=== PATIENT | female | born 1960 | race Caucasian/White ===

== ENCOUNTER → 2018-05-24 10:06 | Outpatient (CLI) | payer OTHER, SELFPAY ==
[2018-05-20 13:12] VITALS: BMI 24.4
--- NOTE | 2018-05-24 10:10 | BI_ITS ---
MAMMOGRAPHY - BILATERAL SCREENING REASON FOR EXAM: Female, 57 years old. Routine annual screening examination. PERTINENT HISTORY: Non-contributory. TECHNIQUE: Digital bilateral breast anthony (3D mammographic acquisition) in the CC and MLO projections. 2-D mediolateral oblique (MLO) and craniocaudad (CC) views of both breasts were obtained. CAD: Full Field Digital Mammography with Computer Added Detection was performed. COMPARISON: Comparison is made with prior mammogram dated April 30, 2017 and April 23, 2016. FINDINGS: Breast Composition: The breasts are extremely dense, which lowers the sensitivity of mammography. There are no dominant masses or suspicious calcifications. No other significant abnormalities are identified. There has been no significant change since the prior study. BI/SCREENING MAMM (CAD), BILAT IMPRESSION: Stable bilateral screening mammogram. Yearly follow-up mammogram recommended. (A) ASSESSMENT CATEGORY: BIRADS Category 1: Negative. A letter regarding these results will be sent to the patient by the facility within 30 days. Approximately 10% of breast cancers are not detected by mammography. A normal mammogram should not delay biopsy of a clinically suspicious abnormality. [id number] Electronically Signed: Farhan Lindsey MD at 10:59 EST Tel [phone], Service support ,
--- OUTSIDE RECORDS SUMMARY | 2018-07-18 19:43 | XMS RPT_ITS ---
:1960 Author Organization OHIP Care Team Providers Name Role Phone Stacie Dewitt Attending Unavailable Jodee Little Referring Unavailable Stacie Dewitt Attending Unavailable Stacie Dewitt Referring Unavailable Jodee Little Primary Care Unavailable PROBLEMS PROBLEMS DATE TYPE CONDITION / CODE ATTENDING STATUS SOURCE 05/20/2018 Unknown Z01.419 - Encounter Stacie Dewitt Active [place] for gynecological [facility] examination [facility] (general) (routine) Repository without abnormal findings / Z01.419(ICD-10) PROCEDURES PROCEDURES No Procedure Records FoundRESULTS RESULTS SCREENING MAMM (CAD), Observed: 05/24/2018 Status: F Source: [facility] BILAT 10:10 AM [facility] REPOSITORY [facility] Imaging Services [address] [place] [id number] SCREENING MAMM (CAD), BILAT MR#: [id number] Acct: [id number] Name: KATARINA GUPTA Rep #: [id number] : 1960 F 57 From: Farhan Lindsey MD PCP: Jodee Little DO Status: REG CLI Study: SCREENING MAMM (CAD), BILAT Date of Exam: 05/24/18 Exam# [id number] Ordering Dr: Stacie Dewitt SCHOOL CLERK-C MAMMOGRAPHY - BILATERAL SCREENING REASON FOR EXAM: Female, 57 years old. Routine annual screening examination. PERTINENT HISTORY: Non-contributory. TECHNIQUE: Digital bilateral breast anthony (3D mammographic acquisition) in the CC and MLO projections. 2-D mediolateral oblique (MLO) and craniocaudad (CC) views of both breasts were obtained. CAD: Full Field Digital Mammography with Computer Added Detection was performed. COMPARISON: Comparison is made with prior mammogram dated April 30, 2017 and April 23, 2016. FINDINGS: Breast Composition: The breasts are extremely dense, which lowers the sensitivity of mammography. There are no dominant masses or suspicious calcifications. No other significant abnormalities are identified. There has been no significant change since the prior study. BI/SCREENING MAMM (CAD), BILAT IMPRESSION: Stable bilateral screening mammogram. Yearly follow-up mammogram recommended. (A) ASSESSMENT CATEGORY: BIRADS Category 1: Negative. A letter regarding these results will be sent to the patient by the facility within 30 days. Approximately 10% of breast cancers are not detected by mammography. A normal mammogram should not delay biopsy of a clinically suspicious abnormality. [id number] Electronically Signed: Farhan Lindsey MD at 10:59 EST Tel [phone], Service support , CC: JAI Dewitt; Jodee Little DO Slitting Machine Feeder: Signed DECALER OFFICE VISIT Observed: 05/20/2018 Status: F Source: [facility] REPORT 1:32 PM [facility] [place] [id number] [place] [address] OFFICE VISIT Date of Service: 05/20/18 MR#: [id number] Acct: [id number] Name: KATARINA GUPTA Rep #: [id number] : 1960 Provider: JAI Dewitt Age/Sex: 57/F Location: [facility] Status: Signed Intake Vital Signs05/20/18 Height 5 ft 4 in 05/20/18 Weight: 142 lb 4 oz 05/20/18 Body Mass Index (BMI) 24.4 05/20/18 Blood Pressure 124/80 H Intake Visit Reasons: est annual,last seen 04/30/2017 Health And Safety Coordinator Required: No Is patient in pain?: No Allergies No Known Allergies Allergy (Verified 05/20/18 13:13) Medications Buspirone HCl 7.5 mg PO BID 03/29/16 [History Confirmed 05/20/18] Levothyroxine [Synthroid] 75 mcg PO DAILY 03/29/16 [History Confirmed 05/20/18] Lorazepam [Ativan] 0.5 mg PO DAILY PRN PRN 03/29/16 [History Confirmed 05/20/18] Nebivolol HCl [Bystolic (Beta Marcela)] 2.5 mg PO DAILY 03/29/16 [History Confirmed 05/20/18] Is last menstrual period known: No Post menopausal: No Patient : No : No PFSH Medical History Hypothyroidism (Acute) Social History number of children: 2 current occupational status: employed current occupation: [employer] Smoking Status: Never smoker alcohol intake: current alcohol intake frequency: holidays/special occasions only substance use type: does not use seatbelt use: always do you feel safe at home: Yes additional social history: [employer] Pregancy History 4 Elective abortions Hx Para 2 Spontaneous abortions HPI est annual,last seen 04/30/2017: Details: KATARINA GUPTA is a 57 year old who presents for annual exam. Last PAP: 2017 History of abnormal PAP: no Last mammogram: scheduled 05/24/18 History of abnormal mammogram: negative aspiration Colon cancer screening: none Female Reproductive History Questions: Metorrhagia: No, Sexually active: Yes, Dyspareunia: No, PCB: No ROS Const Constitutional: Denies fatigue, weight gain or weight loss Cardio Card: Denies chest pain Resp Resp: Denies cough or shortness of breath with activity GI GI: Denies abdominal pain, constipation, change in stools, vomiting or bloating : Reports as per HPI; denies urinary frequency, pelvic pain, urinary urgency, vaginal discharge, vaginal itching, urinary incontinence or difficulty urinating Exam Const General: cooperative, healthy appearing, no acute distress, well developed Orientation: alert, oriented to person, oriented to place [facility] Head: normal to inspection Neck Neck: normal visual inspection Thyroid: thyroid normal Lymphatic: no lymphadenopathy noted Chest Breast inspection: normal inspection of the breasts, normal inspection of the axillae Breast palpation: normal palpation of the breasts, normal palpation of the axillae, no axillary lymphadenopathy Resp Effort AND Inspection: normal respiratory effort GI Palpation: soft, nontender, no masses Rectal Exam: deferred External Female Exam: normal external appearance, normal appearance of the urethra Urethra: normal appearance of the urethra, normal palpation Speculum Exam - Vagina: normal appearance of the vagina, normal vaginal discharge Speculum Exam - Cervix: normal appearance of the cervix Bimanual Exam- Vagina AND Uterus: normal bimanual exam, uterine size normal, uterine shape normal, uterus non-tender Bimanual Exam- Adnexa, other: normal adnexae, no adnexal masses, adnexae non-tender, pelvic support normal Pelvic Support: normal Neuro General: alert, oriented x3 Psych Affect: normal affect Assessment AND Plan Problems 1. Encounter for gynecological examination without abnormal finding Z01.419 Plan Completed breast and pelvic exam Reviewed diet and exercise Pap 2016 Mammogram scheduled Colonoscopy declines RTO 1 year, prn with problems Stacie Dewitt HORSE BUYER Coding Level of Care Code Off vis,est,prev 40-64yrs Diagnoses Encounter for gynecological examination without abnormal finding Z01.419 Gynecological examination findings: abnormal findings ABSENT 05/20/18 1332 <Electronically signed by Stacie ESTEVEZC> Date Stacie Dewitt SCHOOL CLERK-C Cosigner Signature: Date (if applicable) CC: ALLERGIES ALLERGIES DATE TYPE / CODE NAME / CODE REACTION SEVERITY SOURCE 05/20/2018 Drug No Known Unknown [facility] Allergy/4160 Allergies/F00 Hospital 05981(SNOMED [id number](RXNOR Repository CT) M) ENCOUNTERS ENCOUNTERS ADMIT/DISCHARGE ACCOUNT ADMITTING ENCOUNTER LOCATION SOURCE NUMBER CLASS 05/24/2018 [id number] [place] [facility] ing:OPBI Repository 05/20/2018/ [id number] Ambulatory BMSBuilding:B [place] [address] [place] Repository PAYERS PAYERS ENCOUNTER GUARANTOR PAYER SUBSCRIBER SOURCE 05/24/2018 TJ Leyva Primary CLAU LHOTSKYDOB: [place] [id number] MCKEON Insurance:[employer] [id number] Number: [facility] [address]Rtx: 419 [id number] Repository [phone] () Date:7546-31-13WF [address], [place] [address]RL: 05/24/2018 Secondary NOT GIVENUNK [place] Insurance:SELF PAY [facility] Number: Effective Repository Date:2018-04-15 05/20/2018 Tj Leyva Primary CLAU LHOTSKYDOB: [place] [id number] [place] Insurance:Student [employer] [id number], [place] Number: [facility] [address]Isx: 419 [id number] Repository [phone] () Date:1024-08-55CI [address] [place] [address]IZ: 05/20/2018 Secondary NOT GIVENUNK [place] Insurance:SELF PAY [facility] Number: Effective Repository Date:2018-05-20
== END ==
PROVIDERS: Family Provider Internal Medicine; PCP Internal Medicine; Referring Provider Nurse Practitioner Women's Health; Visit Provider Nurse Practitioner Women's Health
DX: Z12.31 Encounter for screening mammogram for malignant neoplasm of breast (principal)
CPT/HCPCS: 77063; 77067

== ENCOUNTER → 2019-06-11 12:31 | Outpatient (CLI) | payer OTHER, SELFPAY ==
[2019-05-25 10:01] VITALS: BMI 24.4
--- NOTE | 2019-06-11 12:33 | BI_ITS ---
MAMMOGRAPHY - BILATERAL SCREENING REASON FOR EXAM: Female, 58 years old. Routine annual screening examination. PERTINENT HISTORY: Non-contributory. TECHNIQUE: Digital bilateral breast omari (3D mammographic acquisition) in the CC and MLO projections. 2-D mediolateral oblique (MLO) and craniocaudad (CC) views of both breasts were obtained. CAD: Full Field Digital Mammography with Computer Added Detection was performed. COMPARISON: Comparison is made with prior study dated May 24, 2018 and April 30, 2017. FINDINGS: Breast Composition: The breasts are extremely dense, which lowers the sensitivity of mammography. There are no dominant masses or suspicious calcifications. No other significant abnormalities are identified. There has been no significant change since the prior study. BI/SCREEN MAMM (CAD) W/OMARI BILAT IMPRESSION: Stable bilateral screening mammogram. Yearly follow-up mammogram recommended. (A) ASSESSMENT CATEGORY: BIRADS Category 1: Negative. A letter regarding these results will be sent to the patient by the facility within 30 days. Approximately 10% of breast cancers are not detected by mammography. A normal mammogram should not delay biopsy of a clinically suspicious abnormality. [id number] Electronically Signed: Farhan Lindsey, at 15:11 EST , Service support ,
== END ==
PROVIDERS: Family Provider Internal Medicine; PCP Internal Medicine; Referring Provider Nurse Practitioner Women's Health; Visit Provider Nurse Practitioner Women's Health
DX: Z12.31 Encounter for screening mammogram for malignant neoplasm of breast (principal)
CPT/HCPCS: 77063; 77067

== ENCOUNTER → 2020-06-13 10:11 | Outpatient (CLI) | payer OTHER, SELFPAY ==
[2019-05-25 10:01] VITALS: BMI 24.4
--- NOTE | 2020-06-13 10:13 | BI_ITS ---
MAMMOGRAPHY - BILATERAL SCREENING REASON FOR EXAM: Female, 59 years old. Routine annual screening examination. PERTINENT HISTORY: Non-contributory. TECHNIQUE: Digital bilateral breast omari (3D mammographic acquisition) in the CC and MLO projections. 2-D mediolateral oblique (MLO) and craniocaudad (CC) views of both breasts were obtained. CAD: Full Field Digital Mammography with Computer Added Detection was performed. COMPARISON: Comparison is made with prior study dated 06/11/2019 and 05/24/2018. FINDINGS: Breast Composition: The breasts are extremely dense, which lowers the sensitivity of mammography. There are no dominant masses or suspicious calcifications. Scattered benign-appearing bilateral calcifications. No other significant abnormalities are identified. There has been no significant change since the prior study. BI/SCREEN MAMM (CAD) W/OMARI BILAT IMPRESSION: Stable bilateral screening mammogram. Yearly follow-up mammogram recommended. (A) ASSESSMENT CATEGORY: BIRADS Category 2: Benign. A letter regarding these results will be sent to the patient by the facility within 30 days. Approximately 10% of breast cancers are not detected by mammography. A normal mammogram should not delay biopsy of a clinically suspicious abnormality. [id number] Electronically Signed: Farhan Lindsey, at 10:49 EST , Service support ,
[2020-06-15 14:24] LABS: HPV APTIMA, High Risk Negative (Negative)
== END ==
PROVIDERS: PCP Internal Medicine; Referring Provider Obstetrics & Gynecology; Visit Provider Obstetrics & Gynecology
DX: Z12.31 Encounter for screening mammogram for malignant neoplasm of breast (principal); Z12.4 Encounter for screening for malignant neoplasm of cervix
CPT/HCPCS: 77063; 77067; 87624; 88175; G0145

== ENCOUNTER 2020-09-17 18:53 | Observation (INO) | payer OTHER, SELFPAY ==
[2020-06-13 10:57] VITALS: BMI 23.8
[2020-09-17] VITALS (8 sets, daily range): BP systolic 143–158; BP diastolic 82–87; PULSE 81–106; RESP 10–18; TEMP 36.4–37; O2SAT 96–100; BMI 24.3; BMI 23.4
--- NOTE | 2020-09-17 18:57 | ED.RN ---
RN CALLED FOR EKG, PULLED OLD EKGS FOR
--- NOTE | 2020-09-17 19:08 | EKG12_ITS ---
Test Reason : CP Blood Pressure : / mmHG Vent. Rate : 107 BPM Atrial Rate : 107 BPM P-R Int : 138 ms QRS Dur : 092 ms QT Int : 340 ms P-R-T Axes : 055 081 021 degrees QTc Int : 453 ms Sinus tachycardia Nonspecific ST abnormality Abnormal ECG Confirmed by QUINTON WINKLER, MEET ([id number]), restaurant expeditor TREVA BOJORQUEZ ([id number]) on 09/19/2020 1:36:48 PM Referred By: WIN/HERMELINDO Confirmed By:MEET ALCANTARA MD
[2020-09-17] MEDS: 0.9% Normal Saline 1,000 ML 1000 ML IV (19:22)
[2020-09-17] MEDS: Aspirin 81 MG TAB.CHEW 324 MG PO (19:22)
[2020-09-17 19:23] LABS: Absolute Lymphocyte Count 4.15 X10^3/uL (0.83-4.51); Absolute Neutrophil Count 4.6 X10^3/uL (2.0-7.7); Basophil# 0.02 X10^3/uL; Basophil% 0.2 % (0-1); Eosinophil# 0.13 X10^3/uL; Eosinophils% 1.4 % (0-5); Hematocrit 43.6 % (37-47); Hemoglobin 14.1 g/dL (12.0-15.0); Lymphocyte # 4.15 X10^3/ul (4.0); Lymphocyte % 43.3 % (19-41); Mean Corp Hgb Conc 32.3 g/dL (32-36); Mean Corpuscular Hgb 29.5 pg (27.0-32.0); Mean Corpuscular Volume 91.2 fL (81-99); Mean Platelet Vol. 10.4 fl (6.2-12.0); Monocyte# 0.67 X10^3/uL; NRBC Flagged by Analyzer 0 % (0-5); Neutrophil # 4.59 X10^3/uL (2.7-7.7); Neutrophil % 47.9 % (47-70); Platelet Count 257 K/mm3 (150-450); RBC Distribution Width CV 12.6 % (11.6-14.6); Red Blood Count 4.78 M/mm3 (4.2-5.4); White Blood Count 9.6 K/mm3 (4.4-11.0)
--- NOTE | 2020-09-17 19:26 | RAD_ITS ---
HISTORY: chest pain ADDITIONAL HISTORY: None provided. EXAMINATION/TECHNIQUE: XR Chest 1 View AP/PA Number of images including paperwork: 1 COMPARISON: 04/05/2016 FINDINGS: LUNGS AND PLEURA: No consolidation, mass or pleural effusion. CARDIAC SILHOUETTE: Unremarkable. MEDIASTINUM AND JOSE: Aortic calcification. UPPER ABDOMEN: Unremarkable. SKELETON AND SOFT TISSUES: No acute skeletal findings. OTHER DEVICES AND HARDWARE: None. RAD/Chest 1 View (Portable) IMPRESSION: No acute cardiopulmonary abnormality. at 2009 Reported and signed by: Cecelia Waters MD Electronically Signed: Cecelia Waters MD at 20:09 EDT Tel , Service support ,
[2020-09-17 19:53] LABS: AST(SGOT) 21 U/L (15-37); Alanine Aminotransfer ALT/SGPT 25 U/L (13-56); Albumin, Serum 4.3 g/dL (3.2-5.0); Alkaline Phosphatase 108 U/L (45-117); Anion Gap 10 (5-15); BUN 23 mg/dL (7-18); BUN/Creat Ratio 27.4 RATIO (10-20); Calcium,Total 9.3 mg/dL (8.5-10.1); Chloride 99 mmol/L (98-107); Creatinine, Serum 0.84 mg/dL (0.55-1.02); EST Glomerular Filtration Rate 74 mL/min (>60); Est Glom Filt Rate - Afr Amer 89 mL/min (>60); Globulin 3.2 g/dL (2.2-4.2); Glucose 131 mg/dL (74-106); Lipase 133 U/L (73-393); Potassium 4.3 mmol/L (3.5-5.1); Protein, Total 7.5 g/dL (6.4-8.2); Sodium Level 136 mmol/L (136-145); Thyroid Stim Hormone (TSH) 3.24 uIU/mL (0.358-3.74)
--- NOTE | 2020-09-17 20:16 | CT_ITS ---
HISTORY: Epigastric pain ADDITIONAL HISTORY: None provided. EXAMINATION/TECHNIQUE: CT Abdomen And Pelvis W/ Contrast Injection CONTRAST: 100mL Isovue-370 IV contrast. Enteric contrast was not given. A radiation dose optimization technique was used for this scan. Number of images including paperwork: 345 COMPARISON: None FINDINGS: LOWER THORAX: No consolidation or pleural effusion. Minimal basilar atelectasis. LIVER: No concerning focal lesion. GALLBLADDER: No radiopaque calculi. BILE DUCTS: No significant biliary dilatation. SPLEEN: Unremarkable. PANCREAS: Unremarkable. ADRENAL GLANDS: Unremarkable. KIDNEYS/URETERS: Unremarkable. BOWEL: No bowel obstruction. No significant bowel wall thickening. No localized inflammation. APPENDIX: No evidence of appendicitis. FREE FLUID: No significant free fluid. FREE AIR: None. LYMPH NODES: No pathologic appearing adenopathy. PERITONEUM, RETROPERITONEUM AND MESENTERY: Otherwise unremarkable. VASCULATURE: Unremarkable as imaged. PELVIS: Unremarkable bladder. Multiple uterine masses compatible with fibroids. ABDOMINAL WALL: Unremarkable. OSSEOUS AND SOFT TISSUE STRUCTURES: No acute skeletal findings. Degenerative changes. CT/Abdomen/Pelvis W IV Cont ONLY IMPRESSION: No acute abdominopelvic abnormality. Individualized dose optimization techniques were used for this CT. at 2052 Reported and signed by: Cecelia Waters MD Electronically Signed: Cecelia Waters MD at 20:52 EDT Tel , Service support ,
[2020-09-17] MEDS: Ondansetron 4 MG/2 ML Vial IV (20:20)
--- NOTE | 2020-09-17 20:30 | ED.VISSUMM ---
- ER Visit Summary Date of Service: 09/17/20 Chief Complaint: Chest pain History of Present Illness: The patient is a [address] Dominguez. She reports she has chest pain again approximate 20 minutes ago while she was cooking. It is a dull pain is 3-10 worsened to 10 currently. States it is worsening worsened by nothing including exertion or deep breaths. Is also relieved by nothing. She reports has been nauseated and diaphoretic with this. She also complains of palpitations. States that initially the pain radiated into her left lower quadrant and she had an episode of diarrhea. No blood in her stools. Patient denies any chest pain or change in dyspnea exertion in the past month. However, she does report that she has intermittent left-sided chest pain that radiates into her abdomen that does not seem to be related to exertion. She had a stress test a long time ago. She has never had a heart catheterization. Physical Examination: Vitals: Stable. Afebrile. General: Well-nourished and well-developed. Head: Normocephalic atraumatic. Neck: Supple, no lymphadenopathy. No JVD. Nontender. Cardiovascular: Regular rate and rhythm. No murmurs. Respiratory: No respiratory distress. Clear to auscultation bilaterally. Abdominal: Soft, nontender, nondistended, normal bowel sounds. No guarding, rebound, or peritoneal signs. Back: Nontender. Extremities: Nontender, no edema. Skin: Normal color, no rash. Neurologic: Alert and oriented ?3. Cranial nerves II through XII are intact. Normal strength and sensation. Psych: Normal affect. Test Results: EKG is sinus tach at [address] changes. There is ST depression in leads V3, V4 II, III, and aVF. This is not significantly changed from March 2016. Troponin is negative. LFTs are normal. Lipase is normal. Chem-7 shows a BUN of 23 and glucose 131. CBC shows lymphocytes 43. TSH 3.24. Clinical Impression(s) from Imaging Studies Chest X-Ray 09/17/20 19:26 IMPRESSION: No acute cardiopulmonary abnormality. at 2009 Reported and signed by: Cecelia Waters MD Electronically Signed: Cecelia Waters MD at 20:09 EDT Tel , Service support , Abdomen/Pelvis CT 09/17/20 20:16 IMPRESSION: No acute abdominopelvic abnormality. Individualized dose optimization techniques were used for this CT. at 2052 Reported and signed by: Cecelia Waters MD Electronically Signed: Cecelia Waters MD at 20:52 EDT Tel , Service support , Emergency Department Course and Treatment: Patient was treated with aspirin and Zofran. She is resting comfortably. She is pain-free at this time. Treatment Plan: Had a prolonged discussion with the patient about treatment options. Given her EKG changes I feel that the most safe choice is admission for further evaluation. She has agreed to this. She will be discussed with Dr. Marsh. Disposition: Admitted in improved condition. Impression: 1. Atypical chest pain. 2. Heart score of 3. 3. Diarrhea. This note was generated with [employer] dictation software. It may contain incorrect words, spelling, and punctuation that were not noted in review of the chart prior to signing ED Disposition - Plan for ED Patient: Referrals: Jodee Little DO [Primary Care Provider] -
--- NOTE | 2020-09-17 21:21 | HP.PCM_ITS ---
Problem List (1) Atypical chest pain Status: Acute (2) History of hypertension Status: Chronic (3) Anxiety and depression Status: Chronic (4) Panic attacks Status: Chronic (5) Hypothyroidism Status: Chronic Qualifiers: Hypothyroidism type: unspecified Qualified Code(s): E03.9 - Hypothyroidism, unspecified History of Present Illness Date of Admission: 09/17/20 Chief Complaint: Chest pain, LUQ pain, diarrheal episode. The patient is a 60 y/o F w/ PMHx: Hypothyroidism, Anxiety and Depression, HTN not on regimen who presents to the [facility] ED on 09/17/20 with history of sudden onset lower and midsternal chest pain starting ~ 20 minutes prior to ED arrival to be dull in nature, continuous, rated 2-3 out of 10 in severity which then radiated to her left lower quadrant with onset of nausea, diaphoresis and eventual episode of diarrhea prompting ED arrival. Patient does admit that she has had a similar presentation with palpitations sensation and onset of diarrhea prior and has had Holter monitor evaluation previously. 2016 review of Holter monitor study demonstrated no correlation between patient reported palpitations and actual rate on monitor with a maximum rate up to 114 at that time. Patient does report that she has had a very remote stress test which was not marked appearing but it is not available in current [employer] data. Patient reported that her chest pain had resolved while she was in the emergency room but she co ntinued to have left upper quadrant mild discomfort. Patient does report history of panic attacks and does have GI issues with this. She also notes that she had recently taken herself off of her sertraline and has been restarting it with a dose increase just this prior week with more GI recent side effects. Patient does admit to worsening depression and anxiety especially given that her and her are now at home and her children have transitioned out of the house. Discussed at length concept of developing hobbies and healthy lifestyle activities to assist with control of her depression anxiety. Patient and her given names of counselors in the region. Upon ED evaluation patient did not have any abdominal discomfort or chest pain at that time. Work-up in the ED included T 97.6, heart rate initially 106 with improvement 81, BP initially 158/87 with improvement to 145/86, respiratory rate 18, 100% on room air, CBC with WBC 9.6, hemoglobin 14.1, platelet 257 without marked shift, CMP with BUN/: 23/0.84, glucose 131 otherwise unremarkable, troponin less than 0.015, lipase 133, TSH 3.24, chest x-ray with no acute cardiopulmonary findings, EKG with sinus tachycardia with specific ST changes with ST depressions in leads V3, V4, II, III and aVF although not significantly changed from March 2016, CT abdomen and pelvis w/ no acute intra-abdominal abnormality. In the ED patient administered aspirin, Zofran, normal saline. Past Medical History Past Medical History (Chronic Problems): Chronic Problems (Last Reviewed 06/13/20 @ 10:56 by Edwige Vega) History of hypertension (Chronic) Anxiety and depression (Chronic) Panic attacks (Chronic) Hypothyroidism (Chronic) Medical History: Medical History (Last Reviewed 06/13/20 @ 10:56 by Edwige Vega) Hypothyroidism E03.9 Allergies No Known Allergies Allergy (Verified 06/13/20 10:54) Home Medications: Ambulatory Orders Medication Instructions Recorded Levothyroxine [Synthroid] 75 mcg PO DAILY 03/29/16 cholecalciferol (vitamin D3) 50 2,000 unit PO DAILY 05/25/19 mcg (2,000 unit) capsule ascorbate calcium (vitamin C) 500 500 mg PO DAILY 06/13/20 mg tablet Sertraline HCl 50 mosm PO DAILY 09/17/20 Surgical History: no surgical history Psychiatric History: Anxiety, Depression [employer] History: No pertinent [employer] TE[employer]ER history Lives: Spouse/ Significant Other Smoking Status: Never smoker Tobacco Use: Non-smoker Alcohol: None Drugs: None - *Family History Maternal History Items: Hypertension Paternal History Items: - - Paternal at age 6060 years old secondary to ruptured aneurysm. Review of Systems Constitutional: Reports: Fatigue. Denies: Anorexia, Chills, Fever, Malaise, Weakness, Weight Change HEENT: Denies: Head Aches, Sinus Congestion, Sinus Drainage Cardiovascular: Reports: Chest Pain, Chest Pressure. Denies: Heaviness, Light Headedness, Palpitations Respiratory: Denies: Cough, Shortness of Breath, Shortness of breath at rest, Shortness of breath upon exertion, Sputum production Gastrointestinal: Reports: Abdominal Pain, Diarrhea, Nausea. Denies: Vomiting Genitourinary: Denies: Dysuria Musculoskeletal: Denies: Joint Pain, Joint Tenderness Skin: Denies: Rash, Wounds Neurological: Denies: Numbness, Tingling, Focal weakness Psychiatric: Reports: Anxiety, Depression. Denies: Homicidal Ideations, Suicidal Ideations Hematologic/ Lymphatic: Denies: Easy Bruising, Easy Bleeding VTE Information - Inpt Only VTE Present on Admission: No VTE Mechan Device Prophylaxis: SCD's VTE Pharm Prophylaxis ordered?: Yes Patient Problems: Active and Suspected Problems (Last Reviewed 06/13/20 @ 10:56 by Edwige Vega) Atypical chest pain (Acute) Subjective: Patient seated upright in the ED bed, no acute distress, no current chest discomfort abdominal pain, discussed at length patient's underlying anxiety and depression which have been worse with history of panic attacks. Objective: Physical Examination: General: awake, alert, oriented x 3 and cooperative, seated upright in the ED bed, no acute distress, no chest discomfort or abdominal pain at this time, evident anxiety following lengthy discussions as well as depression which is being treated with recent increase of her medication. Skin: normal color, turgor, no icterus, cyanosis. HEENT: AT/NC, EOMI, PERRLA, MMM, no carotid bruits or JVD noted. Lungs: Clear to auscultation bilaterally, appropriate effort, no rales, ronchi or wheezing. Heart: Mildly tachycardic with regular rhythm; no gallop, rub audible. Abdomen: soft, NTTP, ND, normal BS, no HSM. Extremities: no cyanosis, clubbing, or edema. Neurological: patient awake, alert, oriented as noted; cognitive function intact; pupils equally reactive to light and accomodation; cranial nerves II-XII grossly normal, moving all 4 extremities, no focal deficits, strength preserved. Psychiatric: affect appears mildly anxious, fatigued, does have underlying depression and anxiety as well as panic attacks, notes recent increase of her antidepressant. - Physical Exam Vitals/I&O's: Vital Signs Temp Pulse Resp BP Pulse Ox 98.3 F 97 16 148/84 H 100 09/17/20 21:16 09/17/20 21:16 09/17/20 21:16 09/17/20 21:16 09/17/20 21:16 Oxygen Delivery Method Room Air Weight: 141 lb 5.061 oz Body Mass Index (BMI) 24.3 Intake and Output for Last 24 Hours 09/15/20 09/16/20 09/17/20 23:59 23:59 23:59 Intake Total 1000 / 1000 Balance 1000 / 1000 Laboratory Results 09/17/20 19:15: WBC 9.6, RBC 4.78, Hgb 14.1, Hct 43.6, MCV 91.2, MCH 29.5, MCHC 32.3, RDW Std Deviation 42.0, RDW Coeff of Ihsan 12.6, Plt Count 257, MPV 10.4, Immature Gran % (Auto) 0.200, Neut % (Auto) 47.9, Lymph % (Auto) 43.3 H, [place] % (Auto) 7.0, Eos % (Auto) 1.4, Baso % (Auto) 0.2, Absolute Neuts (auto) 4.6, Absolute Lymphs (auto) 4.15, Nucleated RBC % 0 09/17/20 19:15: Sodium 136, Potassium 4.3, Chloride 99, Carbon Dioxide 27.0, Anion Gap 10, BUN 23 H, Creatinine 0.84, Estim Creat Clear Calc 61.50, Est GFR (MDRD) Af Amer 89, Est GFR (MDRD) Non-Af 74, BUN/Creatinine Ratio 27.4 H, Glucose 131 H, Calcium 9.3, Total Bilirubin 0.30, Direct Bilirubin 0.10, AST 21, ALT 25, Alkaline Phosphatase 108, Troponin I < 0.015, Total Protein 7.5, Albumin 4.3, Globulin 3.2, Lipase 133, TSH 3.24 Assessment/Plan All Active Problems (Last Reviewed 06/13/20 @ 10:56 by Edwige Vega) Atypical chest pain (Acute) The patient is a 60 y/o F w/ PMHx: Hypothyroidism, Anxiety and Depression, HTN not on regimen who presents to the [facility] ED on 09/17/20 with history of sudden onset lower and midsternal chest pain starting ~ 20 minutes prior to ED arrival to be dull in nature, continuous, rated 2-3 out of 10 in severity which then radiated to her left lower quadrant with onset of nausea, diaphoresis and eventual episode of diarrhea prompting ED arrival. 1. Chest Pain with associated left upper quadrant transient abdominal pain with diarrheal episode, unclear specific etiology with EKG changes: Patient with significantly atypical chest pain presentation with also associated diarrheal episode and left upper quadrant transient pain. CT abdomen and pelvis unr emarkable. EKG with sinus tachycardia with specific ST changes with ST depressions in leads V3, V4, II, III and aVF although not significantly changed from March 2016, CXR w/ no acute cardiopulmonary findings, initial trop less than 0.015. Given patient EKG and atypical presentation although not marked concerning history aside noted elevated BP without hypertensive diagnosis to be cautious, will admit to PCU, place on a monitored bed to assure no acute myocardial infarction with serial cardiac enzymes and EKGs. If repeat cardiac enzymes and EKGs remain unremarkable adalid lobtain stress testing on Saturday. If onset recurrent diarrhea may consider stool cultures. Given that this is a chronic presentation from patient description lower suspicion for Covid. Magnesium level requested. FLP in AM. ASA, NG, morphine. 2. History of hypertension not on medications: ED presentation with elevated BP, not on any regimen with prior history of hypertension but she notes she had been off of this secondary to significant weight loss, will continue to monitor and add oral regimen if appropriate, as needed IV hydralazine in interim. 3. Anxiety and depression, uncontrolled with history of panic attacks: We will continue patient home sertraline regimen and did educate patient at length to avoid discontinuation suddenly of this medication and continue to titrate upward with likely improvement of her GI symptoms given she had been successfully on this previously. Name of counseling facility as well as counselor in [place] given to her and her . 4. Hypothyroidism: Continue home levothyroxine regimen, TSH level normal 3.24. 5. Hyperglycemia: Admission glucose 131, possibly stress response, will obtain A1c to be cautious. 6. DVT prophylaxis: SCDs, Lovenox. OBSV E&M: 34888 Initial observation care L3
--- NOTE | 2020-09-17 22:14 | EKG12_ITS ---
Test Reason : CP ADMIT Blood Pressure : / mmHG Vent. Rate : 085 BPM Atrial Rate : 085 BPM P-R Int : 138 ms QRS Dur : 078 ms QT Int : 380 ms P-R-T Axes : 059 080 046 degrees QTc Int : 452 ms Normal sinus rhythm Normal ECG When compared with ECG of 05-APR-2016 04:12, No significant change was found Confirmed by QUINTON WINKLER, MEET ([id number]), avid editor TREVA BOJORQUEZ ([id number]) on 09/20/2020 10:50:13 AM Referred By: DR JENSEN Confirmed By:MEET ALCANTARA MD
[2020-09-17 22:37] LABS: Magnesium 2.2 mg/dL (1.6-2.6)
[2020-09-17] MEDS: Famotidine 20 MG Tablet PO (23:41)
[2020-09-18] VITALS (9 sets, daily range): BP systolic 115–142; BP diastolic 58–83; PULSE 74–84; RESP 16–18; TEMP 36.8–37.3; O2SAT 96–98
[2020-09-18] MEDS: 0.9% Normal Saline 1,000 ML 100 ML IV (01:11)
[2020-09-18 01:14] LABS: Absolute Lymphocyte Count 1.48 X10^3/uL (0.83-4.51); Absolute Neutrophil Count 5.1 X10^3/uL (2.0-7.7); Basophil# 0.02 X10^3/uL; Basophil% 0.3 % (0-1); Eosinophil# 0.01 X10^3/uL; Eosinophils% 0.1 % (0-5); Hematocrit 41.2 % (37-47); Hemoglobin 13.5 g/dL (12.0-15.0); Lymphocyte # 1.48 X10^3/ul (4.0); Lymphocyte % 21.7 % (19-41); Mean Corp Hgb Conc 32.8 g/dL (32-36); Mean Corpuscular Hgb 29.3 pg (27.0-32.0); Mean Corpuscular Volume 89.4 fL (81-99); Mean Platelet Vol. 9.9 fl (6.2-12.0); Monocyte# 0.23 X10^3/uL; Monocyte% 3.4 % (0-10); NRBC Flagged by Analyzer 0 % (0-5); Neutrophil # 5.05 X10^3/uL (2.7-7.7); Neutrophil % 74.2 % (47-70); Platelet Count 241 K/mm3 (150-450); RBC Distribution Width CV 12.5 % (11.6-14.6); RBC Distribution Width SD 40.9 fl (35.1-43.9); Red Blood Count 4.61 M/mm3 (4.2-5.4); White Blood Count 6.8 K/mm3 (4.4-11.0)
[2020-09-18 01:33] LABS: Hemoglobin A1c 5.1 % (3.8-5.6)
[2020-09-18 01:48] LABS: ALB/GLOB Ratio 1.2 RATIO (0.9-2.4); AST(SGOT) 11 U/L (15-37); Alanine Aminotransfer ALT/SGPT 19 U/L (13-56); Albumin, Serum 3.7 g/dL (3.2-5.0); Alkaline Phosphatase 89 U/L (45-117); Anion Gap 4 (5-15); BUN 16 mg/dL (7-18); BUN/Creat Ratio 20.9 RATIO (10-20); Calcium,Total 8.9 mg/dL (8.5-10.1); Chloride 106 mmol/L (98-107); Cholesterol 186 mg/dL (200); Creatinine, Serum 0.76 mg/dL (0.55-1.02); EST Glomerular Filtration Rate 82 mL/min (>60); Est Glom Filt Rate - Afr Amer 99 mL/min (>60); Estimated Creatinine Clearance 67.98 ml/min; Globulin 3.1 g/dL (2.2-4.2); Glucose 117 mg/dL (74-106); High Density Lipoprotein 72 mg/dL; Potassium 3.9 mmol/L (3.5-5.1); Protein, Total 6.8 g/dL (6.4-8.2); Sodium Level 138 mmol/L (136-145); Triglycerides 28 mg/dL; Very Low Density Lipoprotein 6 mg/dL (5-40)
[2020-09-18] MEDS: Levothyroxine 75 MCG Tablet PO (05:03)
--- NOTE | 2020-09-18 05:55 | EKG12_ITS ---
Test Reason : AM EKG Blood Pressure : / mmHG Vent. Rate : 078 BPM Atrial Rate : 078 BPM P-R Int : 138 ms QRS Dur : 080 ms QT Int : 372 ms P-R-T Axes : 062 080 042 degrees QTc Int : 424 ms Normal sinus rhythm Normal ECG When compared with ECG of 17-SEP-2020 22:29, MANUAL COMPARISON REQUIRED, DATA IS UNCONFIRMED Confirmed by QUINTON WINKELR, MEET ([id number]), make up editor TREVA BOJORQUEZ ([id number]) on 09/20/2020 10:49:15 AM Referred By: DR JENSEN Confirmed By:MEET ALCANTARA MD
[2020-09-18] MEDS: Aspirin E.C. 81 MG Tablet PO (08:33)
[2020-09-18] MEDS: Enoxaparin 40 MG/0.4 ML Syringe SC (08:33)
[2020-09-18] MEDS: Famotidine 20 MG Tablet PO ×2 (08:34→20:38)
[2020-09-18] MEDS: Sertraline 50 MG Tablet PO (08:34)
--- NOTE | 2020-09-18 11:42 | PCM.PROGNOTE ---
<Debora Pierce ARTIST'S REPRESENTATIVE - Last Filed: 09/18/20 11:45> Patient Problems: Active and Suspected Problems (Last Reviewed 06/13/20 @ 10:56 by Edwige Vega) Atypical chest pain (Acute) Subjective: Patient seen and examined. Complains of acid reflux. Denies further chest pain. - Physical Exam Vitals/I&O's: Vital Signs Temp Pulse Resp BP Pulse Ox 98.5 F 75 18 128/69 H 97 09/18/20 08:22 09/18/20 08:22 09/18/20 08:22 09/18/20 08:22 09/18/20 08:22 Oxygen Delivery Method Room Air Weight: 135 lb 12.876 oz Body Mass Index (BMI) 23.4 Intake and Output for Last 24 Hours 09/16/20 09/17/20 09/18/20 23:59 23:59 23:59 Intake Total 1120 / 1120 933 / 933 Output Total 0 / 0 Balance 1120 / 1120 933 / 933 General: Alert, Oriented x3, Cooperative HEENT: Atraumatic, PERRLA, EOMI, Normocephalic Neck: Supple, No JVD, Negative Carotid Bruits Lungs: Clear to auscultation, Normal air movement Cardiovascular: Regular rate, No murmurs Abdomen: Bowel Sounds Present, Soft, Non Tender Extremities: No clubbing, No cyanosis, No edema, Capillary Refill Less than 3 Seconds Skin: No rashes, No breakdown Musculoskeletal: No Tenderness to Palpation of Joints or Extremities Neurological: Cranial nerves II-XII grossly intact, Neuro grossly intact Psych/Mental Status: Normal Affect, Appropriate Laboratory Results 09/17/20 19:15: WBC 9.6, RBC 4.78, Hgb 14.1, Hct 43.6, MCV 91.2, MCH 29.5, MCHC 32.3, RDW Std Deviation 42.0, RDW Coeff of Ihsan 12.6, Plt Count 257, MPV 10.4, Immature Gran % (Auto) 0.200, Neut % (Auto) 47.9, Lymph % (Auto) 43.3 H, [place] % (Auto) 7.0, Eos % (Auto) 1.4, Baso % (Auto) 0.2, Absolute Neuts (auto) 4.6, Absolute Lymphs (auto) 4.15, Nucleated RBC % 0 09/17/20 19:15: Sodium 136, Potassium 4.3, Chloride 99, Carbon Dioxide 27.0, Anion Gap 10, BUN 23 H, Creatinine 0.84, Estim Creat Clear Calc 61.50, Est GFR (MDRD) Af Amer 89, Est GFR (MDRD) Non-Af 74, BUN/Creatinine Ratio 27.4 H, Glucose 131 H, Calcium 9.3, Total Bilirubin 0.30, Direct Bilirubin 0.10, AST 21, ALT 25, Alkaline Phosphatase 108, Troponin I < 0.015, Total Protein 7.5, Albumin 4.3, Globulin 3.2, Lipase 133, TSH 3.24 09/17/20 19:15: Magnesium 2.2 09/17/20 22:40: Troponin I < 0.015 09/18/20 01:06: WBC 6.8, RBC 4.61, Hgb 13.5, Hct 41.2, MCV 89.4, MCH 29.3, MCHC 32.8, RDW Std Deviation 40.9, RDW Coeff of Ihsan 12.5, Plt Count 241, MPV 9.9, Immature Gran % (Auto) 0.300, Neut % (Auto) 74.2 H, Lymph % (Auto) 21.7, [place] % (Auto) 3.4, Eos % (Auto) 0.1, Baso % (Auto) 0.3, Absolute Neuts (auto) 5.1, Absolute Lymphs (auto) 1.48, Nucleated RBC % 0 09/18/20 01:06: Sodium 138, Potassium 3.9, Chloride 106, Carbon Dioxide 28.0, Anion Gap 4 L, BUN 16, Creatinine 0.76, Estim Creat Clear Calc 67.98, Est GFR (MDRD) Af Amer 99, Est GFR (MDRD) Non-Af 82, BUN/Creatinine Ratio 20.9 H, Glucose 117 H, Calcium 8.9, Total Bilirubin 0.30, AST 11 L, ALT 19, Alkaline Phosphatase 89, Total Protein 6.8, Albumin 3.7, Globulin 3.1, Albumin/Globulin Ratio 1.2, Triglycerides 28, Cholesterol 186, LDL Cholesterol 108, VLDL Cholesterol 6, HDL Cholesterol 72 09/18/20 01:06: Hemoglobin A1c 5.1 09/18/20 01:06: Troponin I < 0.015 Current Medications Acetaminophen (Acetaminophen 325 Mg Tablet) 650 mg PO Q6H PRN PRN PRN Reason: Pain Score 1-10/Temp > 100.7 F Al Hydroxide/Mg Hydroxide (Mag Hydrox/Al Hydrox/Simeth 30 Ml Udc) 30 ml PO Q6H PRN PRN PRN Reason: Gastric Burning Albuterol Sulfate (Albuterol 2.5 Mg/3 Ml Vial.Neb.) 2.5 mg INHALATION Q2H PRN PRN PRN Reason: Dyspnea, wheezing Aspirin (Aspirin E.C. 81 Mg Tablet) 81 mg PO DAILY@0800 [facility] Last Admin: 09/18/20 08:33 Dose: 81 mg Documented by: Enoxaparin Sodium (Enoxaparin 40 Mg/0.4 Ml Syringe) 40 mg SC DAILY [facility] Last Admin: 09/18/20 08:33 Dose: 40 mg Documented by: Famotidine (Famotidine 20 Mg Tablet) 20 mg PO BID [facility] Last Admin: 09/18/20 08:34 Dose: 20 mg Documented by: Guaifenesin (Guaifenesin 10 Ml Udc (200mg/10ml)) 20 ml PO Q4H PRN PRN PRN Reason: COUGH Hydralazine HCl (Hydralazine 20 Mg/Ml Vial) 10 mg IV Q4H PRN PRN PRN Reason: SBP > 160 Levothyroxine Sodium (Levothyroxine 75 Mcg Tablet) 75 mcg PO DAILY@0600 [facility] Last Admin: 09/18/20 05:03 Dose: 75 mcg Documented by: Morphine Sulfate (Morphine 2 Mg/Ml Syringe) 2 mg IV Q3H PRN PRN PRN Reason: Pain Score 6-10 Nitroglycerin (Nitroglycerin (Inpatient Use) 0.4 Mg Tab.Subl) 0.4 mg SL Q5M PRN PRN Reason: CARDIAC/CHEST PAIN Ondansetron HCl (Ondansetron 4 Mg/2 Ml Vial) 4 mg IV Q8H PRN PRN PRN Reason: NAUSEA/VOMITING Oxycodone HCl (Oxycodone 5 Mg Tablet) 5 mg PO Q4H PRN PRN PRN Reason: Pain Score 4-5 Prochlorperazine Edisylate (Prochlorperazine 10 Mg/2 Ml Vial) 5 mg IV Q4H PRN PRN PRN Reason: Breakthrough Nausea/Vomiting Sertraline HCl (Sertraline 50 Mg Tablet) 50 mg PO DAILY [facility] Last Admin: 09/18/20 08:34 Dose: 50 mg Documented by: Sodium Chloride (0.9% Saline Lock 10 Ml Syringe) 10 - 40 ml IV UD PRN PRN Reason: SALINE FLUSH Temazepam (Temazepam 15 Mg Capsule) 15 mg PO QHS PRN PRN PRN Reason: INSOMNIA Throat Lozenges (Benzocaine/Menthol 1 Lozenge) 1 lozenge MUCOUS MEM Q2H PRN PRN PRN Reason: SORE THROAT Medical Necessity - Tobacco Use Smoking Status: Never smoker Tobacco Use: Non-smoker Assessment/Plan All Active Problems (Last Reviewed 06/13/20 @ 10:56 by Edwige Vega) Atypical chest pain (Acute) 1. Atypical chest pain-troponin negative. EKG without acute changes, nonspecific ST changes. Chest x-ray unremarkable. Plan for stress echo in a.m. 2. Hypertension-no longer on regimen, monitor BP. 3. Anxiety/depression-continue Synthroid regimen. 4. Hypothyroidism-continue Synthroid regimen. DVT prophylaxis-Lovenox subcu This patient was seen by MARBELLA Vazquez under the supervision of Dr. Hull. <Song Hull F - Last Filed: 09/18/20 11:59> - Physical Exam Vitals/I&O's: Vital Signs Temp Pulse Resp BP Pulse Ox 98.5 F 75 18 128/69 H 97 09/18/20 08:22 09/18/20 08:22 09/18/20 08:22 09/18/20 08:22 09/18/20 08:22 Oxygen Delivery Method Room Air Weight: 135 lb 12.876 oz Body Mass Index (BMI) 23.4 Intake and Output for Last 24 Hours 09/16/20 09/17/20 09/18/20 23:59 23:59 23:59 Intake Total 1120 / 1120 933 / 933 Output Total 0 / 0 Balance 1120 / 1120 933 / 933 Laboratory Results 09/17/20 19:15: WBC 9.6, RBC 4.78, Hgb 14.1, Hct 43.6, MCV 91.2, MCH 29.5, MCHC 32.3, RDW Std Deviation 42.0, RDW Coeff of Ihsan 12.6, Plt Count 257, MPV 10.4, Immature Gran % (Auto) 0.200, Neut % (Auto) 47.9, Lymph % (Auto) 43.3 H, [place] % (Auto) 7.0, Eos % (Auto) 1.4, Baso % (Auto) 0.2, Absolute Neuts (auto) 4.6, Absolute Lymphs (auto) 4.15, Nucleated RBC % 0 09/17/20 19:15: Sodium 136, Potassium 4.3, Chloride 99, Carbon Dioxide 27.0, Anion Gap 10, BUN 23 H, Creatinine 0.84, Estim Creat Clear Calc 61.50, Est GFR (MDRD) Af Amer 89, Est GFR (MDRD) Non-Af 74, BUN/Creatinine Ratio 27.4 H, Glucose 131 H, Calcium 9.3, Total Bilirubin 0.30, Direct Bilirubin 0.10, AST 21, ALT 25, Alkaline Phosphatase 108, Troponin I < 0.015, Total Protein 7.5, Albumin 4.3, Globulin 3.2, Lipase 133, TSH 3.24 09/17/20 19:15: Magnesium 2.2 09/17/20 22:40: Troponin I < 0.015 09/18/20 01:06: WBC 6.8, RBC 4.61, Hgb 13.5, Hct 41.2, MCV 89.4, MCH 29.3, MCHC 32.8, RDW Std Deviation 40.9, RDW Coeff of Ihsan 12.5, Plt Count 241, MPV 9.9, Immature Gran % (Auto) 0.300, Neut % (Auto) 74.2 H, Lymph % (Auto) 21.7, [place] % (Auto) 3.4, Eos % (Auto) 0.1, Baso % (Auto) 0.3, Absolute Neuts (auto) 5.1, Absolute Lymphs (auto) 1.48, Nucleated RBC % 0 09/18/20 01:06: Sodium 138, Potassium 3.9, Chloride 106, Carbon Dioxide 28.0, Anion Gap 4 L, BUN 16, Creatinine 0.76, Estim Creat Clear Calc 67.98, Est GFR (MDRD) Af Amer 99, Est GFR (MDRD) Non-Af 82, BUN/Creatinine Ratio 20.9 H, Glucose 117 H, Calcium 8.9, Total Bilirubin 0.30, AST 11 L, ALT 19, Alkaline Phosphatase 89, Total Protein 6.8, Albumin 3.7, Globulin 3.1, Albumin/Globulin Ratio 1.2, Triglycerides 28, Cholesterol 186, LDL Cholesterol 108, VLDL Cholesterol 6, HDL Cholesterol 72 09/18/20 01:06: Hemoglobin A1c 5.1 09/18/20 01:06: Troponin I < 0.015 Current Medications Acetaminophen (Acetaminophen 325 Mg Tablet) 650 mg PO Q6H PRN PRN PRN Reason: Pain Score 1-10/Temp > 100.7 F Al Hydroxide/Mg Hydroxide (Mag Hydrox/Al Hydrox/Simeth 30 Ml Udc) 30 ml PO Q6H PRN PRN PRN Reason: Gastric Burning Albuterol Sulfate (Albuterol 2.5 Mg/3 Ml Vial.Neb.) 2.5 mg INHALATION Q2H PRN PRN PRN Reason: Dyspnea, wheezing Aspirin (Aspirin E.C. 81 Mg Tablet) 81 mg PO DAILY@0800 [facility] Last Admin: 09/18/20 08:33 Dose: 81 mg Documented by: Enoxaparin Sodium (Enoxaparin 40 Mg/0.4 Ml Syringe) 40 mg SC DAILY [facility] Last Admin: 09/18/20 08:33 Dose: 40 mg Documented by: Famotidine (Famotidine 20 Mg Tablet) 20 mg PO BID [facility] Last Admin: 09/18/20 08:34 Dose: 20 mg Documented by: Guaifenesin (Guaifenesin 10 Ml Udc (200mg/10ml)) 20 ml PO Q4H PRN PRN PRN Reason: COUGH Hydralazine HCl (Hydralazine 20 Mg/Ml Vial) 10 mg IV Q4H PRN PRN PRN Reason: SBP > 160 Levothyroxine Sodium (Levothyroxine 75 Mcg Tablet) 75 mcg PO DAILY@0600 [facility] Last Admin: 09/18/20 05:03 Dose: 75 mcg Documented by: Morphine Sulfate (Morphine 2 Mg/Ml Syringe) 2 mg IV Q3H PRN PRN PRN Reason: Pain Score 6-10 Nitroglycerin (Nitroglycerin (Inpatient Use) 0.4 Mg Tab.Subl) 0.4 mg SL Q5M PRN PRN Reason: CARDIAC/CHEST PAIN Ondansetron HCl (Ondansetron 4 Mg/2 Ml Vial) 4 mg IV Q8H PRN PRN PRN Reason: NAUSEA/VOMITING Oxycodone HCl (Oxycodone 5 Mg Tablet) 5 mg PO Q4H PRN PRN PRN Reason: Pain Score 4-5 Prochlorperazine Edisylate (Prochlorperazine 10 Mg/2 Ml Vial) 5 mg IV Q4H PRN PRN PRN Reason: Breakthrough Nausea/Vomiting Sertraline HCl (Sertraline 50 Mg Tablet) 50 mg PO DAILY [facility] Last Admin: 09/18/20 08:34 Dose: 50 mg Documented by: Sodium Chloride (0.9% Saline Lock 10 Ml Syringe) 10 - 40 ml IV UD PRN PRN Reason: SALINE FLUSH Temazepam (Temazepam 15 Mg Capsule) 15 mg PO QHS PRN PRN PRN Reason: INSOMNIA Throat Lozenges (Benzocaine/Menthol 1 Lozenge) 1 lozenge MUCOUS MEM Q2H PRN PRN PRN Reason: SORE THROAT Addendum: Dr. Hull I personally examined the patient and reviewed the chart. I agree with the above. 6-year-old female presents to the hospital with atypical chest pain. EKG is unremarkable, and troponins are normal. She would like to stay until tomorrow to obtain stress test for further evaluation. At this time her chest pain has resolved. Any shortness of breath, lightheadedness or dizziness. OBSV E&M: 60613 Subsequent observation care L2
[2020-09-18] MEDS: Temazepam 15 MG Capsule PO (20:38)
[2020-09-19] VITALS (8 sets, daily range): BP systolic 121–144; BP diastolic 72–82; PULSE 53–78; RESP 12–16; TEMP 36.6–37; O2SAT 99–100
--- NOTE | 2020-09-19 05:55 | STEWCON_ITS ---
Reason For Study: Chest Pain Stress Results Protocol: Sher Protocol WITH DEFINITY Maximum Predicted HR: 160 bpm Target HR: 136 bpm % Maximum Predicted HR: 93 % DurationHeart Rate Stage (mm:ss) (bpm) BP Comment Baseline 74 128/82No Chest Pain; 4 ML Diluted Definity Sher Protocol Stage I 3:00 127 134/78No Chest Pain; Mild Dyspnea Sher Protocol Stage II 3:00 148 150/80No Chest Pain; Mod Dyspnea Recovery 96 130/78No Chest Pain Stress Duration: 6:00 mm:ss Maximum Stress HR: 148 bpm METS: 7 Baseline Echocardiogram Findings Stress Echo Wall motion Data Resting WM Intermediate WM Stress WM ECHO/Stress Test Echo W/Contrast Interpretation Summary Exercise stress echo. 60-year-old lady with a history of chest pain. Stress protocol: Resting EKG demonstrates normal sinus rhythm with a rate of 71 bpm normal inter vals are noted resting blood pressure is 128/82 mmHg. The patient exercised according to the r egular Sher protocol for a total duration of 6 minutes. The maximum heart rate attained 150 bpm whic h was 93% of maximum predicted heart rate the maximum workload was 7 metabolic equivalents. At rest there were no ST or T wave changes noted to suggest ischemia, and at peak exercise upsloping ST rashid es were noted which did not meet the criteria for ischemia. The peak blood pressure was 152/82 mmHg which was a good blood pressure response to exercise, with a rate-pressure product of 22,200. Th e test was terminated due to dyspnea. Resting and stress echocardiographic images were performed demonstrating a rest ing ejection fraction of 60% and a peak ejection fraction of 68% with no wall motion abnormalities pr esent. There was thickening of all holt. Images were obtained with Definity enhancement. Conclusion: Normal exercise stress echo with no EKG or echocardiographic findings of ischem ia at a moderate workload. Preserved ejection fraction. Good functional aerobic capacity. Ordering Physician: Guadalupe Marsh Referring Physician: Sridhar Tomas Performed By: Damion Chisholm RCS
--- NOTE | 2020-09-19 05:55 | EKG12_ITS ---
Test Reason : AM EKG Blood Pressure : / mmHG Vent. Rate : 072 BPM Atrial Rate : 072 BPM P-R Int : 134 ms QRS Dur : 080 ms QT Int : 402 ms P-R-T Axes : 062 083 045 degrees QTc Int : 440 ms Normal sinus rhythm Normal ECG When compared with ECG of 18-SEP-2020 05:05, MANUAL COMPARISON REQUIRED, DATA IS UNCONFIRMED Confirmed by QUINTON WINKLER, MEET ([id number]), editor managing director TREVA BOJORQUEZ ([id number]) on 09/20/2020 10:48:51 AM Referred By: DR JENSEN Confirmed By:MEET ALCANTARA MD
[2020-09-19] MEDS: Aspirin E.C. 81 MG Tablet PO (06:12)
[2020-09-19] MEDS: Levothyroxine 75 MCG Tablet PO (06:12)
[2020-09-19] MEDS: Sertraline 50 MG Tablet PO (09:26)
[2020-09-19] MEDS: Famotidine 20 MG Tablet PO (09:26)
--- NOTE | 2020-09-19 10:58 | DCINST_ITS ---
- Discharge Diagnoses Current Active Problems: Current Active and Chronic Problems (Last Reviewed 06/13/20 @ 10:56 by dEwige Vega) Atypical chest pain (Acute) History of hypertension (Chronic) Anxiety and depression (Chronic) Panic attacks (Chronic) Hypothyroidism (Chronic) You will use the following diet at home:: No restrictions Discharge Activity: Return to Normal Activity Call your doctor if you observe: Shortness of breath, Dizziness, Fainting spells, Chest pain Allergies/Adverse Reactions: Allergies No Known Allergies Allergy (Verified 06/13/20 10:54) Medications to take at Discharge Levothyroxine [Synthroid] 75 mcg PO DAILY 03/29/16 cholecalciferol (vitamin D3) 50 mcg (2,000 unit) capsule 2,000 unit PO DAILY 05/25/19 ascorbate calcium (vitamin C) 500 mg tablet 500 mg PO DAILY 06/13/20 Sertraline HCl 50 mosm PO DAILY 09/17/20 Primary Care Physician: Jodee Little DO [Primary Care Provider] - Please follow up with your Primary Care Physician in: 1 Week Test Results: Test results from this visit will be discussed in further detail at your follow- up appointment, if applicable. Proposed Discharge Date: 09/19/20
--- NOTE | 2020-09-19 11:19 | PHA.DC.MR ---
Pharmacy Service has performed discharge medication reconciliation for this patient. The patient's discharge medication list was reviewed for discrepancies and discrepancies were resolved. Home Medications Levothyroxine [Synthroid] 75 mcg PO DAILY 03/29/16 cholecalciferol (vitamin D3) 50 mcg (2,000 unit) capsule 2,000 unit PO DAILY 05/25/19 ascorbate calcium (vitamin C) 500 mg tablet 500 mg PO DAILY 06/13/20 Sertraline HCl 50 mosm PO DAILY 09/17/20
--- NOTE | 2020-09-19 12:55 | DS.PCM_ITS ---
<Debora Pierce FIXED INCOME PORTFOLIO MANAGER - Last Filed: 09/19/20 15:00> Discharge Date and Diagnosis - Problem List Patient Problems: Active and Suspected Problems (Last Reviewed 06/13/20 @ 10:56 by Edwige Vega) Atypical chest pain (Acute) Date of Admission: 09/17/20 Date of Discharge: 09/19/20 - Primary Discharge Diagnosis Acute Problems: Active Problems (Last Reviewed 06/13/20 @ 10:56 by Edwige Vega) 1. Atypical chest pain-ACS ruled out 2. History of hypertension 3. Anxiety/depression 4. Hypothyroidism - Secondary Discharge Diagnosis Chronic Problems: Chronic Problems (Last Reviewed 06/13/20 @ 10:56 by Edwige Vega) History of hypertension (Chronic) Anxiety and depression (Chronic) Panic attacks (Chronic) Hypothyroidism (Chronic) Hospital Course and Treatment Imaging Results: Diagnostic Data Chest X-Ray 09/17/20 19:26 IMPRESSION: No acute cardiopulmonary abnormality. at 2008 Reported and signed by: Cecelia Waters MD Electronically Signed: Cecelia Waters MD at 20:09 EDT Tel , Service support , Abdomen/Pelvis CT 09/17/20 20:16 IMPRESSION: No acute abdominopelvic abnormality. Individualized dose optimization techniques were used for this CT. at 2051 Reported and signed by: Cecelia Waters MD Electronically Signed: Cecelia Waters MD at 20:52 EDT Tel , Service support , Operations: None Procedures: - - Stress echo Summary of Care Provided: The patient is a 60 year old F admitted 09/17/2020 due to chest pain. 1. Atypical chest pain-troponin negative. EKG without acute changes, nonspecific ST changes. Chest x-ray unremarkable. Patient underwent stress echo which showed no ischemia at moderate workload. Preserved ejection fraction. Good functional aerobic capacity. Follow-up with PCP in 1 week. 2. Hypertension-no longer on regimen, blood pressure stable. Continue further outpatient monitoring. 3. Anxiety/depression-continue sertraline regimen. 4. Hypothyroidism-continue Synthroid regimen. General: Alert, Oriented x3, Cooperative HEENT: Atraumatic, PERRLA, EOMI, Normocephalic Neck: Supple, No JVD, Negative Carotid Bruits Lungs: Clear to auscultation, Normal air movement Cardiovascular: Regular rate, No murmurs Abdomen: Bowel Sounds Present, Soft, Non Tender Extremities: No clubbing, No cyanosis, No edema, Capillary Refill Less than 3 Seconds Skin: No rashes, No breakdown Musculoskeletal: No Tenderness to Palpation of Joints or Extremities Neurological: Cranial nerves II-XII grossly intact, Neuro grossly intact Psych/Mental Status: Normal Affect, Appropriate Patient seen and examined prior to discharge. Physical assessment as noted above. Patient is stable for discharge with follow up recommendations as noted above. This patient was seen by MARBELLA Vazquez under the supervision of Dr. Hull. Patient Problems: Active and Suspected Problems (Last Reviewed 06/13/20 @ 10:56 by Edwige Vega) Atypical chest pain (Acute) - Physical Exam Vitals/I&O's: Vital Signs Temp Pulse Resp BP Pulse Ox 97.8 F 74 16 124/82 H 100 09/19/20 09:25 09/19/20 09:25 09/19/20 09:25 09/19/20 09:25 09/19/20 09:25 Oxygen Delivery Method Room Air Weight: 134 lb 0.657 oz Body Mass Index (BMI) 23.4 Intake and Output for Last 24 Hours 09/17/20 09/18/20 09/19/20 23:59 23:59 23:59 Intake Total 1120 / 1120 1413 / 1413 340 / 340 Output Total 0 / 0 Balance 1120 / 1120 1413 / 1413 340 / 340 Current Medications Acetaminophen (Acetaminophen 325 Mg Tablet) 650 mg PO Q6H PRN PRN PRN Reason: Pain Score 1-10/Temp > 100.7 F Al Hydroxide/Mg Hydroxide (Mag Hydrox/Al Hydrox/Simeth 30 Ml Udc) 30 ml PO Q6H PRN PRN PRN Reason: Gastric Burning Albuterol Sulfate (Albuterol 2.5 Mg/3 Ml Vial.Neb.) 2.5 mg INHALATION Q2H PRN PRN PRN Reason: Dyspnea, wheezing Aspirin (Aspirin E.C. 81 Mg Tablet) 81 mg PO DAILY@0800 [facility] Last Admin: 09/19/20 06:12 Dose: 81 mg Documented by: Enoxaparin Sodium (Enoxaparin 40 Mg/0.4 Ml Syringe) 40 mg SC DAILY [facility] Last Admin: 09/19/20 10:18 Dose: Not Given Documented by: Famotidine (Famotidine 20 Mg Tablet) 20 mg PO BID [facility] Last Admin: 09/19/20 09:26 Dose: 20 mg Documented by: Guaifenesin (Guaifenesin 10 Ml Udc (200mg/10ml)) 20 ml PO Q4H PRN PRN PRN Reason: COUGH Hydralazine HCl (Hydralazine 20 Mg/Ml Vial) 10 mg IV Q4H PRN PRN PRN Reason: SBP > 160 Levothyroxine Sodium (Levothyroxine 75 Mcg Tablet) 75 mcg PO DAILY@0600 [facility] Last Admin: 09/19/20 06:12 Dose: 75 mcg Documented by: Morphine Sulfate (Morphine 2 Mg/Ml Syringe) 2 mg IV Q3H PRN PRN PRN Reason: Pain Score 6-10 Nitroglycerin (Nitroglycerin (Inpatient Use) 0.4 Mg Tab.Subl) 0.4 mg SL Q5M PRN PRN Reason: CARDIAC/CHEST PAIN Ondansetron HCl (Ondansetron 4 Mg/2 Ml Vial) 4 mg IV Q8H PRN PRN PRN Reason: NAUSEA/VOMITING Oxycodone HCl (Oxycodone 5 Mg Tablet) 5 mg PO Q4H PRN PRN PRN Reason: Pain Score 4-5 Prochlorperazine Edisylate (Prochlorperazine 10 Mg/2 Ml Vial) 5 mg IV Q4H PRN PRN PRN Reason: Breakthrough Nausea/Vomiting Sertraline HCl (Sertraline 50 Mg Tablet) 50 mg PO DAILY [facility] Last Admin: 09/19/20 09:26 Dose: 50 mg Documented by: Sodium Chloride (0.9% Saline Lock 10 Ml Syringe) 10 - 40 ml IV UD PRN PRN Reason: SALINE FLUSH Temazepam (Temazepam 15 Mg Capsule) 15 mg PO QHS PRN PRN PRN Reason: INSOMNIA Last Admin: 09/18/20 20:38 Dose: 15 mg Documented by: Throat Lozenges (Benzocaine/Menthol 1 Lozenge) 1 lozenge MUCOUS MEM Q2H PRN PRN PRN Reason: SORE THROAT Discharge Diet: No Restrictions Discharge Activity: Return to Normal Activity Call your doctor if you observe: Shortness of breath, Dizziness, Fainting spells, Chest pain Home Medications: Medications to take at Discharge Levothyroxine [Synthroid] 75 mcg PO DAILY 03/29/16 cholecalciferol (vitamin D3) 50 mcg (2,000 unit) capsule 2,000 unit PO DAILY 05/25/19 ascorbate calcium (vitamin C) 500 mg tablet 500 mg PO DAILY 06/13/20 Sertraline HCl 50 mosm PO DAILY 09/17/20 Primary Care Physician: Jodee Little DO [Primary Care Provider] - Please follow up with your Primary Care Physician in: 1 week Disposition: Home Minutes spent on discharge:: 35 Patient Condition:: Stable Medical Necessity - Tobacco Use Smoking Status: Never smoker Tobacco Use: Non-smoker Meaningful Use Info Meaningful Use Diagnoses (Choose all that apply): None applicable <Song Hull F - Last Filed: 09/19/20 15:05> Discharge Date and Diagnosis - Primary Discharge Diagnosis Acute Problems: Active Problems (Last Reviewed 06/13/20 @ 10:56 by Edwige Vega) Atypical chest pain (Acute) - Secondary Discharge Diagnosis Chronic Problems: Chronic Problems (Last Reviewed 06/13/20 @ 10:56 by Edwige Vega) History of hypertension (Chronic) Anxiety and depression (Chronic) Panic attacks (Chronic) Hypothyroidism (Chronic) Hospital Course and Treatment Summary of Care Provided: The patient is a 60 year old F [] - Physical Exam Vitals/I&O's: Vital Signs Temp Pulse Resp BP Pulse Ox 98.3 F 78 16 144/81 H 100 09/19/20 14:45 09/19/20 14:45 09/19/20 14:45 09/19/20 14:45 09/19/20 14:45 Oxygen Delivery Method Room Air Weight: 134 lb 0.657 oz Body Mass Index (BMI) 23.4 Intake and Output for Last 24 Hours 09/17/20 09/18/20 09/19/20 23:59 23:59 23:59 Intake Total 1120 / 1120 1413 / 1413 340 / 340 Output Total 0 / 0 Balance 1120 / 1120 1413 / 1413 340 / 340 Current Medications Acetaminophen (Acetaminophen 325 Mg Tablet) 650 mg PO Q6H PRN PRN PRN Reason: Pain Score 1-10/Temp > 100.7 F Al Hydroxide/Mg Hydroxide (Mag Hydrox/Al Hydrox/Simeth 30 Ml Udc) 30 ml PO Q6H PRN PRN PRN Reason: Gastric Burning Albuterol Sulfate (Albuterol 2.5 Mg/3 Ml Vial.Neb.) 2.5 mg INHALATION Q2H PRN PRN PRN Reason: Dyspnea, wheezing Aspirin (Aspirin E.C. 81 Mg Tablet) 81 mg PO DAILY@0800 [facility] Last Admin: 09/19/20 06:12 Dose: 81 mg Documented by: Enoxaparin Sodium (Enoxaparin 40 Mg/0.4 Ml Syringe) 40 mg SC DAILY [facility] Last Admin: 09/19/20 10:18 Dose: Not Given Documented by: Famotidine (Famotidine 20 Mg Tablet) 20 mg PO BID [facility] Last Admin: 09/19/20 09:26 Dose: 20 mg Documented by: Guaifenesin (Guaifenesin 10 Ml Udc (200mg/10ml)) 20 ml PO Q4H PRN PRN PRN Reason: COUGH Hydralazine HCl (Hydralazine 20 Mg/Ml Vial) 10 mg IV Q4H PRN PRN PRN Reason: SBP > 160 Levothyroxine Sodium (Levothyroxine 75 Mcg Tablet) 75 mcg PO DAILY@0600 [facility] Last Admin: 09/19/20 06:12 Dose: 75 mcg Documented by: Morphine Sulfate (Morphine 2 Mg/Ml Syringe) 2 mg IV Q3H PRN PRN PRN Reason: Pain Score 6-10 Nitroglycerin (Nitroglycerin (Inpatient Use) 0.4 Mg Tab.Subl) 0.4 mg SL Q5M PRN PRN Reason: CARDIAC/CHEST PAIN Ondansetron HCl (Ondansetron 4 Mg/2 Ml Vial) 4 mg IV Q8H PRN PRN PRN Reason: NAUSEA/VOMITING Oxycodone HCl (Oxycodone 5 Mg Tablet) 5 mg PO Q4H PRN PRN PRN Reason: Pain Score 4-5 Prochlorperazine Edisylate (Prochlorperazine 10 Mg/2 Ml Vial) 5 mg IV Q4H PRN PRN PRN Reason: Breakthrough Nausea/Vomiting Sertraline HCl (Sertraline 50 Mg Tablet) 50 mg PO DAILY [facility] Last Admin: 09/19/20 09:26 Dose: 50 mg Documented by: Sodium Chloride (0.9% Saline Lock 10 Ml Syringe) 10 - 40 ml IV UD PRN PRN Reason: SALINE FLUSH Temazepam (Temazepam 15 Mg Capsule) 15 mg PO QHS PRN PRN PRN Reason: INSOMNIA Last Admin: 09/18/20 20:38 Dose: 15 mg Documented by: Throat Lozenges (Benzocaine/Menthol 1 Lozenge) 1 lozenge MUCOUS MEM Q2H PRN PRN PRN Reason: SORE THROAT Addendum: Dr. Hull I personally examined the patient and reviewed the chart. I agree with the above. 6-year-old female presents to the hospital with atypical chest pain. EKG is unremarkable, and troponins are normal. She would like to stay until tomorrow to obtain stress test for further evaluation. At this time her chest pain has resolved. Any shortness of breath, lightheadedness or dizziness. 09/19/2020: She is feeling much better today, denies any chest pain or dizziness. She did well with the stress test and did not have any recurrence of her chest pain at that time. Stress test came back as normal and the result was discussed with her and she expressed understanding the risk benefits of going home and wanted to go home today. She will need to follow-up with her PCP in 3 to 5 days. OBSV E&M: [id number] Observation care discharge
--- NOTE | 2020-09-19 14:58 | CASEMGMT ---
Patient has a Healthcare Power of Classification Control Clerk (HCPOA) and she is aware it is not on file at [facility]. Her Curt is her HCPOA. She does no have a Healthcare Living Will. Cira ODONNELL
== END 2020-09-19 10:58 | disposition home or self-care (01) ==
LOC: ED 20:15 → PCU 22:02
PROVIDERS: Admitting Provider Family Medicine; Emergency Provider Emergency Medicine; PCP Internal Medicine; Visit Provider Family Medicine
DX: R07.89 Other chest pain (principal); I10 Essential (primary) hypertension; F41.8 Other specified anxiety disorders; F41.0 Panic disorder [episodic paroxysmal anxiety]; E03.9 Hypothyroidism, unspecified; R00.2 Palpitations; R19.7 Diarrhea, unspecified; R11.0 Nausea; R10.12 Left upper quadrant pain; Z79.899 Other long term (current) drug therapy; R73.9 Hyperglycemia, unspecified; K21.9 Gastro-esophageal reflux disease without esophagitis
CPT/HCPCS: 36415; 71045; 74177; 80048; 80053; 80061; 80076; 83036; 83690; 83735; 84443; 84484; 85025; 93005; 93017; 93350; 96361; 96372; 96374; 97802; 99218; 99285; J7030; Q9957; Q9967; A4216; C8928; G0378; J2405

== ENCOUNTER 2021-07-04 09:26 | Outpatient (CLI) | payer OTHER, SELFPAY ==
--- NOTE | 2021-07-04 09:30 | BI_ITS ---
MAMMOGRAPHY - BILATERAL SCREENING REASON FOR EXAM: Female, 61 years old. Routine annual screening examination. PERTINENT HISTORY: Non-contributory. TECHNIQUE: Digital bilateral breast omari (3D mammographic acquisition) in the CC and MLO projections. 2-D mediolateral oblique (MLO) and craniocaudad (CC) views of both breasts were obtained. CAD: Full Field Digital Mammography with Computer Added Detection was performed. COMPARISON: Comparison is made with prior study dated 06/13/2020 and 06/11/2019. FINDINGS: Breast Composition: The breasts are extremely dense, which lowers the sensitivity of mammography. There are no dominant masses or suspicious calcifications. No other significant abnormalities are identified. There has been no significant change since the prior study. BI/SCRN MAMM (CAD)W/OMARI BILAT IMPRESSION: Stable bilateral screening mammogram. Yearly follow-up mammogram recommended. (A) ASSESSMENT CATEGORY: BIRADS Category 1: Negative. A letter regarding these results will be sent to the patient by the facility within 30 days. Approximately 10% of breast cancers are not detected by mammography. A normal mammogram should not delay biopsy of a clinically suspicious abnormality. [id number] Electronically Signed: Farhan Lindsey MD at 10:25 EST , Service support ,
== END 2021-07-04 23:59 | disposition short-term general hospital (02) ==
LOC: OPBI 09:27
PROVIDERS: PCP Internal Medicine; Referring Provider Nurse Practitioner Women's Health; Visit Provider Nurse Practitioner Women's Health
DX: Z12.31 Encounter for screening mammogram for malignant neoplasm of breast (principal)
CPT/HCPCS: 77063; 77067

== ENCOUNTER → 2022-07-10 | Outpatient (CLI) | payer OTHER, SELFPAY ==
--- NOTE | 2022-07-10 09:47 | BI_ITS ---
MAMMOGRAPHY - BILATERAL SCREENING REASON FOR EXAM: Female, 62 years old. Routine annual screening examination. PERTINENT HISTORY: Non-contributory. TECHNIQUE: Digital bilateral breast omari (3D mammographic acquisition) in the CC and MLO projections. 2-D mediolateral oblique (MLO) and craniocaudad (CC) views of both breasts were obtained. CAD: Full Field Digital Mammography with Computer Added Detection was performed. COMPARISON: Comparison is made with prior study dated 07/04/2021 and 06/13/2020. FINDINGS: Breast Composition: The breasts are extremely dense, which lowers the sensitivity of mammography. There are no dominant masses or suspicious calcifications. No other significant abnormalities are identified. There has been no significant change since the prior study. BI/SCRN MAMM (CAD)W/OMARI BILAT IMPRESSION: Stable bilateral screening mammogram. Yearly follow-up mammogram recommended. (A) ASSESSMENT CATEGORY: BIRADS Category 1: Negative. A letter regarding these results will be sent to the patient by the facility within 30 days. Approximately 10% of breast cancers are not detected by mammography. A normal mammogram should not delay biopsy of a clinically suspicious abnormality. [id number] Electronically Signed: Farhan Lindsey MD at 12:09 EST ,
== END | disposition home or self-care (01) ==
LOC: OPBI 09:45
PROVIDERS: PCP Internal Medicine; Referring Provider Nurse Practitioner Women's Health; Visit Provider Nurse Practitioner Women's Health
DX: Z12.31 Encounter for screening mammogram for malignant neoplasm of breast (principal)
CPT/HCPCS: 77063; 77067

== ENCOUNTER → 2023-07-18 | Outpatient (CLI) | payer OTHER, SELFPAY ==
--- NOTE | 2023-07-18 12:34 | BI_ITS ---
MAMMOGRAPHY - BILATERAL SCREENING REASON FOR EXAM: Female, 63 years old. Routine annual screening examination. PERTINENT HISTORY: Non-contributory. TECHNIQUE: Digital bilateral breast omari (3D mammographic acquisition) in the CC and MLO projections. 2-D mediolateral oblique (MLO) and craniocaudad (CC) views of both breasts were obtained. CAD: Full Field Digital Mammography with Computer Added Detection was performed. COMPARISON: Comparison is made with prior study dated January 07, 2023 and July 04, 2021. FINDINGS: Breast Composition: The breasts are extremely dense, which lowers the sensitivity of mammography. There are no dominant masses or suspicious calcifications. Stable benign-appearing bilateral axillary lymph nodes. No other significant abnormalities are identified. There has been no significant change since the prior study. BI/SCRN MAMM (CAD)W/OMARI BILAT IMPRESSION: Stable bilateral screening mammogram. Yearly follow-up mammogram recommended. (A) ASSESSMENT CATEGORY: BIRADS Category 2: Benign. A letter regarding these results will be sent to the patient by the facility within 30 days. Approximately 10% of breast cancers are not detected by mammography. A normal mammogram should not delay biopsy of a clinically suspicious abnormality. [id number] Electronically Signed: Farhan Lindsey MD at 14:42 EST ,
== END | disposition home or self-care (01) ==
LOC: OPBI 12:34
PROVIDERS: PCP Internal Medicine; Referring Provider Nurse Practitioner Women's Health; Visit Provider Nurse Practitioner Women's Health
DX: Z12.31 Encounter for screening mammogram for malignant neoplasm of breast (principal)
CPT/HCPCS: 77063; 77067

== ENCOUNTER → 2024-07-21 | Outpatient (CLI) | payer OTHER, SELFPAY ==
[2024-07-27 15:07] LABS: HPV APTIMA, High Risk Negative (Negative)
== END | disposition home or self-care (01) ==
LOC: LABSPEC 16:43
PROVIDERS: PCP Internal Medicine; Visit Provider Nurse Practitioner Women's Health
DX: Z12.4 Encounter for screening for malignant neoplasm of cervix (principal)
CPT/HCPCS: 87624; 88175; G0145

== ENCOUNTER → 2024-07-21 | Outpatient (CLI) | payer OTHER, SELFPAY ==
--- NOTE | 2024-07-21 11:58 | BI_ITS ---
PROCEDURE: SCRN MAMM (CAD)W/OMARI BILAT REASON FOR EXAM: F, Age 64 y/o , No family history of breast cancer. Prior breast cyst aspiration. TECHNIQUE: Bilateral screening digital breast tomosynthesis with 2D and 3D images. Computer aided detection. COMPARISON: Prior exam(s) dating back to . Comparison is made with prior study dated July 18, 2023. FINDINGS: The breasts are extremely dense which lowers the sensitivity of mammography. Stable examination. BI/SCRN MAMM (CAD)W/OMARI BILAT IMPRESSION: BI-RADS 1: NEGATIVE. RECOMMEND ANNUAL MAMMOGRAPHIC SCREENING. Follow-up code: Routine Follow-up The patient will be notified of the results by letter. Reading Location: [place] [id number]
== END | disposition home or self-care (01) ==
LOC: OPBI 11:57
PROVIDERS: PCP Internal Medicine; Referring Provider Nurse Practitioner Women's Health; Visit Provider Nurse Practitioner Women's Health
DX: Z12.31 Encounter for screening mammogram for malignant neoplasm of breast (principal)
CPT/HCPCS: 77063; 77067

== ENCOUNTER → 2024-11-05 | Outpatient (CLI) | payer OTHER, SELFPAY ==
--- NOTE | 2024-11-05 15:34 | BD_ITS ---
PROCEDURE: DEXA BONE DENSITY STUDY 11/05/2024 REASON FOR EXAM: F, age 64 y/o . Postmenopausal. TECHNIQUE: DXA scan of sites with data reported below. REFERENCE LINKS: ISCD Adult Positions COMPARISON: None FINDINGS: BMD and T-SCORES Lumbar spine: 0.780 g/cm2, T-score -2.4 Levels: L1 through L4 Left femoral neck: 0.535 g/cm2, T-score -2.8 Femoral neck comparison data not recommended for monitoring change. Left total hip: 0.683 g/cm2, T-score -2.1 Right femoral neck: 0.503 g/cm2, T-score -3.1 Femoral neck comparison data not recommended for monitoring change. Right total hip: 0.637 g/cm2, T-score -2.5 The World Health Organization has defined the following categories based on bone density: Normal bone density: T-score equal to or greater than -1.0 Osteopenia: T-score between -1.0 and -2.5 Osteoporosis: T-score equal to or less than -2.5 The patient does meet the pharmacological treatment recommendations for prevention of osteoporosis. BD/Dexa Bone Density Study IMPRESSION: OSTEOPOROSIS. Recommend follow-up as clinically warranted. Reading Location: [facility]
== END | disposition home or self-care (01) ==
LOC: OPBD 15:33
PROVIDERS: PCP Internal Medicine; Referring Provider Internal Medicine; Visit Provider Internal Medicine
DX: Z78.0 Asymptomatic menopausal state (principal)
CPT/HCPCS: 77080

== ENCOUNTER 2025-01-01 02:49 | Emergency (ER) | payer OTHER, SELFPAY ==
[2025-01-01] VITALS (8 sets, daily range): BP systolic 118–160; BP diastolic 52–97; PULSE 77–107; RESP 10–21; TEMP 36.4–37; O2SAT 96–100; BMI 26.5
--- OUTSIDE RECORDS SUMMARY | 2025-01-01 03:43 | XMS RPT_ITS | CCD ---
Author Organization [facility] Care Team Providers Care Transplant Nurse Name Role Phone [place] VENDING ROUTE DRIVER, Stacie Osborn Unavailable Jodee Perez Unavailable Amara Mcmullen Unavailable Neri Moser Unavailable [facility] Unavailable Otis Seaman Unavailable Britany Antunez Unavailable Unavailable Dannielle Delarosa Unavailable Unavailable Unavailable Chris, Jodee Unavailable Amara Mcmullen Unavailable Neri Moser Unavailable [facility] Unavailable Otis Seaman Unavailable Gravmaykel, Yaz Unavailable Unavailable Britany Antunez Unavailable Unavailable Unavailable Unavailable [facility] Unavailable Gravmaykel Yaz Unavailable Unavailable Unavailable Unavailable Dannielle Delarosa Unavailable Unavailable Unavailable Elza Canseco Unavailable Unavailable Jodee Perez DO Unavailable Amara Mcmullen Unavailable Neri Moser MD Unavailable [facility] Unavailable Dr. Otis Seaman Unavailable Elza Canseco LPN Unavailable Unavailable Gravius LUNCHROOM AIDE, Yaz Unavailable Unavailable Unavailable Unavailable Esthela CONTROL ROOM SUPERVISOR, Gabbie Unavailable Unavailable [place] VENDING ROUTE DRIVER, Stacie Osborn Unavailable Jim CONTROL ROOM SUPERVISOR, Stefany N Unavailable Unavailab le Jim SALESN, Stefany N Unavailable Unavailab le Isela SIEGEL, Frankie Quiñones Unavailable Chris DO, Jodee Unavailable Jagjit, ronaldo Unavailable Unavailable Walker Marsh MD Unavailable JODEE PEREZ Referring Unavailable CHRIS, JODEE Primary Care Unavailable WALKER MARSH Attending Unavailable Chris DOJodee Attending Unavailable Chris DOJodee Referring Unavailable Chris Jodee SINGH Consulting Unavailable Jeancarlos CARLOS, Kayela Unavailable Unavailable Chris, Dr. Ellsworth Primary Care Provider [phone] Dr. Jodee Perez Referring Provider Esdras VENDING ROUTE DRIVER, VENDING ROUTE DRIVER-C Stacie Attending Provider [phone] Faiza [facility] Un[facility] Dr. Jodee Perez DO Primary Care Provider Dr. Jodee Perez DO Referring Provider Esdras VENDING ROUTE DRIVER-CStacie Attending Provider Esdras VENDING ROUTE DRIVER-CStacie Referring Provider Chris SINGH, Dr. Ellsworth Attending Provider Esdras VENDING ROUTE DRIVERStacie Attending Unavailable Esdras VENDING ROUTE DRIVERStacie Referring Unavailable Chris, Jodee Primary Care Unavailable Chris, Jodee Primary Care Unavailable [place] VENDING ROUTE DRIVERStacie Attending Unavailable Chris, Jodee Primary Care Unavailable ChrisJodee Attending Unavailable Chris Jodee Referring Unavailable Chris, Jodee Referring Unavailable Esdras VENDING ROUTE DRIVERStacie Attending Unavailable Chris, Jodee Primary Care Unavailable Chris, Jodee Referring Unavailable [place] VENDING ROUTE DRIVERStacie Attending Unavailable Chris, Jodee Primary Care Unavailable Medications Current Medications Medication Drug Class(es) Dates Sig (Normalized) Sig (Original) calcium ascorbate 500 mg oral tablet (2 sources) Start: 06-13-2020 take 1 tablet by mouth once daily Ascorbate Calcium (Vitamin C) 500 mg tablet Active 500 mg PO DAILY June 13, 2020 1:00am cholecalciferol 0.05 mg oral capsule (20 sources) Vitamin D Start: 05-25-2019 take 1 capsule by mouth once daily Cholecalciferol (Vitamin D3) 2,000 unit capsule Active 2000 U PO DAILY May 25, 2019 1:00am levothyroxine sodium 0.075 mg oral tablet (20 sources) l-Thyroxine Start: 02-12-2023 levothyroxine 75 mcg oral tablet 1 (one) Tablet qd except 1/2 tab on sun for 30 days Quantity: 30 {Tablet} Refills: 5 Ordered: 12-Feb-2023 Jodee Perez DO, DO, Kathleen Start : 12-Feb-2023 Active Start: 06-20-2022 levothyroxine 75 mcg oral tablet 1 (one) Tablet qd except 1/2 tab on sun for 30 days Quantity: 30 {Tablet} Refills: 5 Ordered: 20-Jun-2022 Jodee Perez DO, DO, Kathleen Start : 20-Jun-2022 Active Start: 06-04-2022 levothyroxine 75 mcg oral tablet 1 (one) Tablet qd except 1/2 tab on sun for 30 days Quantity: 30 {Tablet} Refills: 5 Ordered: 04-Jun-2022 Jodee Perez DO, DO, Kathleen Start : 04-Jun-2022 Active Start: 11-30-2021 Levothyroxine Sodium 75 MCG Oral Tablet 1 (one) Tablet qd except 1/2 tab on sun for 30 days Quantity: 30 {Tablet} Refills: 5 Ordered: 30-Nov-2021 Jodee Perez DO, DO, Kathleen Start : 30-Nov-2021 Active Start: 08-16-2021 Levothyroxine Sodium 75 MCG Oral Tablet 1 (one) Tablet qd except 1/2 tab on sun for 30 days Quantity: 30 {Tablet} Refills: 5 Ordered: 16-Aug-2021 Jodee Perez DO, DO, Kathleen Start : 16-Aug-2021 Active Start: 02-17-2021 Levothyroxine Sodium 75 MCG Oral Tablet 1 (one) Tablet qd except 1/2 tab on sun for 30 days Quantity: 30 {Tablet} Refills: 5 Ordered: 17-Feb-2021 Jodee Perez DO, DO, Kathleen Start : 17-Feb-2021 Active Start: 08-29-2020 Levothyroxine Sodium 75 MCG Oral Tablet 1 (one) Tablet qd except 1/2 tab on sun for 30 days Quantity: 30 {Tablet} Refills: 5 Ordered: 29-Aug-2020 Jodee Perez DO, DO, Kathleen Start : 29-Aug-2020 Active Start: 02-03-2020 take 1 tablet by sebastian th once daily, then take 0.5 tablet by mouth Levothyroxine Sodium 75 MCG Oral Tablet 1 (one) Tablet qd except 1/2 tab on sun for 30 days Quantity: 30 {Tablet} Refills: 5 Ordered: 03-Feb-2020 Jodee Perez DO, DO, Kathleen Start : 03-Feb-2020 Active Start: 01-18-2020 take 1 tablet by sebastian th once daily, then take 0.5 tablet by mouth Levothyroxine Sodium 75 MCG Oral Tablet 1 (one) Tablet qd except 1/2 tab on sun for 30 days Quantity: 30 {Tablet} Refills: 5 Ordered: 18-Jan-2020 Jodee Perez DO, DO, Kathleen Start : 18-Jan-2020 Active Start: 01-21-2019 take 1 tablet by sebastian th once daily, then take 0.5 tablet by mouth Levothyroxine Sodium 75 MCG Oral Tablet 1 (one) Tablet qd except 1/2 tab on sun for 30 days Quantity: 30 {Tablet} Refills: 5 Ordered: 21-Jan-2019 Yaz Back Start : 21-Jan-2019 Active Start: 06-16-2018 take 1 tablet by sebastian th once daily, then take 0.5 tablet by mouth Levothyroxine Sodium 75 MCG Oral Tablet 1 (one) Tablet qd 1/2 tab on sun for 30 days Quantity: 30 {Tablet} Refills: 5 Ordered: 16-Jun-2018 Jodee Perez DO, DO, Kathleen Start : 16-Jun-2018 Active Start: 06-09-2018 take 1 tablet by sebastian th once daily, then take 0.5 tablet by mouth Levothyroxine Sodium 75 MCG Oral Tablet 1 (one) Tablet qd 1/2 tab on sun for 30 days Quantity: 30 {Tablet} Refills: 5 Ordered: 09-Jun-2018 Jodee Perez DO Chris SINGH Jodee Start : 09-Jun-2018 Active Start: 04-30-2017 SYNTHROID TABS as directed LEVOTHYROXINE SODIUM TABS [id number] Stefany Servando Fernandez LPN Start: 03-29-2016 take 1 tablet by sebastian once daily Levothyroxine 75 MCG tablet Active 75 ug PO DAILY March 29, 2016 12:00am Start: 12-26-2009 LEVOTHROID 100 MCG TABS LEVOTHYROXINE SODIUM [id number] Prisca Becker CNP Start: 12-26-2009 LEVOTHROID 100 MCG TABS LEVOTHYROXINE SODIUM [id number] Prisca Becker CNP Start: 12-26-2009 End: 04-30-2017 LEVOTHROID 100 MCG TABS 2009 LEVOTHYROXINE SODIUM [id number] Gaby Sal Vit R-[id number]-Dgcsy-Wsaz-Ijr b (Adrenal Optimizer) 50-125-12.5 mg tablet (1 source) Start: 07-15-2023 Vit C-B5-Dmae- Urqcx-Rkrs-Yypa (Adrenal Optimizer) 50-125-12.5 mg tablet Active {tbl} PO July 15, 2023 1:00am Completed/Discontinued Medications Medication Drug Class(es) Dates Sig (Normalized) Sig (Original) amoxicillin 875 mg oral tablet (9 sources) Penicillin-class Antibacterial Start: 12-26-2009 End: 01-05-2010 take 1 tablet by mouth twice daily AMOXICILLIN 875 MG TABS take one tablet po twice daily for 10 days AMOXICILLIN [id number] Prisca Becker GRISTMILLER ascorbic acid 500 mg oral capsule (20 sources) Vitamin C take 1 capsule by mouth once daily Vitamin C 500 MG Oral Capsule 1 cap daily (500 MG) Active BUPROPION HCL (16 sources) Aminoketone Start: 12-26-2009 BUDEPRION SR 150 MG [id number] BUPROPION HCL [id number] Prisca Becker CNP Start: 12-26-2009 End: 04-30-2017 BUDEPRION SR 150 MG [id number] B BUPROPION HCL [id number] Prisca Becker CNP busPIRone hydrochloride 7.5 mg oral tablet (20 sources) Start: 03-29-2016 End: 05-25-2019 take 1 tablet by mouth twice daily Buspirone 7.5 MG tablet Discontinued 7.5 mg PO TWICE A DAY March 29, 2016 12:00am May 25, 2019 10:50am citalopram 10 mg oral tablet (20 sources) Serotonin Reuptake Inhibitor Start: 12-27-2014 End: 05-16-2015 take 0.5 tablet by mouth once daily CELEXA, 10MG (Oral Tablet) 1/2 (one half) Tablet qd for 0 days Quantity: 30 {Tablet} Refills: 3 Ordered: 16-May-2015 Prisca Marie RN Start : 27-Dec-2014 End : 16-May-2015 Inactive famotidine 20 mg oral tablet (19 sources) Histamine-2 Receptor Antagonist Pepcid 20 MG Oral Tablet 1 tablet as needed (20 MG) Active Comments: Medication taken as needed. Comment on above: Medication taken as needed. Flonase 50 MCG/DOSE Nasal Inhaler (2 sources) Flonase 50 MCG/DOSE Nasal Inhaler (50 MCG/DOSE) Active fluticasone propionate 0.05 mg/actuat metered dose nasal spray (8 sources) Corticosteroid Flonase 50 MCG/DOSE Nasal Inhaler (50 MCG/DOSE) Active LORazepam 0.5 mg oral tablet (20 sources) Benzodiazepine Start: 02-13-2016 End: 05-25-2019 take 1 tablet by mouth once daily as needed for anxiety Lorazepam 0.5 MG tablet Discontinued 0.5 mg PO DAILY NEEDED as needed for Anxiety March 29, 2016 12:00am May 25, 2019 10:50am Start: 12-26-2009 End: 04-30-2017 take 1 tablet by mouth four times daily LORAZEPAM 0.5 MG TABS One tablet by mouth four times daily LORAZEPAM [id number] Prisca Becker CNP Comment on above: thirty nebivolol 5 mg oral tablet (20 sources) Start: 06-11-2016 End: 06-11-2016 take 1 tablet by mouth once daily Bystolic 5 MG Oral Tablet 1 (one) Tablet qd for 30 days Quantity: 30 {Tablet} Refills: 5 Ordered: 11-Jun-2016 Jodee Perez DO, DO, Kathleen Start : 11-Jun-2016 End : 11-Jun-2016 Discontinued Start: 03-29-2016 End: 05-25-2019 take 2.5 mg by mouth once daily Nebivolol 5 MG tablet Discontinued 2.5 mg PO DAILY March 29, 2016 12:00am May 25, 2019 10:50am Start: 03-29-2016 End: 05-25-2019 take 2.5 mg by mouth once daily Nebivolol Discontinued 2.5 MG PO DAILY March 28, 2016 11:00pm May 25, 2019 9:50am nitrofurantoin, macrocrystals 25 mg / nitrofurantoin, monohydrate 75 mg oral capsule (20 sources) Nitrofuran Antibacterial Start: 03-03-2018 End: 03-10-2018 take 1 capsule by mouth twice daily Macrobid 100 MG Oral Capsule 1 (one) Capsule bid for 7 days Quantity: 14 {Capsule} Refills: 0 Ordered: 03-Mar-2018 Dannielle Delarosa Start : 03-Mar-2018 End : 10-Mar-2018 Inactive sertraline 50 mg oral tablet (20 sources) Serotonin Reuptake Inhibitor Start: 11-23-2022 take 1 tablet by mouth once daily Zoloft 50 mg oral tablet 1 (one) Tablet qd for 0 days Quantity: 30 {Tablet} Refills: 6 Ordered: 23-Nov-2022 Ronaldo Kendall LPN Start : 23-Nov-2022 Active Start: 11-30-2021 take 1 tablet by sebastian once daily Zoloft 50 MG Oral Tablet 1 (one) Tablet qd for 0 days Quantity: 30 {Tablet} Refills: 6 Ordered: 30-Nov-2021 Jodee Perez DO, DO, Kathleen Start : 30-Nov-2021 Active Start: 07-04-2021 take 2 tablets by mo [facility] once daily Sertraline 50 mg tablet Active 100 mg PO DAILY July 04, 2021 9:50am Start: 07-04-2021 take 100 mg by mouth once esteban y Sertraline Active 100 MG PO DAILY July 04, 2021 8:50am Start: 05-22-2021 take 1 tablet by sebastian th once daily Zoloft 100 MG Oral Tablet 1 (one) Tablet qd for 0 days Quantity: 30 {Tablet} Refills: 4 Ordered: 22-May-2021 ChrisJodee sharp DO ChrisJodee sharp DO Start : 22-May-2021 Active Start: 12-30-2020 take 1 tablet by sebastian th once daily Zoloft 100 MG Oral Tablet 1 (one) Tablet qd for 0 days Quantity: 30 {Tablet} Refills: 4 Ordered: 30-Dec-2020 ChrisJodee hsarp DO, DO, Kathleen Start : 30-Dec-2020 Active Start: 09-17-2020 End: 07-04-2021 Sertraline 50 MG tablet Disc ontinued 50 mosm PO DAILY September 17, 2020 12:00am July 04, 2021 9:50am Start: 09-09-2020 End: 07-04-2021 Sertraline Discontinued 50 M OSM PO DAILY September 16, 2020 11:00pm July 04, 2021 8:50am Start: 06-15-2020 take 1 tablet by sebastian th once daily Zoloft 50 MG Oral Tablet 1 (one) Tablet qd for 0 days Quantity: 30 {Tablet} Refills: 4 Ordered: 15-Jun-2020 ChrisJodee sharp DO, DO, Kathleen Start : 15-Jun-2020 Active Start: 01-18-2020 take 1.5 tablets by mouth once daily Zoloft 50 MG Oral Tablet 1.5 Tablet qd for 0 days Quantity: 45 {Tablet} Refills: 3 Ordered: 18-Jan-2020 ChrisJodee sharp DO, DO, Kathleen Start : 18-Jan-2020 Active Start: 05-25-2019 End: 06-13-2020 take 1 tablet by mouth once daily Sertraline (Zoloft) 50 mg tablet Discontinued 50 mg PO DAILY May 25, 2019 1:00am June 13, 2020 12:06pm Start: 01-21-2019 take 1.5 tablets by mouth once daily Zoloft 50 MG Oral Tablet 1.5 Tablet qd for 0 days Quantity: 45 {Tablet} Refills: 3 Ordered: 21-Jan-2019 Yaz Back Start : 21-Jan-2019 Active Start: 06-11-2018 take 1.5 tablets by mouth once daily Zoloft 50 MG Oral Tablet 1.5 Tablet qd for 0 days Quantity: 45 {Tablet} Refills: 3 Ordered: 11-Jun-2018 Jodee Perez DO, DO, Kathleen Start : 11-Jun-2018 Active Start: 01-01-2018 take 1.5 tablets by mouth once daily Zoloft 50 MG Oral Tablet 1.5 Tablet qd for 0 days Quantity: 45 {Tablet} Refills: 3 Ordered: 01-Jan-2018 Jodee Perez DO, DO, Kathleen Start : 01-Jan-2018 Active Problems Active Problems Problem Classification Problem Date Documented Da te Episodic/Chronic Abdominal pain (20 sources) Unspecified abdominal pain; Translations: [Stomach ache] Resolved: 6 06-11-2016 Episodic Adjustment disorders (20 sources) Adjustment disorder with depressed mood; Translations: [Grief finding] Resolved: 3 03-03-2018 Chronic Comment on above: mother Anxiety disorders (20 sources) Anxiety disorder; Translations: [Anxiety] 12-26-2009 Chronic Comment on above: stable Cardiac dysrhythmias (20 sources) Premature atrial contraction; Translations: [PAC (premature atrial contraction)] 03-03-2018 Chronic Cardiac dysrhythmias (20 sources) Tachycardia; Translations: [Palpitations] Resolved: 3 03-03-2018 Episodic Comment on above: resolved with anx un tara better controlekg done at last visit Esophageal disorders (20 sources) Gastroesophageal reflux disease; Translations: [GERD (gastroesophageal reflux disease)] 03-03-2018 Chronic Essential hypertension (20 sources) Diastolic hypertension; Translations: [Benign diastolic hypertension] Resolved: 9 03-03-2018 Chronic Fever of unknown origin (20 sources) Fever with chills; Translations: [Fever and chills] Resolved: 1 01-18-2020 Episodic Genitourinary symptoms and ill-defined conditions (20 sources) Increased frequency of urination; Translations: [Urinary frequency] Resolved: 1 03-03-2018 Episodic Comment on above: ? UTi will treat for 3 days Heart valve disorders (20 sources) Heart murmur; Translations: [Heart murmur] 03-03-2018 Episodic Comment on above: echo 12/14 pending Immunizations and screening for infectious disease (20 sources) Need for prophylactic vaccination and inoculation against influenza; Translations: [Needs influenza immunization] 12-30-2020 Episodic Mood disorders (9 sources) Depressive disorder; Translations: [Major depressive disorder, single episode, unspecified] 12-26-2009 Chronic Nonspecific chest pain (20 sources) Atypical chest pain; Translations: [Chest pain, atypical] Resolved: 2 12-30-2020 Episodic Nutritional deficiencies (20 sources) Vitamin D deficiency; Translations: [Vitamin D deficiency] 03-03-2018 Chronic Comment on above: take vit D 5k daily Other circulatory disease (2 sources) H/O: hypertension; Translations: [Personal history of other diseases of the circulatory system] 09-17-2020 Episodic Other gastrointestinal disorders (20 sources) Irritable bowel syndrome; Translations: [Irritable bowel syndrome with constipation and diarrhea] 03-03-2018 Chronic Comment on above: cont taking probioti c Other gastrointestinal disorders (20 sources) Diarrhea; Translations: [Diarrhea] 03-03-2018 Episodic Other gastrointestinal disorders (20 sources) Abnormal frequency of defecation; Translations: [Frequent bowel movements] Resolved: 6 06-11-2016 Episodic Other lower respiratory disease (20 sources) Cough; Translations: [Cough] Resolved: 1 01-18-2020 Episodic Other lower respiratory disease (20 sources) Apnea; Translations: [Witnessed apneic spells] 06-04-2022 Episodic Comment on above: pt has declined stacey marte sleep study - i gave her names of dr to contact if she changes her mind Other nutritional; endocrine; and metabolic disorders (20 sources) Body mass index 25-29 - overweight; Translations: [BMI 25.0-25.9,adult] 03-03-2018 Chronic Other nutritional; endocrine; and metabolic disorders (20 sources) Body mass index 25-29 - overweight; Translations: [BMI 25.0-25.9,adult] 12-30-2020 Episodic Other nutritional; endocrine; and metabolic disorders (20 sources) Overweight in adulthood with body mass index of 25 or more but less than 30; Translations: [BMI 25.0-25.9,adult] 12-12-2022 Episodic Other skin disorders (20 sources) Nail disorder, unspecified; Translations: [Nail problem] Resolved: 2 03-03-2018 Episodic Other skin disorders (20 sources) Loss of hair; Translations: [Hair loss] Resolved: 2 07-13-2021 Episodic Other upper respiratory disease (20 sources) Allergic rhinitis; Translations: [Allergic rhinitis] 11-30-2021 Chronic Comment on above: on flnoase nad antih istamine Other upper respiratory disease (20 sources) Nasal congestion; Translations: [Nasal congestion] 01-21-2019 Episodic Comment on above: using flonase adn sa line will add antihistamine Pneumonia (except that caused by tuberculosis or sexually transmitted disease) (4 sources) Severe acute respiratory syndrome; Translations: [SARS (severe acute respiratory syndrome)] 12-10-2022 Episodic Residual codes; unclassified (19 sources) Needs influenza immunization; Translations: [Need for prophylactic vaccination and inoculation against influenza (Renamed from Need for immunization against influenza)] 03-03-2018 Episodic Residual codes; unclassified (20 sources) Body Mass Index between 19-24, adult; Translations: [Finding of body mass index] 03-03-2018 Episodic Residual codes; unclassified (20 sources) Body mass index (BMI) 23.0-23.9, adult; Translations: [Body mass index 20-24 - normal] Resolved: 2 03-03-2018 Episodic Residual codes; unclassified (20 sources) Influenza vaccination declined; Translations: [Influenza vaccination declined (Renamed from Refused influenza vaccine)] 12-30-2020 Episodic Residual codes; unclassified (20 sources) Non-smoker; Translations: [Nonsmoker] 01-21-2019 Episodic Residual codes; unclassified (1 source) Asymptomatic menopausal state; Translations: [Asymptomatic menopausal state] Onset: 5 Episodic Spondylosis; intervertebral disc disorders; other back problems (20 sources) Low back pain; Translations: [Low back pain] 03-03-2018 Episodic Comment on above: ? musculoskeletal vs kidney consider ultrasound ? stone Thyroid disorders (20 sources) Hypothyroidism; Translations: [Hypothyroidism] 12-26-2009 Chronic Unclassified (2 sources) Screening mammography ; Translations: [Encounter for screening mammogram for malignant neoplasm of breast] Onset: 7 04-25-2017 Unclassified (20 sources) Benign diastolic hypertension Unclassified (20 sources) Unclassified (20 sources) Grieving Unclassified (20 sources) Non-smoker; Translations: [Nonsmoker] 03-03-2018 Unclassified (20 sources) Patient encounter status; Translations: [Screening for lipid disorders] 03-03-2018 Unclassified (20 sources) BMI 25.0-25.9,adult Unclassified (20 sources) PAC (premature atrial contraction) Unclassified (20 sources) Body mass index 20-24 - normal; Translations: [BMI 24.0-24.9, adult] 01-21-2019 Unclassified (20 sources) Non-smoker Urinary tract infections (20 sources) Urinary tract infectious disease; Translations: [UTI (urinary tract infection)] Resolved: 6 03-03-2018 Episodic Past or Other Problems Problem Classification Problem Date Documented Da te Episodic/Chronic Esophageal disorders (20 sources) Esophageal disorders Influenza (8 sources) Influenza Mood disorders (20 sources) Mood disorders Open wounds of extremities (5 sources) Puncture wound with foreign body of right thumb without damage to nail, initial encounter; Translations: [Open wound of finger(s), complicated] Onset: 05-08-2017 05-08-2017 Episodic Other screening for suspected conditions (not mental disorders or infectious disease) (20 sources) Screening status; Translations: [Encounter for screening for malignant neoplasm of colon (Renamed from Special screening for malignant neoplasms, colon)] Onset: 07-08-2024 12-30-2020 Episodic Otitis media and related conditions (9 sources) Otitis media; Translations: [Otitis media, unspecified, left ear] Onset: 12-26-2009 12-26-2009 Episodic Unclassified (20 sources) Abortions/Miscarria ges; Translations: [Abortions/Miscarri ages] 03-03-2018 Comment on above: 2. Unclassified (20 sources) Palpitation Unclassified (20 sources) Screening status; Translations: [Encounter for screening for malignant neoplasm of colon (Renamed from Special screening for malignant neoplasms, colon)] 03-03-2018 Unclassified (20 sources) Influenza vaccination declined; Translations: [Influenza vaccination declined (Renamed from Refused influenza vaccine)] 03-03-2018 Unclassified (20 sources) Pregnancies (); Translations: [Pregnancies ()] 03-03-2018 Comment on above: 2. Unclassified (20 sources) Irritable bowel syndrome with constipation and diarrhea Unclassified (20 sources) Frequent bowel movements Unclassified (20 sources) BMI 23.0-23.9, adult; Translations: [Body mass index 20-24 - normal] 03-03-2018 Unclassified (20 sources) BMI between 19-24,adult; Translations: [Finding of body mass index] 01-21-2019 Unclassified (19 sources) UTI symptoms Unclassified (20 sources) Nail problem Unclassified (19 sources) BMI 27.0-27.9,adult Unclassified (11 sources) Chest pain, atypical Unclassified (11 sources) Stomach ache Unclassified (9 sources) Hair loss Unclassified (3 sources) Encounter for screening colonoscopy Urinary tract infections (11 sources) Urinary tract infections Results Test Name Value Interpretation Reference Range Facility Bone density reportOrdered B y: Farhan Lindsey on 11-06-2024 Study report Skeletal system DXA [facility] Imaging Services [address] [place] [id number] [id number] Dexa Bone Density Study MR#: [id number] Acct: [id number] Name: KATARINA GUPTA OBB Rep #: [id number] : 1960 F 64 From: Ramsey Lindsey MD PCP: Dr. Jodee Perez DO Status: RE G CLI Study:Dexa Bone Density Study Date of Exam: 11/05/24 Exam# [id number] Ordering Dr: Yolande Perez DO PROCEDURE: DEXA BONE DENSITY STUDY 11/05/2024 REASON FOR EXAM: F, age 64 y/o . Postmenopausal. TECHNIQUE: DXA scan of sites with data reported below. REFERENCE LINKS: ISCD Adult Positions COMPARISON: None FINDINGS: BMD and T-SCORES Lumbar spine: 0.780 g/cm2, T-score -2.4 Levels: L1 through L4 Left femoral neck: 0.535 g/cm2, T-score -2.8 Femoral neck comparison data not recommended for monitoring change. Left total hip: 0.683 g/cm2, T-score -2.1 Right femoral neck: 0.503 g/cm2, T-score -3.1 Femoral neck comparison data not recommended for monitoring change. Right total hip: 0.637 g/cm2, T-score -2.5 The World Health Organization has defined the following categories based on bonedensity: Normal bone density: T-score equal to or greater than -1.0 Osteopenia: T-score between -1.0 and -2.5 Osteoporosis: T-score equal to or less than -2.5 The patient does meet the pharmacological treatment recommendations for prevention of osteoporosis. BD/Dexa Bone Density Study IMPRESSION: OSTEOPOROSIS. Recommend follow-up as clinically warranted. Reading Location: [id number] CC: Dr. Jodee Perez DO ~ Monorail Hooker: Signed [facility] Dexa Bone Density Studyon Dexa Bone Density Study [facility] Imaging Services [address] [place], [place] [id number] Dexa Bone Density Study MR#: [id number] Acct: [id number] Name: KATARINA GUPTA Rep #: [id number] : 1960 F 64 From: Farhan esposito MD PCP: Dr. Jodee Perez, Status: REG CLI Study: Dexa Bone Density Study Date of Exam: 11/05/24 Exam# [id number] Ordering Dr: Jodee Perez DO PROCEDURE: DEXA BONE DENSITY STUDY 11/05/2024 REASON FOR EXAM: F, age 64 y/o . Postmenopausal. TECHNIQUE: DXA scan of sites with data reported below. REFERENCE LINKS: ISCD Adult Positions COMPARISON: None FINDINGS: BMD and T-SCORES Lumbar spine: 0.780 g/cm2, T-score -2.4 Levels: L1 through L4 Left femoral neck: 0.535 g/cm2, T-score -2.8 Femoral neck comparison data not recommended for monitoring change. Left total hip: 0.683 g/cm2, T-score -2.1 Right femoral neck: 0.503 g/cm2, T-score -3.1 Femoral neck comparison data not recommended for monitoring change. Right total hip: 0.637 g/cm2, T-score -2.5 The World Health Organization has defined the following categories based on bone density: Normal bone density: T-score equal to or greater than -1.0 Osteopenia: T-score between -1.0 and -2.5 Osteoporosis: T-score equal to or less than -2.5 The patient does meet the pharmacological treatment recommendations for prevention of osteoporosis. BD/Dexa Bone Density Study IMPRESSION: OSTEOPOROSIS. Recommend follow-up as clinically warranted. Reading Location: [facility]GNDFOAOL-I CC: Dr. Jodee Perez, DO Monorail Hooker: Signed Normal [facility] PAP IG HPV APTIMA ,45on 07-27-2024 ADEQ Comment Normal . [facility] Comment on above: Order Comment: Speci men Comment: [id number] Specimen Comment: Source.............Cervix Specimen Comment: Other..............Post Menopausal Specimen Comment: No. of containers..01 ThinPrep Vial Result Comment: Sati sfactory for evaluation. Endocervical and/or squamous metaplastic cells (endocervical component) are present. Performed By: #### L 7400.0280 #### [facility] [address] [place], [address] COMM . Normal . [facility] Comment on above: Order Comment: Speci men Comment: [id number] Specimen Comment: Source.............Cervix Specimen Comment: Other..............Post Menopausal Specimen Comment: No. of containers..01 ThinPrep Vial Performed By: #### L 7400.0280 #### [facility] [address] [facility] [place], [place], [id number] COMMENT Comment Normal . [facility] Comment on above: Order Comment: Speci men Comment: [id number] Specimen Comment: Source.............Cervix Specimen Comment: Other..............Post Menopausal Specimen Comment: No. of containers..01 ThinPrep Vial Result Comment: This liquid based ThinPrep(R) pap test was screened with the use of an image guided system. Performed By: #### L 7400.0280 #### [facility] [address] [place], [place], [address] DIAG Comment Normal . [facility] Comment on above: Order Comment: Speci men Comment: [id number] Specimen Comment: Source.............Cervix Specimen Comment: Other..............Post Menopausal Specimen Comment: No. of containers..01 ThinPrep Vial Result Comment: NEGA TIVE FOR INTRAEPITHELIAL LESION OR MALIGNANCY. CELLULAR CHANGES ASSOCIATED WITH ATROPHY ARE PRESENT. Performed By: #### L 7400.0280 #### [facility] [address] [place], [place], [id number] HPV APTIMA, HR Negative Normal Negative [facility] Comment on above: Order Comment: Speci men Comment: [id number] Specimen Comment: Source.............Cervix Specimen Comment: Other..............Post Menopausal Specimen Comment: No. of containers..01 ThinPrep Vial Result Comment: This nucleic acid amplification test detects fourteen high- risk HPV types (16,18,31,33,35,39,45,51,52,56,58,59,66,68) without differentiation. Performed By: #### L 7400.0280 #### [facility] [address] [place], [place], [id number] HPV Abi Rfx Comment Normal . [facility] Comment on above: Order Comment: Speci men Comment: [id number] Specimen Comment: Source.............Cervix Specimen Comment: Other..............Post Menopausal Specimen Comment: No. of containers..01 ThinPrep Vial Result Comment: Crit eria not met, HPV Genotype not performed. Performed at: - [address] [id number] Tax Analyst: Rachel Cabrera MD, Phone: [phone] Performed at: = - [facility] [id number] Tax Analyst: Rachel Cabrera MD, Phone: [phone] Performed By: #### L 7400.0280 #### [facility] [address] [place], [address] PAPSMR Comment Normal . [facility] Comment on above: Order Comment: Speci men Comment: [id number] Specimen Comment: Source.............Cervix Specimen Comment: Other..............Post Menopausal Specimen Comment: No. of containers..01 ThinPrep Vial Result Comment: The Pap smear is a screening test designed to aid in the detection of premalignant and malignant conditions of the uterine cervix. It is not a diagnostic procedure and should not be used as the sole means of detecting cervical cancer. Both false-positive and false-negative reports do occur. Performed By: #### L 7400.0280 #### [facility] [address] [place], [address] PERFORM Comment Normal . [facility] Comment on above: Order Comment: Speci men Comment: [id number] Specimen Comment: Source.............Cervix Specimen Comment: Other..............Post Menopausal Specimen Comment: No. of containers..01 ThinPrep Vial Result Comment: Milton Ayala, Security Specialist (ASCP) Performed By: #### L 7400.0280 #### [facility] [address] [place], [place], [id number] Cervical or vaginal specimen microscopic examination by liquid based cytology (reportOrdered By: Stacie Dewitt on 07-21-2024 Cytology report Cyto stain.thin prep Doc (Cvx/Vag) Comment . [facility] Comment on above: Criteria not met, HP V Genotype not performed.Performed at: - [facility] [id number] Director: Rachel Cabrera MD, Phone: [phone] at: = - [facility] [id number] Director: Rachel Cabrera MD, Phone: [phone] Cervical or vagninal specime n microscopic examination by cytology stain (reported asOrdered By: Stacie Dewitt on 07-21-2024 Cytology report Cyto stain Doc (Cvx/Vag) Comment . [facility] Comment on above: The Pap smear is a s creening test designed to aid in thedetection of premalignant and malignant conditions of theuterine cervix. It is not a diagnostic procedure andshould not be used as the sole means of detecting cervicalcancer. Both false-positive and false-negative reports dooccur. Detection in cervical specim en of any of human papilloma virus (HPV) 16, 18, 31, 33,Ordered By: Stacie Dewitt on 07-21-2024 HPV 16+18+31+33+35+39+45+5 1+52+56+58+59+66+68 DNA Probe+sig amp Ql (Cvx) Negative Negative [facility] Comment on above: This nucleic acid am plification test detects fourteen high- risk HPV types (16,18,31,33,35,39,45,51,52,56,58,59,66,68)without differentiation. Laboratory - CytologyOrdered By: Stacie Dewitt on 07-21-2024 Wall Covering Installer Cyto stain Nom (Cvx/Vag) [ID] Comment . [facility] Comment on above: Jordy Schmid totechnologist (ASCP) Laboratory - Miscellaneous t estsOrdered By: Stacie Dewitt on 07-21-2024 Service comment (Unsp spec) [Interp] . . [facility] No Panel InformationOrdered By: Stacie Dewitt on 07-21-2024 Pap Smear Specimen Adequacy Comment . [facility] Comment on above: Satisfactory for poncho luation. Endocervical and/or squamous metaplasticcells (endocervical component) are present. 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) Chief Complaint: Annual Steel Hanger Required: No Is patient in pain?: No Allergies No Known Allergies Allergy (Verified 07/21/24 11:33) Medications ???Medication ???Instructions ???Recorded ???Confirmed ???Type levothyroxine 75 mcg tablet 75 mcg PO DAILY thyroid 03/29/16 07/21/24 History cholecalciferol (vitamin D3) 50 2,000 unit PO DAILY vitamin 05/25/19 07/21/24 History mcg (2,000 unit) capsule ascorbate calcium (vitamin C) 500 500 mg PO DAILY supplement 06/13/20 07/21/24 History mg tablet sertraline 50 mg tablet 100 mg PO DAILY mental health 07/04/21 07/21/24 History vitamin C 50 mg-B5 125 mg-DMAE tab PO 07/15/23 07/21/24 History 12.5 fx-qkpdiaviv-jjxsdczq -herb tablet (Adrenal Optimizer) Is last menstrual period known: No Post menopausal: Yes Patient : No : No PFSH Medical History Hypothyroidism Social History number of children: 2 current occupational status: employed current occupation: [employer] Smoking Status: Never smoker alcohol intake: current alcohol intake frequency: holidays/special occasions only substance use type: does not use caffeine: No what type of physical activity do you participate in: walking frequency: 1-2 times per week seatbelt use: always do you feel safe at home: Yes additional social history: [place] History 4 Elective abortions Hx Para 2 Spontaneous abortions Hx # Term Pregnancies 2 Ectopic pregnancies Hx # Pregnancies Multiple births # of living children 2 Past Pregnancies Del. Date Name GA/Weeks Outcome Route Bth Weight Gen Labor Lgth Anesthesia Del Locatn Provider FOB Unknown Luis Miguel 1987 Unknown Jazlyn 1993 HPI Encounter for routine gynecological examination Details: KATARINA GUPTA is a 64 year old who presents for annual exam. Denies concerns. Last PAP: 2019 History of abnormal PAP: no Last mammogram: today History of abnormal mammogram: no Colon cancer screening: cologuard is due Other preventative health care screenings: Chris ROS Const Constitutional: Denies fatigue, weight gain or weight loss Cardio Card: Denies chest pain Resp Resp: Denies cough or dyspnea on exertion GI GI: Denies abdominal pain, bloating, change in stool character, constipation or vomiting : Reports as per HPI; Denies difficulty voiding, pelvic pain, urinary frequency, urinary incontinence, urinary urgency, vaginal discharge or vaginal pruritus Exam Const General: cooperative, healthy appearing, no acute distress and well developed Orientation: alert, oriented to person and oriented to place HENMT Head: normal to inspection Neck Neck: normal visual inspection Thyroid: thyroid normal Lymphatic: no lymphadenopathy noted Chest Breast inspection: normal inspection of the breasts and normal inspection of the axillae Breast palpation: normal palpation of the breasts, normal palpation of the axillae and no axillary lymphadenopathy Resp Effort Inspection: normal respiratory effort GI Palpation: soft, no masses and nontender Rectal Exam: deferred External Female Exam: normal external appearance and normal appearance of the urethra Urethra: normal appearance of the urethra and normal palpation Speculum Exam - Vagina: normal appearance of the vagina and normal vaginal discharge Speculum Exam - Cervix: normal appearance of the cervix Bimanual Exam- Vagina Uterus: normal bimanual exam, uterine size normal, uterine shape normal and non-tender Bimanual Exam- Adnexa, other: normal adnexae, no masses, normal and non-tender Pelvic Support: normal Neuro General: patient alert and patient oriented x3 Psych Affect: normal affect Coding Level of Care Code Off vis,est,prev 40-64yrs Diagnoses Encounter for gynecological examination without abnormal finding Z01.419 Gynecological examination findings: abnormal findings ABSENT Assessment and Plan Assessment and Plan (1) Encounter for routine gynecological examination: Qualifiers: Gynecological examination findings: abnormal findings ABSENT Qualified Code(s): Z01.419 - Encounter for gynecological examina (more content not included)... Normal [facility] SCRN MAMM (CAD)W/OMARI BILATo n 07-21-2024 SCRN MAMM (CAD)W/OMARI BILAT [facility] Imaging Services [address] [place] [address] SCRN MAMM (CAD)W/OMARI BILAT MR#: [id number] Acct: [id number] Name: KATARINA GUPTA Rep #: [id number] : 1960 F 64 From: Farhan esposito MD PCP: Dr. Jodee Perez, DO Status: REG [facility] Study: SCRN MAMM (CAD)W/OMARI BILAT Date of Exam: 06/25 02/15 Exam# [id number] Ordering Dr: Stacie Dewitt NP VENDING ROUTE DRIVER -C PROCEDURE: SCRN MAMM (CAD)W/OMARI BILAT REASON FOR EXAM: F, Age 64 y/o , No family history of breast cancer. Prior breast cyst aspiration. TECHNIQUE: Bilateral screening digital breast tomosynthesis with 2D and 3D images. Computer aided detection. COMPARISON: Prior exam(s) dating back to . Comparison is made with prior study dated July 18, 2023. FINDINGS: The breasts are extremely dense which lowers the sensitivity of mammography. Stable examination. BI/SCRN MAMM (CAD)W/OMARI BILAT IMPRESSION: BI-RADS 1: NEGATIVE. RECOMMEND ANNUAL MAMMOGRAPHIC SCREENING. Follow-up code: Routine Follow-up The patient will be notified of the results by letter. Reading Location: [place] [address] CC: VENDING ROUTE DRIVERMandy Dewitt; Dr. Jodee Perez, DO Monorail Hooker: Signed Normal [facility] CALCIFIDIOL ([id number]) VIT D 25 Ordered By: Women'S Activities Adviser on 11-23-2022 25-hydroxyvitamin D [Mass/Vol] 35.7 ng/mL Normal 30.0-100.0 [facility]; [facility] Work Phone: Comment on above: Vitamin D deficiency has been defined by the Caroline ofMedicine and an Endocrine Society practice guideline as alevel of serum 25-OH vitamin D less than 20 ng/mL (1,2).The Endocrine Society went on to further define vitamin Dinsufficiency as a level between 21 and 29 ng/mL (2).1. IOM (Caroline of Medicine). 2010. Dietary reference intakes for calcium and D. [place]: The National Academies Press.2. Enmanuel MF, Kya MAYFIEDL, Aurelia PASTOR, et al. Evaluation, treatment, and prevention of vitamin D deficiency: an Endocrine Society clinical practice guideline. JCEM. 2010; 96(7):1911-30. PATIENT WAS FASTINGP ERFORMED BY: [employer] [place] [id number] CBC W/AUTO DIFF WBC (23904)O rdered By: Women'S Activities Adviser on 11-23-2022 Basophils (Bld) [#/Vol] 0.0 10*3/uL Normal 0.0-0.2 [facility]; [facility] Work Phone: Comment on above: PATIENT WAS FASTINGP ERFORMED BY: YoQueVos70 [address],[place] [id number] Basophils/100 WBC (Bld) 0 % Normal [facility]; [facility] Work Phone: Comment on above: PATIENT WAS FASTINGP ERFORMED BY: YoQueVos70 [place] [id number] Eosinophils (Bld) [#/Vol] 0.1 10*3/uL Normal 0.0-0.4 [facility]; [facility] Work Phone: Comment on above: PATIENT WAS FASTINGP ERFORMED BY: [place] OperaDublin [place] [id number] Eosinophils/100 WBC (Bld) 1 % Normal [facility]; [facility] Work Phone: Comment on above: PATIENT WAS FASTINGP ERFORMED BY: BREE Bro6370 [facility] [id number] Erythrocyte distribution width (RBC) [Ratio] 12.9 % Normal 11.7-15.4 [facility]; [facility] Work Phone: Comment on above: PATIENT WAS FASTINGP ERFORMED BY: [facility] Addenx9489 [facility] [id number] Hematocrit (Bld) [Volume fraction] 43.9 % Normal 34.0-46.6 [facility]; [facility] Work Phone: Comment on above: PATIENT WAS FASTINGP ERFORMED BY: [facility] Orwjeh0365 [facility] [id number] Hemoglobin (Bld) [Mass/Vol] 14.2 g/dL Normal 11.1-15.9 [facility]; [facility] Work Phone: Comment on above: PATIENT WAS FASTINGP ERFORMED BY: Sammi Gwjvbk9162 [facility] [id number] Immature granulocytes (Bld) [#/Vol] 0.0 10*3/uL Normal 0.0-0.1 [facility]; [facility] Work Phone: Comment on above: PATIENT WAS FASTINGP ERFORMED BY: [facility] Iyukkn9021 [facility] [id number] Immature granulocytes/100 WBC (Bld) 0 % Normal [facility]; [facility] Work Phone: Comment on above: PATIENT WAS FASTINGP ERFORMED BY: [facility] Waredz3884 [facility] [id number] Lymphocytes (Bld) [#/Vol] 2.7 10*3/uL Normal 0.7-3.1 [facility]; [facility] Work Phone: Comment on above: PATIENT WAS FASTINGP ERFORMED BY: BREE [facility] Skzxim[address] [facility] [place] [id number] Lymphocytes/100 WBC (Bld) 43 % Normal [facility]; [facility] Work Phone: Comment on above: PATIENT WAS FASTINGP ERFORMED BY: BREE [facility] Zcqsuq9739 [address] [facility] [place] [id number] MCH (RBC) [Entitic mass] 29.1 pg Normal 26.6-33.0 [facility]; [facility] Work Phone: Comment on above: PATIENT WAS FASTINGP ERFORMED BY: [facility]coMorristown Medical CenterKnrpcs9153 [address] [facility] [place] [id number] MCHC (RBC) [Mass/Vol] 32.3 g/dL Normal 31.5-35.7 [facility] prehensive Internal Medicine; [facility] Work Phone: Comment on above: PATIENT WAS FASTINGP ERFORMED BY: [facility] Omhjps7524 [facility] [id number] MCV (RBC) [Entitic vol] 90 fL Normal 79-97 [facility]; [facility] Work Phone: Comment on above: PATIENT WAS FASTINGP ERFORMED BY: [facility] Yorpjh7140 [address] [facility] [id number] Monocytes (Bld) [#/Vol] 0.4 10*3/uL Normal 0.1-0.9 [facility]; [facility] Work Phone: Comment on above: PATIENT WAS FASTINGP ERFORMED BY: [facility] [facility] [place] [id number] Monocytes/100 WBC (Bld) 7 % Normal [facility]; [facility] Work Phone: Comment on above: PATIENT WAS FASTINGP ERFORMED BY: [facility]re[facility] Idrzmh4369 [address] [facility] [place] [id number] Neutrophils (Bld) [#/Vol] 3.0 10*3/uL Normal 1.4-7.0 [facility]; [facility] Work Phone: Comment on above: PATIENT WAS FASTINGP ERFORMED BY: BREE [facility] Xjbwhj3828 Fern[address] RoadDublin [place] [id number] Neutrophils/100 WBC (Bld) 49 % Normal [facility]; [facility] Work Phone: Comment on above: PATIENT WAS FASTINGP ERFORMED BY: CB [facility] Zwyoyq9201 Fern[address] RoadDublin [place] [id number] Platelets (Bld) [#/Vol] 262 10*3/uL Normal 150-450 [facility]; [facility] Work Phone: Comment on above: PATIENT WAS FASTINGP ERFORMED BY: CB [facility] Eimevg0091 Fern[address] RoadDublin [place] [id number] RBC (Bld) [#/Vol] 4.88 10*6/uL Normal 3.77-5.28 [facility]; [facility] Work Phone: Comment on above: PATIENT WAS FASTINGP ERFORMED BY: CB [facility] Otxegc7318 Fern[address] RoadDublin [place] [id number] WBC (Bld) [#/Vol] 6.1 10*3/uL Normal 3.4-10.8 [facility]; [facility] Work Phone: Comment on above: PATIENT WAS FASTINGP ERFORMED BY: BREE [facility] Bfgdqg4010 Fern[address] RoadDublin [place] [id number] LIPID PANEL (97502)Ordered B y: Women'S Activities Adviser on 11-23-2022 Cholesterol [Mass/Vol] 203 mg/dL Abnormal 100-199 [facility]; [facility] Work Phone: Comment on above: PATIENT WAS FASTINGP ERFORMED BY: CB [facility] Gzvcyi8086 Fern[address] RoadDublin [place] [id number] Cholesterol in HDL [Mass/Vol] 66 mg/dL Normal [facility]; [facility] Work Phone: Comment on above: PATIENT WAS FASTINGP ERFORMED BY: CB [facility] Awqjyl5618 [address] RoadDublin [place] [id number] Triglyceride [Mass/Vol] 55 mg/dL Normal 0-149 [facility]; [facility] Work Phone: Comment on above: PATIENT WAS FASTINGP ERFORMED BY: BREE Labmiguel PrietoQbeuzz79[address] [facility] [place] [id number] LIPID PANEL (45675) 10 mg/dL Normal 5-40 [facility]; [facility] Work Phone: Comment on above: PATIENT WAS FASTINGP ERFORMED BY: BREE Labcosabrina PrietoHbbzhq[address] [facility] [id number] LIPID PANEL (07539) 127 mg/dL Abnormal 0-99 [facility]; [facility] Work Phone: Comment on above: PATIENT WAS FASTINGP ERFORMED BY: BREE Prietolin6370 [address] [facility] [id number] LIPID PANEL (22803) 1.9 {ratio} Normal 0.0-3.2 [facility] Internal [facility]; [facility] Work Phone: Comment on above: LDL/HDL Ratio Men Wo men 1/2 Avg.Risk 1.0 1.5 Avg.Risk 3.6 3.2 2X Avg.Risk 6.2 5.0 3X Avg.Risk 8.0 6.1 PATIENT WAS FASTINGP ERFORMED BY: BREE Prietolin6370 [facility] [id number] METABOLIC PANEL, COMPREHENSI VE (74132)Ordered By: Women'S Activities Adviser on 11-23-2022 Albumin [Mass/Vol] 4.6 g/dL Normal 3.8-4.8 [facility]; [facility] Work Phone: Comment on above: PATIENT WAS FASTINGP ERFORMED BY: BREE Labcosabrina Itsgtz6088 [address] [facility] [place] [id number] Albumin/Globulin [Mass ratio] 2.1 {ratio} Normal 1.2-2.2 [facility] Internal [facility]; [facility] Work Phone: Comment on above: PATIENT WAS FASTINGP ERFORMED BY: BREE Labcosabrina Xdcpiy9718 [address] [facility] [place] [id number] ALP [Catalytic activity/Vol] 91 U/L Normal 44-121 [facility]; [facility] Work Phone: Comment on above: PATIENT WAS FASTINGP ERFORMED BY: CB [facility] Pbuldb7321 [address] RoadDublin [place] [id number] ALT [Catalytic activity/Vol] 15 U/L Normal 0-32 [facility]; [facility] Work Phone: Comment on above: PATIENT WAS FASTINGP ERFORMED BY: CB [facility] Brmhbc8499 [address] RoadDublin [place] [id number] AST [Catalytic activity/Vol] 23 U/L Normal 0-40 [facility]; [facility] Work Phone: Comment on above: PATIENT WAS FASTINGP ERFORMED BY: CB [facility] Hgjlqv5408 [address] RoadDublin [place] [id number] Bilirubin [Mass/Vol] 0.4 mg/dL Normal 0.0-1.2 Comp rehensive Internal Medicine; [facility] Work Phone: Comment on above: PATIENT WAS FASTINGP ERFORMED BY: [facility] Xjzxkc2349 [address] RoadDublin [place] [id number] Calcium [Mass/Vol] 10.0 mg/dL Normal 8.7-10.3 [facility] [facility]; [facility] Work Phone: Comment on above: PATIENT WAS FASTINGP ERFORMED BY: [facility] Wisgee24[address]Dublin [place] [id number] Chloride [Moles/Vol] 100 mmol/L Normal 96-106 [facility]; [facility] Work Phone: Comment on above: PATIENT WAS FASTINGP ERFORMED BY: CB [facility] Fcxqkq7879 [address] RoadDublin [place] [id number] CO2 [Moles/Vol] 23 mmol/L Normal 20-29 [facility] Internal Medicine; [facility] Work Phone: Comment on above: PATIENT WAS FASTINGP ERFORMED BY: CB [facility] Lxgkmk0449 [address] RoadDublin [place] [id number] Creatinine [Mass/Vol] 0.86 mg/dL Normal 0.57-1.00 [facility] prehensive Internal Medicine; [facility] Work Phone: Comment on above: PATIENT WAS FASTINGP ERFORMED BY: BREE Chapa Khynsx9408 [facility] [id number] GFR/1.73 sq M.predicted among non-blacks MDRD (S/P/Bld) [Vol rate/Area] 76 mL/min/{1.73_m2} Normal Comprehensiv e Internal Medicine; [facility] Work Phone: Comment on above: PATIENT WAS FASTINGP ERFORMED BY: BREE [facility] Tgksji2100 [facility] [id number] Globulin (S) [Mass/Vol] 2.2 g/dL Normal 1.5-4.5 [facility]; [facility] Work Phone: Comment on above: PATIENT WAS FASTINGP ERFORMED BY: BREE Chapa Hbjgvg6593 [facility] [id number] Glucose [Mass/Vol] 83 mg/dL Normal 70-99 [facility]; [facility] Work Phone: Comment on above: PATIENT WAS FASTINGP ERFORMED BY: BREE Chapa Lhmaat6252 [facility] [id number] Potassium [Moles/Vol] 4.3 mmol/L Normal 3.5-5.2 [facility] prehensive Internal Medicine; [facility] Work Phone: Comment on above: PATIENT WAS FASTINGP ERFORMED BY: BREE Labjose carlos Rucmqp1412 [facility] [id number] Protein [Mass/Vol] 6.8 g/dL Normal 6.0-8.5 [facility]; [facility] Work Phone: Comment on above: PATIENT WAS FASTINGP ERFORMED BY: BREE [facility] Tflfuq4991 [facility] [id number] Sodium [Moles/Vol] 140 mmol/L Normal 134-144 [facility]; [facility] Work Phone: Comment on above: PATIENT WAS FASTINGP ERFORMED BY: [facility] Uccnom6835 [address] RoadDublin [place] [id number] Urea nitrogen [Mass/Vol] 14 mg/dL Normal 8- [facility]; [facility] Work Phone: Comment on above: PATIENT WAS FASTINGP ERFORMED BY: [facility] Zrdxre5548 [address] RoadDublin [place] [id number] Urea nitrogen/Creatinine [Mass ratio] 16 mg/mg Normal 12- [facility]; [facility] Work Phone: Comment on above: PATIENT WAS FASTINGP ERFORMED BY: [facility] Svktmg3890 [address] RoadDublin [place] [id number] T3, FREE (TRIDOTHYRONINE) (1 2042)Ordered By: Women'S Activities Adviser on 11-23-2022 Free T3 [Mass/Vol] 2.8 pg/mL Normal 2.0-4.4 [facility]; [facility] Work Phone: Comment on above: PATIENT WAS FASTINGP ERFORMED BY: [facility] Civuoh3976 [address] RoadDublin [place] [id number] T4, FREE (THYROXINE) (60040) Ordered By: Women'S Activities Adviser on 11-23-2022 Free T4 [Mass/Vol] 1.79 ng/dL Abnormal 0.82-1.77 [facility] Internal [facility]; [facility] Work Phone: Comment on above: PATIENT WAS FASTINGP ERFORMED BY: [facility] Habgls6566 [address]Dublin [place] [id number] TSH (93972)Ordered By: Blowtorche m Granulator Operator on 11-23-2022 TSH Qn 0.861 {uIU/mL} Normal 0.450-4.500 [facility] Internal Medicine; [facility] Work Phone: Comment on above: PATIENT WAS FASTINGP ERFORMED BY: [facility] Bmfgqf9433 [address] RoadDublin [place] [id number] CALCIFIDIOL (38689) VIT D 25 Ordered By: Women'S Activities Adviser on 12-12-2022 25-hydroxyvitamin D [Mass/Vol] 34.7 ng/mL Normal 30.0-100.0 [facility]; [facility] Work Phone: Comment on above: Vitamin D deficiency has been defined by the Caroline ofMedicine and an Endocrine Society practice guideline as alevel of serum 25-OH vitamin D less than 20 ng/mL (1,2).The Endocrine Society went on to further define vitamin Dinsufficiency as a level between 21 and 29 ng/mL (2).1. IOM (Caroline of Medicine). 2010. Dietary reference intakes for calcium and D. [place]: The National Academies Press.2. Enmanuel MF, Kya MAYFIELD, Aurelia PASTOR, et al. Evaluation, treatment, and prevention of vitamin D deficiency: an Endocrine Society clinical practice guideline. JCEM. 2010; 96(7):1911-30. PATIENT WAS FASTINGP ERFORMED BY: BREE LabPlayhouseSquare Mktqfu3545 PlanandooWilliams[facility] [id number] LIPID PANEL (48657)Ordered B y: Women'S Activities Adviser on 06-04-2022 Cholesterol [Mass/Vol] 206 mg/dL Abnormal 100-199 [facility]; [facility] Work Phone: Comment on above: PATIENT WAS FASTINGP ERFORMED BY: BREE [facility] Rwozvd[address] [place] [id number] Cholesterol in HDL [Mass/Vol] 67 mg/dL Normal [facility]; [facility] Work Phone: Comment on above: PATIENT WAS FASTINGP ERFORMED BY: BREE [facility] Vrknat[address] [place] [employer] [place] [id number] Triglyceride [Mass/Vol] 46 mg/dL Normal 0-149 [facility]; [facility] Work Phone: Comment on above: PATIENT WAS FASTINGP ERFORMED BY: Pili Pop [facility] Eevbqc[address] [place] [employer]bl[place] [id number] LIPID PANEL (16691) 8 mg/dL Normal 5-40 Compr ensive Internal Medicine; [facility] Work Phone: Comment on above: PATIENT WAS FASTINGP ERFORMED BY: Pili Pop [facility] Lfdhrq2942 [facility] [id number] LIPID PANEL (81328) 131 mg/dL Abnormal 0-99 [facility] ehensive Internal Medicine; [facility] Work Phone: Comment on above: PATIENT WAS FASTINGP ERFORMED BY: Anuway CorporationPaul [facility]6370 [facility] [id number] LIPID PANEL (30269) 2.0 {ratio} Normal 0.0-3.2 [facility] Internal Medicine; [facility] Work Phone: Comment on above: LDL/HDL Ratio Men Wo men 1/2 Avg.Risk 1.0 1.5 Avg.Risk 3.6 3.2 2X Avg.Risk 6.2 5.0 3X Avg.Risk 8.0 6.1 PATIENT WAS FASTINGP ERFORMED BY: Anuway CorporationPaul [facility]6370 [facility] [id number] TSH (18912)Ordered By: Syste m Granulator Operator on 06-04-2022 TSH Qn 1.130 {uIU/mL} Normal 0.450-4.500 [facility] Internal Medicine; [facility] Work Phone: Comment on above: PATIENT WAS FASTINGP ERFORMED BY: LabPaul [facility]6370 [facility] [id number] CALCIFEDIOL (59539)Ordered B y: Women'S Activities Adviser on 07-13-2021 25-hydroxyvitamin D [Mass/Vol] 34.5 ng/mL Normal 30.0-100.0 [facility]; [facility] Work Phone: Comment on above: Vitamin D deficiency has been defined by the Caroline ofMedicine and an Endocrine Society practice guideline as alevel of serum 25-OH vitamin D less than 20 ng/mL (1,2).The Endocrine Society went on to further define vitamin Dinsufficiency as a level between 21 and 29 ng/mL (2).1. IOM (Caroline of Medicine). 2010. Dietary reference intakes for calcium and D. [place]: The National Academies Press.2. Enmanuel MF, Kya [place], Aurelia PASTOR, et al. Evaluation, treatment, and prevention of vitamin D deficiency: an Endocrine Society clinical practice guideline. JCEM. 2010; 96(7):1911-30. PATIENT NOT FASTINGP ERFORMED BY: CB [facility] Ewrmqh0020 [address] RoadDublin [place] [id number] CBC with auto diff (69529)Or dered By: Women'S Activities Adviser on 07-13-2021 Basophils (Bld) [#/Vol] 0.0 10*3/uL Normal 0.0-0.2 [facility]; [facility] Work Phone: Comment on above: PATIENT NOT FASTINGP ERFORMED BY: CB [facility] Elwupr5321 [address] RoadDublin [place] [id number] Basophils/100 WBC (Bld) 0 % Normal [facility]; [facility] Work Phone: Comment on above: PATIENT NOT FASTINGP ERFORMED BY: CB [facility] Acjufn3856 [address] RoadDublin [place] [id number] Eosinophils (Bld) [#/Vol] 0.1 10*3/uL Normal 0.0-0.4 [facility]; [facility] Work Phone: Comment on above: PATIENT NOT FASTINGP ERFORMED BY: CB [facility] Oqhcqu9756 [address] RoadDublin [place] [id number] Eosinophils/100 WBC (Bld) 1 % Normal [facility]; [facility] Work Phone: Comment on above: PATIENT NOT FASTINGP ERFORMED BY: CB [facility] Xihsyh2246 [address] RoadDublin [place] [id number] Erythrocyte distribution width (RBC) [Ratio] 11.8 % Normal 11.7-15.4 [facility]; [facility] Work Phone: Comment on above: PATIENT NOT FASTINGP ERFORMED BY: CB [facility] Rafoka4966 [address] RoadDublin [place] [id number] Hematocrit (Bld) [Volume fraction] 42.9 % Normal 34.0-46.6 [facility]; [facility] Work Phone: Comment on above: PATIENT NOT FASTINGP ERFORMED BY: CB [facility] Jjewqj7388 [address] RoadDublin [place] [id number] Hemoglobin (Bld) [Mass/Vol] 14.2 g/dL Normal 11.1-15.9 [facility]; [facility] Work Phone: Comment on above: PATIENT NOT FASTINGP ERFORMED BY: BREE Bro6370 [facility] [id number] Immature granulocytes (Bld) [#/Vol] 0.0 10*3/uL Normal 0.0-0.1 [facility]; [facility] Work Phone: Comment on above: PATIENT NOT FASTINGP ERFORMED BY: [facility] Illiod2216 [facility] [id number] Immature granulocytes/100 WBC (Bld) 0 % Normal [facility]; [facility] Work Phone: Comment on above: PATIENT NOT FASTINGP ERFORMED BY: Sammi Tnxczk5720 [facility] [id number] Lymphocytes (Bld) [#/Vol] 2.5 10*3/uL Normal 0.7-3.1 [facility]; [facility] Work Phone: Comment on above: PATIENT NOT FASTINGP ERFORMED BY: BREE Chapa Aglvuk5477 [facility] [id number] Lymphocytes/100 WBC (Bld) 36 % Normal [facility]; [facility] Work Phone: Comment on above: PATIENT NOT FASTINGP ERFORMED BY: [facility] Durqgw5349 [facility] [id number] MCH (RBC) [Entitic mass] 29.8 pg Normal 26.6-33.0 [facility]; [facility] Work Phone: Comment on above: PATIENT NOT FASTINGP ERFORMED BY: BREE [facility] Svkddh5203 [facility] [id number] MCHC (RBC) [Mass/Vol] 33.1 g/dL Normal 31.5-35.7 [facility] prehensive Internal Medicine; [facility] Work Phone: Comment on above: PATIENT NOT FASTINGP ERFORMED BY: BREE Labmiguel Bro6370 [address] RoadDublin [place] [id number] MCV (RBC) [Entitic vol] 90 fL Normal 79-97 [facility]; [facility] Work Phone: Comment on above: PATIENT NOT FASTINGP ERFORMED BY: BREE Cantucosabrina BroAwczma2871 [address] RoadDublin [place] [id number] Monocytes (Bld) [#/Vol] 0.5 10*3/uL Normal 0.1-0.9 [facility]; [facility] Work Phone: Comment on above: PATIENT NOT FASTINGP ERFORMED BY: BREE Labcosabrina BroXipxty7676 [address] RoadDublin [place] [id number] Monocytes/100 WBC (Bld) 7 % Normal [facility]; [facility] Work Phone: Comment on above: PATIENT NOT FASTINGP ERFORMED BY: BREE Bro6370 [address] RoadDublin [place] [id number] Neutrophils (Bld) [#/Vol] 3.9 10*3/uL Normal 1.4-7.0 [facility]; [facility] Work Phone: Comment on above: PATIENT NOT FASTINGP ERFORMED BY: BREE Labmiguel Bro6370 [address] RoadDublin [place] [id number] Neutrophils/100 WBC (Bld) 56 % Normal [facility]; [facility] Work Phone: Comment on above: PATIENT NOT FASTINGP ERFORMED BY: BREE [facility] Bowmou4415 [address] RoadDublin [place] [id number] Platelets (Bld) [#/Vol] 247 10*3/uL Normal 150-450 [facility]; [facility] Work Phone: Comment on above: PATIENT NOT FASTINGP ERFORMED BY: CB [facility] Exzdoy9535 [address] RoadDublin [place] [id number] RBC (Bld) [#/Vol] 4.77 10*6/uL Normal 3.77-5.28 [facility] Internal Medicine; [facility] Work Phone: Comment on above: PATIENT NOT FASTINGP ERFORMED BY: BREE [facility] Fjfcnn3591 [address] RoadDublin [place] [id number] WBC (Bld) [#/Vol] 7.0 10*3/uL Normal 3.4-10.8 [facility]; [facility] Work Phone: Comment on above: PATIENT NOT FASTINGP ERFORMED BY: CB [facility] Bcojjv9237 [address] RoadDublin [place] [id number] FERRITIN (06051)Ordered By: Women'S Activities Adviser on 07-13-2021 Ferritin [Mass/Vol] 87 ng/mL Normal 15-150 [facility] Internal Medicine; [facility] Work Phone: Comment on above: PATIENT NOT FASTINGP ERFORMED BY: BREE [facility] Isakfu0305 [address] RoadDublin [place] [id number] IRON BINDING CAPACITY (TIBC) (22460)Ordered By: Women'S Activities Adviser on 07-13-2021 Iron [Mass/Vol] 89 ug/dL Normal 27-139 [facility] Internal Medicine; [facility] Work Phone: Comment on above: PATIENT NOT FASTINGP ERFORMED BY: BREE [facility] Pvebca8481 [address] RoadDublin [place] [id number] Iron binding capacity [Mass/Vol] 323 ug/dL Normal 250-450 [facility]; [facility] Work Phone: Comment on above: PATIENT NOT FASTINGP ERFORMED BY: CB [facility] Dvrjqa0875 [address] RoadDublin [place] [id number] Iron binding capacity.unsaturated [Mass/Vol] 234 ug/dL Normal 118-369 [facility]; [facility] Work Phone: Comment on above: PATIENT NOT FASTINGP ERFORMED BY: CB [facility] Zozhmg0710 [address] RoadDublin [place] [id number] Iron saturation [Mass fraction] 28 % Normal 15-55 [facility]; [facility] Work Phone: Comment on above: PATIENT NOT FASTINGP ERFORMED BY: CB [facility] Ioblym7569 [address] RoadDublin [place] [id number] METABOLIC PANEL, COMPREHENSI VE (16581)Ordered By: Women'S Activities Adviser on 07-13-2021 Albumin [Mass/Vol] 4.4 g/dL Normal 3.8-4.8 [facility] Internal Medicine; [facility] Work Phone: Comment on above: PATIENT NOT FASTINGP ERFORMED BY: CB [facility] Bzdbjq8773 [address] RoadDublin [place] [id number] Albumin/Globulin [Mass ratio] 1.8 {ratio} Normal 1.2-2.2 [facility]; [facility] Work Phone: Comment on above: PATIENT NOT FASTINGP ERFORMED BY: CB [facility] Myaoyr3666 [address] RoadDublin [place] [id number] ALP [Catalytic activity/Vol] 78 U/L Normal 44-121 [facility]; [facility] Work Phone: Comment on above: PATIENT NOT FASTINGP ERFORMED BY: CB [facility] Wkpehj5467 [address] RoadDublin [place] [id number] ALT [Catalytic activity/Vol] 14 U/L Normal 0-32 [facility]; [facility] Work Phone: Comment on above: PATIENT NOT FASTINGP ERFORMED BY: CB [facility] Yctllm6970 [address] RoadDublin [place] [id number] AST [Catalytic activity/Vol] 17 U/L Normal 0-40 [facility]; [facility] Work Phone: Comment on above: PATIENT NOT FASTINGP ERFORMED BY: CB [facility] Ttyjsk2657 [address] RoadDublin [place] [id number] Bilirubin [Mass/Vol] 0.3 mg/dL Normal 0.0-1.2 [facility] Internal Medicine; [facility] Work Phone: Comment on above: PATIENT NOT FASTINGP ERFORMED BY: CB [facility] Cposkq3680 [address] RoadDublin [place] [id number] Calcium [Mass/Vol] 9.8 mg/dL Normal 8.7-10.3 [facility] Internal Medicine; [facility] Work Phone: Comment on above: PATIENT NOT FASTINGP ERFORMED BY: BREE Bro6370 [address]esCox [address] [id number] Chloride [Moles/Vol] 98 mmol/L Normal 96-106 [facility] rehensive Internal Medicine; [facility] Work Phone: Comment on above: PATIENT NOT FASTINGP ERFORMED BY: BREE Bro[address] [facility] [id number] CO2 [Moles/Vol] 28 mmol/L Normal 20-29 [facility] Internal Medicine; [facility] Work Phone: Comment on above: PATIENT NOT FASTINGP ERFORMED BY: BREE Bro6370 [address] [id number] Creatinine [Mass/Vol] 0.72 mg/dL Normal 0.57-1.00 [facility]; [facility] Work Phone: Comment on above: PATIENT NOT FASTINGP ERFORMED BY: BREE Bro6370 [facility] [id number] GFR/1.73 sq M.predicted among blacks CKD-EPI (S/P/Bld) [Vol rate/Area] 105 mL/min/1.73 Normal [facility]; [facility] Work Phone: Comment on above: In accordance with recommendations from the NKF-ASN Task force, [facility] is in the process of updating its eGFR calculation to the 2020 CKD-EPI creatinine equation that estimates kidney function without a race variable. PATIENT NOT FASTINGP ERFORMED BY: BREE Prietolin6370 [facility] [id number] GFR/1.73 sq M.predicted among non-blacks CKD-EPI (S/P/Bld) [Vol rate/Area] 91 mL/min/1.73 Normal [facility]; [facility] Work Phone: Comment on above: PATIENT NOT FASTINGP ERFORMED BY: BREE Prietolin6370 [facility] [id number] Globulin (S) [Mass/Vol] 2.5 g/dL Normal 1.5-4.5 [facility]; [facility] Work Phone: Comment on above: PATIENT NOT FASTINGP ERFORMED BY: CB [facility] Fvfooe9109 [address] RoadDublin [place] [id number] Glucose [Mass/Vol] 78 mg/dL Normal 65-99 [facility] Internal Medicine; [facility] Work Phone: Comment on above: PATIENT NOT FASTINGP ERFORMED BY: CB [facility] Cvazgn5458 [address] RoadDublin [place] [id number] Potassium [Moles/Vol] 4.1 mmol/L Normal 3.5-5.2 [facility]; [facility] Work Phone: Comment on above: PATIENT NOT FASTINGP ERFORMED BY: CB [facility] Suistn4518 [address] RoadDublin [place] [id number] Protein [Mass/Vol] 6.9 g/dL Normal 6.0-8.5 [facility] Internal Medicine; [facility] Work Phone: Comment on above: PATIENT NOT FASTINGP ERFORMED BY: CB [facility] Rnvjgu2743 [address] RoadDublin [place] [id number] Sodium [Moles/Vol] 138 mmol/L Normal 134-144 [facility] Internal Medicine; [facility] Work Phone: Comment on above: PATIENT NOT FASTINGP ERFORMED BY: CB [facility] Vkblfa5640 [address] RoadDublin [place] [id number] Urea nitrogen [Mass/Vol] 15 mg/dL Normal 8-27 [facility]; [facility] Work Phone: Comment on above: PATIENT NOT FASTINGP ERFORMED BY: CB [facility] Osoemk0870 [address] RoadDublin [place] [id number] Urea nitrogen/Creatinine [Mass ratio] 21 mg/mg Normal 12-28 [facility]; [facility] Work Phone: Comment on above: PATIENT NOT FASTINGP ERFORMED BY: CB [facility] Gkqqqy1849 [address] RoadDublin [place] [id number] TSH (44331)Ordered By: Williams Caruso on 07-13-2021 TSH Qn 1.210 {uIU/mL} Normal 0.450-4.500 Randal quinonez Internal Medicine; [facility] Work Phone: Comment on above: PATIENT NOT FASTINGP ERFORMED BY: BREE Labjose carlos Myrswl[address] [facility] [place] [id number] CBC W/AUTO DIFF WBC (74990)O rdered By: Women'S Activities Adviser on 06-15-2020 Basophils (Bld) [#/Vol] 0.0 {x10E3/uL} Normal 0.0-0.2 [facility]; [facility] Work Phone: Comment on above: PATIENT NOT FASTINGP ERFORMED BY: [facility] Ecvszt[address] [facility] [id number] Basophils (Bld) [#/Vol] 0.0 10*3/uL Normal 0.0-0.2 [facility]; [facility] Work Phone: Comment on above: PATIENT NOT FASTINGP ERFORMED BY: [facility]Prom[facility] [facility] [id number] Basophils/100 WBC (Bld) 0 % Normal [facility]; [facility] Work Phone: Comment on above: PATIENT NOT FASTINGP ERFORMED BY: [facility] Evcljo6333 [facility] [id number] Eosinophils (Bld) [#/Vol] 0.1 {x10E3/uL} Normal 0.0-0.4 [facility]; [facility] Work Phone: Comment on above: PATIENT NOT FASTINGP ERFORMED BY: [facility] Syifis[address] [facility]in [place] [id number] Eosinophils (Bld) [#/Vol] 0.1 10*3/uL Normal 0.0-0.4 [facility]; [facility] Work Phone: Comment on above: PATIENT NOT FASTINGP ERFORMED BY: [facility] [facility] [id number] Eosinophils/100 WBC (Bld) 1 % Normal [facility]; [facility] Work Phone: Comment on above: PATIENT NOT FASTINGP ERFORMED BY: RBEE LabCosabrina Qkzmha1889 [address] RoadDublin [place] [id number] Erythrocyte distribution width (RBC) [Ratio] 12.5 % Normal 11.7-15.4 [facility]; [facility] Work Phone: Comment on above: PATIENT NOT FASTINGP ERFORMED BY: CB [facility] Yalwnh9084 [address] RoadDublin [place] [id number] Hematocrit (Bld) [Volume fraction] 44.4 % Normal 34.0-46.6 [facility]; [facility] Work Phone: Comment on above: PATIENT NOT FASTINGP ERFORMED BY: CB [facility] Mzbfwn2458 [address] RoadDublin [place] [id number] Hemoglobin (Bld) [Mass/Vol] 15.0 g/dL Normal 11.1-15.9 [facility]; [facility] Work Phone: Comment on above: PATIENT NOT FASTINGP ERFORMED BY: BREE [facility] Hjgdml0818 [address] RoadDublin [place] [id number] Immature granulocytes (Bld) [#/Vol] 0.0 {x10E3/uL} Normal 0.0-0.1 [facility]; [facility] Work Phone: Comment on above: PATIENT NOT FASTINGP ERFORMED BY: CB [facility] Ywcnio6350 [address] RoadDublin [place] [id number] Immature granulocytes (Bld) [#/Vol] 0.0 10*3/uL Normal 0.0-0.1 [facility]; [facility] Work Phone: Comment on above: PATIENT NOT FASTINGP ERFORMED BY: CB [facility] Vsvowk8516 [address] RoadDublin [place] [id number] Immature granulocytes/100 WBC (Bld) 0 % Normal [facility]; [facility] Work Phone: Comment on above: PATIENT NOT FASTINGP ERFORMED BY: CB [facility] Jkkgpp3390 [address] RoadDublin [place] [id number] Lymphocytes (Bld) [#/Vol] 2.3 {x10E3/uL} Normal 0.7-3.1 [facility]; [facility] Work Phone: Comment on above: PATIENT NOT FASTINGP ERFORMED BY: BREE Bro[address] [facility] SaultGonzalezblin [place] [id number] Lymphocytes (Bld) [#/Vol] 2.3 10*3/uL Normal 0.7-3.1 [facility]; [facility] Work Phone: Comment on above: PATIENT NOT FASTINGP ERFORMED BY: BREE LabJose Carlos Wdztyl[address] [facility] [id number] Lymphocytes/100 WBC (Bld) 33 % Normal [facility]; [facility] Work Phone: Comment on above: PATIENT NOT FASTINGP ERFORMED BY: BREE Chapa Grtumn3873 [facility] [id number] MCH (RBC) [Entitic mass] 29.6 pg Normal 26.6-33.0 [facility]; [facility] Work Phone: Comment on above: PATIENT NOT FASTINGP ERFORMED BY: BREE LabMgiuel PrietoRjrgyi30[address] [facility] [id number] MCHC (RBC) [Mass/Vol] 33.8 g/dL Normal 31.5-35.7 [facility] prehensive Internal Medicine; [facility] Work Phone: Comment on above: PATIENT NOT FASTINGP ERFORMED BY: BREE LabCo Llbhpt3[address] [facility] [id number] MCV (RBC) [Entitic vol] 88 fL Normal 79-97 [facility]; [facility] Work Phone: Comment on above: PATIENT NOT FASTINGP ERFORMED BY: BREE LabCo Itnliv5464 [address] [facility] [id number] Monocytes (Bld) [#/Vol] 0.5 {x10E3/uL} Normal 0.1-0.9 [facility]; [facility] Work Phone: Comment on above: PATIENT NOT FASTINGP ERFORMED BY: CB [facility] Lkhylg5424 [address] RoadDublin [place] [id number] Monocytes (Bld) [#/Vol] 0.5 10*3/uL Normal 0.1-0.9 [facility]; [facility] Work Phone: Comment on above: PATIENT NOT FASTINGP ERFORMED BY: CB [facility] Ynlfsz1682 [address] RoadDublin [place] [id number] Monocytes/100 WBC (Bld) 7 % Normal [facility]; [facility] Work Phone: Comment on above: PATIENT NOT FASTINGP ERFORMED BY: CB [facility] Tvulcy3720 [address] RoadDublin [place] [id number] Neutrophils (Bld) [#/Vol] 4.3 {x10E3/uL} Normal 1.4-7.0 [facility]; [facility] Work Phone: Comment on above: PATIENT NOT FASTINGP ERFORMED BY: CB [facility] Xrfedr5605 [address] RoadDublin [place] [id number] Neutrophils (Bld) [#/Vol] 4.3 10*3/uL Normal 1.4-7.0 [facility]; [facility] Work Phone: Comment on above: PATIENT NOT FASTINGP ERFORMED BY: CB [facility] Lbpavz9225 [address] RoadDublin [place] [id number] Neutrophils/100 WBC (Bld) 59 % Normal [facility]; [facility] Work Phone: Comment on above: PATIENT NOT FASTINGP ERFORMED BY: CB [facility] Rbuhnk6249 [address] RoadDublin [place] [id number] Platelets (Bld) [#/Vol] 291 {x10E3/uL} Normal 150-450 [facility]; [facility] Work Phone: Comment on above: PATIENT NOT FASTINGP ERFORMED BY: CB [facility] Ydjodn1334 [address] RoadDublin [place] [id number] Platelets (Bld) [#/Vol] 291 10*3/uL Normal 150-450 [facility]; [facility] Work Phone: Comment on above: PATIENT NOT FASTINGP ERFORMED BY: CB [facility] Pfdxct2664 [address] RoadDublin [place] [id number] RBC (Bld) [#/Vol] 5.07 {x10E6/uL} Normal 3.77-5.28 [facility] Internal Medicine; [facility] Work Phone: Comment on above: PATIENT NOT FASTINGP ERFORMED BY: CB [facility] Djqmpx7840 [address] RoadDublin [place] [id number] RBC (Bld) [#/Vol] 5.07 10*6/uL Normal 3.77-5.28 [facility] Internal Medicine; [facility] Work Phone: Comment on above: PATIENT NOT FASTINGP ERFORMED BY: CB [facility] Tpfkra8945 [address] RoadDublin [place] [id number] WBC (Bld) [#/Vol] 7.1 {x10E3/uL} Normal 3.4-10.8 [facility] Internal Medicine; [facility] Work Phone: Comment on above: PATIENT NOT FASTINGP ERFORMED BY: CB [facility] Imaufl6591 [address] RoadDublin [place] [id number] WBC (Bld) [#/Vol] 7.1 10*3/uL Normal 3.4-10.8 [facility] Internal Medicine; [facility] Work Phone: Comment on above: PATIENT NOT FASTINGP ERFORMED BY: CB [facility] Wnwomd8663 [address] RoadDublin [place] [id number] METABOLIC PANEL, COMPREHENSI VE ([id number])Ordered By: Women'S Activities Adviser on 06-15-2020 Albumin [Mass/Vol] 4.8 g/dL Normal 3.8-4.9 [facility] Internal Medicine; [facility] Work Phone: Comment on above: PATIENT NOT FASTINGP ERFORMED BY: CB [facility] Jmpgdq7868 [address] RoadDublin [place] [id number] Albumin/Globulin [Mass ratio] 2.2 {ratio} Normal 1.2-2.2 [facility]; [facility] Work Phone: Comment on above: PATIENT NOT FASTINGP ERFORMED BY: BREE LabCosabrina Mtwgvd9343 [address] RoadDublin [place] [id number] ALP [Catalytic activity/Vol] 89 [iU]/L Normal 39-117 [facility]; [facility] Work Phone: Comment on above: PATIENT NOT FASTINGP ERFORMED BY: CB LabCosabrina PrietoLyecak0431 [address] RoadDublin [place] [id number] ALP [Catalytic activity/Vol] 89 U/L Normal 39-117 [facility]; [facility] Work Phone: Comment on above: PATIENT NOT FASTINGP ERFORMED BY: BREE LabMiguel PrietoNfbfje9881 [address] RoadDublin [place] [id number] ALT [Catalytic activity/Vol] 16 [iU]/L Normal 0-32 [facility]; [facility] Work Phone: Comment on above: PATIENT NOT FASTINGP ERFORMED BY: BREE Prietolin6370 [address] RoadDublin [place] [id number] ALT [Catalytic activity/Vol] 16 U/L Normal 0-32 [facility]; [facility] Work Phone: Comment on above: PATIENT NOT FASTINGP ERFORMED BY: BREE Bro6370 [address] RoadDublin [place] [id number] AST [Catalytic activity/Vol] 15 [iU]/L Normal 0-40 [facility]; [facility] Work Phone: Comment on above: PATIENT NOT FASTINGP ERFORMED BY: BREE LabCosabrina PrietoJbzhia1409 [address] RoadDublin [place] [id number] AST [Catalytic activity/Vol] 15 U/L Normal 0-40 [facility]; [facility] Work Phone: Comment on above: PATIENT NOT FASTINGP ERFORMED BY: BREE LabMiguel PrietoZubtwa9759 [address] RoadDublin [place] [id number] Bilirubin [Mass/Vol] 0.4 mg/dL Normal 0.0-1.2 [facility] Internal Medicine; [facility] Work Phone: Comment on above: PATIENT NOT FASTINGP ERFORMED BY: CB [facility] Akyerb7910 [address] RoadDublin [place] [id number] Calcium [Mass/Vol] 10.2 mg/dL Normal 8.7-10.2 [facility]; [facility] Work Phone: Comment on above: PATIENT NOT FASTINGP ERFORMED BY: CB [facility] Xdhzec6560 [address] RoadDublin [place] [id number] Chloride [Moles/Vol] 100 mmol/L Normal 96-106 Comp rehensive Internal Medicine; [facility] Work Phone: Comment on above: PATIENT NOT FASTINGP ERFORMED BY: CB [facility] Qlavqh3462 [address] RoadDublin [place] [id number] CO2 [Moles/Vol] 25 mmol/L Normal 20-29 [facility] Internal Medicine; [facility] Work Phone: Comment on above: PATIENT NOT FASTINGP ERFORMED BY: CB [facility] Gshkra3328 [address] RoadDublin [place] [id number] Creatinine [Mass/Vol] 0.79 mg/dL Normal 0.57-1.00 [facility]; [facility] Work Phone: Comment on above: PATIENT NOT FASTINGP ERFORMED BY: CB [facility] Ympnrv6748 [address] RoadDublin [place] [id number] GFR/1.73 sq M predicted among blacks CKD-EPI (S/P/Bld) [Vol rate/Area] 95 mL/min/1.73 Normal [facility]; [facility] Work Phone: Comment on above: PATIENT NOT FASTINGP ERFORMED BY: CB [facility] Yaejdh6110 [address] RoadDublin [place] [id number] GFR/1.73 sq M predicted among non-blacks CKD-EPI (S/P/Bld) [Vol rate/Area] 82 mL/min/1.73 Normal [facility]; [facility] Work Phone: Comment on above: PATIENT NOT FASTINGP ERFORMED BY: CB [facility] Smparc6765 [address] RoadDublin [place] [id number] Globulin (S) [Mass/Vol] 2.2 g/dL Normal 1.5-4.5 [facility]; [facility] Work Phone: Comment on above: PATIENT NOT FASTINGP ERFORMED BY: BREE Bro[address] [facility] [place] [id number] Glucose [Mass/Vol] 94 mg/dL Normal 65-99 [facility]; [facility] Work Phone: Comment on above: PATIENT NOT FASTINGP ERFORMED BY: BREE LabCosabrina PrietoSoxyhi[address] [facility] [place] [id number] Potassium [Moles/Vol] 4.5 mmol/L Normal 3.5-5.2 [facility] Internal Medicine; [facility] Work Phone: Comment on above: PATIENT NOT FASTINGP ERFORMED BY: BREE LabMiguel Bro[address] [facility] [id number] Protein [Mass/Vol] 7.0 g/dL Normal 6.0-8.5 [facility] Internal Medicine; [facility] Work Phone: Comment on above: PATIENT NOT FASTINGP ERFORMED BY: BREE LabMiguel PrietoZahioh[address] [facility] [place] [id number] Sodium [Moles/Vol] 140 mmol/L Normal 134-144 [facility] Internal Medicine; [facility] Work Phone: Comment on above: PATIENT NOT FASTINGP ERFORMED BY: BREE [facility] Mumczu25[address] [facility] [id number] Urea nitrogen [Mass/Vol] 11 mg/dL Normal 6-24 [facility]; [facility] Work Phone: Comment on above: PATIENT NOT FASTINGP ERFORMED BY: BREE [facility] Lodnqo47[address] [facility] [id number] Urea nitrogen/Creatinine [Mass ratio] 14 mg/mg Normal 9-23 [facility]; [facility] Work Phone: Comment on above: PATIENT NOT FASTINGP ERFORMED BY: BREE [facility] Cfkzth9301 [facility] [id number] TSH ([id number])Ordered By: Williams m Granulator Operator on 06-15-2020 TSH Qn 1.890 {uIU/mL} Normal 0.450-4.500 Randal quinonez Internal Medicine; [facility] Work Phone: Comment on above: PATIENT NOT FASTINGP ERFORMED BY: [employer]6370 [facility] [id number] CALCIFEDIOL (95204)Ordered B y: Women'S Activities Adviser on 02-02-2020 25-Hydroxyvitamin D2+25-Hydroxyvitamin D3 [Mass/Vol] 31.3 ng/mL Normal 30.0-100.0 [facility] Work Phone: Comment on above: Vitamin D deficiency has been defined by the [place] ofMedicine and an Endocrine Society practice guideline as alevel of serum 25-OH vitamin D less than 20 ng/mL (1,2).The Endocrine Society went on to further define vitamin Dinsufficiency as a level between 21 and 29 ng/mL (2).1. IOM ([place] of Medicine). 2010. Dietary reference intakes for calcium and D. [place]: The National Academies Press.2. Enmanuel MF, Kya NC, Aurelia PASTOR, et al. Evaluation, treatment, and prevention of vitamin D deficiency: an Endocrine Society clinical practice guideline. JCEM. 2010; 96(7):1911-30. PATIENT WAS FASTINGP ERFORMED BY: [employer]6370 [facility] [id number] CBC W/AUTO DIFF WBC (75256)O rdered By: Women'S Activities Adviser on 02-02-2020 Basophils (Bld) [#/Vol] 0.0 {x10E3/uL} Normal 0.0-0.2 [facility] Work Phone: Comment on above: PATIENT WAS FASTINGP ERFORMED BY: [employer]6370 [facility] [id number] Basophils (Bld) [#/Vol] 0.0 10*3/uL Normal 0.0-0.2 [facility]; [facility] Work Phone: Comment on above: PATIENT WAS FASTINGP ERFORMED BY: BREE LabCo Ldlwvd0111 [address] RoadFormerly [facility]in [place] [id number] Basophils/100 WBC (Bld) 0 % Normal [facility] Work Phone: Comment on above: PATIENT WAS FASTINGP ERFORMED BY: BREE LabCo Xikbax4822 [address] RoadFormerly [facility], [facility]in [place] [id number] Eosinophils (Bld) [#/Vol] 0.1 {x10E3/uL} Normal 0.0-0.4 [facility] Work Phone: Comment on above: PATIENT WAS FASTINGP ERFORMED BY: BREE LabCo Tbjvtg5842 [address] Roadblin [place] [id number] Eosinophils (Bld) [#/Vol] 0.1 10*3/uL Normal 0.0-0.4 [facility]; [facility] Work Phone: Comment on above: PATIENT WAS FASTINGP ERFORMED BY: BREE LabSaint [facility] Kumqzh[address] [facility] [place] [id number] Eosinophils/100 WBC (Bld) 1 % Normal [facility] Work Phone: Comment on above: PATIENT WAS FASTINGP ERFORMED BY: BREE LabCo Sueucz2153 [facility] [id number] Erythrocyte distribution width (RBC) [Ratio] 12.4 % Normal 11.7-15.4 [facility] Work Phone: Comment on above: PATIENT WAS FASTINGP ERFORMED BY: [facility] Ioounb9[address] [facility] [id number] Hematocrit (Bld) [Volume fraction] 43.6 % Normal 34.0-46.6 [facility] Work Phone: Comment on above: PATIENT WAS FASTINGP ERFORMED BY: [facility] Lvcuhh38[address] [facility] [id number] Hemoglobin (Bld) [Mass/Vol] 14.2 g/dL Normal 11.1-15.9 [facility] Work Phone: Comment on above: PATIENT WAS FASTINGP ERFORMED BY: AlondraSaint [facility] Hospital [facility] Ubctad7671 [address] RoadDublin [place] [id number] Immature granulocytes (Bld) [#/Vol] 0.0 {x10E3/uL} Normal 0.0-0.1 [facility] Work Phone: Comment on above: PATIENT WAS FASTINGP ERFORMED BY: [facility]6370 [address] RoadDublin [place] [id number] Immature granulocytes (Bld) [#/Vol] 0.0 10*3/uL Normal 0.0-0.1 [facility]; [facility] Work Phone: Comment on above: PATIENT WAS FASTINGP ERFORMED BY: [place] 3413670 [address] RoadDublin [place] [id number] Immature granulocytes/100 WBC (Bld) 0 % Normal [facility] Work Phone: Comment on above: PATIENT WAS FASTINGP ERFORMED BY: [place] 3413670 [address] RoadDublin [place] [id number] Lymphocytes (Bld) [#/Vol] 2.4 {x10E3/uL} Normal 0.7-3.1 [facility] Work Phone: Comment on above: PATIENT WAS FASTINGP ERFORMED BY: [facility]6370 [address] RoadDublin [place] [id number] Lymphocytes (Bld) [#/Vol] 2.4 10*3/uL Normal 0.7-3.1 [facility]; [facility] Work Phone: Comment on above: PATIENT WAS FASTINGP ERFORMED BY: [facility]6[address] RoadDublin [place] [id number] Lymphocytes/100 WBC (Bld) 37 % Normal [facility] Work Phone: Comment on above: PATIENT WAS FASTINGP ERFORMED BY: LabPromed[facility]6370 [address]Dublin [place] [id number] MCH (RBC) [Entitic mass] 29.1 pg Normal 26.6-33.0 [facility] Work Phone: Comment on above: PATIENT WAS FASTINGP ERFORMED BY: LabCo Hxpicn[address] [facility] [place] [id number] MCHC (RBC) [Mass/Vol] 32.6 g/dL Normal 31.5-35.7 [facility] prehensive Internal Medicine Work Phone: Comment on above: PATIENT WAS FASTINGP ERFORMED BY: LabCoMorristown Medical CenterCzbtzf[address] [facility] [place] [id number] MCV (RBC) [Entitic vol] 89 fL Normal 79-97 [facility] Work Phone: Comment on above: PATIENT WAS FASTINGP ERFORMED BY: LabPromedica [facility] Hospital6[address]Formerly [facility]in [place] [id number] Monocytes (Bld) [#/Vol] 0.5 {x10E3/uL} Normal 0.1-0.9 [facility] Work Phone: Comment on above: PATIENT WAS FASTINGP ERFORMED BY: LabPromedica [facility] Hospital6[address]Formerly [facility]in [place] [id number] Monocytes (Bld) [#/Vol] 0.5 10*3/uL Normal 0.1-0.9 [facility]; [facility] Work Phone: Comment on above: PATIENT WAS FASTINGP ERFORMED BY: LabPromed[facility] Hospital6[address] [facility] [place] [id number] Monocytes/100 WBC (Bld) 7 % Normal [facility] Work Phone: Comment on above: PATIENT WAS FASTINGP ERFORMED BY: LabSaint [facility] Dqdxvx7[address] [facility] [place] [id number] Neutrophils (Bld) [#/Vol] 3.6 {x10E3/uL} Normal 1.4-7.0 [facility] Work Phone: Comment on above: PATIENT WAS FASTINGP ERFORMED BY: Lab[facility] Qvxbhm[address] [facility] [place] [id number] Neutrophils (Bld) [#/Vol] 3.6 10*3/uL Normal 1.4-7.0 [facility]; [facility] Work Phone: Comment on above: PATIENT WAS FASTINGP ERFORMED BY: CB [facility] Vjqoyx2740 [address] RoadDublin [place] [id number] Neutrophils/100 WBC (Bld) 55 % Normal [facility] Work Phone: Comment on above: PATIENT WAS FASTINGP ERFORMED BY: CB [facility] Uuuguj8489 [address] RoadDublin [place] [id number] Platelets (Bld) [#/Vol] 290 {x10E3/uL} Normal 150-450 [facility] Work Phone: Comment on above: PATIENT WAS FASTINGP ERFORMED BY: CB [facility] Jsyhyb4036 [address] RoadDublin [place] [id number] Platelets (Bld) [#/Vol] 290 10*3/uL Normal 150-450 [facility]; [facility] Work Phone: Comment on above: PATIENT WAS FASTINGP ERFORMED BY: CB [facility] Pyjadh0078 [address] RoadDublin [place] [id number] RBC (Bld) [#/Vol] 4.88 {x10E6/uL} Normal 3.77-5.28 [facility] Internal Medicine Work Phone: Comment on above: PATIENT WAS FASTINGP ERFORMED BY: CB [facility] Khqgba7825 [address] RoadDublin [place] [id number] RBC (Bld) [#/Vol] 4.88 10*6/uL Normal 3.77-5.28 [facility] Internal Medicine; [facility] Work Phone: Comment on above: PATIENT WAS FASTINGP ERFORMED BY: CB [facility] Trgnek7154 [address] RoadDublin [place] [id number] WBC (Bld) [#/Vol] 6.5 {x10E3/uL} Normal 3.4-10.8 [facility] Internal Medicine Work Phone: Comment on above: PATIENT WAS FASTINGP ERFORMED BY: CB [facility] Ciwwws8406 [address] RoadDublin [place] [id number] WBC (Bld) [#/Vol] 6.5 10*3/uL Normal 3.4-10.8 [facility] Internal Medicine; [facility] Work Phone: Comment on above: PATIENT WAS FASTINGP ERFORMED BY: BREE [facility] Fdsjds8058 [address] RoadDublin [place] [id number] LIPID PANEL ([id number])Ordered B y: Women'S Activities Adviser on 02-02-2020 Cholesterol [Mass/Vol] 200 mg/dL Abnormal 100-199 [facility] Internal Medicine Work Phone: Comment on above: PATIENT WAS FASTINGP ERFORMED BY: RBEE [facility] Qokwcu0747 [address] RoadDublin [place] [id number] Cholesterol in HDL [Mass/Vol] 65 mg/dL Normal [facility] Work Phone: Comment on above: PATIENT WAS FASTINGP ERFORMED BY: BREE LabCosabrina Ekihqf7971 [address] RoadDublin [place] [id number] Cholesterol in LDL [Mass/Vol] 126 mg/dL Abnormal 0-99 [facility] Work Phone: Comment on above: PATIENT WAS FASTINGP ERFORMED BY: BREE LabCosabrina Vgemvy6996 [address] RoadDublin [place] [id number] Cholesterol in LDL/Cholesterol in HDL [Mass ratio] 1.9 {ratio} Normal 0.0-3.2 [facility] Work Phone: Comment on above: LDL/HDL Ratio Men Wo men 1/2 Avg.Risk 1.0 1.5 Avg.Risk 3.6 3.2 2X Avg.Risk 6.2 5.0 3X Avg.Risk 8.0 6.1 PATIENT WAS FASTINGP ERFORMED BY: BREE [facility] Svsroe1187 [address] RoadDublin [place] [id number] Cholesterol in VLDL [Mass/Vol] 9 mg/dL Normal 5-40 [facility] Work Phone: Comment on above: PATIENT WAS FASTINGP ERFORMED BY: BREE [facility] Wkians8724 [address] RoadDublin [place] [id number] Triglyceride [Mass/Vol] 44 mg/dL Normal 0-149 [facility] Work Phone: Comment on above: PATIENT WAS FASTINGP ERFORMED BY: CB [facility] Bmzpfl7590 [address] RoadDublin [place] [id number] METABOLIC PANEL, COMPREHENSI VE ([id number])Ordered By: Women'S Activities Adviser on 02-02-2020 Albumin [Mass/Vol] 4.5 g/dL Normal 3.8-4.9 [facility] Internal Medicine Work Phone: Comment on above: PATIENT WAS FASTINGP ERFORMED BY: CB [facility] Gkduuc9031 [address] RoadDublin [place] [id number] Albumin/Globulin [Mass ratio] 2.0 {ratio} Normal 1.2-2.2 [facility] Work Phone: Comment on above: PATIENT WAS FASTINGP ERFORMED BY: CB [facility] Hiapse5352 [address] RoadDublin [place] [id number] ALP [Catalytic activity/Vol] 86 [iU]/L Normal 39-117 [facility] Work Phone: Comment on above: PATIENT WAS FASTINGP ERFORMED BY: CB [facility] Tyurle7684 [address] RoadDublin [place] [id number] ALP [Catalytic activity/Vol] 86 U/L Normal 39-117 [facility]; [facility] Work Phone: Comment on above: PATIENT WAS FASTINGP ERFORMED BY: CB [facility] Wrqnzl5670 [address] RoadDublin [place] [id number] ALT [Catalytic activity/Vol] 12 [iU]/L Normal 0-32 [facility] Work Phone: Comment on above: PATIENT WAS FASTINGP ERFORMED BY: CB [facility] Ohinqq4218 [address] RoadDublin [place] [id number] ALT [Catalytic activity/Vol] 12 U/L Normal 0-32 [facility]; [facility] Work Phone: Comment on above: PATIENT WAS FASTINGP ERFORMED BY: CB [facility] Jzwsqg8035 [address] RoadDublin [place] [id number] AST [Catalytic activity/Vol] 18 [iU]/L Normal 0-40 [facility] Work Phone: Comment on above: PATIENT WAS FASTINGP ERFORMED BY: CB [facility] Qfpyrf4142 [address]Dublin [place] [id number] AST [Catalytic activity/Vol] 18 U/L Normal 0-40 [facility]; [facility] Work Phone: Comment on above: PATIENT WAS FASTINGP ERFORMED BY: CB [facility] Uvmtyf0606 [address] RoadDublin [place] [id number] Bilirubin [Mass/Vol] 0.5 mg/dL Normal 0.0-1.2 [facility] rehensive Internal Medicine Work Phone: Comment on above: PATIENT WAS FASTINGP ERFORMED BY: CB [facility] Vbojeq0782 [address]Dublin [place] [id number] Calcium [Mass/Vol] 10.1 mg/dL Normal 8.7-10.2 [facility] Internal Medicine Work Phone: Comment on above: PATIENT WAS FASTINGP ERFORMED BY: BREE [facility] Htpkvr8828 [address] RoadDublin [place] [id number] Chloride [Moles/Vol] 100 mmol/L Normal 96-106 [facility] Work Phone: Comment on above: PATIENT WAS FASTINGP ERFORMED BY: CB [facility] Qssrpe4953 [address] RoadDublin [place] [id number] CO2 [Moles/Vol] 27 mmol/L Normal 20-29 [facility] Internal Medicine Work Phone: Comment on above: PATIENT WAS FASTINGP ERFORMED BY: CB [facility] Cntvad2325 [address]Dublin [place] [id number] Creatinine [Mass/Vol] 0.91 mg/dL Normal 0.57-1.00 [facility] Work Phone: Comment on above: PATIENT WAS FASTINGP ERFORMED BY: CB [facility] Uvkjzi4829 [address] RoadDublin [place] [id number] GFR/1.73 sq M predicted among blacks CKD-EPI (S/P/Bld) [Vol rate/Area] 80 mL/min/1.73 Normal [facility] Internal Medicine Work Phone: Comment on above: PATIENT WAS FASTINGP ERFORMED BY: BREE [facility] Hczwzx7013 Fern[address]es RoadDublin [place] [id number] GFR/1.73 sq M predicted among non-blacks CKD-EPI (S/P/Bld) [Vol rate/Area] 69 mL/min/1.73 Normal [facility] Internal Medicine Work Phone: Comment on above: PATIENT WAS FASTINGP ERFORMED BY: [facility] Wiiywy1523 Fern[address] Roadblin [place] [id number] Globulin (S) [Mass/Vol] 2.2 g/dL Normal 1.5-4.5 [facility] Internal Medicine Work Phone: Comment on above: PATIENT WAS FASTINGP ERFORMED BY: [facility] Jurbic6860 Fern[address] RoadDublin [place] [id number] Glucose [Mass/Vol] 80 mg/dL Normal 65-99 [facility] Internal Medicine Work Phone: Comment on above: PATIENT WAS FASTINGP ERFORMED BY: [facility] Gczeun9397 Fern[address]es RoadDublin [place] [id number] Potassium [Moles/Vol] 4.5 mmol/L Normal 3.5-5.2 [facility] Internal Medicine Work Phone: Comment on above: PATIENT WAS FASTINGP ERFORMED BY: [facility] Zzjgbw1154 [address] RoadDublin [place] [id number] Protein [Mass/Vol] 6.7 g/dL Normal 6.0-8.5 [facility] Internal Medicine Work Phone: Comment on above: PATIENT WAS FASTINGP ERFORMED BY: [facility] Gvkodw7776 [address]es RoadDublin [place] [id number] Sodium [Moles/Vol] 140 mmol/L Normal 134-144 [facility] Internal Medicine Work Phone: Comment on above: PATIENT WAS FASTINGP ERFORMED BY: [facility] Ohhlew5765 [address] RoadDublin [place] [id number] Urea nitrogen [Mass/Vol] 14 mg/dL Normal 6-24 [facility] Internal Medicine Work Phone: Comment on above: PATIENT WAS FASTINGP ERFORMED BY: [facility] [facility] [place] [id number] Urea nitrogen/Creatinine [Mass ratio] 15 mg/mg Normal 9-23 [facility] Internal Medicine Work Phone: Comment on above: PATIENT WAS FASTINGP ERFORMED BY: [facility] [facility] [place] [id number] T3, FREE (TRIDOTHYRONINE) (8 2121)Ordered By: Women'S Activities Adviser on 02-02-2020 Free T3 [Mass/Vol] 2.8 pg/mL Normal 2.0-4.4 [facility] Internal Medicine Work Phone: Comment on above: PATIENT WAS FASTINGP ERFORMED BY: [facility] [facility] [id number] T4, FREE (THYROXINE) (31743) Ordered By: Women'S Activities Adviser on 02-02-2020 Free T4 [Mass/Vol] 1.65 ng/dL Normal 0.82-1.77 [facility] Internal Medicine Work Phone: Comment on above: PATIENT WAS FASTINGP ERFORMED BY: [facility] [facility] [id number] TSH (00948)Ordered By: Blowtorche m Granulator Operator on 02-02-2020 TSH Qn 1.320 {uIU/mL} Normal 0.450-4.500 [facility] Internal Medicine Work Phone: Comment on above: PATIENT WAS FASTINGP ERFORMED BY: [facility] [facility] [id number] 2018 Novel Coronavirus (COVI D-19), ENRRIQUE (18977)Ordered By: Women'S Activities Adviser on 01-18-2020 2019 Novel Coronavirus (COVID-19), ENRRIQUE (21043) Not Detected Normal [facility] Internal Medicine Work Phone: Comment on above: This test was develo ped and its performance characteristics determinedby [employer]. This test has not been FDA cleared orapproved. This test has been authorized by FDA under an Emergency UseAuthorization (EUA). This test is only authorized for the duration oftime the declaration that circumstances exist justifying theauthorization of the emergency use of in vitro diagnostic tests fordetection of SARS-CoV-2 virus and/or diagnosis of COVID-19 infectionunder section 564(b)(1) of the Act, 21 U.S.C. 360bbb-3(b)(1), unlessthe authorization is terminated or revoked sooner.When diagnostic testing is negative, the possibility of a falsenegative result should be considered in the context of a patient'srecent exposures and the presence of clinical signs and symptomsconsistent with COVID-19. An individual without symptoms of COVID-19and who is not shedding SARS-CoV-2 virus would expect to have anegative (not detected) result in this assay. PATIENT NOT FASTINGP ERFORMED BY: [employer] LabWatersmeet [place] [id number] Information: NASAL 2019 Novel Coronavirus (COVID-19), ENRRIQUE (12635) Not detected Normal [facility]; [facility] Work Phone: Comment on above: This test was develo ped and its performance characteristics determinedby [employer]. This test has not been FDA cleared orapproved. This test has been authorized by FDA under an Emergency UseAuthorization (EUA). This test is only authorized for the duration oftime the declaration that circumstances exist justifying theauthorization of the emergency use of in vitro diagnostic tests fordetection of SARS-CoV-2 virus and/or diagnosis of COVID-19 infectionunder section 564(b)(1) of the Act, 21 U.S.C. 360bbb-3(b)(1), unlessthe authorization is terminated or revoked sooner.When diagnostic testing is negative, the possibility of a falsenegative result should be considered in the context of a patient'srecent exposures and the presence of clinical signs and symptomsconsistent with COVID-19. An individual without symptoms of COVID-19and who is not shedding SARS-CoV-2 virus would expect to have anegative (not detected) result in this assay. PATIENT NOT FASTINGP ERFORMED BY: [employer] Yiuhkqvxtj[address] [place] [id number] Information: NASAL CALCIFEDIOL (20137)Ordered B y: Women'S Activities Adviser on 01-15-2019 25-Hydroxyvitamin D2+25-Hydroxyvitamin D3 [Mass/Vol] 27.3 ng/mL Abnormal 30.0-100.0 [facility] Work Phone: Comment on above: Vitamin D deficiency has been defined by the Caroline ofCity Hospitalcine and an Endocrine Society practice guideline as alevel of serum 25-OH vitamin D less than 20 ng/mL (1,2).The Endocrine Society went on to further define vitamin Dinsufficiency as a level between 21 and 29 ng/mL (2).1. IOM (Caroline of Medicine). 2010. Dietary reference intakes for calcium and D. [place]: The National Academies Press.2. Enmanuel MF, Kya MAYFIELD, Aurelia PASTOR, et al. Evaluation, treatment, and prevention of vitamin D deficiency: an Endocrine Society clinical practice guideline. JCEM. 2010; 96(7):1911-30. PATIENT WAS FASTINGP ERFORMED BY: [employer]70 PrimeAgain,IncVidant Pungo Hospital [id number] BY: [employer] [address] [id number] CBC, PLATELETS & MANUAL DIFF (07252)Ordered By: Women'S Activities Adviser on 01-15-2019 Basophils (Bld) [#/Vol] 0.0 {x10E3/uL} Normal 0.0-0.2 [facility] Work Phone: Comment on above: PATIENT WAS FASTINGP ERFORMED BY: [employer]70 Box JumpAtrium Health University City [id number] BY: [employer] [address] [id number] Basophils (Bld) [#/Vol] 0.0 10*3/uL Normal 0.0-0.2 [facility]; [facility] Work Phone: Comment on above: PATIENT WAS FASTINGP ERFORMED BY: SterraClimbVidant Pungo Hospital [id number] BY: [address] [id number] Basophils/100 WBC (Bld) 0 % Normal [facility] Work Phone: Comment on above: PATIENT WAS FASTINGP ERFORMED BY: BREE LabCosabrina PrietoDhwkcy[address] [facility] [place] [id number] BY: [address] [id number] Eosinophils (Bld) [#/Vol] 0.1 {x10E3/uL} Normal 0.0-0.4 [facility] Work Phone: Comment on above: PATIENT WAS FASTINGP ERFORMED BY: [facility]REE [facility] Qazyrf8566 [facility] [id number] BY: [address] [id number] Eosinophils (Bld) [#/Vol] 0.1 10*3/uL Normal 0.0-0.4 [facility]; [facility] Work Phone: Comment on above: PATIENT WAS FASTINGP ERFORMED BY: [facility] Vkbsts3256 [facility] [id number] BY: [address] [id number] Eosinophils/100 WBC (Bld) 2 % Normal [facility] Work Phone: Comment on above: PATIENT WAS FASTINGP ERFORMED BY: BREE [facility] Ourfho0370 [facility] [id number] BY: [address] [id number] Erythrocyte distribution width (RBC) [Ratio] 13.3 % Normal 12.3-15.4 [facility] Work Phone: Comment on above: PATIENT WAS FASTINGP ERFORMED BY: [facility] Wlhuew3258 [facility] [id number] BY: [address] [id number] Hematocrit (Bld) [Volume fraction] 44.7 % Normal 34.0-46.6 [facility] Work Phone: Comment on above: PATIENT WAS FASTINGP ERFORMED BY: [facility] Mujulc5377 [facility] [id number] BY: [address] [id number] Hemoglobin (Bld) [Mass/Vol] 14.4 g/dL Normal 11.1-15.9 [facility] Work Phone: Comment on above: PATIENT WAS FASTINGP ERFORMED BY: [facility] Vcixej7597 [facility] [id number] BY: LabCo[address] [id number] Immature granulocytes (Bld) [#/Vol] 0.0 {x10E3/uL} Normal 0.0-0.1 [facility] Work Phone: Comment on above: PATIENT WAS FASTINGP ERFORMED BY: [facility] Kkuecu7732 [facility] [id number] BY: [address] [id number] Immature granulocytes (Bld) [#/Vol] 0.0 10*3/uL Normal 0.0-0.1 [facility]; [facility] Work Phone: Comment on above: PATIENT WAS FASTINGP ERFORMED BY: [facility] Mwvimt2544 [facility] [id number] BY: Lab[address] [id number] Immature granulocytes/100 WBC (Bld) 0 % Normal [facility] Work Phone: Comment on above: PATIENT WAS FASTINGP ERFORMED BY: BREE [facility] Rtjvrg9589 [facility] [id number] BY: Lab[address] [id number] Lymphocytes (Bld) [#/Vol] 2.4 {x10E3/uL} Normal 0.7-3.1 [facility] Work Phone: Comment on above: PATIENT WAS FASTINGP ERFORMED BY: LabCoMorristown Medical CenterHkkbhy3822 [facility] [id number] BY: [address] [id number] Lymphocytes (Bld) [#/Vol] 2.4 10*3/uL Normal 0.7-3.1 [facility]; [facility] Work Phone: Comment on above: PATIENT WAS FASTINGP ERFORMED BY: Labfor; to (do)[facility] Medical CenterSalrqs8388 [facility] [id number] BY: [address] [id number] Lymphocytes/100 WBC (Bld) 38 % Normal [facility] Internal Medicine Work Phone: Comment on above: PATIENT WAS FASTINGP ERFORMED BY: Lab[facility]; to (do)[place] [address] [facility] [id number] BY: [address] [id number] MCH (RBC) [Entitic mass] 29.6 pg Normal 26.6-33.0 [facility] Internal Medicine Work Phone: Comment on above: PATIENT WAS FASTINGP ERFORMED BY: Labfor; to (do)[place] [address] [facility] [id number] BY: Lab[address] [id number] MCHC (RBC) [Mass/Vol] 32.2 g/dL Normal 31.5-35.7 [facility] Internal Medicine Work Phone: Comment on above: PATIENT WAS FASTINGP ERFORMED BY: LabSherri Ville 4254270 [facility] [id number] BY: [address] [id number] MCV (RBC) [Entitic vol] 92 fL Normal 79-97 [facility] Work Phone: Comment on above: PATIENT WAS FASTINGP ERFORMED BY: [facility]REE [facility] Vppbpc5422 [facility] [id number] BY: Lab[address] [id number] Monocytes (Bld) [#/Vol] 0.5 {x10E3/uL} Normal 0.1-0.9 [facility] Work Phone: Comment on above: PATIENT WAS FASTINGP ERFORMED BY: [facility] Vwcemq5299 [facility] [id number] BY: Lab[address] [id number] Monocytes (Bld) [#/Vol] 0.5 10*3/uL Normal 0.1-0.9 [facility]; [facility] Work Phone: Comment on above: PATIENT WAS FASTINGP ERFORMED BY: [facility] Tytpam6140 [facility] [id number] BY: Lab[address] [id number] Monocytes/100 WBC (Bld) 7 % Normal [facility] Work Phone: Comment on above: PATIENT WAS FASTINGP ERFORMED BY: BREE [facility] Luydjl3000 [facility] [id number] BY: LabCo[address] [id number] Neutrophils (Bld) [#/Vol] 3.2 {x10E3/uL} Normal 1.4-7.0 [facility] Work Phone: Comment on above: PATIENT WAS FASTINGP ERFORMED BY: [facility] Aqvppw3453 [facility] [id number] BY: Lab[address] [id number] Neutrophils (Bld) [#/Vol] 3.2 10*3/uL Normal 1.4-7.0 [facility]; [facility] Work Phone: Comment on above: PATIENT WAS FASTINGP ERFORMED BY: B[facility] Rjnsbw[address] [facility] [id number] BY: [facility] [address] [id number] Neutrophils/100 WBC (Bld) 53 % Normal [facility] Work Phone: Comment on above: PATIENT WAS FASTINGP ERFORMED BY: BREE [facility] Aswzcl[address] [facility] [id number] BY: [facility] [address] [id number] Platelets (Bld) [#/Vol] 266 {x10E3/uL} Normal 150-450 [facility] Work Phone: Comment on above: PATIENT WAS FASTINGP ERFORMED BY: [facility] Obgsah0833 [facility] [id number] BY: [facility] [address] [id number] Platelets (Bld) [#/Vol] 266 10*3/uL Normal 150-450 [facility]; [facility] Work Phone: Comment on above: PATIENT WAS FASTINGP ERFORMED BY: BREE [facility] Kanfky[address] [facility] [id number] BY: [facility] [address] [id number] RBC (Bld) [#/Vol] 4.87 {x10E6/uL} Normal 3.77-5.28 [facility] Internal Medicine Work Phone: Comment on above: PATIENT WAS FASTINGP ERFORMED BY: CB [facility] Evfqta8786 [address] [facility] [id number] BY: [facility] [address] [id number] RBC (Bld) [#/Vol] 4.87 10*6/uL Normal 3.77-5.28 Compr ehensive Internal Medicine; [facility] Work Phone: Comment on above: PATIENT WAS FASTINGP ERFORMED BY: CB [facility] Yyaikw1693 Fern[address]es RoadDublin [place] [id number] BY: BN [facility] [address] [id number] WBC (Bld) [#/Vol] 6.1 {x10E3/uL} Normal 3.4-10.8 [facility] Work Phone: Comment on above: PATIENT WAS FASTINGP ERFORMED BY: CB [facility] Eewcaf7263 Fernandes RoadDuVidant Pungo Hospital [id number] BY: [facility] [address] [id number] WBC (Bld) [#/Vol] 6.1 10*3/uL Normal 3.4-10.8 [facility] Internal [facility]; [facility] Work Phone: Comment on above: PATIENT WAS FASTINGP ERFORMED BY: CB [facility] Dnepgr[address] [facility] [id number] BY: [facility] [address] [id number] LIPID PANEL (96605)Ordered B y: Women'S Activities Adviser on 01-15-2019 Cholesterol [Mass/Vol] 216 mg/dL Abnormal 100-199 [facility] Internal Medicine Work Phone: Comment on above: PATIENT WAS FASTINGP ERFORMED BY: CB [facility] Qsdkhv[address] [facility] [id number] BY: BN [facility] [address] [id number] Cholesterol in HDL [Mass/Vol] 68 mg/dL Normal [facility] Work Phone: Comment on above: PATIENT WAS FASTINGP ERFORMED BY: CB [facility] Omndqq[address] [facility] [place] [id number] BY: [facility] [address] [id number] Cholesterol in LDL [Mass/Vol] 134 mg/dL Abnormal 0-99 [facility] Work Phone: Comment on above: PATIENT WAS FASTINGP ERFORMED BY: BREE [facility] Umhate4946 [facility] [id number] BY: LabCo[address] [id number] Cholesterol in LDL/Cholesterol in HDL [Mass ratio] 2.0 {ratio} Normal 0.0-3.2 [facility] Work Phone: Comment on above: LDL/HDL Ratio Men Wo men 1/2 Avg.Risk 1.0 1.5 Avg.Risk 3.6 3.2 2X Avg.Risk 6.2 5.0 3X Avg.Risk 8.0 6.1 PATIENT WAS FASTINGP ERFORMED BY: BREE [facility] Tewinf6519 [facility] [id number] BY: LabCo[address] [id number] Cholesterol in VLDL [Mass/Vol] 14 mg/dL Normal 5-40 [facility] Work Phone: Comment on above: PATIENT WAS FASTINGP ERFORMED BY: BREE [facility] Syrdqf4092 [facility] [id number] BY: LabCo[address] [id number] Triglyceride [Mass/Vol] 69 mg/dL Normal 0-149 [facility] Work Phone: Comment on above: PATIENT WAS FASTINGP ERFORMED BY: BREE [facility] Yoascg2700 [facility] [id number] BY: Lab[address] [id number] MICROALBUMINOrdered By: Syst em Granulator Operator on 01-15-2019 Albumin DL <= 20 mg/L (U) [Mass/Vol] mg/dL Normal [facility] Work Phone: Comment on above: PATIENT WAS FASTINGP ERFORMED BY: BREE [facility] Ahhhho6904 [facility] [id number] BY: [employer] [id number] Albumin DL <= 20 mg/L (U) [Mass/Vol] mg/dL Normal [facility]; [facility] Work Phone: Comment on above: PATIENT WAS FASTINGP ERFORMED BY: BioPheresisJamie [place] 3078270 [facility] [id number] BY: [address] [id number] Albumin/Creatinine (U) [Mass ratio] <5.8 Normal 0.0-30.0 [facility] Work Phone: Comment on above: Normal: 0.0 - 30.0 A lbuminuria: 31.0 - 300.0 Clinical albuminuria: >300.0 PATIENT WAS FASTINGP ERFORMED BY: BioPheresisJamie [place] 3078270 [facility] [id number] BY: [employer] [id number] Creatinine (U) [Mass/Vol] 51.3 mg/dL Normal [facility] Work Phone: Comment on above: PATIENT WAS FASTINGP ERFORMED BY: [employer] [id number] BY: [employer] [id number] T4, FREE (THYROXINE) (25697) Ordered By: Women'S Activities Adviser on 01-15-2019 Free T4 [Mass/Vol] 1.36 ng/dL Normal 0.82-1.77 [facility] Internal Medicine Work Phone: Comment on above: PATIENT WAS FASTINGP ERFORMED BY: [employer] [id number] BY: [address] [id number] TSH (THYROID STIMULATING HOR KARTHIKEYAN) (39230)Ordered By: Women'S Activities Adviser on 01-15-2019 TSH Qn 1.510 {uIU/mL} Normal 0.450-4.500 Comprehen sive Internal Medicine Work Phone: Comment on above: PATIENT WAS FASTINGP ERFORMED BY: BREE [facility] Mtvqtp9695 Fern[address]es RoadDublin [place] [id number] BY: Lab[address] [id number] URINALYSIS (16148)Ordered By : Women'S Activities Adviser on 01-15-2019 Appearance (U) Clear Normal Comprehens [facility] Medicine Work Phone: Comment on above: PATIENT WAS FASTINGP ERFORMED BY: BREE [facility] Fzujsy0941 Fern[address]es RoadDublin [place] [id number] BY: LabCo[address] [id number] Bilirubin Ql (U) Negative Normal Comprehe nsive Internal Medicine Work Phone: Comment on above: PATIENT WAS FASTINGP ERFORMED BY: BREE [facility] Kkjchp3447 Fern[address]es RoadDublin [place] [id number] BY: Lab[address] [id number] Bilirubin Ql (U) Negative Normal Comprehe nsive Internal Medicine; [facility] Work Phone: Comment on above: PATIENT WAS FASTINGP ERFORMED BY: BREE [facility] Ghvtff9363 [address]es RoadDublin [place] [id number] BY: [address] [id number] Color (U) Yellow Normal [facility] Work Phone: Comment on above: PATIENT WAS FASTINGP ERFORMED BY: BREE [facility] Bkaeqx4167 [address] RoadDublin [place] [id number] BY: [address] [id number] Glucose Ql (U) Negative Normal Comprehens [facility] Work Phone: Comment on above: PATIENT WAS FASTINGP ERFORMED BY: BREE [facility] Bdsjvg5557 [address] RoadDublin [place] [id number] BY: LabCo[address] [id number] Glucose Ql (U) Negative Normal Comprehens [facility]; [facility] Work Phone: Comment on above: PATIENT WAS FASTINGP ERFORMED BY: BREE [facility] Lzurjj5467 [address] RoadDublin [place] [id number] BY: Lab[address] [id number] Hemoglobin Ql (U) Negative Normal Compreh ensive Internal Medicine Work Phone: Comment on above: PATIENT WAS FASTINGP ERFORMED BY: BREE [facility] Zctofx1200 [address] RoadDublin [place] [id number] BY: LabCo[address] [id number] Hemoglobin Ql (U) Negative Normal Compreh ensive Internal Medicine; [facility] Work Phone: Comment on above: PATIENT WAS FASTINGP ERFORMED BY: BREE [facility] Hzimha5221 [address] RoadDublin [place] [id number] BY: Lab[address] [id number] Ketones Ql (U) Negative Normal Comprehens [facility] Work Phone: Comment on above: PATIENT WAS FASTINGP ERFORMED BY: BREE [facility] Cxqwdp2911 [address] RoadDublin [place] [id number] BY: Lab[address] [id number] Ketones Ql (U) Negative Normal Comprehens avelina [facility]; [facility] Work Phone: Comment on above: PATIENT WAS FASTINGP ERFORMED BY: BREE [facility] Qfkfbp6497 [address] RoadDublin [place] [id number] BY: Lab[address] [id number] Leukocyte esterase Test strip Ql (U) 2+ Abnormal [facility] Work Phone: Comment on above: PATIENT WAS FASTINGP ERFORMED BY: BREE [facility] Wbedul[address] [facility] [place] [id number] BY: [address] [id number] Microscopic observation LM Nom (Urine sed) See below: Normal [facility] Work Phone: Comment on above: Microscopic was camila cated and was performed. PATIENT WAS FASTINGP ERFORMED BY: [facility] Lpoupf[address] [facility] [id number] BY: [address] [id number] Nitrite Ql (U) Negative Normal Comprehens [facility] Work Phone: Comment on above: PATIENT WAS FASTINGP ERFORMED BY: BREE [facility] Azqngl[address] [facility] [id number] BY: [address] [id number] Nitrite Ql (U) Negative Normal Comprehens avelina [facility]; [facility] Work Phone: Comment on above: PATIENT WAS FASTINGP ERFORMED BY: [facility] Vpshdm77[address] [facility] [id number] BY: [address] [id number] pH (U) 8.0 [pH] Abnormal 5.0-7.5 [facility] Work Phone: Comment on above: PATIENT WAS FASTINGP ERFORMED BY: [facility] Zmscim75[address] [facility] [id number] BY: Lab[address] [id number] Protein Ql (U) Negative Normal Comprehens [facility] Work Phone: Comment on above: PATIENT WAS FASTINGP ERFORMED BY: [facility] Wmvlfx5452 Fernandes RoadAtrium Health University City [id number] BY: [address] [id number] Protein Ql (U) Negative Normal Comprehens avelina Internal Medicine; [facility] Internal Medicine Work Phone: Comment on above: PATIENT WAS FASTINGP ERFORMED BY: BREE [facility] Juidvx3486 Fernandes RoadDublin [place] [id number] BY: [address] [id number] Specific gravity (U) [Rel density] 1.011 1 Normal 1.005-1.030 [facility] Internal Medicine Work Phone: Comment on above: PATIENT WAS FASTINGP ERFORMED BY: BREE [facility] Dwryht3240 Fernandes RoadDublin [place] [id number] BY: [address] [id number] Urobilinogen (U) [Mass/Vol] 0.2 mg/dL Normal 0.2-1.0 [facility] Internal Medicine; [facility] Internal Medicine Work Phone: Comment on above: PATIENT WAS FASTINGP ERFORMED BY: Labfor; to (do)rp Zdzkxy8962 Fern[address] RoadDublin [place] [id number] BY: [address] [id number] Urobilinogen Test strip (U) [Mass/Vol] 0.2 mg/dL Normal 0.2-1.0 [facility] Internal Medicine Work Phone: Comment on above: PATIENT WAS FASTINGP ERFORMED BY: Labfor; to (do)rp Dgsnss8163 [address] RoadDublin [place] [id number] BY: [address] [id number] VITAMIN D, 1, 25-DIHYDROXY ( 82256)Ordered By: Women'S Activities Adviser on 01-15-2019 Calcitriol [Mass/Vol] 35.8 pg/mL Normal 19.9-79.3 [facility] Internal [facility] Work Phone: Comment on above: PATIENT WAS FASTINGP ERFORMED BY: [facility] Kltflo2093 Fern[address]es RoadDublin [place] [id number] BY: [address] [place] [id number] URINE [place] ([address])Ordered By: Women'S Activities Adviser on 03-04-2018 Bacteria identified Cx Nom (U) Final report Normal [facility] Work Phone: Comment on above: PATIENT NOT FASTINGP ERFORMED BY: CB [facility] Sjleyu2676 Fern[address]es RoadInside SocialVidant Pungo Hospital [id number] Information: SRC:UC Bacteria identified Cx Nom (U) NG36 Normal [facility] Work Phone: Comment on above: No growth in 36 - 48 hours. PATIENT NOT FASTINGP ERFORMED BY: CB [facility] Ijoyna6312 Fern[address]es RoadInside Socialin [place] [id number] Information: SRC:TYLER Urinalysis, Office (33917)Or dered By: Britany Antunez on 03-03-2018 Bilirubin Ql (U) Negative Normal Comprehe nsive Internal Medicine Work Phone: Bilirubin Ql (U) Negative Normal Comprehe nsive Internal Medicine; [facility] Work Phone: Glucose Test strip (U) [Mass/Vol] Negative Normal [facility]; [facility] Work Phone: Glucose Test strip mass conc (U) Negative Normal [facility] Work Phone: Hemoglobin Ql (U) Negative Normal Compreh ensive Internal Medicine Work Phone: Hemoglobin Ql (U) Negative Normal Compreh ensive Internal Medicine; [facility] Work Phone: Hemoglobin Test strip Ql (U) Negative Normal [facility] Work Phone: Ketones Ql (U) Negative Normal Comprehens avelina Internal Medicine Work Phone: Ketones Ql (U) Negative Normal Comprehens avelina Internal Medicine; [facility] Work Phone: Leukocyte esterase Test strip Ql (U) Small Normal [facility] Work Phone: Nitrite Ql (U) Negative Normal Comprehens avelina Internal Medicine Work Phone: Nitrite Ql (U) Negative Normal Comprehens avelina Internal Medicine; [facility] Work Phone: Nitrite Test strip Ql (U) Negative Normal [facility] Work Phone: pH (U) 6 [pH] Abnormal [facility] Work Phone: pH Test strip (U) 6 [pH] Abnormal Compreh ensive Internal Medicine Work Phone: Protein Ql (U) Negative Normal Comprehens avelina Internal Medicine Work Phone: Protein Ql (U) Negative Normal Comprehens avelina Internal Medicine; [facility] Work Phone: Protein Test strip Ql (U) Negative Normal [facility] Work Phone: Specific gravity Relative Density (U) 1.010 1 Normal Comprehensi ve Internal Medicine Work Phone: Urobilinogen mass/time (24H U) Normal Normal [facility] Work Phone: CBC, PLATELETS & MANUAL DIFF (20793)Ordered By: Women'S Activities Adviser on 06-11-2017 Basophils (Bld) [#/Vol] 0.0 {x10E3/uL} Normal 0.0-0.2 [facility] Work Phone: Comment on above: PATIENT WAS FASTINGP ERFORMED BY: GOPOP.TV70 [facility] [id number] BY: Neurelis[address] [id number] Basophils (Bld) [#/Vol] 0.0 10*3/uL Normal 0.0-0.2 [facility]; [facility] Work Phone: Comment on above: PATIENT WAS FASTINGP ERFORMED BY: [employer]6370 [employer] [facility] [id number] BY: Neurelis[address] [id number] Basophils Auto #/vol (Bld) 0.0 {x10E3/uL} Normal 0.0-0.2 [facility] Work Phone: Basophils/100 WBC (Bld) 0 % Normal [facility] Work Phone: Comment on above: PATIENT WAS FASTINGP ERFORMED BY: BREE BioPheresisMorristown Medical CenterRilvel8956 [facility] [id number] BY: BioPheresis[address] [id number] Basophils/100 WBC Auto (Bld) 0 % Normal [facility] Work Phone: Eosinophils (Bld) [#/Vol] 0.2 {x10E3/uL} Normal 0.0-0.4 [facility] Work Phone: Comment on above: PATIENT WAS FASTINGP ERFORMED BY: BREE [employer] Ogrqnh8903 [facility] [id number] BY: BioPheresis[address] [id number] Eosinophils (Bld) [#/Vol] 0.2 10*3/uL Normal 0.0-0.4 [facility]; [facility] Work Phone: Comment on above: PATIENT WAS FASTINGP ERFORMED BY: BREE BioPheresisJamie [place] [address]270 [facility] [id number] BY: BioPheresis[address] [id number] Eosinophils Auto #/vol (Bld) 0.2 {x10E3/uL} Normal 0.0-0.4 [facility] Work Phone: Eosinophils/100 WBC (Bld) 3 % Normal [facility] Work Phone: Comment on above: PATIENT WAS FASTINGP ERFORMED BY: BREE BioPheresisrp Kpopsx9233 [facility] [id number] BY: BioPheresis[address] [id number] Eosinophils/100 WBC Auto (Bld) 3 % Normal [facility] Work Phone: Erythrocyte distribution width (RBC) [Ratio] 13.1 % Normal 12.3-15.4 [facility] Work Phone: Comment on above: PATIENT WAS FASTINGP ERFORMED BY: BREE [employer] Kduhum2896 [facility] [id number] BY: [address] [id number] Erythrocyte distribution width Auto Ratio (RBC) 13.1 % Normal 12.3-15.4 [facility] Work Phone: Hematocrit (Bld) [Volume fraction] 40.2 % Normal 34.0-46.6 [facility] Work Phone: Comment on above: PATIENT WAS FASTINGP ERFORMED BY: BREE BioPheresisJamie V[place] 30[address]270 [facility] [id number] BY: [address] [id number] Hematocrit Auto Volume Fraction (Bld) 40.2 % Normal 34.0-46.6 [facility] Work Phone: Hemoglobin mass conc (Bld) 14.1 g/dL Normal 11.1-15.9 [facility] Work Phone: Comment on above: PATIENT WAS FASTINGP ERFORMED BY: BioPheresisJamie [place] 30[address]270 [facility] [id number] BY: [address] [id number] Immature granulocytes #/vol (Bld) 0.0 {x10E3/uL} Normal 0.0-0.1 [facility] Work Phone: Comment on above: PATIENT WAS FASTINGP ERFORMED BY: BioPheresisMorristown Medical CenterEsrpfj6042 [facility] [id number] BY: [address] [id number] Immature granulocytes (Bld) [#/Vol] 0.0 10*3/uL Normal 0.0-0.1 [facility]; [facility] Work Phone: Comment on above: PATIENT WAS FASTINGP ERFORMED BY: Bio[employer] Avmgot3989 [facility] [id number] BY: BN LabCo[address] [id number] Immature granulocytes/100 WBC (Bld) 0 % Normal [facility] Work Phone: Comment on above: PATIENT WAS FASTINGP ERFORMED BY: BREE LabCoJamie V[place] [address]270 [facility] [id number] BY: [address] [id number] Lymphocytes (Bld) [#/Vol] 2.9 {x10E3/uL} Normal 0.7-3.1 [facility] Work Phone: Comment on above: PATIENT WAS FASTINGP ERFORMED BY: BREE Lab[facility]; to (do) Khawrk4665 [facility] [id number] BY: [facility] Centerfor; to (do)[address] [id number] Lymphocytes (Bld) [#/Vol] 2.9 10*3/uL Normal 0.7-3.1 [facility]; [facility] Work Phone: Comment on above: PATIENT WAS FASTINGP ERFORMED BY: BREE BioPheresisJamie [place] [address]78270 [facility] [id number] BY: [address] [id number] Lymphocytes Auto #/vol (Bld) 2.9 {x10E3/uL} Normal 0.7-3.1 [facility] Work Phone: Lymphocytes/100 WBC (Bld) 51 % Normal [facility] Work Phone: Comment on above: PATIENT WAS FASTINGP ERFORMED BY: BREE Labfor; to (do)[place] [address] [facility] [id number] BY: [address] [id number] Lymphocytes/100 WBC Auto (Bld) 51 % Normal [facility] Work Phone: MCH (RBC) [Entitic mass] 30.3 pg Normal 26.6-33.0 [facility] Work Phone: Comment on above: PATIENT WAS FASTINGP ERFORMED BY: [employer] Qajepe2510 [facility] [id number] BY: BioPheresis[address] [id number] MCH Auto Entitic mass (RBC) 30.3 pg Normal 26.6-33.0 [facility] Work Phone: MCHC (RBC) [Mass/Vol] 35.1 g/dL Normal 31.5-35.7 [facility] Internal Medicine Work Phone: Comment on above: PATIENT WAS FASTINGP ERFORMED BY: Goomzeelin6370 [facility] [id number] BY: Neurelis[address] [id number] MCHC Auto mass conc (RBC) 35.1 g/dL Normal 31.5-35.7 [facility] Internal Medicine Work Phone: MCV (RBC) [Entitic vol] 87 fL Normal 79-97 [facility] Work Phone: Comment on above: PATIENT WAS FASTINGP ERFORMED BY: Goomzeelin6370 [facility] [id number] BY: Neurelis[address] [id number] MCV Auto Entitic volume (RBC) 87 fL Normal 79-97 [facility] Internal Medicine Work Phone: Monocytes (Bld) [#/Vol] 0.4 {x10E3/uL} Normal 0.1-0.9 [facility] Work Phone: Comment on above: PATIENT WAS FASTINGP ERFORMED BY: CovarityJamie [place] 3078270 [facility] [id number] BY: BioPheresis[address] [id number] Monocytes (Bld) [#/Vol] 0.4 10*3/uL Normal 0.1-0.9 [facility]; [facility] Work Phone: Comment on above: PATIENT WAS FASTINGP ERFORMED BY: BREE BioPheresisMorristown Medical CenterWpomco9759 [facility] [id number] BY: BioPheresis[address] [id number] Monocytes Auto #/vol (Bld) 0.4 {x10E3/uL} Normal 0.1-0.9 [facility] Work Phone: Monocytes/100 WBC (Bld) 7 % Normal [facility] Work Phone: Comment on above: PATIENT WAS FASTINGP ERFORMED BY: BREE [employer] Nyzfsn4748 [facility] [id number] BY: BioPheresis[address] [id number] Monocytes/100 WBC Auto (Bld) 7 % Normal [facility] Work Phone: Neutrophils (Bld) [#/Vol] 2.3 {x10E3/uL} Normal 1.4-7.0 [facility] Work Phone: Comment on above: PATIENT WAS FASTINGP ERFORMED BY: BREE Bio[employer] Buosug0708 [facility] [id number] BY: BioPheresis[address] [id number] Neutrophils (Bld) [#/Vol] 2.3 10*3/uL Normal 1.4-7.0 [facility]; [facility] Work Phone: Comment on above: PATIENT WAS FASTINGP ERFORMED BY: [employer] Cbwbjk3515 [facility] [id number] BY: [facility] Centerfor; to (do)[address] [id number] Neutrophils Auto #/vol (Bld) 2.3 {x10E3/uL} Normal 1.4-7.0 [facility] Work Phone: Neutrophils/100 WBC (Bld) 39 % Normal [facility] Work Phone: Comment on above: PATIENT WAS FASTINGP ERFORMED BY: BREE BioP[employer] Pubhsa0472 [facility] [id number] BY: [address] [id number] Neutrophils/100 WBC Auto (Bld) 39 % Normal [facility] Work Phone: Platelets (Bld) [#/Vol] 246 {x10E3/uL} Normal 150-379 [facility] Work Phone: Comment on above: PATIENT WAS FASTINGP ERFORMED BY: BREE [facility]; to (do) Ayplqd9407 [facility] [id number] BY: [address] [id number] Platelets (Bld) [#/Vol] 246 10*3/uL Normal 150-379 [facility]; [facility] Work Phone: Comment on above: PATIENT WAS FASTINGP ERFORMED BY: BREE [employer] Lcahni1000 [facility] [id number] BY: [address] [id number] Platelets Auto #/vol (Bld) 246 {x10E3/uL} Normal 150-379 [facility] Work Phone: RBC (Bld) [#/Vol] 4.65 {x10E6/uL} Normal 3.77-5.28 [facility] Internal Medicine Work Phone: Comment on above: PATIENT WAS FASTINGP ERFORMED BY: BREE Lab[facility]; to (do)[facility] Medical CenterEtnwom1408 [facility] [id number] BY: [address] [id number] RBC (Bld) [#/Vol] 4.65 10*6/uL Normal 3.77-5.28 [facility] Internal Medicine; [facility] Work Phone: Comment on above: PATIENT WAS FASTINGP ERFORMED BY: BREE [facility]; to (do) Orieaz9751 [facility] [id number] BY: BN LabCo[address] [id number] RBC Auto #/vol (Bld) 4.65 {x10E6/uL} Normal 3.77-5.28 [facility] Work Phone: WBC (Bld) [#/Vol] 5.8 {x10E3/uL} Normal 3.4-10.8 [facility] prehensive Internal Medicine Work Phone: Comment on above: PATIENT WAS FASTINGP ERFORMED BY: [facility] Gfmeko3045 [facility] [id number] BY: Labfor; to (do)[address] [id number] WBC (Bld) [#/Vol] 5.8 10*3/uL Normal 3.4-10.8 [facility] Internal Medicine; [facility] Work Phone: Comment on above: PATIENT WAS FASTINGP ERFORMED BY: [facility] Msqkuw0891 [facility] [id number] BY: Labfor; to (do)[address] [id number] WBC Auto #/vol (Bld) 5.8 {x10E3/uL} Normal 3.4-10.8 [facility] Work Phone: LIPID PANEL ([id number])Ordered B y: Women'S Activities Adviser on 06-11-2017 Cholesterol in HDL mass conc 65 mg/dL Normal [facility] Work Phone: Comment on above: PATIENT WAS FASTINGP ERFORMED BY: [facility] Jtfxjz3143 [facility] [id number] BY: Labfor; to (do)[address] [id number] Cholesterol in LDL mass conc 129 mg/dL Abnormal 0-99 [facility] Work Phone: Comment on above: PATIENT WAS FASTINGP ERFORMED BY: CB [facility] Snabgl0835 [facility] [id number] BY: BioPheresis[address] [id number] Cholesterol in LDL/Cholesterol in HDL mass ratio 2.0 {ratio_units} Normal 0.0-3.2 [facility] Work Phone: Comment on above: LDL/HDL Ratio Men Wo men 1/2 Avg.Risk 1.0 1.5 Avg.Risk 3.6 3.2 2X Avg.Risk 6.2 5.0 3X Avg.Risk 8.0 6.1 PATIENT WAS FASTINGP ERFORMED BY: CB [facility] Jsywla[address] [facility] [id number] BY: [facility] [address] [id number] Cholesterol in VLDL mass conc 12 mg/dL Normal 5-40 [facility] Work Phone: Comment on above: PATIENT WAS FASTINGP ERFORMED BY: CB [facility] Qlcmun7144 [address] [facility] [id number] BY: LabCo[address] [id number] Cholesterol mass conc 206 mg/dL Abnormal 100-199 Com prehensive Internal Medicine Work Phone: Comment on above: PATIENT WAS FASTINGP ERFORMED BY: CB [facility] Coqaqk4571 [address] [facility] [id number] BY: [facility] [address] [id number] Triglyceride mass conc 62 mg/dL Normal 0-149 [facility] Work Phone: Comment on above: PATIENT WAS FASTINGP ERFORMED BY: CB [facility] Icjpxa5670 [address] [facility] [id number] BY: LabCo[address] [id number] METABOLIC PANEL, COMPREHENSI VE (45772)Ordered By: Women'S Activities Adviser on 06-11-2017 Albumin mass conc 4.6 g/dL Normal 3.5-5.5 Compreh ensive Internal Medicine Work Phone: Comment on above: PATIENT WAS FASTINGP ERFORMED BY: CB [facility] Rvjvcr3316 [address] [facility] [place] [id number] BY: [address] [id number] Albumin/Globulin mass ratio 2.0 {ratio} Normal 1.2-2.2 [facility] Work Phone: Comment on above: PATIENT WAS FASTINGP ERFORMED BY: [facility] Amsyrh5485 [address] [facility] [id number] BY: [address] [id number] ALP [Catalytic activity/Vol] 74 U/L Normal 39-117 [facility]; [facility] Internal Medicine Work Phone: Comment on above: PATIENT WAS FASTINGP ERFORMED BY: [facility] Znnrlx4743 [facility] [id number] BY: [address] [id number] ALP enzyme act/vol 74 [iU]/L Normal 39-117 [facility] Internal Medicine Work Phone: Comment on above: PATIENT WAS FASTINGP ERFORMED BY: [facility] Fquxlw0035 [facility] [id number] BY: [address] [id number] ALT [Catalytic activity/Vol] 13 U/L Normal 0-32 [facility]; [facility] Internal Medicine Work Phone: Comment on above: PATIENT WAS FASTINGP ERFORMED BY: [facility] Vvjrho6438 [facility] [id number] BY: [address] [id number] ALT enzyme act/vol 13 [iU]/L Normal 0-32 [facility] Internal Medicine Work Phone: Comment on above: PATIENT WAS FASTINGP ERFORMED BY: [facility] Qkpren8771 [facility] [id number] BY: [address] [id number] AST [Catalytic activity/Vol] 18 U/L Normal 0-40 [facility]; [facility] Work Phone: Comment on above: PATIENT WAS FASTINGP ERFORMED BY: CB [facility] Lymimu3452 [address] [facility] [id number] BY: [address] [id number] AST enzyme act/vol 18 [iU]/L Normal 0-40 Compre hensive Internal Medicine Work Phone: Comment on above: PATIENT WAS FASTINGP ERFORMED BY: CB [facility] Vemjgj3536 [address] [facility] [id number] BY: LabCo[address] [id number] Bilirubin mass conc 0.4 mg/dL Normal 0.0-1.2 Compr ehensive Internal Medicine Work Phone: Comment on above: PATIENT WAS FASTINGP ERFORMED BY: [facility] Izlpwb0853 [facility] [id number] BY: Lab[address] [id number] Calcium mass conc 10.0 mg/dL Normal 8.7-10.2 Compreh ensive Internal Medicine Work Phone: Comment on above: PATIENT WAS FASTINGP ERFORMED BY: [facility] Jkgmnp8575 [facility] [id number] BY: LabCo[address] [id number] Chloride molar conc 101 mmol/L Normal 96-106 Compr ehensive Internal Medicine Work Phone: Comment on above: PATIENT WAS FASTINGP ERFORMED BY: CB [facility] Cdeycy3056 [address] [facility] [id number] BY: Lab[address] [id number] CO2 molar conc 29 mmol/L Normal 18-29 Comprehens avelina Internal Medicine Work Phone: Comment on above: PATIENT WAS FASTINGP ERFORMED BY: CB [facility] Dufvbn6783 [facility] [id number] BY: LabCo[address] [id number] Creatinine mass conc 0.90 mg/dL Normal 0.57-1.00 Comp rehensive Internal Medicine Work Phone: Comment on above: PATIENT WAS FASTINGP ERFORMED BY: CB [facility] Ypoyaj3736 [facility] [id number] BY: LabCo[address] [id number] GFR/1.73 sq M predicted among blacks CKD-EPI vol rate/area (S/P/Bld) 83 mL/min/1.73 Normal [facility] Work Phone: Comment on above: PATIENT WAS FASTINGP ERFORMED BY: CB [facility] Aufxyo4857 [facility] [id number] BY: Lab[address] [id number] GFR/1.73 sq M predicted among non-blacks CKD-EPI vol rate/area (S/P/Bld) 72 mL/min/1.73 Normal Comprehensiv e Internal Medicine Work Phone: Comment on above: PATIENT WAS FASTINGP ERFORMED BY: CB [facility] Tjhhuj6072 [facility] [id number] BY: LabCo[address] [id number] Globulin (S) [Mass/Vol] 2.3 g/dL Normal 1.5-4.5 [facility] Work Phone: Comment on above: PATIENT WAS FASTINGP ERFORMED BY: CB [facility] Fuxttr8455 [facility] [id number] BY: LabCo[address] [id number] Globulin Calculated mass conc (S) 2.3 g/dL Normal 1.5-4.5 [facility] Work Phone: Glucose mass conc 89 mg/dL Normal 65-99 Compreh ensive Internal Medicine Work Phone: Comment on above: PATIENT WAS FASTINGP ERFORMED BY: BREE [facility] Tnrjec2940 [address] [facility] [id number] BY: [facility] [address] [id number] Potassium molar conc 4.5 mmol/L Normal 3.5-5.2 Comp rehensive Internal Medicine Work Phone: Comment on above: PATIENT WAS FASTINGP ERFORMED BY: BREE [facility] Lvnbyc8127 [address] [facility] [id number] BY: [facility] [address] [id number] Protein mass conc 6.9 g/dL Normal 6.0-8.5 Compreh ensive Internal Medicine Work Phone: Comment on above: PATIENT WAS FASTINGP ERFORMED BY: BREE [facility] Orenfe7958 [facility] [id number] BY: [facility] [address] [id number] Sodium molar conc 143 mmol/L Normal 134-144 Compreh ensive Internal Medicine Work Phone: Comment on above: PATIENT WAS FASTINGP ERFORMED BY: BREE [facility] Cmxxeg8144 [address] [facility] [id number] BY: [facility] [address] [id number] Urea nitrogen mass conc 16 mg/dL Normal 6-24 [facility] Work Phone: Comment on above: PATIENT WAS FASTINGP ERFORMED BY: BREE [facility] Cehwcx8306 [address] [facility] [id number] BY: [facility] [address] [id number] Urea nitrogen/Creatinine mass ratio 18 mg/mg Normal 9-23 [facility] Work Phone: Comment on above: PATIENT WAS FASTINGP ERFORMED BY: [employer] Uaaqlj8307 [facility] [id number] BY: [address] [id number] MICROALBUMINOrdered By: Syst em Granulator Operator on 06-11-2017 Albumin DL <= 20 mg/L mass conc (U) 3.2 ug/mL Normal [facility] Work Phone: Comment on above: PATIENT WAS FASTINGP ERFORMED BY: Pili Pop Labfor; to (do) Belust5078 [facility] [id number] BY: [address] [id number] Albumin/Creatinine mass ratio (U) 6.6 {mg/g_creat} Normal 0.0-30.0 [facility] Work Phone: Comment on above: PATIENT WAS FASTINGP ERFORMED BY: [employer] Labfor; to (do) Hygwyt1489 [facility] [id number] BY: [address] [id number] Creatinine mass conc (U) 48.2 mg/dL Normal [facility] Work Phone: Comment on above: PATIENT WAS FASTINGP ERFORMED BY: Covarityrp [address]fwtcz0984 [facility] [id number] BY: [address] [id number] Microscopic ExaminationOrder ed By: Women'S Activities Adviser on 06-11-2017 Bacteria LM.HPF #/area (Urine sed) None seen Normal [facility] Work Phone: Epithelial cells LM.HPF #/area (Urine sed) 0-10 Normal 0 - 10 [facility] Work Phone: Mucus LM Ql (Urine sed) Present Normal [facility] Work Phone: RBC LM.HPF #/area (Urine sed) None seen Normal 0 - 2 [facility] Work Phone: WBC LM.HPF #/area (Urine sed) 0-5 Normal 0 - 5 [facility] Work Phone: TSH (THYROID STIMULATING HOR KARTHIKEYAN) ([id number])Ordered By: Women'S Activities Adviser on 06-11-2017 Thyrotropin Qn 2.280 {uIU/mL} Normal 0.450-4.500 Compr ehensive Internal Medicine Work Phone: Comment on above: PATIENT WAS FASTINGP ERFORMED BY: CB [facility] Vqpfhi4701 Fern[address] RoadDublin [place] [id number] BY: [address] [id number] URINALYSIS ([id number])Ordered By : Women'S Activities Adviser on 06-11-2017 Appearance Nom (U) Clear Normal Compre hensive [facility] Medicine Work Phone: Comment on above: PATIENT WAS FASTINGP ERFORMED BY: CB [facility] Dwgjsr0692 Fern[address]es RoadDuin [place] [id number] BY: [address] [id number] Bilirubin Ql (U) Negative Normal Comprehe nsive Internal Medicine Work Phone: Comment on above: PATIENT WAS FASTINGP ERFORMED BY: CB [facility] Xulrlc2264 [address] Roadblin [place] [id number] BY: [address] [id number] Bilirubin Ql (U) Negative Normal Comprehe nsive Internal Medicine; [facility] Work Phone: Comment on above: PATIENT WAS FASTINGP ERFORMED BY: CB [facility] Kkpcra4935 [address] RoadDublin [place] [id number] BY: [address] [id number] Color Nom (U) Yellow Normal Comprehensi ve Internal Medicine Work Phone: Comment on above: PATIENT WAS FASTINGP ERFORMED BY: CB [facility] Ccejhb5986 Fern[address]es RoadDublin [place] [id number] BY: [address] [id number] Glucose Ql (U) Negative Normal Comprehens avelina [facility] Work Phone: Comment on above: PATIENT WAS FASTINGP ERFORMED BY: BREE [facility] Rbigeq6767 Fern[address]es RoadDublin [place] [id number] BY: LabCo[address] [id number] Glucose Ql (U) Negative Normal Comprehens avelina [facility]; [facility] Work Phone: Comment on above: PATIENT WAS FASTINGP ERFORMED BY: BREE [facility] Htzzyx8803 Fern[address] RoadDublin [place] [id number] BY: LabCo[address] [id number] Hemoglobin Ql (U) Negative Normal Compreh ensive Internal Medicine Work Phone: Comment on above: PATIENT WAS FASTINGP ERFORMED BY: BREE [facility] Jpdnmz2069 [address] RoadDublin [place] [id number] BY: [address] [id number] Hemoglobin Ql (U) Negative Normal Compreh ensive Internal Medicine; [facility] Work Phone: Comment on above: PATIENT WAS FASTINGP ERFORMED BY: BREE [facility] Ehteum3716 [address] RoadDublin [place] [id number] BY: [address] [id number] Hemoglobin Test strip Ql (U) Negative Normal [facility] Work Phone: Ketones Ql (U) Negative Normal Comprehens avelina [facility] Work Phone: Comment on above: PATIENT WAS FASTINGP ERFORMED BY: BREE [facility] Jhybcq5364 [address] RoadDublin [place] [id number] BY: [address] [id number] Ketones Ql (U) Negative Normal Comprehens avelina [facility]; [facility] Work Phone: Comment on above: PATIENT WAS FASTINGP ERFORMED BY: BREE [facility] Vuuwls6968 [address] RoadDublin [place] [id number] BY: [address] [id number] Leukocyte esterase Test strip Ql (U) 1+ Abnormal [facility] Work Phone: Comment on above: PATIENT WAS FASTINGP ERFORMED BY: [facility] Vhjori7316 Fern[address] RoadDuin [place] [id number] BY: [address] [id number] Microscopic observation LM Nom (Urine sed) See below: Normal [facility] Work Phone: Comment on above: Microscopic was camila cated and was performed. PATIENT WAS FASTINGP ERFORMED BY: [facility] Xeupfd7684 Fern[address]es RoadAtrium Health University City [id number] BY: [address] [id number] Nitrite Ql (U) Negative Normal Comprehens avelina [facility] Work Phone: Comment on above: PATIENT WAS FASTINGP ERFORMED BY: [facility] Ursbkw7212 Fern[address] RoadDuin [place] [id number] BY: [address] [id number] Nitrite Ql (U) Negative Normal Comprehens avelina [facility]; [facility] Work Phone: Comment on above: PATIENT WAS FASTINGP ERFORMED BY: [facility] Jssrmg[address] [facility] [id number] BY: [address] [id number] Nitrite Test strip Ql (U) Negative Normal [facility] Work Phone: pH (U) 8.0 [pH] Abnormal 5.0-7.5 [facility] Work Phone: Comment on above: PATIENT WAS FASTINGP ERFORMED BY: [facility] Fcogux[address] [facility] [id number] BY: [address] [place] [id number] pH Test strip (U) 8.0 [pH] Abnormal 5.0-7.5 Compreh ensive Internal Medicine Work Phone: Protein Ql (U) Negative Normal Comprehens avelina [facility] Work Phone: Comment on above: PATIENT WAS FASTINGP ERFORMED BY: BREE BioPheresissabrina BroDsspxo2839 [facility] [id number] BY: [address] [id number] Protein Ql (U) Negative Normal Comprehens avelina [facility]; [facility] Work Phone: Comment on above: PATIENT WAS FASTINGP ERFORMED BY: BREE LabMiguel PrietoPvdkqu9845 [facility] [id number] BY: [address] [id number] Protein Test strip Ql (U) Negative Normal [facility] Work Phone: Specific gravity Relative Density (U) 1.013 1 Normal 1.005-1.030 Comprehensi ve Internal Medicine Work Phone: Comment on above: PATIENT WAS FASTINGP ERFORMED BY: BREE LabMgiuel Bro6370 [facility] [id number] BY: [address] [id number] Urobilinogen (U) [Mass/Vol] 0.2 mg/dL Normal 0.2-1.0 [facility]; [facility] Work Phone: Comment on above: PATIENT WAS FASTINGP ERFORMED BY: BREE [facility] Uzfpcz6392 [facility] [id number] BY: [address] [id number] Urobilinogen Test strip mass conc (U) 0.2 mg/dL Normal 0.2-1.0 Comprehensiv e Internal Medicine Work Phone: Comment on above: PATIENT WAS FASTINGP ERFORMED BY: BREE CantuCoMorristown Medical CenterUqtovv4850 [facility] [id number] BY: [address] [id number] VITAMIN D, 1, 25-DIHYDROXY ( 80225)Ordered By: Women'S Activities Adviser on 06-11-2017 Calcitriol mass conc 27.2 pg/mL Normal 19.9-79.3 Comp rehensive Internal Medicine Work Phone: Comment on above: PATIENT WAS FASTINGP ERFORMED BY: [facility] Ncfonh4669 [facility] [id number] BY: [address] [id number] Office Visit: [facility]: R thumb P W recheckon 05-15-2017 Tobacco smoking status Never Invalid Interpretation Code [facility] Work Phone: Tobacco smoking status Tobacco smoking status NHIS Invalid Interpretation Code [facility] Work Phone: Tobacco use status [facility] Never smoker Invalid Interpretation Code [facility] Work Phone: Office Visit: [facility]: Splinter R thumb w/ removalon 05-08-2017 Tobacco smoking status Never Invalid Interpretation Code [facility] Work Phone: Tobacco use status [facility] Never smoker Invalid Interpretation Code [facility] Work Phone: Lab Report: Miscellaneous La b Procedureon 05-07-2017 GE use only - for LinkLogic import when terms are not otherwise specified . Invalid Interpretation Code [facility] Miscellaneous Lab ProcedureO rdered By: Women'S Activities Adviser on 04-30-2017 [facility] LAB TEST Normal Comprehensi ve Internal Medicine Work Phone: Comment on above: Test Ordered: IGP, A ptima HPVInterpretation:NEGATIVE FOR INTRAEPITHELIAL LESION AND MALIGNANCYCELLULAR CHANGES ASSOCIATED WITH ATROPHY ARE PRESENT.Specimen Adequacy:Satisfactory for evaluation. Endocervical component may notbe distinguished in cases of atrophy.Comments:The Pap smear is a screening test designed to aid in thedetection of premalignant and malignant conditions of theuterine cervix. It is not a diagnostic procedure and shouldnot be used as the sole means of detecting cervical cancer.Both false-positive and false-negative reports dooccur.This liquid based ThinPrep(R) pap test was screened with theuse of an image guided system.Performed by Juan David Rojas, Security Specialist([facility])This test detects fourteen high-risk HPV types(16/18/31/33/35/39/45/ 51/52/56/58/59/66/68) withoutdifferentiation.HPV Aptima: Negative __ TESTING PERFORMED AT [facility]. ORIGINAL REPORT ON FILE IN LAB CONTAINS ADDITIONAL TEST SITE INFORMATION. Office Visit: annualon 04-30 Tobacco smoking status Never Invalid Interpretation Code [facility] Tobacco use status [facility] Never smoker Invalid Interpretation Code [facility] Office Visit: annualon 04-24 MG Breast Screening Normal Bilateral Invalid Interpretation Code [facility] Basic Metabolic Profile (BMP )Ordered By: Women'S Activities Adviser on 03-29-2016 Basic metabolic 2000 panel 9.2 mg/dL Normal 8.5-10.1 [facility] Work Phone: Basic metabolic 2000 panel 30.0 mmol/L Normal 21.0-32.0 [facility] Work Phone: Basic metabolic 2000 panel 102 mmol/L Normal 98-107 [facility] Work Phone: Basic metabolic 2000 panel 4.0 mmol/L Normal 3.5-5.1 [facility] Work Phone: Basic metabolic 2000 panel 89 mg/dL Normal 70-110 [facility] Work Phone: Basic metabolic 2000 panel 17 mg/dL Normal 7-18 [facility] Work Phone: Basic metabolic 2000 panel 0.84 mg/dL Normal 0.55-1.20 [facility] Work Phone: Comment on above: The validity of the calculated GFR AND GFRAA in patients over70 years has not been determined. Clinical correlation isessential. Basic metabolic 2000 panel 74 mL/min Normal [facility] Work Phone: Comment on above: Non- GFR Calc Basic metabolic 2000 panel 90 mL/min Normal [facility] Work Phone: Comment on above: GFR Calc Basic metabolic 2000 panel 65.35 ml/min Normal [facility] Work Phone: Basic metabolic 2000 panel 20.1 {RATIO} Abnormal 10-20 [facility] Work Phone: Basic metabolic 2000 panel 6 1 Normal 5-15 [facility] Work Phone: Basic metabolic 2000 panel 138 mmol/L Normal 136-145 [facility] Work Phone: CBC W/Diff, AutomatedOrdered By: Women'S Activities Adviser on 03-29-2016 Basophils/100 WBC Auto (Bld) 0.1 % Normal 0-1 [facility] Work Phone: Eosinophils/100 WBC Auto (Bld) 0.9 % Normal 0-5 [facility] Work Phone: Erythrocyte distribution width Auto Ratio (RBC) 12.9 % Normal 11.6-14.6 [facility] Work Phone: Hematocrit Auto Volume Fraction (Bld) 43.9 % Normal 37-47 [facility] Work Phone: Hemoglobin mass conc (Bld) 14.6 g/dL Normal 12.0-15.0 [facility] Work Phone: Lymphocytes/100 WBC Auto (Bld) 24.6 % Normal 19-41 [facility] Work Phone: MCH Auto Entitic mass (RBC) 29.5 pg Normal 27.0-32.0 [facility] Work Phone: MCHC Auto mass conc (RBC) 33.3 {g/gl} Normal 32-36 [facility] Work Phone: MCV Auto Entitic volume (RBC) 88.7 fL Normal 81-99 [facility] Work Phone: Monocytes/100 WBC Auto (Bld) 6.5 % Normal 0-10 [facility] Work Phone: Neutrophils/100 WBC Auto (Bld) 67.8 % Normal 47-70 [facility] Work Phone: Platelet mean volume Auto Entitic volume (Bld) 9.6 fL Normal 6.2-12.0 [facility] Work Phone: Platelets Auto #/vol (Bld) 247 10*3/uL Normal 150-450 [facility] Work Phone: RBC Auto #/vol (Bld) 4.95 {M/mm3} Normal 4.2-5.4 [facility] Work Phone: WBC Auto #/vol (Bld) 7.4 10*3/uL Normal 4.4-11.0 Com prehensive Internal Medicine Work Phone: CBC W/Diff, Automated 0.100 % Normal 0.0-0.9 [facility] prehensive Internal Medicine Work Phone: Comment on above: IG% - Immature Granu locytes (promyelocytes, myelocytes andmetamyelocytes) > 1% indicates that a LEFT SHIFT is Present. CBC W/Diff, Automated 5.0 {X10_3/uL} Normal 2.0-7.7 [facility] Work Phone: CBC W/Diff, Automated 1.83 {X10_3/ul} Normal 0.83-4.51 [facility] Work Phone: CBC W/Diff, Automated 42.0 fL Normal 35.1-43.9 [facility] prehensive Internal Medicine Work Phone: Thyroid Stim Hormone (TSH)Or dered By: Women'S Activities Adviser on 03-29-2016 Thyrotropin Qn 0.77 {uIU/mL} Normal 0.358-3.74 [facility]pre[facility] Work Phone: Troponin-IOrdered By: Women'S Activities Adviser on 03-29-2016 Troponin I.cardiac mass conc ng/mL Normal [facility] Work Phone: Comment on above: TROPONIN-I EXPECTED VALUES <0.05 NEGATIVE 0.06 - 0.59 AT RISK OF [place] > OR = 0.60 SUGGEST [place] CALCIFEDIOL ([id number])Ordered B y: Women'S Activities Adviser on 01-30-2016 25-Hydroxyvitamin D2+25-Hydroxyvitamin D3 mass conc 38.0 ng/mL Normal 30.0-100.0 [facility] Work Phone: Comment on above: Vitamin D deficiency has been defined by the [place] ofMedicine and an Endocrine Society practice guideline as alevel of serum 25-OH vitamin D less than 20 ng/mL (1,2).The Endocrine Society went on to further define vitamin Dinsufficiency as a level between 21 and 29 ng/mL (2).1. IOM ([place] of Medicine). 2010. Dietary reference intakes for calcium and D. [place]: The National Academies Press.2. Enmanuel MF, Kya MAYFIELD, Aurelia PASTOR, et al. Evaluation, treatment, and prevention of vitamin D deficiency: an Endocrine Society clinical practice guideline. JCEM. 2010; 96(7):1911-30. PATIENT NOT FASTINGP ERFORMED BY: CB [facility] Uksktj9247 [address] RoadDublin [place] [id number] Information: [id number], [id number] PARATHORMONE (96750)Ordered By: Women'S Activities Adviser on 01-30-2016 Parathyrin.intact mass conc 34 pg/mL Normal 15-65 [facility] Work Phone: Comment on above: PATIENT NOT FASTINGP ERFORMED BY: CB [facility] Efejtl5419 [address] RoadDublin [place] [id number] URINE LEON CULTURE-IDENTIFICA [place] ([id number])Ordered By: Women'S Activities Adviser on 01-30-2016 Bacteria identified Cx Nom (U) Final report Normal [facility] Work Phone: Comment on above: PATIENT NOT FASTINGP ERFORMED BY: CB [facility] Urpesq8928 [address] RoadDublin [place] [id number] Bacteria identified Cx Nom (U) MUG Normal [facility] Work Phone: Comment on above: Mixed urogenital sebas ra1,000 Colonies/mL PATIENT NOT FASTINGP ERFORMED BY: [facility] Oytnli7620 [facility] [id number] Urinalysis, Office ([id number])Or dered By: Shanice Keith on 01-30-2016 Bilirubin Ql (U) Negative Normal Comprehe nsive Internal Medicine Work Phone: Bilirubin Ql (U) Negative Normal Comprehe nsive Internal Medicine; [facility] Work Phone: Glucose Test strip (U) [Mass/Vol] Negative Normal [facility]; [facility] Work Phone: Glucose Test strip mass conc (U) Negative Normal [facility] Work Phone: Hemoglobin Ql (U) Negative Normal Compreh ensive Internal Medicine Work Phone: Hemoglobin Ql (U) Negative Normal Compreh ensive Internal Medicine; [facility] Work Phone: Hemoglobin Test strip Ql (U) Negative Normal [facility] Work Phone: Ketones Ql (U) Negative Normal Comprehens avelina [facility] Work Phone: Ketones Ql (U) Negative Normal Comprehens avelina [facility]; [facility] Work Phone: Leukocyte esterase Test strip Ql (U) Negative Normal [facility] Work Phone: Leukocyte esterase Test strip Ql (U) Negative Normal [facility]; [facility] Work Phone: Nitrite Ql (U) Negative Normal Comprehens avelina [facility] Work Phone: Nitrite Ql (U) Negative Normal Comprehens avelina [facility]; [facility] Work Phone: Nitrite Test strip Ql (U) Negative Normal [facility] Work Phone: pH (U) 7 [pH] Normal [facility] Work Phone: pH Test strip (U) 7 [pH] Normal Compreh ensive Internal Medicine Work Phone: Protein Ql (U) Negative Normal Comprehens avelina [facility] Work Phone: Protein Ql (U) Negative Normal Comprehens avelina [facility]; [facility] Work Phone: Protein Test strip Ql (U) Negative Normal [facility] Work Phone: Specific gravity Relative Density (U) 1.015 1 Normal Comprehensi ve Internal Medicine Work Phone: Urobilinogen mass/time (24H U) Normal Normal [facility] Work Phone: Urinalysis, Office ([id number])Or dered By: Jane Rivera on 01-16-2016 Bilirubin Ql (U) Negative Normal Comprehe nsive Internal Medicine Work Phone: Bilirubin Ql (U) Negative Normal Comprehe nsive Internal Medicine; [facility] Work Phone: Glucose Test strip (U) [Mass/Vol] Negative Normal [facility]; [facility] Work Phone: Glucose Test strip mass conc (U) Negative Normal [facility] Work Phone: Hemoglobin Ql (U) Negative Normal Compreh ensive [facility] Medicine Work Phone: Hemoglobin Ql (U) Negative Normal Compreh ensive [facility] Medicine; [facility] Work Phone: Hemoglobin Test strip Ql (U) Negative Normal [facility] Work Phone: Ketones Ql (U) 15 mg/dL Abnormal Comprehens avelina [facility] Work Phone: Leukocyte esterase Test strip Ql (U) Negative Normal [facility] Work Phone: Leukocyte esterase Test strip Ql (U) Negative Normal [facility]; [facility] Work Phone: Nitrite Ql (U) Negative Normal Comprehens avelina [facility] Work Phone: Nitrite Ql (U) Negative Normal Comprehens avelina [facility]; [facility] Work Phone: Nitrite Test strip Ql (U) Negative Normal [facility] Work Phone: pH (U) 7.0 [pH] Normal [facility] Work Phone: pH Test strip (U) 7.0 [pH] Normal Compreh ensive Internal Medicine Work Phone: Protein Ql (U) Negative Normal Comprehens avelina [facility] Work Phone: Protein Ql (U) Negative Normal Comprehens avelina [facility]; [facility] Work Phone: Protein Test strip Ql (U) Negative Normal [facility] Work Phone: Specific gravity Relative Density (U) 1.010 1 Normal Comprehensi ve [facility] Medicine Work Phone: Urobilinogen mass/time (24H U) Normal Normal [facility] Work Phone: LEON CULTURE-STOOL ([id number])Ord ered By: Women'S Activities Adviser on 12-06-2015 Bacteria identified Cx Nom (Unsp spec) NSS Normal [facility] Work Phone: Comment on above: No Salmonella or Rebeca gella recovered. PATIENT NOT FASTINGP ERFORMED BY: Pili Pop Labfor; to (do)rp Sribik[address] [place] [employer]&P InternationalVidant Pung[facility] Hospital [id number] Information: [id number] Bacteria identified Cx Nom (Unsp spec) NCI Normal [facility] Work Phone: Comment on above: No Campylobacter spe cies isolated. PATIENT NOT FASTINGP ERFORMED BY: Pili Pop Labfor; to (do)rp Wbydti9539 [address] [place] [id number] Information: [id number] Campylobacter sp identified Org specific cx Nom (St) Final report Normal Comprehensi ve Internal Medicine Work Phone: Comment on above: PATIENT NOT FASTINGP ERFORMED BY: Pili Pop Labfor; to (do)rp Ccrtuj2888 [address] [place] [id number] Information: [id number] E. coli shiga-like toxin IA Ql (St) Negative Normal [facility] Work Phone: Comment on above: PATIENT NOT FASTINGP ERFORMED BY: Pili Pop Labfor; to (do)rp Hxuppb54[address] [place] [id number] Information: [id number] E. coli shiga-like toxin IA Ql (Stl) Negative Normal [facility]; [facility] Work Phone: Comment on above: PATIENT NOT FASTINGP ERFORMED BY: CB [facility] Tqkngo7[address] [facility] [place] [id number] Information: [id number] Salmonella and Shigella sp identified Org specific cx Nom (St) Final report Normal [facility] Work Phone: Comment on above: PATIENT NOT FASTINGP ERFORMED BY: CB [facility] Dzvdal[address] [facility] [place] [id number] Information: [id number] C-DIFFICILE, STOOL (44021)Or dered By: Women'S Activities Adviser on 12-06-2015 C. difficile toxin A+B IA Ql (St) Negative Normal [facility] Work Phone: Comment on above: PATIENT NOT FASTINGP ERFORMED BY: CB [facility] Cmfdau[address] [facility] [id number] Information: SRC: STOOL [id number] C. difficile toxin A+B IA Ql (Stl) Negative Normal [facility]; [facility] Work Phone: Comment on above: PATIENT NOT FASTINGP ERFORMED BY: CB [facility] Qvpvrl[address] [facility] [place] [id number] Information: SRC: STOOL [id number] LEUKOCYTE COUNT, FECAL (8905 5)Ordered By: Women'S Activities Adviser on 12-06-2015 WBC LM Ql (St) Final report Normal Comprehe nsive Internal Medicine Work Phone: Comment on above: PATIENT NOT FASTINGP ERFORMED BY: CB [facility] Wqrwqp[address] [facility] [place] [id number] WBC LM Ql (St) NWBC Normal Comprehens avelina [facility] Work Phone: Comment on above: No white blood cells seen. PATIENT NOT FASTINGP ERFORMED BY: CB [facility] Kmlckv[address] [facility] [place] [id number] OVA & PARASITE DIR SMEAR (87 177)Ordered By: Women'S Activities Adviser on 12-06-2015 Ova and parasites identified Concentration Nom (St) NOCP Normal Comprehen sive Internal Medicine Work Phone: Comment on above: No ova, cysts, or pa rasites seen. PATIENT NOT FASTINGP ERFORMED BY: [facility]6370 [facility] [id number] Ova and parasites identified LM Nom (Unsp spec) Final report Normal [facility] Work Phone: Comment on above: These results were o btained using wet preparation(s) and trichromestained smear. This test does not include testing for Cryptosporidiumparvum, Cyclospora, or Microsporidia. PATIENT NOT FASTINGP ERFORMED BY: [facility]6370 [facility] [id number] Occult Blood, Fecal, IAOrder ed By: Women'S Activities Adviser on 12-06-2015 Lower GI hemoglobin IA Ql (St) Negative Normal [facility] Work Phone: CBC W/AUTO DIFF WBC (22129)O rdered By: Women'S Activities Adviser on 12-05-2015 Basophils (Bld) [#/Vol] 0.0 {x10E3/uL} Normal 0.0-0.2 [facility] Work Phone: Comment on above: PATIENT NOT FASTINGP ERFORMED BY: [facility] [facility] [id number] Information: [id number] Basophils (Bld) [#/Vol] 0.0 10*3/uL Normal 0.0-0.2 [facility]; [facility] Work Phone: Comment on above: PATIENT NOT FASTINGP ERFORMED BY: [facility] [facility] [id number] Information: [id number] Basophils Auto #/vol (Bld) 0.0 {x10E3/uL} Normal 0.0-0.2 [facility] Work Phone: Basophils/100 WBC (Bld) 0 % Normal [facility] Work Phone: Comment on above: PATIENT NOT FASTINGP ERFORMED BY: [facility] [facility] [id number] Information: [id number] Basophils/100 WBC Auto (Bld) 0 % Normal [facility] Work Phone: Eosinophils (Bld) [#/Vol] 0.5 {x10E3/uL} Abnormal 0.0-0.4 [facility] Work Phone: Comment on above: PATIENT NOT FASTINGP ERFORMED BY: [place] [address] [facility] [id number] Information: [id number] Eosinophils (Bld) [#/Vol] 0.5 10*3/uL Abnormal 0.0-0.4 [facility]; [facility] Work Phone: Comment on above: PATIENT NOT FASTINGP ERFORMED BY: [address] [id number] Information: [id number] Eosinophils Auto #/vol (Bld) 0.5 {x10E3/uL} Abnormal 0.0-0.4 [facility] Work Phone: Eosinophils/100 WBC (Bld) 7 % Normal [facility] Work Phone: Comment on above: PATIENT NOT FASTINGP ERFORMED BY: [address] [id number] Information: [id number] Eosinophils/100 WBC Auto (Bld) 7 % Normal [facility] Work Phone: Erythrocyte distribution width (RBC) [Ratio] 13.7 % Normal 12.3-15.4 [facility] Work Phone: Comment on above: PATIENT NOT FASTINGP ERFORMED BY: [place] [address] [facility] [id number] Information: [id number] Erythrocyte distribution width Auto Ratio (RBC) 13.7 % Normal 12.3-15.4 [facility] Work Phone: Hematocrit (Bld) [Volume fraction] 43.8 % Normal 34.0-46.6 [facility] Work Phone: Comment on above: PATIENT NOT FASTINGP ERFORMED BY: [facility] [facility] [id number] Information: [id number] Hematocrit Auto Volume Fraction (Bld) 43.8 % Normal 34.0-46.6 [facility] Work Phone: Hemoglobin mass conc (Bld) 14.5 g/dL Normal 11.1-15.9 [facility] Work Phone: Comment on above: PATIENT NOT FASTINGP ERFORMED BY: LabCoJamie [place] 3078270 [facility] [id number] Information: [id number] Immature granulocytes #/vol (Bld) 0.0 {x10E3/uL} Normal 0.0-0.1 [facility] Work Phone: Comment on above: PATIENT NOT FASTINGP ERFORMED BY: [place] [address] [facility] [id number] Information: [id number],[id number] Immature granulocytes (Bld) [#/Vol] 0.0 10*3/uL Normal 0.0-0.1 [facility]; [facility] Work Phone: Comment on above: PATIENT NOT FASTINGP ERFORMED BY: LabCoJamie [place] [address] [facility] [id number] Information: [id number] Immature granulocytes/100 WBC (Bld) 0 % Normal [facility] Work Phone: Comment on above: PATIENT NOT FASTINGP ERFORMED BY: [facility]CoMor[facility] CenterSkpsgu15[address] [facility] [id number] Information: [id number] Lymphocytes (Bld) [#/Vol] 2.3 {x10E3/uL} Normal 0.7-3.1 [facility] Work Phone: Comment on above: PATIENT NOT FASTINGP ERFORMED BY: LabCoJam[place] [address] [facility] [id number] Information: [id number] Lymphocytes (Bld) [#/Vol] 2.3 10*3/uL Normal 0.7-3.1 [facility]; [facility] Work Phone: Comment on above: PATIENT NOT FASTINGP ERFORMED BY: [place] [address] [facility] [id number] Information: [id number] Lymphocytes Auto #/vol (Bld) 2.3 {x10E3/uL} Normal 0.7-3.1 [facility] Work Phone: Lymphocytes/100 WBC (Bld) 31 % Normal [facility] Work Phone: Comment on above: PATIENT NOT FASTINGP ERFORMED BY: BREE [address] [id number] Information: [id number] Lymphocytes/100 WBC Auto (Bld) 31 % Normal [facility] Work Phone: MCH (RBC) [Entitic mass] 29.5 pg Normal 26.6-33.0 [facility] Work Phone: Comment on above: PATIENT NOT FASTINGP ERFORMED BY: [address] [id number] Information: [id number] MCH Auto Entitic mass (RBC) 29.5 pg Normal 26.6-33.0 [facility] Work Phone: MCHC (RBC) [Mass/Vol] 33.1 g/dL Normal 31.5-35.7 [facility] prehensive Internal Medicine Work Phone: Comment on above: PATIENT NOT FASTINGP ERFORMED BY: [place] [address] [facility] [id number] Information: [id number] MCHC Auto mass conc (RBC) 33.1 g/dL Normal 31.5-35.7 [facility] Work Phone: MCV (RBC) [Entitic vol] 89 fL Normal 79-97 [facility] Work Phone: Comment on above: PATIENT NOT FASTINGP ERFORMED BY: BREE [facility] [facility] [id number] Information: [id number] MCV Auto Entitic volume (RBC) 89 fL Normal 79-97 [facility] Work Phone: Monocytes (Bld) [#/Vol] 0.4 {x10E3/uL} Normal 0.1-0.9 [facility] Work Phone: Comment on above: PATIENT NOT FASTINGP ERFORMED BY: BREE [place] [address] [facility] [id number] Information: [id number] Monocytes (Bld) [#/Vol] 0.4 10*3/uL Normal 0.1-0.9 [facility]; [facility] Work Phone: Comment on above: PATIENT NOT FASTINGP ERFORMED BY: [place] [address] [facility] [id number] Information: [id number] Monocytes Auto #/vol (Bld) 0.4 {x10E3/uL} Normal 0.1-0.9 [facility] Work Phone: Monocytes/100 WBC (Bld) 6 % Normal [facility] Work Phone: Comment on above: PATIENT NOT FASTINGP ERFORMED BY: [facility] [facility] [id number] Information: [id number] Monocytes/100 WBC Auto (Bld) 6 % Normal [facility] Work Phone: Neutrophils (Bld) [#/Vol] 4.2 {x10E3/uL} Normal 1.4-7.0 [facility] Work Phone: Comment on above: PATIENT NOT FASTINGP ERFORMED BY: BREE [place] [address] [facility] [id number] Information: [id number] Neutrophils (Bld) [#/Vol] 4.2 10*3/uL Normal 1.4-7.0 [facility]; [facility] Work Phone: Comment on above: PATIENT NOT FASTINGP ERFORMED BY: BREE Gayle Fernandes [facility] [id number] Information: [id number] Neutrophils Auto #/vol (Bld) 4.2 {x10E3/uL} Normal 1.4-7.0 [facility] Work Phone: Neutrophils/100 WBC (Bld) 56 % Normal [facility] Work Phone: Comment on above: PATIENT NOT FASTINGP ERFORMED BY: BREE AlondraMiguel PrietoNxjasy6212 [facility] [id number] Information: [id number] Neutrophils/100 WBC Auto (Bld) 56 % Normal [facility] Work Phone: Platelets (Bld) [#/Vol] 278 {x10E3/uL} Normal 150-379 [facility] Work Phone: Comment on above: PATIENT NOT FASTINGP ERFORMED BY: BREE AlondraMiguel PrietoObembh9328 [facility] [id number] Information: [id number] Platelets (Bld) [#/Vol] 278 10*3/uL Normal 150-379 [facility]; [facility] Work Phone: Comment on above: PATIENT NOT FASTINGP ERFORMED BY: BREE AlondraMiguel PrietoSjhtsh5922 [facility] [id number] Information: [id number] Platelets Auto #/vol (Bld) 278 {x10E3/uL} Normal 150-379 [facility] Work Phone: RBC (Bld) [#/Vol] 4.91 {x10E6/uL} Normal 3.77-5.28 [facility] Internal Medicine Work Phone: Comment on above: PATIENT NOT FASTINGP ERFORMED BY: BREE AlondraMiguel PrietoGwnfts4095 [facility] [id number] Information: [id number] RBC (Bld) [#/Vol] 4.91 10*6/uL Normal 3.77-5.28 [facility]; [facility] Work Phone: Comment on above: PATIENT NOT FASTINGP ERFORMED BY: BREE AlondraCosabrina PrietoYcksjg3491 [facility] [id number] Information: [id number] RBC Auto #/vol (Bld) 4.91 {x10E6/uL} Normal 3.77-5.28 [facility] Work Phone: WBC (Bld) [#/Vol] 7.4 {x10E3/uL} Normal 3.4-10.8 [facility] Internal Medicine Work Phone: Comment on above: PATIENT NOT FASTINGP ERFORMED BY: BREE LabCo Htwnfr4[address] [facility] [id number] Information: [id number] WBC (Bld) [#/Vol] 7.4 10*3/uL Normal 3.4-10.8 [facility] Internal Medicine; [facility] Work Phone: Comment on above: PATIENT NOT FASTINGP ERFORMED BY: BREE AlondraMiguel PrietoJwupfs6719 [facility] [id number] Information: [id number] WBC Auto #/vol (Bld) 7.4 {x10E3/uL} Normal 3.4-10.8 [facility] Work Phone: METABOLIC PANEL, COMPREHENSI VE ([id number])Ordered By: Women'S Activities Adviser on 12-05-2015 Albumin mass conc 4.6 g/dL Normal 3.5-5.5 Compreh ensive Internal Medicine Work Phone: Comment on above: PATIENT NOT FASTINGP ERFORMED BY: BREE LabCoJamie [place] [address] [facility] [id number]; will review on 12/18 Albumin/Globulin mass ratio 1.9 {ratio} Normal 1.1-2.5 [facility] Work Phone: Comment on above: PATIENT NOT FASTINGP ERFORMED BY: CB [facility] Vhjeab3863 [address] RoadDublin [place] [id number]; will review on 12/18 ALP [Catalytic activity/Vol] 79 U/L Normal 39-117 [facility]; [facility] Internal Medicine Work Phone: Comment on above: PATIENT NOT FASTINGP ERFORMED BY: CB [facility] Kbgcrn2773 [address] RoadDublin [place] [id number]; will review on 12/18 ALP enzyme act/vol 79 [iU]/L Normal 39-117 [facility] Internal Medicine Work Phone: Comment on above: PATIENT NOT FASTINGP ERFORMED BY: CB [facility] Skvwcv2413 [address] RoadDublin [place] [id number]; will review on 12/18 ALT [Catalytic activity/Vol] 13 U/L Normal 0-32 [facility] Internal Medicine; [facility] Internal Medicine Work Phone: Comment on above: PATIENT NOT FASTINGP ERFORMED BY: CB [facility] Nvlqvu9756 [address] RoadDublin [place] [id number]; will review on 12/18 ALT enzyme act/vol 13 [iU]/L Normal 0-32 [facility] Internal Medicine Work Phone: Comment on above: PATIENT NOT FASTINGP ERFORMED BY: CB [facility] Tapvee4468 [address] RoadDublin [place] [id number]; will review on 12/18 AST [Catalytic activity/Vol] 15 U/L Normal 0-40 [facility] Internal Medicine; [facility] Internal Medicine Work Phone: Comment on above: PATIENT NOT FASTINGP ERFORMED BY: CB [facility] Zyhsah9038 [address] RoadDublin [place] [id number]; will review on 12/18 AST enzyme act/vol 15 [iU]/L Normal 0-40 [facility] Internal Medicine Work Phone: Comment on above: PATIENT NOT FASTINGP ERFORMED BY: CB [facility] Iwfhhw5505 [address]Dublin [place] [id number]; will review on 12/18 Bilirubin mass conc 0.4 mg/dL Normal 0.0-1.2 Compr ensive Internal Medicine Work Phone: Comment on above: PATIENT NOT FASTINGP ERFORMED BY: BREE [facility] Afbiav5884 [address] RoadDublin [place] [id number]; will review on 12/18 Calcium mass conc 10.1 mg/dL Normal 8.7-10.2 Compreh ensive Internal Medicine Work Phone: Comment on above: PATIENT NOT FASTINGP ERFORMED BY: CB [facility] Qsuosf4662 [address] RoadDublin [place] [id number]; will review on 12/18 Chloride molar conc 100 mmol/L Normal 97-108 Compr ensive Internal Medicine Work Phone: Comment on above: PATIENT NOT FASTINGP ERFORMED BY: CB [facility] Pynxhr72[address] RoadDublin [place] [id number]; will review on 12/18 CO2 molar conc 24 mmol/L Normal 18-29 Comprehens avelina Internal Medicine Work Phone: Comment on above: PATIENT NOT FASTINGP ERFORMED BY: CB [facility] Qypdih5696 [address]Dublin [place] [id number]; will review on 12/18 Creatinine mass conc 0.76 mg/dL Normal 0.57-1.00 Comp [facility] Work Phone: Comment on above: PATIENT NOT FASTINGP ERFORMED BY: CB [facility] Hqulbl1386 [address]Dublin [place] [id number]; will review on 12/18 GFR/1.73 sq M predicted among blacks CKD-EPI vol rate/area (S/P/Bld) 102 mL/min/1.73 Normal [facility] Work Phone: Comment on above: PATIENT NOT FASTINGP ERFORMED BY: CB [facility] Lyphnm3069 [address]Dublin [place] [id number]; will review on 12/18 GFR/1.73 sq M predicted among non-blacks CKD-EPI vol rate/area (S/P/Bld) 89 mL/min/1.73 Normal Comprehensiv e Internal Medicine Work Phone: Comment on above: PATIENT NOT FASTINGP ERFORMED BY: BREE [facility] Okegpr16[address] RoadDublin [place] [id number]; will review on 12/18 Globulin (S) [Mass/Vol] 2.4 g/dL Normal 1.5-4.5 [facility] Work Phone: Comment on above: PATIENT NOT FASTINGP ERFORMED BY: BREE [facility] Ccthmq1939 [address]Dublin [place] [id number]; will review on 12/18 Globulin Calculated mass conc (S) 2.4 g/dL Normal 1.5-4.5 [facility] Work Phone: Glucose mass conc 85 mg/dL Normal 65-99 Compreh ensive Internal Medicine Work Phone: Comment on above: PATIENT NOT FASTINGP ERFORMED BY: BREE LabMiguel PrietoJallgx0662 [address]Dublin [place] [id number]; will review on 12/18 Potassium molar conc 4.1 mmol/L Normal 3.5-5.2 Comp rehensive Internal Medicine Work Phone: Comment on above: PATIENT NOT FASTINGP ERFORMED BY: BREE LabMiguel PrietoYluyfy9249 [address]Dublin [place] [id number]; will review on 12/18 Protein mass conc 7.0 g/dL Normal 6.0-8.5 Compreh ensive Internal Medicine Work Phone: Comment on above: PATIENT NOT FASTINGP ERFORMED BY: BREE [facility] Pawqzu69[address] RoadDublin [place] [id number]; will review on 12/18 Sodium molar conc 143 mmol/L Normal 134-144 Compreh ensive Internal Medicine Work Phone: Comment on above: PATIENT NOT FASTINGP ERFORMED BY: BREE [facility] Enadih7776 [address] RoadDublin [place] [id number]; will review on 12/18 Urea nitrogen mass conc 10 mg/dL Normal 6-24 [facility] Work Phone: Comment on above: PATIENT NOT FASTINGP ERFORMED BY: BREE [facility] Enrnda6759 [address] RoadDublin [place] [id number]; will review on 12/18 Urea nitrogen/Creatinine mass ratio 13 mg/mg Normal 9-23 [facility] Work Phone: Comment on above: PATIENT NOT FASTINGP ERFORMED BY: BREE [facility] Zjtpbs1564 [address]Dublin [place] [id number]; will review on 12/18 TSH ([id number])Ordered By: Williams m Granulator Operator on 12-05-2015 Thyrotropin Qn 1.700 {uIU/mL} Normal 0.450-4.500 Compr [facility] Internal Medicine Work Phone: Comment on above: PATIENT NOT FASTINGP ERFORMED BY: BREE [facility] Tjemrs6112 [address] RoadDublin [place] [id number] CALCIFIDIOL (77687) VIT D 25 Ordered By: Women'S Activities Adviser on 10-18-2015 25-Hydroxyvitamin D2+25-Hydroxyvitamin D3 mass conc 44.0 ng/mL Normal 30.0-100.0 [facility] Work Phone: Comment on above: Vitamin D deficiency has been defined by the [place] ofMedicine and an Endocrine Society practice guideline as alevel of serum 25-OH vitamin D less than 20 ng/mL (1,2).The Endocrine Society went on to further define vitamin Dinsufficiency as a level between 21 and 29 ng/mL (2).1. IOM ([place] of Medicine). 2010. Dietary reference intakes for calcium and D. [place]: The National Academies Press.2. Enmanuel MF, Kya NC, Aurelia PASTOR, et al. Evaluation, treatment, and prevention of vitamin D deficiency: an Endocrine Society clinical practice guideline. JCEM. 2010; 96(7):1911-30. PATIENT NOT FASTINGP ERFORMED BY: BREE [facility] Mouggz7608 [address] RoadDublin [place] [id number] T3, FREE (TRIDOTHYRONINE) (1 6481)Ordered By: Women'S Activities Adviser on 10-18-2015 T3 free mass conc 2.5 pg/mL Normal 2.0-4.4 [facility] Internal Medicine Work Phone: Comment on above: PATIENT NOT FASTINGP ERFORMED BY: BREE [facility] Ucqmuz[address] [facility] [place] [id number] T4, FREE (THYROXINE) (20981) Ordered By: Women'S Activities Adviser on 10-18-2015 T4 free mass conc 2.04 ng/dL Abnormal 0.82-1.77 Compreh ensive Internal Medicine Work Phone: Comment on above: PATIENT NOT FASTINGP ERFORMED BY: Lab[facility] Rfntjy[address] [facility] Hospitalblin [place] [id number] Information: [id number] TSH (91299)Ordered By: Syste m Granulator Operator on 10-18-2015 Thyrotropin Qn 2.430 {uIU/mL} Normal 0.450-4.500 Compr [facility] Internal Medicine Work Phone: Comment on above: PATIENT NOT FASTINGP ERFORMED BY: Lab[facility] Mkkmgl[address] [facility] [place] [id number] CALCIFEDIOL (26410)Ordered B y: Women'S Activities Adviser on 08-19-2015 25-Hydroxyvitamin D2+25-Hydroxyvitamin D3 mass conc 28.7 ng/mL Abnormal 30.0-100.0 [facility] Work Phone: Comment on above: Vitamin D deficiency has been defined by the [place] ofMedicine and an Endocrine Society practice guideline as alevel of serum 25-OH vitamin D less than 20 ng/mL (1,2).The Endocrine Society went on to further define vitamin Dinsufficiency as a level between 21 and 29 ng/mL (2).1. IOM ([place] of Medicine). 2010. Dietary reference intakes for calcium and D. [place]: The National Academies Press.2. Enmanuel MF, Kya NC, Aurelia PASTOR, et al. Evaluation, treatment, and prevention of vitamin D deficiency: an Endocrine Society clinical practice guideline. JCEM. 2010; 96(7):1911-30. PATIENT NOT FASTINGP ERFORMED BY: Lab[facility] Rnzpmf[address] [facility] [place] [id number] T3, FREE (TRIDOTHYRONINE) (6 0116)Ordered By: Women'S Activities Adviser on 08-19-2015 T3 free mass conc 2.1 pg/mL Normal 2.0-4.4 Compreh ensive Internal Medicine Work Phone: Comment on above: PATIENT NOT FASTINGP ERFORMED BY: BREE [facility] Kukvls5009 [facility] [id number] T4, FREE (THYROXINE) (78541) Ordered By: Women'S Activities Adviser on 08-19-2015 T4 free mass conc 1.86 ng/dL Abnormal 0.82-1.77 Compreh ensive Internal Medicine Work Phone: Comment on above: PATIENT NOT FASTINGP ERFORMED BY: [address] [id number] Information: [id number] TSH (14281)Ordered By: Williams m Granulator Operator on 08-19-2015 Thyrotropin Qn 1.030 {uIU/mL} Normal 0.450-4.500 Compr ehensive Internal Medicine Work Phone: Comment on above: PATIENT NOT FASTINGP ERFORMED BY: [facility] [facility] [id number] CBC W/AUTO DIFF WBC (44636)O rdered By: Women'S Activities Adviser on 05-03-2015 Basophils (Bld) [#/Vol] 0.0 {x10E3/uL} Normal 0.0-0.2 [facility] Work Phone: Comment on above: PATIENT WAS FASTINGP ERFORMED BY: [facility] [facility] [id number] Information: [id number] Basophils (Bld) [#/Vol] 0.0 10*3/uL Normal 0.0-0.2 [facility]; [facility] Work Phone: Comment on above: PATIENT WAS FASTINGP ERFORMED BY: [facility] [facility] [id number] Information: [id number] Basophils Auto #/vol (Bld) 0.0 {x10E3/uL} Normal 0.0-0.2 [facility] Work Phone: Basophils/100 WBC (Bld) 0 % Normal [facility] Work Phone: Comment on above: PATIENT WAS FASTINGP ERFORMED BY: [place] [address] [facility] [id number] Information: [id number] Basophils/100 WBC Auto (Bld) 0 % Normal [facility] Work Phone: Eosinophils (Bld) [#/Vol] 0.2 {x10E3/uL} Normal 0.0-0.4 [facility] Work Phone: Comment on above: PATIENT WAS FASTINGP ERFORMED BY: [address] [id number] Information: [id number] Eosinophils (Bld) [#/Vol] 0.2 10*3/uL Normal 0.0-0.4 [facility]; [facility] Work Phone: Comment on above: PATIENT WAS FASTINGP ERFORMED BY: [address] [id number] Information: [id number] Eosinophils Auto #/vol (Bld) 0.2 {x10E3/uL} Normal 0.0-0.4 [facility] Work Phone: Eosinophils/100 WBC (Bld) 2 % Normal [facility] Work Phone: Comment on above: PATIENT WAS FASTINGP ERFORMED BY: [address] [id number] Information: [id number] Eosinophils/100 WBC Auto (Bld) 2 % Normal [facility] Work Phone: Erythrocyte distribution width (RBC) [Ratio] 13.6 % Normal 12.3-15.4 [facility] Work Phone: Comment on above: PATIENT WAS FASTINGP ERFORMED BY: [place] [address] [facility] [id number] Information: [id number] Erythrocyte distribution width Auto Ratio (RBC) 13.6 % Normal 12.3-15.4 [facility] Work Phone: Hematocrit (Bld) [Volume fraction] 43.8 % Normal 34.0-46.6 [facility] Work Phone: Comment on above: PATIENT WAS FASTINGP ERFORMED BY: [place] [address] [facility] [id number] Information: [id number] Hematocrit Auto Volume Fraction (Bld) 43.8 % Normal 34.0-46.6 [facility] Work Phone: Hemoglobin mass conc (Bld) 14.6 g/dL Normal 11.1-15.9 [facility] Work Phone: Comment on above: PATIENT WAS FASTINGP ERFORMED BY: [address] [id number] Information: [id number] Immature granulocytes #/vol (Bld) 0.0 {x10E3/uL} Normal 0.0-0.1 [facility] Work Phone: Comment on above: PATIENT WAS FASTINGP ERFORMED BY: [address] [id number] Information: [id number] Immature granulocytes (Bld) [#/Vol] 0.0 10*3/uL Normal 0.0-0.1 [facility]; [facility] Work Phone: Comment on above: PATIENT WAS FASTINGP ERFORMED BY: [place] [address] [facility] [id number] Information: [id number] Immature granulocytes/100 WBC (Bld) 0 % Normal [facility] Work Phone: Comment on above: PATIENT WAS FASTINGP ERFORMED BY: [place] [address] [facility] [id number] Information: [id number] Lymphocytes (Bld) [#/Vol] 2.7 {x10E3/uL} Normal 0.7-3.1 [facility] Work Phone: Comment on above: PATIENT WAS FASTINGP ERFORMED BY: [address] [id number] Information: [id number] Lymphocytes (Bld) [#/Vol] 2.7 10*3/uL Normal 0.7-3.1 [facility]; [facility] Work Phone: Comment on above: PATIENT WAS FASTINGP ERFORMED BY: [address] [id number] Information: [id number] Lymphocytes Auto #/vol (Bld) 2.7 {x10E3/uL} Normal 0.7-3.1 [facility] Work Phone: Lymphocytes/100 WBC (Bld) 38 % Normal [facility] Internal Medicine Work Phone: Comment on above: PATIENT WAS FASTINGP ERFORMED BY: [address] [id number] Information: [id number] Lymphocytes/100 WBC Auto (Bld) 38 % Normal [facility] Work Phone: MCH (RBC) [Entitic mass] 28.7 pg Normal 26.6-33.0 [facility] Internal Medicine Work Phone: Comment on above: PATIENT WAS FASTINGP ERFORMED BY: [address] [id number] Information: [id number] MCH Auto Entitic mass (RBC) 28.7 pg Normal 26.6-33.0 [facility] Internal Medicine Work Phone: MCHC (RBC) [Mass/Vol] 33.3 g/dL Normal 31.5-35.7 [facility] Internal Medicine Work Phone: Comment on above: PATIENT WAS FASTINGP ERFORMED BY: [address] [id number] Information: [id number] MCHC Auto mass conc (RBC) 33.3 g/dL Normal 31.5-35.7 [facility] Work Phone: MCV (RBC) [Entitic vol] 86 fL Normal 79-97 [facility] Work Phone: Comment on above: PATIENT WAS FASTINGP ERFORMED BY: [facility] [facility] [id number] Information: [id number] MCV Auto Entitic volume (RBC) 86 fL Normal 79-97 [facility] Work Phone: Monocytes (Bld) [#/Vol] 0.5 {x10E3/uL} Normal 0.1-0.9 [facility] Work Phone: Comment on above: PATIENT WAS FASTINGP ERFORMED BY: [place] [address] [facility] [id number] Information: [id number] Monocytes (Bld) [#/Vol] 0.5 10*3/uL Normal 0.1-0.9 [facility]; [facility] Work Phone: Comment on above: PATIENT WAS FASTINGP ERFORMED BY: [place] [address] [facility] [id number] Information: [id number] Monocytes Auto #/vol (Bld) 0.5 {x10E3/uL} Normal 0.1-0.9 [facility] Work Phone: Monocytes/100 WBC (Bld) 7 % Normal [facility] Work Phone: Comment on above: PATIENT WAS FASTINGP ERFORMED BY: [facility] [facility] [id number] Information: [id number] Monocytes/100 WBC Auto (Bld) 7 % Normal [facility] Work Phone: Neutrophils (Bld) [#/Vol] 3.7 {x10E3/uL} Normal 1.4-7.0 [facility] Work Phone: Comment on above: PATIENT WAS FASTINGP ERFORMED BY: BREE [facility] [facility] [id number] Information: [id number] Neutrophils (Bld) [#/Vol] 3.7 10*3/uL Normal 1.4-7.0 [facility]; [facility] Work Phone: Comment on above: PATIENT WAS FASTINGP ERFORMED BY: BREE [facility] Rgrkqj5655 [facility] [id number] Information: [id number] Neutrophils Auto #/vol (Bld) 3.7 {x10E3/uL} Normal 1.4-7.0 [facility] Work Phone: Neutrophils/100 WBC (Bld) 53 % Normal [facility] Work Phone: Comment on above: PATIENT WAS FASTINGP ERFORMED BY: BREE Chapa Zcyiax3443 [facility] [id number] Information: [id number] Neutrophils/100 WBC Auto (Bld) 53 % Normal [facility] Work Phone: Platelets (Bld) [#/Vol] 258 {x10E3/uL} Normal 150-379 [facility] Work Phone: Comment on above: PATIENT WAS FASTINGP ERFORMED BY: BREE [facility]Saint [facility] Iojuoi7764 [facility] [id number] Information: [id number] Platelets (Bld) [#/Vol] 258 10*3/uL Normal 150-379 [facility]; [facility] Work Phone: Comment on above: PATIENT WAS FASTINGP ERFORMED BY: BREE [facility] Dzkkui2879 [facility] [id number] Information: [id number] Platelets Auto #/vol (Bld) 258 {x10E3/uL} Normal 150-379 [facility] Work Phone: RBC (Bld) [#/Vol] 5.09 {x10E6/uL} Normal 3.77-5.28 [facility] Internal Medicine Work Phone: Comment on above: PATIENT WAS FASTINGP ERFORMED BY: [facility] [facility] [id number] Information: [id number] RBC (Bld) [#/Vol] 5.09 10*6/uL Normal 3.77-5.28 [facility] Internal Medicine; [facility] Work Phone: Comment on above: PATIENT WAS FASTINGP ERFORMED BY: [facility] [facility] [id number] Information: [id number] RBC Auto #/vol (Bld) 5.09 {x10E6/uL} Normal 3.77-5.28 [facility] Internal Medicine Work Phone: WBC (Bld) [#/Vol] 7.1 {x10E3/uL} Normal 3.4-10.8 [facility] Internal Medicine Work Phone: Comment on above: PATIENT WAS FASTINGP ERFORMED BY: [facility] [facility] [id number] Information: [id number] WBC (Bld) [#/Vol] 7.1 10*3/uL Normal 3.4-10.8 [facility] Internal Medicine; [facility] Work Phone: Comment on above: PATIENT WAS FASTINGP ERFORMED BY: [facility] [facility] [id number] Information: [id number] WBC Auto #/vol (Bld) 7.1 {x10E3/uL} Normal 3.4-10.8 [facility] Internal Medicine Work Phone: LIPID PANEL ([id number])Ordered B y: Women'S Activities Adviser on 05-03-2015 Cholesterol in HDL mass conc 58 mg/dL Normal [facility] Work Phone: Comment on above: According to ATP-III Guidelines, HDL-C >59 mg/dL is considered anegative risk factor for CHD. PATIENT WAS FASTINGP ERFORMED BY: BREE LabCosabrina Wrwysg[address] [place] [id number] Cholesterol in LDL mass conc 126 mg/dL Abnormal 0-99 [facility] Work Phone: Comment on above: PATIENT WAS FASTINGP ERFORMED BY: BREE LabMiguel PrietoLprtva[address]standbl[address] [place] [id number] Cholesterol in LDL/Cholesterol in HDL mass ratio 2.2 {ratio_units} Normal 0.0-3.2 [facility] Work Phone: Comment on above: LDL/HDL Ratio Men Wo men 1/2 Avg.Risk 1.0 1.5 Avg.Risk 3.6 3.2 2X Avg.Risk 6.2 5.0 3X Avg.Risk 8.0 6.1 PATIENT WAS FASTINGP ERFORMED BY: BREE LabMiguel PrietoCykaia[address] NewzstandFormerly [facility] [place] [id number] Cholesterol in VLDL mass conc 12 mg/dL Normal 5-40 [facility] Work Phone: Comment on above: PATIENT WAS FASTINGP ERFORMED BY: BREE LabMiguel PrietoXcloqk[address] [facility] [place] [id number] Cholesterol mass conc 196 mg/dL Normal 100-199 Com prehensive Internal Medicine Work Phone: Comment on above: PATIENT WAS FASTINGP ERFORMED BY: BREE Prietolin[address] NewzstandFormerly [facility] [place] [id number] Triglyceride mass conc 59 mg/dL Normal 0-149 [facility]erehens[facility] Internal Medicine Work Phone: Comment on above: PATIENT WAS FASTINGP ERFORMED BY: BREE LabCosabrina Pezwcn[address] [facility] [place] [id number] METABOLIC PANEL, COMPREHENSI VE ([id number])Ordered By: Women'S Activities Adviser on 05-03-2015 Albumin mass conc 4.4 g/dL Normal 3.5-5.5 Compreh ensive Internal Medicine Work Phone: Comment on above: PATIENT WAS FASTINGP ERFORMED BY: BREE LabCosabrina Rtlbib[address] [facility] [place] [id number] Albumin/Globulin mass ratio 1.8 {ratio} Normal 1.1-2.5 [facility] Internal Medicine Work Phone: Comment on above: PATIENT WAS FASTINGP ERFORMED BY: [facility] Rqltyq2484 Fern[address]es RoadDublin [place] [id number] ALP [Catalytic activity/Vol] 89 U/L Normal 39-117 [facility] Internal Medicine; [facility] Internal Medicine Work Phone: Comment on above: PATIENT WAS FASTINGP ERFORMED BY: CB [facility] Rowtpy4893 [address] RoadDublin [place] [id number] ALP enzyme act/vol 89 [iU]/L Normal 39-117 [facility] Internal Medicine Work Phone: Comment on above: PATIENT WAS FASTINGP ERFORMED BY: [facility] Yrqvwx0002 [address] RoadDublin [place] [id number] ALT [Catalytic activity/Vol] 9 U/L Normal 0-32 [facility] Internal Medicine; [facility] Internal Medicine Work Phone: Comment on above: PATIENT WAS FASTINGP ERFORMED BY: [facility] Pwxwqv8804 [address] RoadDublin [place] [id number] ALT enzyme act/vol 9 [iU]/L Normal 0-32 [facility] Internal Medicine Work Phone: Comment on above: PATIENT WAS FASTINGP ERFORMED BY: [facility] Hcsjjg6462 [address] RoadDublin [place] [id number] AST [Catalytic activity/Vol] 13 U/L Normal 0-40 [facility] Internal Medicine; [facility] Internal Medicine Work Phone: Comment on above: PATIENT WAS FASTINGP ERFORMED BY: [facility] Xsmqyg1333 [address] RoadDublin [place] [id number] AST enzyme act/vol 13 [iU]/L Normal 0-40 [facility] Internal Medicine Work Phone: Comment on above: PATIENT WAS FASTINGP ERFORMED BY: [facility] Wokbot4789 [address] RoadDublin [place] [id number] Bilirubin mass conc 0.4 mg/dL Normal 0.0-1.2 [facility] Internal Medicine Work Phone: Comment on above: PATIENT WAS FASTINGP ERFORMED BY: BREE [facility] Nptokc5799 [address] RoadDublin [place] [id number] Calcium mass conc 10.0 mg/dL Normal 8.7-10.2 Compreh ensive Internal Medicine Work Phone: Comment on above: PATIENT WAS FASTINGP ERFORMED BY: BREE [facility] Ejgqyl5368 [address] RoadDublin [place] [id number] Chloride molar conc 102 mmol/L Normal 97-108 Compr ehensive Internal Medicine Work Phone: Comment on above: PATIENT WAS FASTINGP ERFORMED BY: BREE [facility] Vhurkn0101 [address] RoadDublin [place] [id number] CO2 molar conc 27 mmol/L Normal 18-29 Comprehens avelina Internal Medicine Work Phone: Comment on above: PATIENT WAS FASTINGP ERFORMED BY: BREE [facility] Rvjtwx[address]Formerly [facility]in [place] [id number] Creatinine mass conc 0.85 mg/dL Normal 0.57-1.00 Comp [facility] hospitalensive Internal Medicine Work Phone: Comment on above: PATIENT WAS FASTINGP ERFORMED BY: BREE [facility] Fiokxf2[address]Formerly [facility]in [place] [id number] GFR/1.73 sq M predicted among blacks CKD-EPI vol rate/area (S/P/Bld) 90 mL/min/1.73 Normal [facility] Work Phone: Comment on above: PATIENT WAS FASTINGP ERFORMED BY: BREE [facility] Alrwda2[address]Formerly [facility]in [place] [id number] GFR/1.73 sq M predicted among non-blacks CKD-EPI vol rate/area (S/P/Bld) 78 mL/min/1.73 Normal Comprehensiv e Internal Medicine Work Phone: Comment on above: PATIENT WAS FASTINGP ERFORMED BY: BREE [facility] Jfseio8574 [address] Roadblin [place] [id number] Globulin (S) [Mass/Vol] 2.5 g/dL Normal 1.5-4.5 [facility] Work Phone: Comment on above: PATIENT WAS FASTINGP ERFORMED BY: [facility] Qsvdan0131 [address] RoadDublin [place] [id number] Globulin Calculated mass conc (S) 2.5 g/dL Normal 1.5-4.5 [facility] Work Phone: Glucose mass conc 83 mg/dL Normal 65-99 Compreh ensive Internal Medicine Work Phone: Comment on above: PATIENT WAS FASTINGP ERFORMED BY: CB [facility] Rhjkjt0725 [address] RoadDublin [place] [id number] Potassium molar conc 5.1 mmol/L Normal 3.5-5.2 Comp rehensive Internal Medicine Work Phone: Comment on above: PATIENT WAS FASTINGP ERFORMED BY: BREE [facility] Thoawa8768 [address] RoadDublin [place] [id number] Protein mass conc 6.9 g/dL Normal 6.0-8.5 Compreh ensive Internal Medicine Work Phone: Comment on above: PATIENT WAS FASTINGP ERFORMED BY: BREE [facility] Regbqp9098 [address] RoadDublin [place] [id number] Sodium molar conc 143 mmol/L Normal 134-144 Compreh ensive Internal Medicine Work Phone: Comment on above: PATIENT WAS FASTINGP ERFORMED BY: BREE [facility] Wfenfs[address] [facility] SaultDublin [place] [id number] Urea nitrogen mass conc 10 mg/dL Normal 6-24 [facility] Work Phone: Comment on above: PATIENT WAS FASTINGP ERFORMED BY: [facility] Oguhtg1291 [address] RoadDublin [place] [id number] Urea nitrogen/Creatinine mass ratio 12 mg/mg Normal 9-23 [facility] Work Phone: Comment on above: PATIENT WAS FASTINGP ERFORMED BY: [facility] Dzpmde8856 [address] RoadDublin [place] [id number] MICROALBUMINOrdered By: Syst em Granulator Operator on 05-03-2015 Albumin DL <= 20 mg/L mass conc (U) 3.4 ug/mL Normal 0.0-17.0 [facility] Work Phone: Comment on above: PATIENT WAS FASTINGP ERFORMED BY: BREE Anuway CorporationMiguel PrietoBelcqw2046 [facility] [id number] Albumin/Creatinine mass ratio (U) 7.0 {mg/g_creat} Normal 0.0-30.0 [facility] Work Phone: Comment on above: PATIENT WAS FASTINGP ERFORMED BY: BREE Anuway CorporationSaint [facility] Hospital West Ibemlb9933 [facility] [id number] Creatinine mass conc (U) 48.3 mg/dL Normal 15.0-278.0 [facility] Work Phone: Comment on above: PATIENT WAS FASTINGP ERFORMED BY: BREE Anuway CorporationWasabrina Blkwtd5383 [facility] [id number] Microscopic ExaminationOrder ed By: Women'S Activities Adviser on 05-03-2015 Bacteria LM.HPF #/area (Urine sed) None seen Normal [facility] Work Phone: Epithelial cells LM.HPF #/area (Urine sed) 0-10 Normal 0 - 10 [facility] Work Phone: RBC LM.HPF #/area (Urine sed) 0-2 Normal 0 - 2 [facility] Work Phone: WBC LM.HPF #/area (Urine sed) 0-5 Normal 0 - 5 [facility] Work Phone: TSH ([id number])Ordered By: Williams m Granulator Operator on 05-03-2015 Thyrotropin Qn 0.827 {uIU/mL} Normal 0.450-4.500 Compr ehensive Internal Medicine Work Phone: Comment on above: PATIENT WAS FASTINGP ERFORMED BY: BREE Anuway CorporationPromedica Monroe [facility] Hospital6[address] [facility] [id number] URINALYSIS, W/ MICRO ([id number] )Ordered By: Women'S Activities Adviser on 05-03-2015 Appearance Nom (U) Clear Normal Compre hensive Internal Medicine Work Phone: Comment on above: PATIENT WAS FASTINGP ERFORMED BY: BREE Anuway CorporationAlvin J. Siteman Cancer CenterEbksfy6842 [facility] [id number] Bilirubin Ql (U) Negative Normal Comprehe nsive Internal Medicine Work Phone: Comment on above: PATIENT WAS FASTINGP ERFORMED BY: BREE Bro6370 [address] RoadAtrium Health University City [id number] Bilirubin Ql (U) Negative Normal Comprehe nsive Internal Medicine; [facility] Work Phone: Comment on above: PATIENT WAS FASTINGP ERFORMED BY: BREE Flaherty[address] [facility] [id number] Color Nom (U) Yellow Normal Comprehensi ve Internal Medicine Work Phone: Comment on above: PATIENT WAS FASTINGP ERFORMED BY: BREE Flaherty[address] [facility] [id number] Glucose Ql (U) Negative Normal Comprehens avelina Internal Medicine Work Phone: Comment on above: PATIENT WAS FASTINGP ERFORMED BY: BREE Flaherty[address] [facility] [id number] Glucose Ql (U) Negative Normal Comprehens avelina Internal Medicine; [facility] Work Phone: Comment on above: PATIENT WAS FASTINGP ERFORMED BY: BREE Flaherty[address] [facility] [id number] Hemoglobin Ql (U) Negative Normal Compreh ensive Internal Medicine Work Phone: Comment on above: PATIENT WAS FASTINGP ERFORMED BY: BREE Flaherty[address] [facility] [id number] Hemoglobin Ql (U) Negative Normal Compreh ensive Internal Medicine; [facility] Work Phone: Comment on above: PATIENT WAS FASTINGP ERFORMED BY: BREE Bro[address] [facility] [id number] Hemoglobin Test strip Ql (U) Negative Normal [facility] Work Phone: Ketones Ql (U) Negative Normal Comprehens avelina Internal Medicine Work Phone: Comment on above: PATIENT WAS FASTINGP ERFORMED BY: BREE Prietolin6370 [address] RoadDublin [place] [id number] Ketones Ql (U) Negative Normal Comprehens avelina Internal Medicine; [facility] Work Phone: Comment on above: PATIENT WAS FASTINGP ERFORMED BY: BREE Sammi Nzjbeg3140 [address] RoadDublin [place] [id number] Leukocyte esterase Test strip Ql (U) Trace Abnormal [facility] Work Phone: Comment on above: PATIENT WAS FASTINGP ERFORMED BY: BREE CantuSaint [facility] Hospital West Ioxiwv0287 [address] RoadDublin [place] [id number] Microscopic observation LM Nom (Urine sed) See below: Normal [facility] Work Phone: Comment on above: Microscopic was camila cated and was performed. PATIENT WAS FASTINGP ERFORMED BY: BREE Prietolin6370 [address]Dublin [place] [id number] Nitrite Ql (U) Negative Normal Comprehens avelina Internal Medicine Work Phone: Comment on above: PATIENT WAS FASTINGP ERFORMED BY: BREE [facility] Dipwww1037 [address] RoadDublin [place] [id number] Nitrite Ql (U) Negative Normal Comprehens avelina Internal Medicine; [facility] Work Phone: Comment on above: PATIENT WAS FASTINGP ERFORMED BY: BREE Prietolin6[address]Dublin [place] [id number] Nitrite Test strip Ql (U) Negative Normal [facility] Work Phone: pH (U) 7.5 [pH] Normal 5.0-7.5 [facility] Work Phone: Comment on above: PATIENT WAS FASTINGP ERFORMED BY: BREE [facility] Zrnvtv2349 [address] RoadDublin [place] [id number] pH Test strip (U) 7.5 [pH] Normal 5.0-7.5 Compreh ensive Internal Medicine Work Phone: Protein Ql (U) Negative Normal Comprehens avelina Internal Medicine Work Phone: Comment on above: PATIENT WAS FASTINGP ERFORMED BY: BREE LabPromedica Monroe Regional Hospital6370 [facility] [id number] Protein Ql (U) Negative Normal Comprehens avelina Internal Medicine; [facility] Work Phone: Comment on above: PATIENT WAS FASTINGP ERFORMED BY: Anuway CorporationSaint Joseph Hospital West Mcdolj5766 [facility] [id number] Protein Test strip Ql (U) Negative Normal [facility] Work Phone: Specific gravity Relative Density (U) 1.009 1 Normal 1.005-1.030 Comprehensi ve Internal Medicine Work Phone: Comment on above: PATIENT WAS FASTINGP ERFORMED BY: BioPheresisMorristown Medical CenterOzbhda3797 [facility] [id number] Urobilinogen (U) [Mass/Vol] 0.2 mg/dL Normal 0.2-1.0 [facility]; [facility] Work Phone: Comment on above: PATIENT WAS FASTINGP ERFORMED BY: [facility] [facility] [id number] Urobilinogen Test strip mass conc (U) 0.2 mg/dL Normal 0.2-1.0 Comprehensiv e Internal Medicine Work Phone: Comment on above: PATIENT WAS FASTINGP ERFORMED BY: BioPheresisMorristown Medical CenterRjdznl9042 [facility] [id number] CBC With Differential/Platel etOrdered By: Women'S Activities Adviser on 11-24-2014 Basophils Auto #/vol (Bld) 0.0 {x10E3/uL} Normal 0.0-0.2 [facility] Work Phone: Basophils/100 WBC Auto (Bld) 0 % Normal [facility] Work Phone: Eosinophils Auto #/vol (Bld) 0.1 {x10E3/uL} Normal 0.0-0.4 [facility] Work Phone: Eosinophils/100 WBC Auto (Bld) 1 % Normal [facility] Work Phone: Erythrocyte distribution width Auto Ratio (RBC) 13.6 % Normal 12.3-15.4 [facility] Work Phone: Hematocrit Auto Volume Fraction (Bld) 47.1 % Abnormal 34.0-46.6 [facility] Work Phone: Hemoglobin mass conc (Bld) 15.4 g/dL Normal 11.1-15.9 [facility] Work Phone: Immature granulocytes #/vol (Bld) 0.0 {x10E3/uL} Normal 0.0-0.1 [facility] Work Phone: Immature granulocytes/100 WBC (Bld) 0 % Normal [facility] Work Phone: Lymphocytes Auto #/vol (Bld) 2.5 {x10E3/uL} Normal 0.7-3.1 [facility] Work Phone: Lymphocytes/100 WBC Auto (Bld) 26 % Normal [facility] Work Phone: MCH Auto Entitic mass (RBC) 28.9 pg Normal 26.6-33.0 [facility] Work Phone: MCHC Auto mass conc (RBC) 32.7 g/dL Normal 31.5-35.7 [facility] Work Phone: MCV Auto Entitic volume (RBC) 89 fL Normal 79-97 [facility] Work Phone: Monocytes Auto #/vol (Bld) 0.5 {x10E3/uL} Normal 0.1-0.9 [facility] Work Phone: Monocytes/100 WBC Auto (Bld) 5 % Normal [facility] Work Phone: Neutrophils Auto #/vol (Bld) 6.7 {x10E3/uL} Normal 1.4-7.0 [facility] Work Phone: Neutrophils/100 WBC Auto (Bld) 68 % Normal [facility] Work Phone: Platelets Auto #/vol (Bld) 283 {x10E3/uL} Normal 150-379 [facility] Work Phone: RBC Auto #/vol (Bld) 5.32 {x10E6/uL} Abnormal 3.77-5.28 [facility] Work Phone: WBC Auto #/vol (Bld) 9.8 {x10E3/uL} Normal 3.4-10.8 [facility] Internal Medicine Work Phone: Comp. Metabolic Panel (14)Or dered By: Women'S Activities Adviser on 11-24-2014 Albumin mass conc 4.8 g/dL Normal 3.5-5.5 Compreh ensive Internal Medicine Work Phone: Albumin/Globulin mass ratio 2.2 {ratio} Normal 1.1-2.5 [facility] Internal Medicine Work Phone: ALP enzyme act/vol 87 [iU]/L Normal 39-117 Compre [facility] Internal Medicine Work Phone: ALT enzyme act/vol 13 [iU]/L Normal 0-32 [facility] Internal Medicine Work Phone: AST enzyme act/vol 18 [iU]/L Normal 0-40 [facility] Work Phone: Bilirubin mass conc 0.5 mg/dL Normal 0.0-1.2 Compr ensive Internal Medicine Work Phone: Calcium mass conc 10.6 mg/dL Abnormal 8.7-10.2 Compreh ensive Internal Medicine Work Phone: Chloride molar conc 98 mmol/L Normal 97-108 Compr [facility] Internal Medicine Work Phone: CO2 molar conc 26 mmol/L Normal 18-29 Comprehens avelina Internal Medicine Work Phone: Creatinine mass conc 0.90 mg/dL Normal 0.57-1.00 Comp [facility] Work Phone: GFR/1.73 sq M predicted among blacks CKD-EPI vol rate/area (S/P/Bld) 84 mL/min/1.73 Normal [facility] Work Phone: GFR/1.73 sq M predicted among non-blacks CKD-EPI vol rate/area (S/P/Bld) 73 mL/min/1.73 Normal Comprehensiv e Internal Medicine Work Phone: Globulin Calculated mass conc (S) 2.2 g/dL Normal 1.5-4.5 [facility] Work Phone: Glucose mass conc 92 mg/dL Normal 65-99 Compreh ensive Internal Medicine Work Phone: Potassium molar conc 4.6 mmol/L Normal 3.5-5.2 Comp rehensive Internal Medicine Work Phone: Protein mass conc 7.0 g/dL Normal 6.0-8.5 Compreh ensive Internal Medicine Work Phone: Sodium molar conc 140 mmol/L Normal 134-144 Compreh ensive Internal Medicine Work Phone: Urea nitrogen mass conc 11 mg/dL Normal 6-24 [facility] Work Phone: Urea nitrogen/Creatinine mass ratio 12 mg/mg Normal 9-23 [facility] Work Phone: TSHOrdered By: System Manage r on 11-24-2014 Thyrotropin Qn 2.300 {uIU/mL} Normal 0.450-4.500 Compr ehensive Internal Medicine Work Phone: Office Visit: annualon 01-22 General categories Cyto stain (Cvx/Vag) [Interp] Normal Invalid Interpretation Code [facility] Office Visit: otitis mediaon 12-26-2009 Documentation of current medications (procedure) Done Invalid Interpretation Code [facility] Tobacco use CPHS never Invalid Interpretation Code [facility] Vital Signs Date Time Vital Sign Value Performing Clinician Facility 07-21-2024 11:41-0500 Body height 162.[address] Jodee Perez DO Work Phone: [facility] 07-21-2024 11:34-0500 Body mass index (BMI) [Ratio] 26.1 kg/m2 Dr. Jodee Perez DO Work Phone: [facility] 07-21-2024 11:34-0500 Body weight [address] Jodee Perez DO Work Phone: [facility] 07-21-2024 11:34-0500 Diastolic blood pressure 84 mm[Hg] Dr. Jodee Perez DO Work Phone: [facility] 07-21-2024 11:34-0500 Systolic blood pressure 120 mm[Hg] Dr. Jodee ePrez DO Work Phone: [facility] 12-10-2022 09:26-0400 Body height 162.56 cm [facility] Work Phone: 12-10-2022 09:26-0400 Body mass index (BMI) [Ratio] 25.43 kg/m2 [facility]; [facility] Work Phone: 12-10-2022 09:26-0400 Body surface area Derived from formula 1.72 m2 [facility]; [facility] Work Phone: 12-10-2022 09:26-0400 Body temperature 97.3 [degF] [facility]; [facility] Work Phone: 12-10-2022 09:26-0400 Body weight 67.19 kg [facility]; [facility] Work Phone: 12-10-2022 09:26-0400 Diastolic blood pressure 70 mm[Hg] [facility]; [facility] Work Phone: Comment on above: Patient Position: Sitting; Cuff Location : Left Arm; Cuff Size: Standard 12-10-2022 09:26-0400 Heart rate 65 /min [facility]; [facility] Work Phone: Comment on above: Pattern: Regular 12-10-2022 09:26-0400 Respiratory rate 18 /min [facility]; [facility] Work Phone: Comment on above: Pattern: Unlabored 12-10-2022 09:26-0400 SaO2% (BldA) [Mass fraction] 99 % [facility]; [facility] Work Phone: Comment on above: Room air 12-10-2022 09:26-0400 Systolic blood pressure 126 mm[Hg] Ronaldo Greenwald [facility]; [facility] Work Phone: Comment on above: Patient Position: Sitting; Cuff Location : Left Arm; Cuff Size: Standard 11-23-2022 09:07-0400 Body temperature 96.5 [degF] Ronaldo Faiza [facility]; [facility] Work Phone: 11-23-2022 09:07-0400 [facility] 67.19 [facility] Work Phone: 11-23-2022 09:07-0400 Diastolic blood pressure 70 mm[Hg] Ronaldo Faiza [facility]; [facility] Work Phone: Comment on above: Patient Position: Sitting; Cuff Location : Left Arm; Cuff Size: Standard 11-23-2022 09:07-0400 Heart rate 66 /min Ronaldo Greenwald [facility]; [facility] Work Phone: Comment on above: Pattern: Regular 11-23-2022 09:07-0400 Respiratory rate 18 /min Ronaldo Greenwald [facility]; [facility] Work Phone: Comment on above: Pattern: Unlabored 11-23-2022 09:07-0400 SaO2% (BldA) [Mass fraction] 96 % Ronaldo Faiza [facility]; [facility] Work Phone: Comment on above: Room air 11-23-2022 09:07-0400 Systolic blood pressure 112 mm[Hg] Ronaldo Faiza [facility]; [facility] Work Phone: Comment on above: Patient Position: Sitting; Cuff Location : Left Arm; Cuff Size: Standard 07-10-2022 09:12-0500 Body height 162.[address] Jodee Perez Work Phone: [facility] 07-10-2022 09:07-0500 Body mass index (BMI) [Ratio] 25.9 kg/m2 Dr. Jodee Perez Work Phone: [facility] 07-10-2022 09:07-0500 Body weight 68.[address] Jodee Perez Work Phone: [facility] 07-10-2022 09:07-0500 Diastolic blood pressure 76 mm[Hg] Dr. Jodee Perez Work Phone: [facility] 07-10-2022 09:07-0500 Systolic blood pressure 132 mm[Hg] Dr. Jodee Perez Work Phone: [facility] 06-04-2022 09:12-0500 Body height 162.56 cm Kash [facility]; [facility] Work Phone: 06-04-2022 09:12-0500 Body mass index (BMI) [Ratio] 25[facility]12 [facility] Work Phone: 06-04-2022 09:12-0500 Body surface area Derived from formula 1.71 m2 tayla Arshad [facility]; [facility] Work Phone: 06-04-2022 09:12-0500 Body temperature 96.8 [degF] Kash Arshad [facility]; [facility] Work Phone: 06-04-2022 09:12-0500 [facility] Work Phone: 06-04-2022 09:12-0500 Diastolic blood pressure 70 mm[Hg] Kash [facility]; [facility] Work Phone: Comment on above: Patient Position: Sitting; Cuff Location : Left Arm; Cuff Size: Standard 06-04-2022 09:12-0500 Heart rate 63 /min [facility]; [facility] Work Phone: Comment on above: Pattern: Regular 06-04-2022 09:12-0500 Respiratory rate 16 /min Kash Arshad [facility]; [facility] Work Phone: Comment on above: Pattern: Unlabored 06-04-2022 09:12-0500 SaO2% (BldA) [Mass fraction] 98 % Kash Arshad [facility]; [facility] Work Phone: Comment on above: Room air 06-04-2022 09:12-0500 Systolic blood pressure 118 mm[Hg] Kash Arshad [facility]; [facility] Work Phone: Comment on above: Patient Position: Sitting; Cuff Location : Left Arm; Cuff Size: Standard 11-30-2021 08:51-0400 Body height 162.56 cm Yaz Back [facility]; [facility] Work Phone: 11-30-2021 08:51-0400 Body mass index (BMI) [Ratio] 25.12 kg/m2 Yaz Back [facility]; [facility] Work Phone: 11-30-2021 08:51-0400 Body surface area Derived from formula 1.71 m2 Yaz Back [facility]; [facility] Work Phone: 11-30-2021 08:51-0400 Body temperature 97.3 [degF] Yaz Back [facility]; [facility] Work Phone: Comment on above: Method: Infrared 11-30-2021 08:51-0400 Body weight 66.4 kg Yaz Back [facility]; [facility] Work Phone: 11-30-2021 08:51-0400 Diastolic blood pressure 82 mm[Hg] Yaz Back [facility]; [facility] Work Phone: Comment on above: Patient Position: Sitting; Cuff Location : Left Arm; Cuff Size: Standard 11-30-2021 08:51-0400 Heart rate 74 /min Yaz Back [facility]; [facility] Work Phone: Comment on above: Pattern: Regular 11-30-2021 08:51-0400 Respiratory rate 18 /min Yaz Back [employer] [facility]; [facility] Work Phone: Comment on above: Pattern: Unlabored 11-30-2021 08:51-0400 SaO2% (BldA) [Mass fraction] 96 % Yaz Back [facility]; [facility] Work Phone: Comment on above: Room air 11-30-2021 08:51-0400 Systolic blood pressure 122 mm[Hg] Yaz Back [facility]; [facility] Work Phone: Comment on above: Patient Position: Sitting; Cuff Location : Left Arm; Cuff Size: Standard 11-30-2021 08:45-0400 Body height 162.56 cm Yaz Back [facility]; [facility] Work Phone: 11-30-2021 08:45-0400 Body mass index (BMI) [Ratio] 24.61 kg/m2 Yaz Back [facility]; [facility] Work Phone: 11-30-2021 08:45-0400 Body surface area Derived from formula 1.7 m2 Yaz Back [facility]; [facility] Work Phone: 11-30-2021 08:45-0400 Body weight 65.03 kg Yaz Back [facility]; [facility] Work Phone: 07-13-2021 12:31-0500 Body height 162.56 cm Gabbie Proctor [employer]PER[employer] [facility]; [facility] Work Phone: 07-13-2021 12:31-0500 Body mass index (BMI) [Ratio] 24.61 kg/m2 Gabbie Esthela [employer] SUPER[employer] [facility]; [facility] Work Phone: 07-13-2021 12:31-0500 Body surface area Derived from formula 1.7 m2 Gabbie Proctor [facility]; [facility] Work Phone: 07-13-2021 12:31-0500 Body temperature 97.1 [degF] Gabbie Proctor LPN [facility]; [facility] Work Phone: Comment on above: Method: Temporal 07-13-2021 12:31-0500 Body weight 65.03 kg Gabbie Proctor LPN [facility]; [facility] Work Phone: 07-13-2021 12:31-0500 Diastolic blood pressure 88 mm[Hg] Gabbie Proctor LPN [facility]; [facility] Work Phone: Comment on above: Patient Position: Sitting; Cuff Location : Left Arm; Cuff Size: Standard 07-13-2021 12:31-0500 Heart rate 71 /min Gabbie Proctor LPN [facility]; [facility] Work Phone: Comment on above: Pattern: Regular 07-13-2021 12:31-0500 Respiratory rate 16 /min Gabbie Proctor LPN [facility]; [facility] Work Phone: Comment on above: Pattern: Unlabored 07-13-2021 12:31-0500 SaO2% (BldA) [Mass fraction] 97 % Gabbie Proctor LPN [facility]; [facility] Work Phone: Comment on above: Room air 07-13-2021 12:31-0500 Systolic blood pressure 122 mm[Hg] Gabbie Proctor LPN [facility]; [facility] Work Phone: Comment on above: Patient Position: Sitting; Cuff Location : Left Arm; Cuff Size: Standard 12-30-2020 09:46-0400 Body height 162.56 cm Yaz Back [facility]; [facility] Work Phone: 12-30-2020 09:46-0400 Body mass index (BMI) [Ratio] 24.22 kg/m2 Yaz Back [facility]; [facility] Work Phone: 12-30-2020 09:46-0400 Body surface area Derived from formula 1.69 m2 Yaz Back [facility]; [facility] Work Phone: 12-30-2020 09:46-0400 Body temperature 97.3 [degF] Yaz Back CMA [facility]; [facility] Work Phone: Comment on above: Method: Infrared 12-30-2020 09:46-0400 Body weight 64.01 kg Yaz Back [employer] AIDE [facility]; [facility] Work Phone: 12-30-2020 09:46-0400 Diastolic blood pressure 80 mm[Hg] Yaz Back [employer] [facility]; [facility] Work Phone: Comment on above: Patient Position: Sitting; Cuff Location : Left Arm; Cuff Size: Standard 12-30-2020 09:46-0400 Heart rate 93 /min Yaz Back [facility]; [facility] Work Phone: Comment on above: Pattern: Regular 12-30-2020 09:46-0400 Respiratory rate 16 /min Yaz Back [employer] [facility]; [facility] Work Phone: Comment on above: Pattern: Unlabored 12-30-2020 09:46-0400 SaO2% (BldA) [Mass fraction] 98 % Yaz Back [facility]; [facility] Work Phone: Comment on above: Room air 12-30-2020 09:46-0400 Systolic blood pressure 116 mm[Hg] Yaz Back [facility]; [facility] Work Phone: Comment on above: Patient Position: Sitting; Cuff Location : Left Arm; Cuff Size: Standard 09-28-2020 08:58-0400 BMI (Body Mass Index) 24.22 kg/m2 [email or web address]; [facility] Work Phone: 09-28-2020 08:58-0400 Body weight 64.01 kg [email or web address]; [facility] Work Phone: 09-28-2020 08:58-0400 BSA (Body Surface Area) 1.69 m2 [facility] [email or web address]] [facility]; [facility] Work Phone: 09-28-2020 08:58-0400 Height 162.56 cm [facility] [email or web address]] [facility]; [facility] Work Phone: 09-09-2020 13:18-0400 BMI (Body Mass Index) 24.22 kg/m2 [facility] [email or web address]] [facility]; [facility] Work Phone: 09-09-2020 13:18-0400 Body weight 64.01 kg [facility] [email or web address]] [facility]; [facility] Work Phone: 09-09-2020 13:18-0400 BSA (Body Surface Area) 1.69 m2 [facility] [email or web address]] [facility]; [facility] Work Phone: 09-09-2020 13:18-0400 Height 162.56 cm [facility] [email or web address]] [facility]; [facility] Work Phone: 06-15-2020 14:28-0500 BMI (Body Mass Index) 24.22 kg/m2 Yaz Gravius [facility]; [facility] Work Phone: 06-15-2020 14:28-0500 Body Temperature 97.1 [degF] Yaz Hermanius [facility]; [facility] Work Phone: Comment on above: Method: Infrared 06-15-2020 14:28-0500 Body weight 64.01 kg Yaz Gravius [facility]; [facility] Work Phone: 06-15-2020 14:28-0500 BP Diastolic 80 mm[Hg] Yaz Gravius [facility]; [facility] Work Phone: Comment on above: Patient Position: Sitting; Cuff Location : Left Arm; Cuff Size: Standard 06-15-2020 14:28-0500 BP Systolic 123 mm[Hg] Yaz Gravius [facility]; [facility] Work Phone: Comment on above: Patient Position: Sitting; Cuff Location : Left Arm; Cuff Size: Standard 06-15-2020 14:28-0500 BSA (Body Surface Area) 1.69 m2 Yaz Back CMA [facility]; [facility] Work Phone: 06-15-2020 [id number] Height 162.56 cm Yaz Back CMA [facility]; [facility] Work Phone: 06-15-2020 14:28-0500 Pulse (Heart Rate) 79 /min Yaz Back CMA [facility]; [facility] Work Phone: Comment on above: Pattern: Regular 06-15-2020 14:28-0500 Pulse Oximetry 97 % Jodee Perez [facility]; [facility] Work Phone: Comment on above: Room air 06-15-2020 14:28-0500 Respiratory Rate 16 /min Yaz Back CMA [facility]; [facility] Work Phone: Comment on above: Pattern: Unlabored 06-15-2020 14:28-0500 SaO2% (BldA) [Mass fraction] 97 % Yaz Back CMA [facility]; [facility] Work Phone: Comment on above: Room air 01-18-2020 14:22-0400 BMI (Body Mass Index) 24.74 kg/m2 Yaz Back CMA [facility] Work Phone: 01-18-2020 14:22-0400 Body Temperature 97.2 [degF] Yaz Back CMA [facility] Work Phone: Comment on above: Method: Infrared 01-18-2020 14:22-0400 Body weight 65.38 kg Yaz Back CMA [facility] Work Phone: 01-18-2020 14:22-0400 BP Diastolic 80 mm[Hg] Yaz Back [facility] Work Phone: Comment on above: Patient Position: Sitting; Cuff Location : Left Arm; Cuff Size: Standard 01-18-2020 14:22-0400 BP Systolic 118 mm[Hg] Yaz Back [facility] Work Phone: Comment on above: Patient Position: Sitting; Cuff Location : Left Arm; Cuff Size: Standard 01-18-2020 14:22-0400 BSA (Body Surface Area) 1.7 m2 Yaz Back [facility] Work Phone: 01-18-2020 14:22-0400 Height 162.56 cm Yaz Back [employer] AIDE [facility] Work Phone: 01-18-2020 14:22-0400 Pulse (Heart Rate) 80 /min Yaz Back CMA [facility] Work Phone: Comment on above: Pattern: Regular 01-18-2020 14:22-0400 Pulse Oximetry 98 % Jodee Perez [facility] Work Phone: Comment on above: Room air 01-18-2020 14:22-0400 Respiratory Rate 18 /min Yaz Back CMA [facility] Work Phone: Comment on above: Pattern: Unlabored 01-18-2020 14:22-0400 SaO2% (BldA) [Mass fraction] 98 % Yaz Back [facility]; [facility] Work Phone: Comment on above: Room air 01-21-2019 12:17-0400 BMI (Body Mass Index) 24.74 kg/m2 Yaz Back [facility] Work Phone: 01-21-2019 12:17-0400 Body Temperature 97.3 [degF] Yaz Back CMA [facility] Work Phone: Comment on above: Method: Temporal 01-21-2019 12:17-0400 Body weight 65.38 kg Yaz Back [facility] Work Phone: 01-21-2019 12:17-0400 BP Diastolic 88 mm[Hg] Yaz Back [facility] Work Phone: Comment on above: Patient Position: Sitting; Cuff Location : Left Arm; Cuff Size: Standard 01-21-2019 12:17-0400 BP Systolic 132 mm[Hg] Yaz Back [facility] Work Phone: Comment on above: Patient Position: Sitting; Cuff Location : Left Arm; Cuff Size: Standard 01-21-2019 12:17-0400 BSA (Body Surface Area) 1.7 m2 Yaz Back CMA [facility] Work Phone: 01-21-2019 12:17-0400 Height 162.56 cm Yaz Back CMA [facility] Work Phone: 01-21-2019 12:17-0400 Pulse (Heart Rate) 61 /min Yaz Back CMA [facility] Work Phone: Comment on above: Pattern: Regular 01-21-2019 12:17-0400 Pulse Oximetry 98 % Jodee Perez [facility] Work Phone: Comment on above: Room air 01-21-2019 12:17-0400 Respiratory Rate 16 /min Yaz Back CMA [facility] Work Phone: Comment on above: Pattern: Unlabored 01-21-2019 12:17-0400 SaO2% (BldA) [Mass fraction] 98 % Yaz Back [facility]; [facility] Work Phone: Comment on above: Room air 03-03-2018 15:25-0400 BMI (Body Mass Index) 23.71 kg/m2 Britany Antunez [facility] Work Phone: 03-03-2018 15:25-0400 Body Temperature 98.1 [degF] Britany Antunez [facility] Work Phone: Comment on above: Method: Temporal 03-03-2018 15:25-0400 Body weight 62.65 kg Britany Antunez [facility] Work Phone: 03-03-2018 15:25-0400 BP Diastolic 78 mm[Hg] Britany Antunez [facility] Work Phone: Comment on above: Patient Position: Sitting; Cuff Location : Left Arm; Cuff Size: Standard 03-03-2018 15:25-0400 BP Systolic 110 mm[Hg] Britany Antunez [facility] Work Phone: Comment on above: Patient Position: Sitting; Cuff Location : Left Arm; Cuff Size: Standard 03-03-2018 15:25-0400 BSA (Body Surface Area) 1.67 m2 Britany Antunez [facility] Work Phone: 03-03-2018 15:25-0400 Height 162.56 cm Britany Antunez [facility] Work Phone: 03-03-2018 15:25-0400 Pulse (Heart Rate) 80 /min Britany Antunez [facility] Work Phone: Comment on above: Pattern: Regular 03-03-2018 15:25-0400 Pulse Oximetry 97 % Jodee Perez [facility] Work Phone: Comment on above: Room air 03-03-2018 15:25-0400 Respiratory Rate 16 /min Britany Antunez [facility] Work Phone: Comment on above: Pattern: Unlabored 03-03-2018 15:25-0400 SaO2% (BldA) [Mass fraction] 97 % Britany Antunez [facility]; [facility] Work Phone: Comment on above: Room air 03-03-2018 15:25-0400 Weight 62.65 kg Jodee Perez [facility] Work Phone: 12-04-2017 14:14-0400 BMI (Body Mass Index) 23.71 kg/m2 Jodee Boatengon DO Work Phone: [facility] Work Phone: 12-04-2017 14:14-0400 Body weight 62.65 kg Jodee Boatengon DO Work Phone: [facility] Work Phone: 12-04-2017 14:14-0400 BP Diastolic 84 mm[Hg] Jodee Chris DO Work Phone: [facility] Work Phone: Comment on above: Patient Position: Sitting; Cuff Location : Left Arm; Cuff Size: Large 12-04-2017 14:14-0400 BP Systolic 132 mm[Hg] Jodee Boatengon DO Work Phone: [facility] Work Phone: Comment on above: Patient Position: Sitting; Cuff Location : Left Arm; Cuff Size: Large 12-04-2017 14:14-0400 BSA (Body Surface Area) 1.67 m2 Jodee Perez DO Work Phone: [facility] Work Phone: 12-04-2017 14:14-0400 Height 162.56 cm Jodee Chris DO Work Phone: [facility] Work Phone: 12-04-2017 14:14-0400 Pulse (Heart Rate) 84 /min Jodee Perez DO Work Phone: [facility] Work Phone: Comment on above: Pattern: Regular 12-04-2017 14:14-0400 Pulse Oximetry 99 % Jodee Perez [facility] Work Phone: Comment on above: Room air 12-04-2017 14:14-0400 Respiratory Rate 18 /min Jodee Perez DO Work Phone: [facility] Work Phone: Comment on above: Pattern: Unlabored 12-04-2017 14:14-0400 SaO2% (BldA) [Mass fraction] 99 % Jodee Perez DO Work Phone: [facility]; [facility] Work Phone: Comment on above: Room air 12-04-2017 14:14-0400 Weight 62.65 kg Jodee Perez [facility] Work Phone: 10-01-2017 09:18-0400 BMI (Body Mass Index) 24.03 kg/m2 Prisca Marie RN [facility] Work Phone: 10-01-2017 09:18-0400 Body weight 63.5 kg Prisca Marie RN [facility] Work Phone: 10-01-2017 09:18-0400 BP Diastolic 80 mm[Hg] Prisca Marie RN [facility] Work Phone: Comment on above: Patient Position: Sitting; Cuff Location : Left Arm; Cuff Size: Standard 10-01-2017 09:18-0400 BP Systolic 142 mm[Hg] Prisca Marie RN [facility] Work Phone: Comment on above: Patient Position: Sitting; Cuff Location : Left Arm; Cuff Size: Standard 10-01-2017 09:18-0400 BSA (Body Surface Area) 1.68 m2 Prisca Marie RN [facility] Work Phone: 10-01-2017 09:18-0400 Height 162.56 cm Prisca Marie RN [facility] Work Phone: 10-01-2017 09:18-0400 Pulse (Heart Rate) 76 /min Prisca Marie RN Comprehens [facility] Internal Medicine Work Phone: Comment on above: Pattern: Regular 10-01-2017 09:18-0400 Pulse Oximetry 97 % Jodee Chris [facility] Internal Medicine Work Phone: Comment on above: Room air 10-01-2017 09:18-0400 Respiratory Rate 18 /min Prisca Marie RN Comprehensiv e Internal Medicine Work Phone: Comment on above: Pattern: Unlabored 10-01-2017 09:18-0400 SaO2% (BldA) [Mass fraction] 97 % Prisca Marie RN [facility]; [facility] Work Phone: Comment on above: Room air 10-01-2017 09:18-0400 Weight 63.5 kg Jodee Perez [facility] Work Phone: 06-26-2017 11:13-0500 BMI (Body Mass Index) 25.1 kg/m2 Prisca Marie RN [facility] Work Phone: 06-26-2017 11:13-0500 Body weight 66.34 kg Prisca Marie RN [facility] Work Phone: 06-26-2017 11:13-0500 BP Diastolic 80 mm[Hg] Prisca Marie RN [facility] Work Phone: Comment on above: Patient Position: Sitting; Cuff Location : Left Arm; Cuff Size: Standard 06-26-2017 11:13-0500 BP Systolic 128 mm[Hg] Prisca Marie RN [facility] Work Phone: Comment on above: Patient Position: Sitting; Cuff Location : Left Arm; Cuff Size: Standard 06-26-2017 11:13-0500 BSA (Body Surface Area) 1.71 m2 Prisca Marie RN [facility] Work Phone: 06-26-2017 11:13-0500 Height 162.56 cm Prisca Marie RN [facility] Work Phone: 06-26-2017 11:13-0500 Pulse (Heart Rate) 77 /min Prisca Marie RN Comprehens [facility] Internal Medicine Work Phone: Comment on above: Pattern: Regular 06-26-2017 11:13-0500 Pulse Oximetry 98 % Jodee Perez [facility] Internal Medicine Work Phone: Comment on above: Room air 06-26-2017 11:13-0500 Respiratory Rate 18 /min Prisca Marie RN Comprehensiv e Internal Medicine Work Phone: Comment on above: Pattern: Unlabored 06-26-2017 11:13-0500 SaO2% (BldA) [Mass fraction] 98 % Prisca Marie RN [facility]; [facility] Work Phone: Comment on above: Room air 06-26-2017 11:13-0500 Weight 66.34 kg Jodee Chris [facility] Internal Medicine Work Phone: 05-15-2017 16:41-0500 Body height 162.56 cm Frankie SIEGEL Work Phone: [facility] Work Phone: 05-15-2017 16:41-0500 Body mass index (BMI) [Ratio] 24.89 kg/m2 Frankie SIEGEL Work Phone: [facility] Work Phone: 05-15-2017 16:41-0500 Body temperature 97.9 [degF] Frankie SIEGEL Work Phone: [facility] Work Phone: 05-15-2017 16:41-0500 Body weight 65.77 kg Frankie SIEGEL Work Phone: [facility] Work Phone: 05-15-2017 16:41-0500 Diastolic blood pressure 80 mm[Hg] Frankie Isela PA Work Phone: [facility] Work Phone: 05-15-2017 16:41-0500 Heart rate 69 /min Frankie Isela PA Work Phone: [facility] Work Phone: 05-15-2017 16:41-0500 Respiratory rate 12 /min Frankie Isela PA Work Phone: [facility] Work Phone: 05-15-2017 16:41-0500 Systolic blood pressure 124 mm[Hg] Frankie Isela PA Work Phone: [facility] Work Phone: 05-08-2017 13:20-0500 Body height 162.56 cm Stefany Fernandez LPN [facility] Work Phone: 05-08-2017 13:20-0500 Body mass index (BMI) [Ratio] 24.68 kg/m2 Stefany Fernandez LPN [facility] Work Phone: 05-08-2017 13:20-0500 Body temperature 98.1 [degF] Stefany Fernandez LPN [facility] Work Phone: 05-08-2017 13:20-0500 Body weight 65.23 kg Stefany Fernandez LPN [facility] Work Phone: 05-08-2017 13:20-0500 Diastolic blood pressure 78 mm[Hg] Stefany Fernandez [employer]OL [employer]OM SUPERVISOR [facility] Work Phone: 05-08-2017 13:20-0500 Heart rate 69 /min Stefany Fernandez LPN [facility] Work Phone: 05-08-2017 13:20-0500 Respiratory rate 12 /min Stefany Fernandez [employer]OL [employer]OM SUPERVISOR [facility] Work Phone: 05-08-2017 13:20-0500 Systolic blood pressure 124 mm[Hg] Stefany Fernandez ESTELLE [facility] Work Phone: 04-30-2017 10:01-0500 Body height 162.56 cm Stacie Dewitt [employer] Work Phone: [facility] 04-30-2017 10:01-0500 Body mass index (BMI) [Ratio] 24.47 kg/m2 Stacie [place] [employer] Work Phone: [facility] 04-30-2017 10:01-0500 Body weight 64.68 kg Stacie Montesinoss [employer]ING [employer]TE DRIVER Work Phone: [facility] 04-30-2017 10:01-0500 Diastolic blood pressure 85 mm[Hg] Stacie Montesinoss [employer]ING [employer]TE DRIVER Work Phone: [facility] 04-30-2017 10:01-0500 Systolic blood pressure 136 mm[Hg] Stacie Montesinoss [employer]TE DRIVER Work Phone: [facility] 08-08-2016 11:15-0500 BMI (Body Mass Index) 23.88 kg/m2 Prisca Marie RN [facility] Work Phone: 08-08-2016 11:15-0500 Body weight 63.11 kg Prisca Marie RN [facility] Work Phone: 08-08-2016 11:15-0500 BP Diastolic 78 mm[Hg] Prisca Marie RN [facility] Work Phone: Comment on above: Patient Position: Sitting; Cuff Location : Left Arm; Cuff Size: Large 08-08-2016 11:15-0500 BP Systolic 128 mm[Hg] Prisca Marie RN [facility] Work Phone: Comment on above: Patient Position: Sitting; Cuff Location : Left Arm; Cuff Size: Large 08-08-2016 11:15-0500 BSA (Body Surface Area) 1.68 m2 Prisca Marie RN [facility] Work Phone: 08-08-2016 11:15-0500 Height 162.56 cm Prisca Marie RN [facility] Work Phone: 08-08-2016 11:15-0500 Pulse (Heart Rate) 74 /min Prisca Marie RN Comprehens [facility] Work Phone: Comment on above: Pattern: Regular 08-08-2016 11:15-0500 Pulse Oximetry 97 % Jodee Perez [facility] Internal Medicine Work Phone: Comment on above: Room air 08-08-2016 11:15-0500 Respiratory Rate 18 /min Prisca Marie RN Comprehensiv e Internal Medicine Work Phone: Comment on above: Pattern: Unlabored 08-08-2016 11:15-0500 SaO2% (BldA) [Mass fraction] 97 % Prisca Marie RN [facility]; [facility] Work Phone: Comment on above: Room air 08-08-2016 11:15-0500 Weight 63.11 kg Jodee Perez [facility] Work Phone: 07-18-2016 10:14-0500 BMI (Body Mass Index) 23.71 kg/m2 Prisca Marie RN [facility] Work Phone: 07-18-2016 10:14-0500 Body weight 62.65 kg Prisca Marie RN [facility] Work Phone: 07-18-2016 10:14-0500 BP Diastolic 82 mm[Hg] Prisca Marie RN [facility] Work Phone: Comment on above: Patient Position: Sitting; Cuff Location : Left Arm; Cuff Size: Large 07-18-2016 10:14-0500 BP Systolic 138 mm[Hg] Prisca Marie RN [facility] Work Phone: Comment on above: Patient Position: Sitting; Cuff Location : Left Arm; Cuff Size: Large 07-18-2016 10:14-0500 BSA (Body Surface Area) 1.67 m2 Prisca Marie RN [facility] Work Phone: 07-18-2016 10:14-0500 Height 162.56 cm Prisca Marie RN [facility] Work Phone: 07-18-2016 10:14-0500 Pulse (Heart Rate) 73 /min Prisca Marie RN Comprehens [facility] Work Phone: Comment on above: Pattern: Regular 07-18-2016 10:14-0500 Pulse Oximetry 98 % Jodee Perez [facility] Internal Medicine Work Phone: Comment on above: Room air 07-18-2016 10:14-0500 Respiratory Rate 18 /min Prisca Marie RN Comprehensiv e Internal Medicine Work Phone: Comment on above: Pattern: Unlabored 07-18-2016 10:14-0500 SaO2% (BldA) [Mass fraction] 98 % Prisca Marie RN [facility]; [facility] Work Phone: Comment on above: Room air 07-18-2016 10:14-0500 Weight 62.65 kg Jodee Perez [facility] Internal Medicine Work Phone: 06-11-2016 10:17-0500 BMI (Body Mass Index) 23.34 kg/m2 Shanice Manyolanda [facility] Work Phone: 06-11-2016 10:17-0500 Body weight 61.69 kg Shaniceviolet [facility] Internal Medicine Work Phone: 06-11-2016 10:17-0500 BP Diastolic 80 mm[Hg] [facility] Work Phone: Comment on above: Patient Position: Sitting; Cuff Location : Left Arm; Cuff Size: Standard 06-11-2016 10:17-0500 BP Systolic 138 mm[Hg] Shanicecarrington [facility] Internal Medicine Work Phone: Comment on above: Patient Position: Sitting; Cuff Location : Left Arm; Cuff Size: Standard 06-11-2016 10:17-0500 BSA (Body Surface Area) 1.66 m2 [facility] Work Phone: 06-11-2016 10:17-0500 Height 162.56 cm [facility] Work Phone: 06-11-2016 10:17-0500 Pulse (Heart Rate) 106 /min [facility] Work Phone: Comment on above: Pattern: Regular 06-11-2016 10:17-0500 Pulse Oximetry 96 % Jodee Perez [facility] Internal Medicine Work Phone: Comment on above: Room air 06-11-2016 10:17-0500 Respiratory Rate 18 /min Shanice Keith [facility] Work Phone: Comment on above: Pattern: Unlabored 06-11-2016 10:17-0500 SaO2% (BldA) [Mass fraction] 96 % Shanice Keith [facility]; [facility] Work Phone: Comment on above: Room air 06-11-2016 10:17-0500 Weight 61.69 kg Jodee Perez [facility] Internal Medicine Work Phone: 05-04-2016 10:08-0500 BMI (Body Mass Index) 23.17 kg/m2 [facility] Internal Medicine Work Phone: 05-04-2016 10:08-0500 Body Temperature 98 [degF] [facility] Internal [facility] Work Phone: 05-04-2016 10:08-0500 Body weight 61.24 kg [facility] Internal [facility] Work Phone: 05-04-2016 10:08-0500 BP Diastolic 78 mm[Hg] [facility] Internal [facility] Work Phone: Comment on above: Patient Position: Sitting; Cuff Location : Left Arm; Cuff Size: Standard 05-04-2016 10:08-0500 BP Systolic 122 mm[Hg] [facility] Internal Medicine Work Phone: Comment on above: Patient Position: Sitting; Cuff Location : Left Arm; Cuff Size: Standard 05-04-2016 10:08-0500 BSA (Body Surface Area) 1.66 m2 [facility] Internal Medicine Work Phone: 05-04-2016 10:08-0500 Height 162.56 cm [facility] Internal Medicine Work Phone: 05-04-2016 10:08-0500 Pulse (Heart Rate) 97 /min Gerard Surseh [facility] Internal Medicine Work Phone: Comment on above: Pattern: Regular 05-04-2016 10:08-0500 Pulse Oximetry 98 % Jodee Perez [facility] Internal Medicine Work Phone: Comment on above: Room air 05-04-2016 10:08-0500 Respiratory Rate 16 /min Gerard Suresh [facility] Internal Medicine Work Phone: Comment on above: Pattern: Unlabored 05-04-2016 10:08-0500 SaO2% (BldA) [Mass fraction] 98 % Gerard Suresh [facility]; [facility] Work Phone: Comment on above: Room air 05-04-2016 10:08-0500 Weight 61.24 kg Jodee Perez [facility] Internal Medicine Work Phone: 03-30-2016 09:30-0400 BMI (Body Mass Index) 23.69 kg/m2 Prisca Marie RN [facility] Work Phone: 03-30-2016 09:30-0400 Body weight 62.6 kg Prisca Marie RN [facility] Work Phone: 03-30-2016 09:30-0400 BP Diastolic 90 mm[Hg] Prisca Marie RN [facility] Work Phone: Comment on above: Patient Position: Sitting; Cuff Location : Left Arm; Cuff Size: Standard 03-30-2016 09:30-0400 BP Systolic 138 mm[Hg] Prisca Marie RN [facility] Work Phone: Comment on above: Patient Position: Sitting; Cuff Location : Left Arm; Cuff Size: Standard 03-30-2016 09:30-0400 BSA (Body Surface Area) 1.67 m2 Prisca Marie RN [facility] Work Phone: 03-30-2016 09:30-0400 Height 162.56 cm Prisca Marie RN [facility] Work Phone: 03-30-2016 09:30-0400 Pulse (Heart Rate) 78 /min Prisca Marie RN Comprehens [facility] Internal Medicine Work Phone: Comment on above: Pattern: Regular 03-30-2016 09:30-0400 Pulse Oximetry 98 % Jodee Perez [facility] Internal Medicine Work Phone: Comment on above: Room air 03-30-2016 09:30-0400 Respiratory Rate 18 /min Prisca Marie RN Comprehensiv e Internal Medicine Work Phone: Comment on above: Pattern: Unlabored 03-30-2016 09:30-0400 SaO2% (BldA) [Mass fraction] 98 % Prisca Marie RN [facility]; [facility] Work Phone: Comment on above: Room air 03-30-2016 09:30-0400 Weight 62.6 kg Jodee Perez [facility] Internal Medicine Work Phone: 01-30-2016 09:12-0400 BMI (Body Mass Index) 23.86 kg/m2 Shanice [facility] Internal Medicine Work Phone: 01-30-2016 09:12-0400 Body weight 63.05 kg Shanice [facility] Internal Medicine Work Phone: 01-30-2016 09:12-0400 BP Diastolic 68 mm[Hg] [facility] Work Phone: Comment on above: Patient Position: Sitting; Cuff Location : Left Arm; Cuff Size: Standard 01-30-2016 09:12-0400 BP Systolic 100 mm[Hg] Shanice [facility] Internal Medicine Work Phone: Comment on above: Patient Position: Sitting; Cuff Location : Left Arm; Cuff Size: Standard 01-30-2016 09:12-0400 BSA (Body Surface Area) 1.68 m2 Shanice [facility] Internal Medicine Work Phone: 01-30-2016 09:12-0400 Height 162.56 cm [facility] Work Phone: 01-30-2016 09:12-0400 Pulse (Heart Rate) 68 /min [facility] Work Phone: Comment on above: Pattern: Regular 01-30-2016 09:12-0400 Pulse Oximetry 97 % Jodee Perez [facility] Internal Medicine Work Phone: Comment on above: Room air 01-30-2016 09:12-0400 Respiratory Rate 16 /min Shanice Keith [facility] Work Phone: Comment on above: Pattern: Unlabored 01-30-2016 09:12-0400 SaO2% (BldA) [Mass fraction] 97 % Shanice [facility] Internal Medicine; [facility] Work Phone: Comment on above: Room air 01-30-2016 09:12-0400 Weight 63.05 kg Jodee Perez [facility] Internal Medicine Work Phone: 01-16-2016 15:42-0400 BMI (Body Mass Index) 23.86 kg/m2 [facility] Internal Medicine Work Phone: 01-16-2016 15:42-0400 Body Temperature 98 [degF] [facility] Internal Medicine Work Phone: 01-16-2016 15:42-0400 Body weight 63.05 kg [facility] Internal Medicine Work Phone: 01-16-2016 15:42-0400 BP Diastolic 70 mm[Hg] [facility] Internal Medicine Work Phone: Comment on above: Patient Position: Sitting; Cuff Location : Left Arm; Cuff Size: Standard 01-16-2016 15:42-0400 BP Systolic 122 mm[Hg] [facility] Internal Medicine Work Phone: Comment on above: Patient Position: Sitting; Cuff Location : Left Arm; Cuff Size: Standard 01-16-2016 15:42-0400 BSA (Body Surface Area) 1.68 m2 [facility] Internal Medicine Work Phone: 01-16-2016 15:42-0400 Height 162.56 cm [facility] Internal Medicine Work Phone: 01-16-2016 15:42-0400 Pulse (Heart Rate) 76 /min [facility] Internal Medicine Work Phone: Comment on above: Pattern: Regular 01-16-2016 15:42-0400 Pulse Oximetry 96 % Jodee Perez [facility] Internal Medicine Work Phone: Comment on above: Room air 01-16-2016 15:42-0400 Respiratory Rate 16 /min Gerard Suresh [facility] Internal Medicine Work Phone: Comment on above: Pattern: Unlabored 01-16-2016 15:42-0400 SaO2% (BldA) [Mass fraction] 96 % [facility]; [facility] Work Phone: Comment on above: Room air 01-16-2016 15:42-0400 Weight 63.05 kg Jodee Perez [facility] Internal Medicine Work Phone: 12-19-2015 08:40-0400 BMI (Body Mass Index) 24.72 kg/m2 Prisca Marie RN [facility] Work Phone: 12-19-2015 08:40-0400 Body weight 65.32 kg Prisca Marie RN [facility] Work Phone: 12-19-2015 08:40-0400 BP Diastolic 78 mm[Hg] Prisca Marie RN [facility] Work Phone: Comment on above: Patient Position: Sitting; Cuff Location : Left Arm; Cuff Size: Large 12-19-2015 08:40-0400 BP Systolic 118 mm[Hg] Prisca Marie RN [facility] Work Phone: Comment on above: Patient Position: Sitting; Cuff Location : Left Arm; Cuff Size: Large 12-19-2015 08:40-0400 BSA (Body Surface Area) 1.7 m2 Prisca Marie RN [facility] Work Phone: 12-19-2015 08:40-0400 Height 162.56 cm Prisca Marie RN [facility] Work Phone: 12-19-2015 08:40-0400 Pulse (Heart Rate) 61 /min Prisca Marie RN [facility] Internal Medicine Work Phone: Comment on above: Pattern: Regular 12-19-2015 08:40-0400 Pulse Oximetry 98 % Jodee Boatengon [facility] Work Phone: Comment on above: Room air 12-19-2015 08:40-0400 Respiratory Rate 18 /min Prisca Marie RN Comprehensiv e Internal Medicine Work Phone: Comment on above: Pattern: Unlabored 12-19-2015 08:40-0400 SaO2% (BldA) [Mass fraction] 98 % Prisca Marie RN [facility]; [facility] Work Phone: Comment on above: Room air 12-19-2015 08:40-0400 Weight 65.32 kg Jodee Perez [facility] Work Phone: 12-05-2015 08:44-0400 BMI (Body Mass Index) 24.78 kg/m2 Prisca Marie RN [facility] Work Phone: 12-05-2015 08:44-0400 Body weight 65.49 kg Prisca Marie RN [facility] Work Phone: 12-05-2015 08:44-0400 BP Diastolic 76 mm[Hg] Prisca Marie RN [facility] Work Phone: Comment on above: Patient Position: Sitting; Cuff Location : Left Arm; Cuff Size: Standard 12-05-2015 08:44-0400 BP Systolic 124 mm[Hg] Prisca Marie RN [facility] Work Phone: Comment on above: Patient Position: Sitting; Cuff Location : Left Arm; Cuff Size: Standard 12-05-2015 08:44-0400 BSA (Body Surface Area) 1.7 m2 Prisca Marie RN [facility] Work Phone: 12-05-2015 08:44-0400 Height 162.56 cm Prisca Marie RN [facility] Work Phone: 12-05-2015 08:44-0400 Pulse (Heart Rate) 69 /min Prisca Marie RN Comprehens [facility] Internal Medicine Work Phone: Comment on above: Pattern: Regular 12-05-2015 08:44-0400 Pulse Oximetry 97 % Jdoee Perez [facility] Internal Medicine Work Phone: Comment on above: Room air 12-05-2015 08:44-0400 Respiratory Rate 18 /min Prisca Marie RN Comprehensiv e Internal Medicine Work Phone: Comment on above: Pattern: Unlabored 12-05-2015 08:44-0400 SaO2% (BldA) [Mass fraction] 97 % Prisca Marie RN [facility]; [facility] Work Phone: Comment on above: Room air 12-05-2015 08:44-0400 Weight 65.49 kg Jodee Perez [facility] Work Phone: 10-24-2015 09:16-0400 BMI (Body Mass Index) 25.46 kg/m2 Prisca Marie RN [facility] Work Phone: 10-24-2015 09:16-0400 Body weight 67.27 kg Prisca Marie RN [facility] Work Phone: 10-24-2015 09:16-0400 BP Diastolic 64 mm[Hg] Prisca Marie RN [facility] Work Phone: Comment on above: Patient Position: Sitting; Cuff Location : Left Arm; Cuff Size: Standard 10-24-2015 09:16-0400 BP Systolic 118 mm[Hg] Prisca Marie RN [facility] Work Phone: Comment on above: Patient Position: Sitting; Cuff Location : Left Arm; Cuff Size: Standard 10-24-2015 09:16-0400 BSA (Body Surface Area) 1.72 m2 Prisca Marie RN [facility] Work Phone: 10-24-2015 09:16-0400 Height 162.56 cm Prisca Marie RN [facility] Work Phone: 10-24-2015 09:16-0400 Pulse (Heart Rate) 85 /min Prisca Marie RN Comprehens [facility] Medicine Work Phone: Comment on above: Pattern: Regular 10-24-2015 09:16-0400 Pulse Oximetry 98 % Jodee Perez [facility] Work Phone: Comment on above: Room air 10-24-2015 09:16-0400 Respiratory Rate 18 /min Prisca Marie RN Comprehensiv e Internal Medicine Work Phone: Comment on above: Pattern: Unlabored 10-24-2015 09:16-0400 SaO2% (BldA) [Mass fraction] 98 % Prisca Marie RN [facility]; [facility] Work Phone: Comment on above: Room air 10-24-2015 09:16-0400 Weight 67.27 kg Jodee Perez [facility] Work Phone: 09-12-2015 08:47-0400 BMI (Body Mass Index) 26.61 kg/m2 Prisca Marie RN [facility] Work Phone: 09-12-2015 08:47-0400 Body weight 70.31 kg Prisca Marie RN [facility] Work Phone: 09-12-2015 08:47-0400 BP Diastolic 80 mm[Hg] Prisca Marie RN [facility] Work Phone: Comment on above: Patient Position: Sitting; Cuff Location : Left Arm; Cuff Size: Large 09-12-2015 08:47-0400 BP Systolic 120 mm[Hg] Prisca Marie RN [facility] Work Phone: Comment on above: Patient Position: Sitting; Cuff Location : Left Arm; Cuff Size: Large 09-12-2015 08:47-0400 BSA (Body Surface Area) 1.76 m2 Prisca Marie RN [facility] Work Phone: 09-12-2015 08:47-0400 Height 162.56 cm Prisca Marie RN [facility] Work Phone: 09-12-2015 08:47-0400 Pulse (Heart Rate) 64 /min Prisca Marie RN Comprehens [facility] Work Phone: Comment on above: Pattern: Regular 09-12-2015 08:47-0400 Pulse Oximetry 97 % Jodee Perez [facility] Work Phone: Comment on above: Room air 09-12-2015 08:47-0400 Respiratory Rate 18 /min Prisca Marie RN Comprehensiv e Internal Medicine Work Phone: Comment on above: Pattern: Unlabored 09-12-2015 08:47-0400 SaO2% (BldA) [Mass fraction] 97 % Prisca Marie RN [facility]; [facility] Work Phone: Comment on above: Room air 09-12-2015 08:47-0400 Weight 70.31 kg Jodee Perez [facility] Work Phone: 08-19-2015 13:07-0500 BMI (Body Mass Index) 26.63 kg/m2 Jane Slarb [employer] SUPERVISOR [facility] Work Phone: 08-19-2015 13:07-0500 Body Temperature 97.8 [degF] Jane Slarb [employer] SUPER[employer]OR [facility] Work Phone: 08-19-2015 13:07-0500 Body weight 70.36 kg Jane Slarb [employer] SUPERVISOR [facility] Work Phone: 08-19-2015 13:07-0500 BP Diastolic 82 mm[Hg] Jane Slarb [employer] SUPERVISOR [facility] Work Phone: Comment on above: Patient Position: Sitting; Cuff Location : Left Arm; Cuff Size: Standard 08-19-2015 13:07-0500 BP Systolic 120 mm[Hg] Jane Slarb [employer] ROOM SUPERVISOR [facility] Work Phone: Comment on above: Patient Position: Sitting; Cuff Location : Left Arm; Cuff Size: Standard 08-19-2015 13:07-0500 BSA (Body Surface Area) 1.76 m2 Jane Slarb [employer]OL ROOM SUPERVISOR [facility] Work Phone: 08-19-2015 13:07-0500 Height 162.56 cm Jane Slarb [employer]OL [employer]OM SUPERVISOR [facility] Work Phone: 08-19-2015 13:07-0500 Pulse (Heart Rate) 88 /min Jane Slarb CONTROL ROOM SUPERVISOR [facility] Work Phone: Comment on above: Pattern: Regular 08-19-2015 13:07-0500 Pulse Oximetry 99 % Jodee Perez [facility] Work Phone: Comment on above: Room air 08-19-2015 13:07-0500 Respiratory Rate 16 /min Jane Slarb CONTROL ROOM SUPERVISOR [facility] Work Phone: Comment on above: Pattern: Unlabored 08-19-2015 13:07-0500 SaO2% (BldA) [Mass fraction] 99 % Jane Miguel MCCABE [facility] Internal Medicine; [facility] Work Phone: Comment on above: Room air 08-19-2015 13:07-0500 Weight 70.36 kg Jodee Perez [facility] Internal Medicine Work Phone: 08-15-2015 08:39-0500 BMI (Body Mass Index) 26.63 kg/m2 [facility] Internal Medicine Work Phone: 08-15-2015 08:39-0500 Body Temperature 97.8 [degF] [facility] Internal Medicine Work Phone: Comment on above: Method: Oral 08-15-2015 08:39-0500 Body weight 70.36 kg Sahnice [facility] Internal Medicine Work Phone: 08-15-2015 08:39-0500 BP Diastolic 80 mm[Hg] [facility] Internal Medicine Work Phone: Comment on above: Patient Position: Sitting; Cuff Location : Left Arm; Cuff Size: Standard 08-15-2015 08:39-0500 BP Systolic 136 mm[Hg] [facility] Internal Medicine Work Phone: Comment on above: Patient Position: Sitting; Cuff Location : Left Arm; Cuff Size: Standard 08-15-2015 08:39-0500 BSA (Body Surface Area) 1.76 m2 [facility] Internal Medicine Work Phone: 08-15-2015 08:39-0500 Height 162.56 cm [facility] Internal Medicine Work Phone: 08-15-2015 08:39-0500 Pulse (Heart Rate) 83 /min [facility] Internal Medicine Work Phone: Comment on above: Pattern: Regular 08-15-2015 08:39-0500 Pulse Oximetry 98 % Jodee Perez [facility] Internal Medicine Work Phone: Comment on above: Room air 08-15-2015 08:39-0500 Respiratory Rate 16 /min Shanice Keith [facility] Work Phone: Comment on above: Pattern: Unlabored 08-15-2015 08:39-0500 SaO2% (BldA) [Mass fraction] 98 % Shanice Keith [facility]; [facility] Work Phone: Comment on above: Room air 08-15-2015 08:39-0500 Weight 70.36 kg Jodee Perez [facility] Work Phone: 05-16-2015 09:34-0500 BMI (Body Mass Index) 26.97 kg/m2 Prisca Marie RN [facility] Work Phone: 05-16-2015 09:34-0500 Body weight 71.27 kg Prisca Marie RN [facility] Work Phone: 05-16-2015 09:34-0500 BP Diastolic 78 mm[Hg] Prisca Marie RN [facility] Work Phone: Comment on above: Patient Position: Sitting; Cuff Location : Left Arm; Cuff Size: Large 05-16-2015 09:34-0500 BP Systolic 120 mm[Hg] Prisca Marie RN [facility] Work Phone: Comment on above: Patient Position: Sitting; Cuff Location : Left Arm; Cuff Size: Large 05-16-2015 09:34-0500 BSA (Body Surface Area) 1.77 m2 Prisca Marie RN [facility] Work Phone: 05-16-2015 09:34-0500 Height 162.56 cm Prisca Marie RN [facility] Work Phone: 05-16-2015 09:34-0500 Pulse (Heart Rate) 58 /min Prisca Marie RN Comprehens avelina Internal Medicine Work Phone: Comment on above: Pattern: Regular 05-16-2015 09:34-0500 Pulse Oximetry 98 % Jodee Perez [facility] Internal Medicine Work Phone: Comment on above: Room air 05-16-2015 09:34-0500 Respiratory Rate 18 /min Prisca Marie RN Comprehensiv e Internal Medicine Work Phone: Comment on above: Pattern: Unlabored 05-16-2015 09:34-0500 SaO2% (BldA) [Mass fraction] 98 % Prisca Marie RN [facility]; [facility] Work Phone: Comment on above: Room air 05-16-2015 09:34-0500 Weight 71.27 kg Jodee Perez [facility] Work Phone: 02-07-2015 08:53-0400 BMI (Body Mass Index) 27.14 kg/m2 Prsica Marie RN [facility] Work Phone: 02-07-2015 08:53-0400 Body weight 71.73 kg Prisca Marie RN [facility] Work Phone: 02-07-2015 08:53-0400 BP Diastolic 82 mm[Hg] Prisca Marie RN [facility] Work Phone: Comment on above: Patient Position: Sitting; Cuff Location : Left Arm; Cuff Size: Large 02-07-2015 08:53-0400 BP Systolic 128 mm[Hg] Prisca Marie RN [facility] Work Phone: Comment on above: Patient Position: Sitting; Cuff Location : Left Arm; Cuff Size: Large 02-07-2015 08:53-0400 BSA (Body Surface Area) 1.77 m2 Prisca Marie RN [facility] Work Phone: 02-07-2015 08:53-0400 Height 162.56 cm Prisca Marie RN [facility] Work Phone: 02-07-2015 08:53-0400 Pulse (Heart Rate) 82 /min Prisca Marie RN Comprehens [facility]ina [facility] Medicine Work Phone: Comment on above: Pattern: Regular 02-07-2015 08:53-0400 Pulse Oximetry 98 % Jodee Perez [facility] Work Phone: Comment on above: Room air 02-07-2015 08:53-0400 Respiratory Rate 18 /min Prisca Marie RN Comprehens[facility] e [facility] Medicine Work Phone: Comment on above: Pattern: Unlabored 02-07-2015 08:53-0400 SaO2% (BldA) [Mass fraction] 98 % Prisca Marie RN [facility]; [facility] Work Phone: Comment on above: Room air 02-07-2015 08:53-0400 Weight 71.73 kg Jodee Perez [facility] Work Phone: 12-27-2014 09:26-0400 BMI (Body Mass Index) 26.86 kg/m2 Prisca Marie RN [facility] Work Phone: 12-27-2014 09:26-0400 Body weight 70.99 kg Prisca Marie RN [facility] Work Phone: 12-27-2014 09:26-0400 BP Diastolic 80 mm[Hg] Prisca Marie RN [facility] Work Phone: Comment on above: Patient Position: Sitting; Cuff Location : Left Arm; Cuff Size: Large 12-27-2014 09:26-0400 BP Systolic 124 mm[Hg] Prisca Marie RN [facility] Work Phone: Comment on above: Patient Position: Sitting; Cuff Location : Left Arm; Cuff Size: Large 12-27-2014 09:26-0400 BSA (Body Surface Area) 1.76 m2 Prisca Marie RN [facility] Work Phone: 12-27-2014 09:26-0400 Height 162.56 cm Prisca Marie RN [facility] Work Phone: 12-27-2014 09:26-0400 Pulse (Heart Rate) 67 /min Prisca Marie RN Comprehens [facility] Work Phone: Comment on above: Pattern: Regular 12-27-2014 09:26-0400 Pulse Oximetry 98 % Jodee Perez [facility] Work Phone: Comment on above: Room air 12-27-2014 09:26-0400 Respiratory Rate 18 /min Prisca Marie RN Comprehensiv e [facility] Medicine Work Phone: Comment on above: Pattern: Unlabored 12-27-2014 09:26-0400 SaO2% (BldA) [Mass fraction] 98 % Prisca Marie RN [facility]; [facility] Work Phone: Comment on above: Room air 12-27-2014 09:26-0400 Weight 70.99 kg Jodee Perez [facility] Work Phone: 11-24-2014 09:02-0400 BMI (Body Mass Index) 27.12 kg/m2 Prisca Marie RN [facility] Work Phone: 11-24-2014 09:02-0400 Body weight 71.67 kg Prisca Marie RN [facility] Work Phone: 11-24-2014 09:02-0400 BP Diastolic 82 mm[Hg] Prisca Marie RN [facility] Work Phone: Comment on above: Patient Position: Sitting; Cuff Location : Left Arm; Cuff Size: Large 11-24-2014 09:02-0400 BP Systolic 120 mm[Hg] Prisca Marie RN [facility] Work Phone: Comment on above: Patient Position: Sitting; Cuff Location : Left Arm; Cuff Size: Large 11-24-2014 09:02-0400 BSA (Body Surface Area) 1.77 m2 Prisca Marie RN [facility] Work Phone: 11-24-2014 09:02-0400 Height 162.56 cm Prisca Marie RN [facility] Work Phone: 11-24-2014 09:02-0400 Pulse (Heart Rate) 82 /min Prisca Marie RN Comprehens [facility] Work Phone: Comment on above: Pattern: Regular 11-24-2014 09:02-0400 Pulse Oximetry 99 % Jodee Perez [facility] Work Phone: Comment on above: Room air 11-24-2014 09:02-0400 Respiratory Rate 18 /min Prisca Marie RN Comprehensiv e [facility] Medicine Work Phone: Comment on above: Pattern: Unlabored 11-24-2014 09:02-0400 SaO2% (BldA) [Mass fraction] 99 % Prisca Marie RN [facility]; [facility] Work Phone: Comment on above: Room air 11-24-2014 09:02-0400 Weight 71.67 kg Jodee Perez [facility] Work Phone: 09-21-2014 09:46-0400 BMI (Body Mass Index) 27.31 kg/m2 Prisca Marie RN [facility] Work Phone: 09-21-2014 09:46-0400 Body weight 72.18 kg Prisca Marie RN [facility] Work Phone: 09-21-2014 09:46-0400 BP Diastolic 82 mm[Hg] Prisca Marie RN [facility] Work Phone: Comment on above: Patient Position: Sitting; Cuff Location : Left Arm; Cuff Size: Large 09-21-2014 09:46-0400 BP Systolic 128 mm[Hg] Prisca Marie RN [facility] Work Phone: Comment on above: Patient Position: Sitting; Cuff Location : Left Arm; Cuff Size: Large 09-21-2014 09:46-0400 BSA (Body Surface Area) 1.78 m2 Prisca Marie RN [facility] Work Phone: 09-21-2014 09:46-0400 Height 162.56 cm Prisca Marie RN [facility] Work Phone: 09-21-2014 09:46-0400 Pulse (Heart Rate) 73 /min Prisca Marie RN Comprehens [facility]ina [facility] Work Phone: Comment on above: Pattern: Regular 09-21-2014 09:46-0400 Pulse Oximetry 98 % Jodee Perez [facility] Work Phone: Comment on above: Room air 09-21-2014 09:46-0400 Respiratory Rate 18 /min Prisca Marie RN Comprehens[facility] e [facility] Medicine Work Phone: Comment on above: Pattern: Unlabored 09-21-2014 09:46-0400 SaO2% (BldA) [Mass fraction] 98 % Prisca Marie RN [facility]; [facility] Work Phone: Comment on above: Room air 09-21-2014 09:46-0400 Weight 72.18 kg Jodee Perez [facility] Work Phone: 12-26-2009 12:36-0400 Body Temperature 98.7 [degF] Stacie Dewitt VENDING ROUTE DRIVER [facility] 12-26-2009 12:36-0400 BP Diastolic 70 mm[Hg] Stacie Dewitt VENDING ROUTE DRIVER [facility] 12-26-2009 12:36-0400 BP Systolic 104 mm[Hg] Stacie [place] VENDING ROUTE DRIVER [facility] 12-26-2009 12:36-0400 Pulse (Heart Rate) 68 /min Stacie Dewitt VENDING ROUTE DRIVER [facility] 12-26-2009 12:36-0400 Respiratory Rate 18 /min Stacie Dewitt VENDING ROUTE DRIVER [facility] 12-26-2009 12:36-0400 Weight 73.21 kg Stacie Dewitt NP [facility] Encounters Encounter Date Encounter Type Care Provider Facility Start: 11-05-2024 End: 11-05-[address] Jodee Perez DO Work Phone: [facility] Work Phone: Start: 11-05-2024 End: 11-05-[address] Jodee Perez DO -Outpatient Bone Densitometry Work Phone: Start: 11-05-2024 End: 11-05-2024 ambulatory Jodee Perez Facility:[facility] Start: 07-21-2024 End: 07-21-2024 Patient encounter procedure Stacie Dewitt NP-C -Laboratory Specimen Work Phone: Start: 07-21-2024 Encounter for gynecological examination (general) (routine) without abnormal findings Stacie Dewitt NP [facility] Start: 07-21-2024 End: 07-21-2024 Patient encounter procedure Stacie Dewitt VENDING ROUTE DRIVER-C -[facility] Work Phone: Start: 07-21-2024 End: 07-21-2024 Patient encounter status Stacie Dewitt VENDING ROUTE DRIVER-C [facility] Start: 07-21-2024 End: 07-21-2024 ambulatory Jodee Perez Facility:[facility] Start: 07-21-2024 End: 01-28-2025 ambulatory Jodee Chris Facility:[facility] Start: 07-16-2024 ambulatory Jodee Chris Facilit y:[facility] Start: 12-10-2022 End: 12-10-2022 Office outpatient visit 15 minutes Jodee Chris DO Work Phone: [facility] Start: 11-23-2022 Review Jodee Fearo n DO Work Phone: [facility] Start: 11-23-2022 End: 11-23-2022 Office outpatient visit 25 minutes Jodee Chris DO Work Phone: [facility] Start: 07-10-2022 End: 07-10-[address] Jodee Perez Work Phone: [facility] Work Phone: Start: 07-10-2022 End: 07-10-[address] Jodee Perez Work Phone: [facility] Start: 06-04-2022 End: 06-04-2022 Office outpatient visit 25 minutes Jodee Chris DO Work Phone: [facility] Start: 06-04-2022 Review Jodee Boatengo n DO Work Phone: [facility] Start: 05-28-2022 ambulatory Jodee Chris DO Comp rehensive Internal Med Start: 03-16-2022 End: 03-16-2022 ambulatory JODEE CHRIS [facility] Start: 11-30-2021 End: 11-30-2021 Office outpatient visit 15 minutes Jodee Chris DO Work Phone: [facility] Start: 11-02-2021 End: 11-02-2021 Phone Encounter Jodee Chris DO Work Phone: [facility] Start: 08-21-2021 End: 08-21-2021 Phone Encounter Jodee Chris DO Work Phone: [facility] Start: 07-13-2021 End: 07-13-2021 Office outpatient visit 25 minutes Jodee Chris DO Work Phone: [facility] Start: 07-13-2021 Review Jodee Boatengkaren n DO Work Phone: [facility] Start: 12-30-2020 End: 12-30-2020 Office outpatient visit 10 minutes Jodee Perez DO Work Phone: [facility] Start: 09-28-2020 End: 09-28-2020 Office outpatient visit 15 minutes Jodee Perez DO Work Phone: [facility] Start: 09-28-2020 Review Jodee Perez Compreh ensive Internal Medicine Start: 09-09-2020 End: 09-09-2020 Office outpatient visit 10 minutes Jodee [facility] Start: 06-15-2020 End: 06-15-2020 Office outpatient visit 15 minutes Jodee Perez [facility] Start: 01-18-2020 End: 01-18-2020 Office outpatient visit 25 minutes Jodee Perez [facility] Start: 01-21-2019 End: 01-21-2019 Office outpatient visit 25 minutes Jodee Perez [facility] Start: 12-29-2018 End: 12-29-2018 Phone Encounter Jodee Silva Loan Service Officer al Medicine Start: 03-03-2018 End: 03-03-2018 Office outpatient visit 15 minutes Jodee Silva [facility] Start: 12-04-2017 End: 12-04-2017 Office outpatient visit 10 minutes Jodee Silva [facility] Start: 10-01-2017 End: 10-01-2017 Office outpatient visit 15 minutes Jodee Silva [facility] Start: 06-26-2017 End: 06-26-2017 Office outpatient visit 15 minutes Jodee Silva [facility] Start: 06-05-2017 End: 06-05-2017 Lab Order Jodee Silva Loan Service Officer al Medicine Start: 04-30-2017 Gynecologic examination Stacie Dewitt NP Work Phone: [facility] Start: 08-08-2016 End: 08-08-2016 Office outpatient visit 15 minutes Jodee Perez [facility] Start: 07-18-2016 End: 07-18-2016 Office outpatient visit 15 minutes Jodee Perez [facility] Start: 06-11-2016 End: 06-11-2016 Office outpatient visit 15 minutes Jodee Silva [facility] Start: 05-04-2016 End: 05-04-2016 Office outpatient visit 25 minutes Jodee Silva [facility] Start: 03-30-2016 End: 03-30-2016 Office outpatient visit 40 minutes Jodee Silva [facility] Start: 01-30-2016 End: 01-30-2016 Office outpatient visit 15 minutes Jodee Silva [facility] Start: 01-16-2016 End: 01-16-2016 Office outpatient visit 15 minutes Jodee Silva [facility] Start: 12-19-2015 End: 12-19-2015 Office outpatient visit 25 minutes Jodee Silva [facility] Start: 12-05-2015 End: 12-05-2015 Office outpatient visit 25 minutes Jodee Silva [facility] Start: 10-24-2015 End: 10-24-2015 Phone Encounter Jodee Silva Loan Service Officer al Medicine Start: 10-24-2015 End: 10-24-2015 Office outpatient visit 25 minutes Jodee Silva [facility] Start: 09-12-2015 End: 09-12-2015 Office outpatient visit 25 minutes Jodee Silva [facility] Start: 08-19-2015 End: 08-19-2015 Office outpatient visit 25 minutes Jodee Silva [facility] Start: 08-15-2015 End: 08-15-2015 Office outpatient visit 25 minutes Jodee Silva [facility] Start: 05-16-2015 End: 05-16-2015 Office outpatient visit 25 minutes Jodee Silva [facility] Start: 02-07-2015 End: 02-07-2015 Office outpatient visit 25 minutes Jodee Silva [facility] Start: 12-27-2014 End: 12-27-2014 Office outpatient visit 25 minutes Jodee Silva [facility] Start: 11-24-2014 End: 11-24-2014 Office outpatient visit 40 minutes Jodee Silva [facility] Start: 09-21-2014 End: 09-21-2014 Office outpatient visit 15 minutes Jodee Silva [facility] Procedures Date Procedure Procedure Detail Performing Clinician Start: 11-05-2024 Dual energy X-ray absorptiometry Dr. Jodee Perez DO Work Phone: Start: 07-21-2024 Liquid based cervica l cytology screening Dr. Jodee Perez DO Work Phone: Comment on above: NEGATIVE FOR INTRAEP ITHELIAL LESION OR MALIGNANCY.CELLULAR CHANGES ASSOCIATED WITH ATROPHY ARE PRESENT. This liquid based Th inPrep(R) pap test was screened withthe use of an image guided system. Start: 07-21-2024 Screening mammography Yogesh Perez DO Work Phone: Start: 07-10-2022 Screening mammography Yogesh easley Jodee Perez Work Phone: Start: 07-10-2022 End: 07-10-2022 SCRN MAMM (CAD)W/OMARI BILAT Procedure Note: See Note; NOTES: [facility] Imaging Services [address] [place] [address] SCRN MAMM (CAD)W/OMARI BILAT MR#: [id number] Acct: [id number] Name: KATARINA GUPTA BOB Rep #: [id number] : 1960 F 62 From: Farhan esposito MD PCP: Dr. Jodee Perez, DO Status: REG CLI Study: SCRN MAMM (CAD)W/OMARI BILAT Date of Exam: 06/24 01/13 Exam# [id number] Ordering Dr: Stacie Dewitt VENDING ROUTE DRIVER VENDING ROUTE DRIVER -C MAMMOGRAPHY - BILATERAL SCREENING REASON FOR EXAM: Female, 62 years old. Routine annual screening examination. PERTINENT HISTORY: Non-contributory. TECHNIQUE: Digital bilateral breast omari (3D mammographic acquisition) in the CC and MLO projections. 2-D mediolateral oblique (MLO) and craniocaudad (CC) views of both breasts were obtained. CAD: Full Field Digital Mammography with Computer Added Detection was performed. COMPARISON: Comparison is made with prior study dated 07/04/2021 and 06/13/2020. FINDINGS: Breast Composition: The breasts are extremely dense, which lowers the sensitivity of mammography. There are no dominant masses or suspicious calcifications. No other significant abnormalities are identified. There has been no significant change since the prior study. BI/SCRN MAMM (CAD)W/OMARI BILAT IMPRESSION: Stable bilateral screening mammogram. Yearly follow-up mammogram recommended. (A) ASSESSMENT CATEGORY: BIRADS Category 1: Negative. A letter regarding these results will be sent to the patient by the facility within 30 days. Approximately 10% of breast cancers are not detected by mammography. A normal mammogram should not delay biopsy of a clinically suspicious abnormality. [id number] Electronically Signed: Farhan Lindsey MD at 12:09 EST Reading Location ID and State: [address] [place] [address] , Service support , CC: MARBELLA Dewitt; Dr. Jodee Perez DO Monorail Hooker: Signed Jodee Perez DO Work Phone: Start: 07-10-2022 End: 07-10-2022 Ceramic Tile Mechanic Office Visit Report Procedure Note: See Note; NOTES: [facility] [address] [place], [place] [id number] OFFICE VISIT Date of Service: 07/10/22 MR#: [id number] Acct: [id number] Name: KATARINA GUPTA BOB Rep #: [id number] : 1960 Provider: MARBELLA narvaez Age/Sex: 62/F Location[place] [facility] [place] Status: Signed Intake Vital Signs 07/04/21 08:50 07/10/22 09:07 07/10/22 09:12 Height 5 ft 4 in 5 ft 4 in 5 ft 4 in Weight: 151 lb BMI 25.9 BP 132/76 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) Chief Complaint: Annual Steel Hanger Required: No Is patient in pain?: No Allergies No Known Allergies Allergy (Verified 07/10/22 09:06) Medications levothyroxine 75 mcg tablet 75 mcg PO DAILY thyroid 03/29/16 [History Confirmed 07/10/22] cholecalciferol (vitamin D3) 50 mcg (2,000 unit) capsule 2,000 unit PO DAILY vitamin 05/25/19 [History Confirmed 07/10/22] ascorbate calcium (vitamin C) 500 mg tablet 500 mg PO DAILY supplement 06/13/20 [History Confirmed 07/10/22] sertraline 50 mg tablet 100 mg PO DAILY mental health 07/04/21 [History Confirmed 07/10/22] Is last menstrual period known: No Post menopausal: Yes Patient : No : No PFSH Medical History Hypothyroidism Social History number of children: 2 current occupational status: employed current occupation: [employer] Smoking Status: Never smoker alcohol intake: current alcohol intake frequency: holidays/special occasions only substance use type: does not use caffeine: No what type of physical activity do you participate in: walking frequency: 1-2 times per week seatbelt use: always do you feel safe at home: Yes additional social history: [place] History 4 Elective abortions Hx Para 2 Spontaneous abortions Hx # Term Pregnancies 2 Ectopic pregnancies Hx # Pregnancies Multiple births # of living children 2 Past Pregnancies Del. Date Name GA/Weeks Outcome Route Bth Weight Gen Labor Lgth Anesthesia Del Locat Provider FOB Unknown Luis Miguel 1987 Stephanie Hobson 1993 HPI Encounter for routine gynecological examination Details: KATARINA GUPTA is a 62 year old who presents for annual exam. Denies concerns Last PAP: 2019 History of abnormal PAP: no Last mammogram: today History of abnormal mammogram: no Colon cancer screening: Cologuard 2021 Other preventative health care screenings: Chris Female Reproductive History Questions: metorrhagia: No, sexually active: Yes, dyspareunia: No and PCB: No Menopausal Treatment: No HRT, No Vaginal Estrogen, No Osphena, No OTC treatments and No prescription non-hormonal treatment ROS Const Constitutional: Denies fatigue, weight gain or weight loss Cardio Card: Denies chest pain Resp Resp: Denies cough or dyspnea on exertion GI GI: Denies abdominal pain, bloating, change in stool character, constipation or vomiting : Reports as per HPI; Denies difficulty voiding, pelvic pain, urinary frequency, urinary incontinence, urinary urgency, vaginal discharge or vaginal pruritus Exam Const General: cooperative, healthy appearing, no acute distress and well developed Orientation: alert, oriented to person and oriented to place [facility] Head: normal to inspection Neck Neck: normal visual inspection Thyroid: thyroid normal Lymphatic: no lymphadenopathy noted Chest Breast inspection: normal inspection of the breasts and normal inspection of the axillae Breast palpation: normal palpation of the breasts, normal palpation of the axillae and no axillary lymphadenopathy Resp Effort Inspection: normal respiratory effort GI Palpation: soft, no masses and nontender Rectal Exam: deferred External Female Exam: normal external appearance and normal appearance of the urethra Urethra: normal appearance of the urethra and normal palpation Speculum Exam - Vagina: normal appearance of the vagina and normal vaginal discharge Speculum Exam - Cervix: normal appearance of the cervix Bimanual Exam- Vagina Uterus: normal bimanual exam, uterine size normal, uterine shape normal and non-tender Bimanual Exam- Adnexa, other: normal adnexae, no masses, normal and non-tender Pelvic Support: normal Neuro General: patient alert and patient oriented x3 Psych Affect: normal affect Coding Level of Care Code Off vis,est,prev 40-64yrs Diagnoses Encounter for routine gynecological examination Z01.419 Gynecological examination findings: abnormal findings ABSENT Assessment and Plan Assessment and Plan (1) Encounter for routine gynecological examination: Qualifiers: Gynecological examination findings: abnormal findings ABSENT Qualified Code(s): Z01.419 - Encounter for gynecological examination (general) (routine) without abnormal findings Plan Completed breast and pelvic exam Reviewed diet and exercise Pap 2019 Mammogram today breast self exam encouraged monthly Colonoscopy cologuard 2021 Bone density age 65 with PCP RTO 1 year, prn with problems Stacie Dewitt GRISTMILLER 07/10/22 0941 <Electronically signed by Stacei Dewitt NP VENDING ROUTE DRIVER-C> Date Stacie Dewitt NP VENDING ROUTE DRIVER-C Cosigner Signature: Date (if applicable) CC: Jodee Perez DO Work Phone: Start: 07-04-2021 End: 07-04-2021 SCRN MAMM (CAD)W/OMARI BILAT Comments: See Note; NOTES: [facility] Imaging Services [address] [place] [address] SCRN MAMM (CAD)W/OMARI BILAT MR#: [id number] Acct: [id number] Name: KATARINA GUPTA BOB Rep #: [id number] : 1960 F 61 From: Farhan esposito MD PCP: Dr. Jodee Perez, DO Status: REG CL Study: SCRN MAMM (CAD)W/OMARI BILAT Date of Exam: 06/24 07/15 Exam# [id number] Ordering Dr: Stacie Dewitt VENDING ROUTE DRIVER VENDING ROUTE DRIVER -C MAMMOGRAPHY - BILATERAL SCREENING REASON FOR EXAM: Female, 61 years old. Routine annual screening examination. PERTINENT HISTORY: Non-contributory. TECHNIQUE: Digital bilateral breast omari (3D mammographic acquisition) in the CC and MLO projections. 2-D mediolateral oblique (MLO) and craniocaudad (CC) views of both breasts were obtained. CAD: Full Field Digital Mammography with Computer Added Detection was performed. COMPARISON: Comparison is made with prior study dated 06/13/2020 and 06/11/2019. FINDINGS: Breast Composition: The breasts are extremely dense, which lowers the sensitivity of mammography. There are no dominant masses or suspicious calcifications. No other significant abnormalities are identified. There has been no significant change since the prior study. BI/SCRN MAMM (CAD)W/OMARI BILAT IMPRESSION: Stable bilateral screening mammogram. Yearly follow-up mammogram recommended. (A) ASSESSMENT CATEGORY: BIRADS Category 1: Negative. A letter regarding these results will be sent to the patient by the facility within 30 days. Approximately 10% of breast cancers are not detected by mammography. A normal mammogram should not delay biopsy of a clinically suspicious abnormality. [id number] Electronically Signed: Farhan Lindsey MD at 10:25 EST , Service support , CC: MARBELLA Dewitt; Dr. Jodee Perez DO Monorail Hooker: Signed Jodee Perez DO Work Phone: Start: 07-04-2021 End: 07-04-2021 Ceramic Tile Mechanic Office Visit Report Comments: See Note; NOTES: [facility] 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 Hanger Required: No Is patient in pain?: No Allergies No Known Allergies Allergy (Verified 07/04/21 08:50) Medications levothyroxine 75 mcg PO DAILY 03/29/16 [History Confirmed 07/04/21] cholecalciferol (vitamin D3) 50 mcg (2,000 unit) capsule 2,000 unit PO DAILY 05/25/19 [History Confirmed 07/04/21] ascorbate calcium (vitamin C) 500 mg tablet 500 mg PO DAILY 06/13/20 [History Confirmed 07/04/21] sertraline 50 mg tablet 100 mg PO DAILY tab 07/04/21 [History Confirmed 07/04/21] Is last menstrual period known: No Patient : No : No PFSH Medical History Hypothyroidism Social History (Updated 07/04/21 @ 08:51 by Adeline Estrada) number of children: 2 current occupational status: employed current occupation: [employer] Smoking Status: Never smoker alcohol intake: current alcohol intake frequency: holidays/special occasions only substance use type: does not use caffeine: No what type of physical activity do you participate in: walking frequency: 1-2 times per week seatbelt use: always do you feel safe at home: Yes additional social history: [employer] Pregancy History 4 Elective abortions Hx Para 2 Spontaneous abortions Hx # Term Pregnancies 2 Ectopic pregnancies Hx # Pregnancies Multiple births # of living children 2 Past Pregnancies Del. Date Name GA/Weeks Outcome Route Bth Weight Gen Labor Lgth Anesthesia Del [facility] Provider FOB Unknown Luis Miguel 1987 Unknown Jazlyn 1993 HPI Encounter for routine gynecological examination: Details: KATARINA GUPTA is a 61 year old who presents for annual exam. Denies concerns. Last PAP: 2019 History of abnormal PAP: no Last mammogram: today History of abnormal mammogram: neg bx Colon cancer screening: declines Other preventative health care screenings: Chris Details: KATARINA GUPTA is a 61 year old who presents for annual exam. Last PAP: [] History of abnormal PAP: [] Last mammogram: [] History of abnormal mammogram: [] Colon cancer screening: [] Other preventative health care screenings: [] ROS Const Constitutional: Denies fatigue, weight gain or weight loss Cardio Card: Denies chest pain Resp Resp: Denies cough or dyspnea on exertion GI GI: Denies abdominal pain, bloating, change in stool character, constipation or vomiting : Reports as per HPI; Denies difficulty voiding, pelvic pain, urinary frequency, urinary incontinence, urinary urgency, vaginal discharge or vaginal pruritus Exam Const General: cooperative, healthy appearing, no acute distress and well developed Orientation: alert, oriented to person and oriented to place HENMT Head: normal to inspection Neck Neck: normal visual inspection Thyroid: thyroid normal Lymphatic: no lymphadenopathy noted Chest Breast inspection: normal inspection of the breasts and normal inspection of the axillae Breast palpation: normal palpation of the breasts, normal palpation of the axillae and no axillary lymphadenopathy Resp Effort Inspection: normal respiratory effort GI Palpation: soft, no masses and nontender Rectal Exam: deferred External Female Exam: normal external appearance and normal appearance of the urethra Urethra: normal appearance of the urethra and normal palpation Speculum Exam - Vagina: normal appearance of the vagina and normal vaginal discharge Speculum Exam - Cervix: normal appearance of the cervix Bimanual Exam- Vagina Uterus: normal bimanual exam, uterine size normal, uterine shape normal and non-tender Bimanual Exam- Adnexa, other: normal adnexae, no masses, normal and non-tender Pelvic Support: normal Neuro General: patient alert and patient oriented x3 Psych Affect: normal affect Coding Level of Care Code Off vis,est,prev 40-64yrs Diagnoses Encounter for routine gynecological examination Z01.419 Gynecological examination findings: abnormal findings ABSENT Assessment and Plan Assessment and Plan (1) Encounter for routine gynecological examination: Qualifiers: Gynecological examination findings: abnormal findings ABSENT Qualified Code(s): Z01.419 - Encounter for gynecological examination (general) (routine) without abnormal findings Plan - Stacie Dewitt VENDING ROUTE DRIVER, VENDING ROUTE DRIVER-C: Completed breast and pelvic exam Reviewed diet and exercise Pap 2019 Mammogram today breast self exam encouraged monthly Colonoscopy encouraged. Will consider colaguard with PCP Bone density with PCP RTO 1 year, prn with problems Stacie Dewitt CNP 07/04/21 0908 <Electronically signed by Stacie Dewitt NP VENDING ROUTE DRIVER-C> Date Stacie Dewitt NP VENDING ROUTE DRIVER-C Cosigner Signature: Date (if applicable) CC: Jodee Perez DO Work Phone: Start: 09-17-2020 End: 09-17-2020 Emergency Department Summary Comments: See Note; NOTES: [facility] Medical Records Department [address] [place] [address] Emergency Department Summary 09/17/20 MR#: [id number] Acct: [id number] Name: KATARINA GUPTA Rep #: [id number] : 1960 60 From: Reinaldo Jolly MD PCP: Dr. Jodee Perez, DO Status:REG ER - ER Visit Summary Date of Service: 09/17/20 Chief Complaint: Chest pain History of Present Illness: The patient is a [address] Dominguez. She reports she has chest pain again approximate 20 minutes ago while she was cooking. It is a dull pain is 3-10 worsened to 10 currently. States it is worsening worsened by nothing including exertion or deep breaths. Is also relieved by nothing. She reports has been nauseated and diaphoretic with this. She also complains of palpitations. States that initially the pain radiated into her left lower quadrant and she had an episode of diarrhea. No blood in her stools. Patient denies any chest pain or change in dyspnea exertion in the past month. However, she does report that she has intermittent left-sided chest pain that radiates into her abdomen that does not seem to be related to exertion. She had a stress test a long time ago. She has never had a heart catheterization. Physical Examination: Vitals: Stable. Afebrile. General: Well-nourished and well-developed. Head: Normocephalic atraumatic. Neck: Supple, no lymphadenopathy. No JVD. Nontender. Cardiovascular: Regular rate and rhythm. No murmurs. Respiratory: No respiratory distress. Clear to auscultation bilaterally. Abdominal: Soft, nontender, nondistended, normal bowel sounds. No guarding, rebound, or peritoneal signs. Back: Nontender. Extremities: Nontender, no edema. Skin: Normal color, no rash. Neurologic: Alert and oriented ???3. Cranial nerves II through XII are intact. Normal strength and sensation. Psych: Normal affect. Test Results: EKG is sinus tach at [address] changes. There is ST depression in leads V3, V4 II, III, and aVF. This is not significantly changed from March 2016. Troponin is negat avelina. LFTs are normal. Lipase is normal. Chem-7 shows a BUN of 23 and glucose 131. CBC shows lymphocytes 43. TSH 3.24. Clinical Impression(s) from Imaging Studies Chest X-Ray 09/17/20 19:26 IMPRESSION: No acute cardiopulmonary abnormality. at 2009 Reported and signed by: Cecelia Waters MD Electronically Signed: Cecelia Waters MD at 20:09 EDT Tel , Service support , Abdomen/Pelvis CT 09/17/20 20:16 IMPRESSION: No acute abdominopelvic abnormality. Individualized dose optimization techniques were used for this CT. at 2052 Reported and signed by: Cecelia Waters MD Electronically Signed: Cecelia Waters MD at 20:52 EDT Tel , Service support , Emergency Department Course and Treatment: Patient was treated with aspirin and Zofran. She is resting comfortably. She is pain-free at this time. Treatment Plan: Had a prolonged discussion with the patient about treatment options. Given her EKG changes I feel that the most safe choice is admission for further evaluation. She has agreed to this. She will be discussed with Dr. Marsh. Disposition: Admitted in improved condition. Impression: 1. Atypical chest pain. 2. Heart score of 3. 3. Diarrhea. This note was generated with [employer] dictation software. It may contain incorrect words, spelling, and punctuation that were not noted in review of the chart prior to signing ED Disposition - Plan for ED Patient: Referrals: Jodee Perez, DO [Primary Care Provider] - What to do if you have Problems For any increased pain, shortness of breath, bleeding, nausea or vomiting, chest pain, or any unexpected problems, contact your Primary Care Provider. Call [facility] ([phone]) or report to the closest Emergency Room. Call 911 if necessary. 09/17/202122 <Electronically signed by Reinaldo Jolly MD> Date Reinaldo Jolly MD Cosigner Signature (If Indicated): Date CC: DO Jodee Rubin Start: 09-17-2020 End: 09-17-2020 Abdomen/Pelvis W IV Cont ONLY Comments: See Note; NOTES: [facility] Imaging Services [address] [place] [address] Abdomen/Pelvis W IV Cont ONLY MR#: [id number] Acct: [id number] Name: KATARINA GUPTA Rep #: [id number] : 1960 F 60 From: Cecelia hughes MD PCP: Dr. Jodee Perez, DO Status: REG ER Study: Abdomen/Pelvis W IV Cont ONLY Date of Exam: Exam# [id number] Ordering Dr: Reinaldo Jolly MD HISTORY: Epigastric pain ADDITIONAL HISTORY: None provided. EXAMINATION/TECHNIQUE: CT Abdomen And Pelvis W/ Contrast Injection CONTRAST: 100mL Isovue-370 IV contrast. Enteric contrast was not given. A radiation dose optimization technique was used for this scan. Number of images including paperwork: 345 COMPARISON: None FINDINGS: LOWER THORAX: No consolidation or pleural effusion. Minimal basilar atelectasis. LIVER: No concerning focal lesion. GALLBLADDER: No radiopaque calculi. BILE DUCTS: No significant biliary dilatation. SPLEEN: Unremarkable. PANCREAS: Unremarkable. ADRENAL GLANDS: Unremarkable. KIDNEYS/URETERS: Unremarkable. BOWEL: No bowel obstruction. No significant bowel wall thickening. No localized inflammation. APPENDIX: No evidence of appendicitis. FREE FLUID: No significant free fluid. FREE AIR: None. LYMPH NODES: No pathologic appearing adenopathy. PERITONEUM, RETROPERITONEUM AND MESENTERY: Otherwise unremarkable. VASCULATURE: Unremarkable as imaged. PELVIS: Unremarkable bladder. Multiple uterine masses compatible with fibroids. ABDOMINAL WALL: Unremarkable. OSSEOUS AND SOFT TISSUE STRUCTURES: No acute skeletal findings. Degenerative changes. CT/Abdomen/Pelvis W IV Cont ONLY IMPRESSION: No acute abdominopelvic abnormality. Individualized dose optimization techniques were used for this CT. at 2052 Reported and signed by: Cecelia Waters MD Electronically Signed: Cecelia Waters MD at 20:52 EDT Tel , Service support , CC: Dr. Jodee Perez DO; Dr. Reinaldo Jolly MD Monorail Hooker: Signed Jodee Perez Start: 09-17-2020 End: 09-17-2020 Chest 1 View (Portable) Comments: See Note; NOTES: [facility] Imaging Services [address] [place] [id number] Chest 1 View (Portable) MR#: [id number] Acct: [id number] Name: KATARINA GUPTA Rep #: [id number] : 1960 F 60 From: Cecelia hughes MD PCP: Dr. Jodee Perez DO Status: REG ER Study: Chest 1 View (Portable) Date of Exam: 09/17/20 Exam# [id number] Ordering Dr: Reinaldo Jolly MD HISTORY: chest pain ADDITIONAL HISTORY: None provided. EXAMINATION/TECHNIQUE: XR Chest 1 View AP/PA Number of images including paperwork: 1 COMPARISON: 04/05/2016 FINDINGS: LUNGS AND PLEURA: No consolidation, mass or pleural effusion. CARDIAC SILHOUETTE: Unremarkable. MEDIASTINUM AND JOSE: Aortic calcification. UPPER ABDOMEN: Unremarkable. SKELETON AND SOFT TISSUES: No acute skeletal findings. OTHER DEVICES AND HARDWARE: None. RAD/Chest 1 View (Portable) IMPRESSION: No acute cardiopulmonary abnormality. at 2009 Reported and signed by: Cecelia Waters MD Electronically Signed: Cecelia Waters MD at 20:09 EDT Tel , Service support , CC: Dr. Jodee Perez DO; Dr. Reinaldo Jolly MD Monorail Hooker: Signed Jodee Perez Start: 06-13-2020 End: 06-13-2020 Ceramic Tile Mechanic Office Visit Report Comments: See Note; NOTES: [facility] 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) Steel Hanger Required: No Accompanied by: self Is patient in pain?: Yes (generalized achiness) Allergies No Known Allergies Allergy (Verified 06/13/20 10:54) Medications Levothyroxine [Synthroid] 75 mcg PO DAILY 03/29/16 [History Confirmed 06/13/20] cholecalciferol (vitamin D3) 50 mcg (2,000 unit) capsule 2,000 unit PO DAILY 05/25/19 [History Confirmed 06/13/20] ascorbate calcium (vitamin C) 500 mg tablet 500 mg PO DAILY 06/13/20 [History Confirmed 06/13/20] Is last menstrual period known: No Post menopausal: Yes Patient : No : [facility] Medical History Hypothyroidism (Acute) Social History (Updated 06/13/20 @ 11:33 by Stacie Dewitt NP, ZENAIDAC) number of children: 2 current occupational status: employed current occupation: [employer] Smoking Status: Never smoker alcohol intake: current alcohol intake frequency: holidays/special occasions only substance use type: does not use seatbelt use: always do you feel safe at home: Yes additional social history: [employer] Pregancy History 4 Elective abortions Hx Para 2 Spontaneous abortions Hx # Term Pregnancies 2 Ectopic pregnancies Hx # Pregnancies Multiple births # of living children 2 Past Pregnancies Del. Date Name GA/Weeks Outcome [facility] Luis Miguel 1987 Unknown Jazlyn 1993 HPI Annual (CONSTRUCTION PROJECT ASSISTANT) : Details: KATARINA GUPTA is a 59 year old who presents for annual exam. Not taking zoloft so feeling anxious. Noting more personnel stress due to job. Muscles feel tight in shoulders, some times down left arm. No chest pain, tingling, dizziness, palpitations or SOB. Last PAP: 2017 History of abnormal PAP:no Last mammogram: today History of abnormal mammogram: no Colon cancer screening: up to date Other preventative health care screenings: Chris Female Reproductive History Questions: Metorrhagia: No, Sexually active: Yes Menopausal Symptoms: No hot flashes, No night sweats, No weight change, No mood changes, No difficulty concentrating, No sleep problems, No change in libido Menopausal Treatment: No HRT, No Vaginal Estrogen, No Osphena, No OTC treatments, No prescription non-hormonal treatment ROS Const Constitutional: Denies night sweats Cardio Card: Denies chest pain Resp Resp: Denies cough or shortness of breath with activity GI GI: Denies abdominal pain, bloating, change in stools, constipation or vomiting : Denies hot flashes Psych Psych: Denies change in sex drive or difficulty concentrating Exam Const General: cooperative, healthy appearing, no acute distress, well developed Orientation: alert, oriented to person, oriented to place HENDE Head: normal to inspection Neck Neck: normal visual inspection Thyroid: thyroid normal Lymphatic: no lymphadenopathy noted Chest Breast inspection: normal inspection of the breasts, normal inspection of the axillae Breast palpation: normal palpation of the breasts, normal palpation of the axillae, no axillary lymphadenopathy Resp Effort Inspection: normal respiratory effort GI Palpation: soft, no masses, nontender Rectal Exam: deferred External Female Exam: normal external appearance, normal appearance of the urethra Urethra: normal appearance of the urethra, normal palpation Speculum Exam - Vagina: normal appearance of the vagina, normal vaginal discharge Speculum Exam - Cervix: normal appearance of the cervix Bimanual Exam- Vagina Uterus: normal bimanual exam, uterine size normal, uterine shape normal, uterus non-tender Bimanual Exam- Adnexa, other: normal adnexae, no adnexal masses, pelvic support normal, adnexae non- tender Pelvic Support: normal Neuro General: alert, oriented x3 Psych Affect: normal affect Assessment Plan Problems 1. Encounter for gynecological examination with abnormal finding Z01.411 2. Pap smear for cervical cancer screening Z12.4 3. Anxiety F41.9 4. Musculoskeletal pain of left upper extremity M79.602 Plan Completed breast and pelvic exam Reviewed diet and exercise Pap thin prep pap with HPV Mammogram today,pending breast self exam encouraged monthly Call PCP today to schedule concerning arm/shoulder discomfort Colonoscopy up to date Bone density with PCP RTO 1 year, prn with problems Stacie Dewitt GRISTMILLER Orders Orders: PAP IG HPV APTIMA 16/18,45 Today Medications Discontinued: sertraline (Zoloft) Discontinued Reason: Pt no longer taking 50 mg PO DAILY Coding Level of Care Code Off vis,est,prev 40-64yrs Diagnoses Encounter for gynecological examination with abnormal finding Z01.411 ?Gynecological examination findings: abnormal findings PRESENT Pap smear for cervical cancer screening Z12.4 Anxiety F41.9 Musculoskeletal pain of left upper extremity M79.602 06/13/20 1133 <Electronically signed by Stacie Dewitt NP, NP-C> Date Stacie TYSON Cosigner Signature: Date (if applicable) CC: Jodee Perez Start: 06-13-2020 End: 06-13-2020 SCREEN MAMM (CAD) W/OMARI MEJIA Comments: See Note; NOTES: [facility] Imaging Services [address] [place] [address] SCREEN MAMM (CAD) W/OMARI BILAT MR#: [id number] Acct: [id number] Name: KATARINA GUPTA Rep #: [id number] : 1960 F 59 From: Farhan esposito MD PCP: Dr. Jodee Perez, DO Status: [facility] Study: SCREEN MAMM (CAD) W/OMARI BILAT Date of Exam: 08/14/19 Exam# [id number] Ordering Dr: Stacie Dewitt VENDING ROUTE DRIVER VENDING ROUTE DRIVER -C MAMMOGRAPHY - BILATERAL SCREENING REASON FOR EXAM: Female, 59 years old. Routine annual screening examination. PERTINENT HISTORY: Non-contributory. TECHNIQUE: Digital bilateral breast omari (3D mammographic acquisition) in the CC and MLO projections. 2-D mediolateral oblique (MLO) and craniocaudad (CC) views of both breasts were obtained. CAD: Full Field Digital Mammography with Computer Added Detection was performed. COMPARISON: Comparison is made with prior study dated 06/11/2019 and 05/24/2018. FINDINGS: Breast Composition: The breasts are extremely dense, which lowers the sensitivity of mammography. There are no dominant masses or suspicious calcifications. Scattered benign-appearing bilateral calcifications. No other significant abnormalities are identified. There has been no significant change since the prior study. BI/SCREEN MAMM (CAD) W/OMARI BILAT IMPRESSION: Stable bilateral screening mammogram. Yearly follow-up mammogram recommended. (A) ASSESSMENT CATEGORY: BIRADS Category 2: Benign. A letter regarding these results will be sent to the patient by the facility within 30 days. Approximately 10% of breast cancers are not detected by mammography. A normal mammogram should not delay biopsy of a clinically suspicious abnormality. [id number] Electronically Signed: Farhan Lindsey, at 10:49 EST , Service support , CC: MARBELLA Dewitt; Dr. Jodee Perez DO Monorail Hooker: Signed Jodee Perez Work Phone: Start: 06-11-2019 End: 06-11-2019 SCREEN MAMM (CAD) W/OMARI BILAT Comments: See Note; NOTES: [facility] Imaging Services [address] [place] [address] SCREEN MAMM (CAD) W/OMARI BILAT MR#: [id number] Acct: [id number] Name: KATARINA GUPTA Rep #: [id number] : 1960 F 58 From: Farhan Lindsey MD PCP: Jodee Perez DO Status: REG CLI Study: SCREEN MAMM (CAD) W/OMARI BILAT Date of Exam: 06/11/19 Exam# [id number] Ordering Dr: Stacie Dewitt MAMMOGRAPHY - BILATERAL SCREENING REASON FOR EXAM: Female, 58 years old. Routine annual screening examination. PERTINENT HISTORY: Non-contributory. TECHNIQUE: Digital bilateral breast omari (3D mammographic acquisition) in the CC and MLO projections. 2-D mediolateral oblique (MLO) and craniocaudad (CC) views of both breasts were obtained. CAD: Full Field Digital Mammography with Computer Added Detection was performed. COMPARISON: Comparison is made with prior study dated May 24, 2018 and April 30, 2017. FINDINGS: Breast Composition: The breasts are extremely dense, which lowers the sensitivity of mammography. There are no dominant masses or suspicious calcifications. No other significant abnormalities are identified. There has been no significant change since the prior study. BI/SCREEN MAMM (CAD) W/OMARI BILAT IMPRESSION: Stable bilateral screening mammogram. Yearly follow-up mammogram recommended. (A) ASSESSMENT CATEGORY: BIRADS Category 1: Negative. A letter regarding these results will be sent to the patient by the facility within 30 days. Approximately 10% of breast cancers are not detected by mammography. A normal mammogram should not delay biopsy of a clinically suspicious abnormality. 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) Allergies No Known Allergies Allergy (Verified 05/25/19 09:49) Medications Levothyroxine [Synthroid] 75 mcg PO DAILY 03/29/16 [History Confirmed 05/25/19] cholecalciferol (vitamin D3) 2,000 unit capsule 2,000 unit PO DAILY 05/25/19 [History Confirmed 05/25/19] sertraline 50 mg tablet 50 mg PO DAILY 05/25/19 [History Confirmed 05/25/19] Is last menstrual period known: No Post menopausal: Yes Patient : No : No PFSH Medical History Hypothyroidism (Acute) Social History (Updated 05/25/19 @ 10:16 by MARBELLA Mandel) number of children: 2 current occupational status: employed current occupation: [email or web address] Smoking Status: Never smoker alcohol intake: current alcohol intake frequency: holidays/special occasions only substance use type: does not use seatbelt use: always do you feel safe at home: Yes additional social history: Danish [employer] Pregancy History 4 Elective abortions Hx Para 2 Spontaneous abortions Past Pregnancies Del. DatName GA/WeeksOutcome Route [facility] LocaProviderFOB e ht en [facility] HPI Encounter for routine gynecological examination: Details: KATARINA GUPTA is a 58 year old who presents for annual exam. Denies concerns Last PAP: 2016 History of abnormal PAP: no Last mammogram: 05/2018 History of abnormal mammogram: left breast asp-benign Colon cancer screening: declines Other preventative health care screenings: Dr Perez Female Reproductive History Questions: Metorrhagia: No, Sexually active: Yes, Dyspareunia: No ROS Const Constitutional: Denies fatigue, weight gain or weight loss Cardio Card: Denies chest pain Resp Resp: Denies cough or shortness of breath with activity GI GI: Denies abdominal pain, bloating, change in stools, constipation or vomiting : Reports as per HPI; denies difficulty urinating, pelvic pain, urinary frequency, urinary incontinence, urinary urgency, vaginal discharge or vaginal itching Exam Const General: cooperative, no acute distress Nutritional Appearance: well nourished Orientation: oriented x3 HENMT Head: normal to inspection Neck Neck: normal visual inspection Thyroid: thyroid normal Lymphatic: no lymphadenopathy noted Chest Breast inspection: normal inspection of the breasts, normal inspection of the axillae Breast palpation: normal palpation of the breasts, normal palpation of the axillae, no axillary lymphadenopathy Resp Effort AND Inspection: normal respiratory effort GI Palpation: soft, no masses, nontender Rectal Exam: deferred External Female Exam: normal [...] Adnexa, other: normal adnexae, no adnexal masses, pelvic support normal, adnexae non-tender Pelvic Support: normal Neuro General: alert, oriented x3 Psych Affect: normal affect Assessment AND Plan 1. Encounter for gynecological examination without abnormal finding Z01.419 Plan Completed breast and pelvic exam Reviewed diet and exercise Pap 2016 Mammogram ordered breast self exam encouraged monthly Contraception na Colonoscopy enc. Will discuss colagard with PCP Bone density age 65 RTO 1 year, prn with problems Stacie Dewitt CNP Coding Level of Care Code Off vis,est,prev 40-64yrs Diagnoses Encounter for gynecological examination without abnormal finding Z01.419 Gynecological examination findings: abnormal findings ABSENT 05/25/19 1016 <Electronically signed by Stacie ESTEVEZC> Date Stacie ESTEVEZC Cosigner Signature: Date (if applicable) CC: Jodee Perez Start: 05-24-2018 End: 05-26-2018 SCREENING MAMM (CAD), BILAT Comments: See Note; NOTES: [facility] Imaging Services [address] [place] [address] SCREENING MAMM (CAD), BILAT MR#: [id number] Acct: [id number] Name: KATARINA GUPTA Rep #: [id number] : 1960 F 57 From: Farhan Lindsey MD PCP: Jodee Perez DO Status: [facility] Study: SCREENING MAMM (CAD), BILAT Date of Exam: 05/24/18 Exam# [id number] Ordering Dr: Stacie Dewitt VENDING ROUTE DRIVERMandy MAMMOGRAPHY - BILATERAL SCREENING REASON FOR EXAM: Female, 57 years old. Routine annual screening examination. PERTINENT HISTORY: Non-contributory. TECHNIQUE: Digital bilateral breast omari (3D mammographic acquisition) in the CC and [...] delay biopsy of a clinically suspicious abnormality. 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 [place] [address] OFFICE VISIT Date of Service: 05/20/18 MR#: [id number] Acct: [id number] Name: KATARINA GUPTA Rep #: [id number] : 1960 Provider: JAI Dewitt Age/Sex: 57/F Location: [facility] Status: Signed Intake Vital Signs05/20/18 Height 5 ft 4 in 05/20/18 Weight: 142 lb 4 oz 05/20/18 Body Mass Index (BMI) 24.4 05/20/18 Blood Pressure 124/80 H Intake Visit Reasons: est annual,last seen 04/30/2017 Steel Hanger Required: No Is patient in pain?: No [...] 2 current occupational status: employed current occupation: [employer] Smoking Status: Never smoker alcohol intake: current alcohol intake frequency: holidays/special occasions only substance use type: does not use seatbelt use: always do you feel safe at home: Yes additional social history: Danish [employer] Pregancy History 4 Elective abortions Hx Para [...] alert, oriented to person, oriented to place HENDE Head: normal to inspection Neck Neck: normal [...] 1 year, prn with problems Stacie Dewitt GRISTMILLER Coding Level of Care Code Off vis,est,prev 40-64yrs Diagnoses Encounter for gynecological examination without abnormal finding Z01.419 Gynecological examination findings: abnormal findings ABSENT 05/20/18 1332 <Electronically signed by Stacie TYSON> Date Stacie ESTEVEZC Cosigner Signature: Date (if applicable) CC: Jodee Perez Start: 05-15-2017 End: 05-15-2017 Documentation of current medications Frankie SIEGEL Work Phone: Start: 05-08-2017 End: 05-08-2017 Documentation of current medications Stefany Fernandez ESTELLE Start: 05-08-2017 End: 05-08-2017 Incision & removal foreign body subq tiss simple Frankie SIEGEL Work Phone: Start: 04-30-2017 End: 04-30-2017 Documentation of current medications Stacie Dewitt NP Work Phone: Start: 04-30-2017 End: 04-30-2017 SCREENING MAMM (CAD), BILAT Comments: See Note; NOTES: [facility] Imaging Services [address] [place] [address] SCREENING MAMM (CAD), BILAT MR#: [id number] Acct: [id number] Name: KATARINA GUPTA Rep #: [id number] : 1960 F 56 From: Farhan Lindsey MD PCP: Jodee Perez DO Status: [facility] Study: SCREENING MAMM (CAD), BILAT Date of Exam: 04/30/17 Exam# [id number] Ordering Dr: Stacie Dewitt VENDING ROUTE DRIVER-C MAMMOGRAPHY - BILATERAL SCREENING REASON FOR EXAM: Female, 56 years old. Routine annual screening examination. PERTINENT HISTORY: Non-contributory. TECHNIQUE: Digital bilateral breast omari (3D mammographic acquisition) in the CC and MLO projections. 2-D mediolateral oblique (MLO) and craniocaudad (CC) views of both breasts were obtained. CAD: Full Field Digital Mammography with Computer Added Detection was performed. COMPARISON: Comparison is made with prior outside examination dated April 23, 2016. FINDINGS: Breast Composition: The breasts are extremely dense, which lowers the sensitivity of mammography. There are no dominant masses or suspicious calcifications. No other significant abnormalities are identified. There has been no significant change since the prior study. HPBI/SCREENING MAMM (CAD), BILAT IMPRESSION: Stable bilateral screening mammogram. Yearly follow-up mammogram recommended. (A) ASSESSMENT CATEGORY: BIRADS Category 1: Negative. A letter regarding these results will be sent to the patient by the facility within 30 days. Approximately 10% of breast cancers are not detected by mammography. A normal mammogram should not delay biopsy of a clinically suspicious abnormality. [id number] Electronically Signed: Farhan Lindsey MD at 10:20 EST Tel [phone], Service support , CC: AJI Dewitt; Jodee Perez DO Monorail Hooker: Signed Jodee Perez Work Phone: Start: 04-30-2017 Screening for malign ant neoplasm of cervix Screening, cervical cancer Stacie Dewitt VENDING ROUTE DRIVER Work Phone: Start: 04-25-2017 End: 05-07-2017 Mammogram, screening Stacie Dewitt VENDING ROUTE DRIVER Work Phone: Start: 04-25-2017 Screening mammography Mammogra m yearly screening Stacie Dewitt VENDING ROUTE DRIVER Work Phone: Start: 04-12-2016 End: 04-12-2016 12 lead ECG Comments: See Note; NOTES: [facility] Cardiovascular Services [address] [place] [address] 12 Lead EKG 04/05/16 0412 MR#: [id number] Acct: [id number] Name: KATARINA GUPTA Rep #: [id number] : 1960 55 From: Codey Bamuann MD Attending Dr: Status: DEP Ordering Dr: Bri Thurman MD Date: 04/05/16 Location: ED Sex: F C Admitted: Test Reason : CP Blood Pressure : / mmHG Vent. Rate : 090 BPM Atrial Rate : 090 BPM P-R Int : 130 ms QRS Dur : 082 ms QT Int : 366 ms P-R-T Axes : 058 080 037 degrees QTc Int : 447 ms Normal sinus rhythm Normal ECG When compared with ECG of 29-MAR-2016 09:05, No significant change was found Confirmed by CODEY BAUMANN ([id number]), videotape editor ANA ROJAS ([id number]) on 04/12/2016 11:26:11 AM Referred By: . Confirmed By:CODEY BAUMANN 04/12/16 1126 Date Codey Baumann MD CC: Jodee Perez DO Date Dictated: 04/05/16411 Date Transcribed: 04/05/16411 Monorail Hooker: Signed Jodee Perez Start: 04-06-2016 End: 04-06-2016 Emergency Department Summary Comments: See Note; NOTES: [facility] Medical Records Department [address] [place] [address] Emergency Department Summary MR#: [id number] Acct: [id number] Name: KATARINA GUPTA Rep #: [id number] : 1960 55 From: Bri Thurman MD PCP: Jodee Perez DO Status: [facility] DATE OF SERVICE: 04/05/2016 HISTORY OF PRESENT ILLNESS: The patient presents for episode of palpitations. The patient was sleeping and woke up feeling discomfort in her chest like her heart was racing. Her took her pulse and it was 124 with blood pressure of 190/113 at home. The patient has been having these episodes for over a month now. She recently wore a Holter monitor by her primary care doctor for 24 hours, but has not had the results of that yet. She states that the sensation of her heart racing did not occur while she had the Holter monitor on for 24 hours. Discomfort is localized substernal and radiates into her left arm and back. The patient is currently having no complaints. She denies nausea, vomiting, diaphoresis, dyspnea, cough, fever or lightheadedness. The patient has history of hypertension; hypothyroidism, is on 75 mcg of levothyroxine daily; history of anxiety, on Ativan, Zoloft, BuSpar; history of hypertension, is on medication for that. PHYSICAL EXAMINATION: VITAL SIGNS: Reviewed. The patient is afebrile. Hemodynamically stable. Heart rate is 76, 149/83 blood pressure, 100% on room air. GENERAL: Well-nourished and well-developed, sitting in bed, in no distress. SKIN: Warm and dry, no rash. NECK: Supple. HEART: Regular in rate and rhythm. No murmur appreciated. LUNGS: Clear to auscultation bilaterally, no increased work of breathing. ABDOMEN: Soft, nontender, nondistended. EXTREMITIES: Nontender with no edema. Peripheral pulses are 2+ and symmetric in all distal extremities. EMERGENCY DEPARTMENT COURSE: Chest pain workup was performed. Chest x-ray showed no acute process. An EKG showed a sinus rhythm with no ischemia or ectopy, no prolonged QRS, no delta waves, no Brugada pattern. CBC and BMP were unremarkable for leukocytosis or anemia. Potassium was 3.3. Sodium was 133, no major derangements. Troponin was negative. The patient was given an aspirin and one nitro upon arrival, got a headache from the nitro, but had no further symptoms of palpitations. When she was reevaluated, she had no complaints, all symptoms had resolved. She had no further episodes of palpitations while in the Emergency Department. No episodes of rapid heart rate were noted on the desk monitor. The patient has a HEART score of 2. She is low risk for major adverse cardiac event in the next 30 days. This was discussed with the patient and she was comfortable going home. She will follow up with her primary care doctor to receive the results of her Holter monitor and to decide if she requires further workup such as stress test or wearing a Holter monitor for a longer period of time. She did have thyroid workup at her prior visit 1 week ago, which showed a normal TSH and free T4. These studies were not repeated tonight. The patient was discharged home with her . IMPRESSION: Palpitations. BRI THURMAN MD T: NTS JOB: [id number] 04/06/16 0851 <Electronically signed by Bri Thurman MD> Date Bri Dan Signature (If Indicated): Date CC: Jodee Perez DO Date Dictated: 04/05/16544 Date Transcribed: 04/05/16544 Monorail Hooker: Signed Jodee Perez Start: 04-05-2016 End: 04-05-2016 Discharge Instruction Comments: See Note; NOTES: [facility] Medical Records Department [address] [place] [address] Discharge Instruction 04/05/16533 MR#: [id number] Acct: [id number] Name: KATARINA GUPTA Rep #: [id number] : 1960 55 From: Bri Thurman MD PCP: Jodee Perez DO Status: DEP ER ED Disposition - Plan for ED Patient: Disposition: Home or Assisted Living Chief Complaint: Chest Pain Diagnosis: Intermittent palpitations Instructions: ED Palpitations Referrals: Jodee Perez DO [Primary Care Provider] - As soon as possible What to do if you have Problems For any increased pain, shortness of breath, bleeding, nausea or vomiting, chest pain, or any unexpected problems, contact your doctor. Call [facility] ([phone]) or report to the closest Emergency Room. Call 911 if necessary. 04/05/16 0742 <Electronically signed by Bri Thurman MD> Date Bri Dan Signature (If Indicated): Date CC: Jodee Blcak Start: 03-30-2016 End: 03-30-2016 12 lead ECG Comments: See Note; NOTES: [facility] Cardiovascular Services [address] [place] [address] 12 Lead EKG 03/29/16904 MR#: [id number] Acct: [id number] Name: KATARINA GUPTA Rep #: [id number] : 1960 55 From: Aly Camp MD Attending Dr: Status: DEP ER Ordering Dr: Neal Bazzi MD Date: 03/29/16 Location: ED Sex: F C Admitted: Test Reason : Blood Pressure : / mmHG Vent. Rate : 081 BPM Atrial Rate : 081 BPM P-R Int : 136 ms QRS Dur : 080 ms QT Int : 378 ms P-R-T Axes : 061 078 025 degrees QTc Int : 439 ms Normal sinus rhythm Normal ECG Confirmed by MCKENZIE WINKLER, ALY ([id number]), videotape editor ANA ROJAS ([id number]) on 03/30/2016 11:00:43 AM Referred By: SHAKILA Confirmed By:ALY CAMP MD 03/30/16 1100 Date Aly Camp MD CC: Jodee Perez DO Date Dictated: 03/29/16904 Date Transcribed: 03/29/16904 Monorail Hooker: Signed Jodee Perez Start: 03-29-2016 End: 03-29-2016 Emergency Department Summary Comments: See Note; NOTES: [facility] Medical Records Department [address] [place] [address] Emergency Department Summary MR#: [id number] Acct: [id number] Name: KATARINA GUPTA Rep #: [id number] : 1960 55 From: Neal Bazzi MD PCP: Jodee Perez DO Status: DEP ER DATE OF SERVICE: 03/29/2016 CHIEF COMPLAINT: Palpitations. HISTORY OF PRESENT ILLNESS: This is a 55-year-old female with a past medical history of anxiety, who presents today with palpitations. The patient states that she was at work when she noticed her heart racing. The patient was concerned and does took half an Ativan as well as her blood pressure medications. Upon arrival to the Emergency Department, the patient feels much improved. The patient states that she has been seen at an outside Emergency Departments in the area for similar complaints in the past. She denies any chest pain or shortness of breath. She tells me this feels like my anxiety. PAST MEDICAL HISTORY: Hypertension, anxiety, hypothyroid. PHYSICAL EXAMINATION: VITAL SIGNS: Stable, afebrile. GENERAL: This is a well-developed female in no distress. HEENT: Head is normocephalic, atraumatic. ENT exam reveals moist mucous membranes. NECK: Supple. CARDIOVASCULAR: Regular rate and rhythm. LUNGS: Clear to auscultation. ABDOMEN: Soft, nontender, nondistended. EXTREMITIES: Nontender without edema. SKIN: Normal color, without rash. NEUROLOGIC: Neurologically, there appears to be no focal deficits. Physical exam otherwise normal. EMERGENCY DEPARTMENT COURSE: EKG was obtained, which reveals sinus rhythm at a rate of 81. CBC, BMP, troponin are within normal limits. TSH is within normal limits as well. On re-evaluation at 1020 hours, the patient is in no distress. The patient was on desk monitor throughout her stay here in the Emergency Department for about 2 hours and she has remained in the normal range for her heart rate. She has not become tachycardic. Findings were discussed with the patient. I suspect the patient will likely need to wear a Holter monitor if her symptoms were to continue. Although all her symptoms may be related to anxiety as she states. All questions were answered. Return precautions discussed, otherwise follow up with her primary care physician. She is discharged. DIAGNOSIS: Palpitations. MD Sky García C: Jodee Perez DO T: BROOK JOB: [id number] 03/29/16 1159 <Electronically signed by Neal Bazzi MD> Date Neal Bazzi MD Cosigner Signature (If Indicated): Date CC: Jodee Perez DO Date Dictated: 03/29/16 1026 Date Transcribed: 03/29/16 102 Monorail Hooker: Signed Jodee Perez Start: 03-29-2016 End: 03-29-2016 Discharge Instruction Comments: See Note; NOTES: [facility] Medical Records Department [address] [place] [address] Discharge Instruction 03/29/16 1022 MR#: [id number] Acct: [id number] Name: KATARINA GUPTA Rep #: [id number] : 1960 55 From: Neal Bazzi MD PCP: Jodee Perez DO Status: REG ER ED Disposition - Plan for ED Patient: Chief Complaint: Palpitations Instructions: ED Palpitations What to do if you have Problems For any increased pain, shortness of breath, bleeding, nausea or vomiting, chest pain, or any unexpected problems, contact your doctor. Call [facility] ([phone]) or report to the closest Emergency Room. Call 911 if necessary. 03/29/16 1023 <Electronically signed by Neal Bazzi MD> Date Neal Bazzi MD Cosigner Signature (If Indicated): Date CC: Jodee Black Start: 08-19-2015 End: 08-19-2015 Ecg routine ecg w/least 12 lds w/i&r [MEASUREMENTS ANALYSIS] Date of Test: 08/19/2015 13:29:52; Heart Rate: 85; WA Interval: 128; QRS: 90; QT Interval: 344; Corrected QT Interval (QTc): 387; P Wave [place]: 53; QRS Wave [place]: 60; T Wave [place]: 28; Blood Pressure: 120/82 [ECG DIAGNOSTIC STATEMENTS] Date of Test: 08/19/2015 13:29:52; Summary: Sinus Rhythm WITHIN NORMAL LIMITS Dannielle Delarosa Work Phone: Plan of Treatment Date Care Activity Detail Author Start: 12-10-2022 Procedure Education Eprescribed prescriptions (G8553) [facility]; [facility] Work Phone: Start: 12-10-2022 Provider Instructions for Treatment [facility]; [facility] Work Phone: Start: 11-23-2022 Procedure Education Eprescribed prescriptions (G8553) [facility]; [facility] Work Phone: Start: 11-23-2022 Provider Instructions for Treatment [facility]; [facility] Work Phone: Start: 11-23-2022 Assay of free thyroxine T4, FREE (THYROXINE) (71514) [facility]; [facility] Work Phone: Start: 11-23-2022 Assay of triiodothyronine t3 free T3, FREE (TRIDOTHYRONINE) (93404) [facility]; [facility] Work Phone: Start: 11-23-2022 Lipid panel LIPID PANEL (59159) [facility]; [facility] Work Phone: Start: 11-23-2022 25 hydroxy includes fractions if performed CALCIFIDIOL (37690) VIT D 25 [facility]; [facility] Work Phone: Start: 11-23-2022 Comprehensive metabolic panel METABOLIC PANEL, COMPREHENSIVE (15744) [facility]; [facility] Work Phone: Start: 11-23-2022 Blood count complete auto&auto difrntl wbc CBC W/AUTO DIFF WBC (69422) [facility]; [facility] Work Phone: Start: 11-23-2022 Assay of thyroid stimulating hormone tsh TSH (43463) [facility]; [facility] Work Phone: Start: 06-04-2022 Procedure Education Eprescribed prescriptions (G8553) [facility]; [facility] Work Phone: Start: 06-04-2022 Provider Instructions for Treatment [facility]; [facility] Work Phone: Start: 06-04-2022 Lipid panel LIPID PANEL (87619) [facility]; [facility] Work Phone: Start: 06-04-2022 25 hydroxy includes fractions if performed CALCIFIDIOL (79220) VIT D 25 [facility]; [facility] Work Phone: Start: 06-04-2022 Assay of thyroid stimulating hormone tsh TSH (67143) [facility]; [facility] Work Phone: Start: 11-30-2021 Procedure Education Eprescribed prescriptions (G8553) [facility]; [facility] Work Phone: Start: 11-30-2021 Provider Instructions for Treatment [facility]; [facility] Work Phone: Start: 07-13-2021 Oncology colorectal screening jeaneth 10 dna markrs Cologuard - Strool Based DNA Test, CRC SCREEN (84401) [facility]; [facility] Work Phone: Start: 07-13-2021 Comprehensive metabolic panel METABOLIC PANEL, COMPREHENSIVE (53470) [facility]; [facility] Work Phone: Start: 07-13-2021 Blood count manual cell count each CBC with auto diff (23446) [facility]; [facility] Work Phone: Start: 07-13-2021 25 hydroxy includes fractions if performed CALCIFEDIOL (39157) [facility]; [facility] Work Phone: Start: 07-13-2021 Iron binding capacity IRON BINDING CAPACITY (TIBC) (48906) [facility]; [facility] Work Phone: Start: 07-13-2021 Assay of iron IRON (32957) [facility]; [facility] Work Phone: Start: 07-13-2021 Assay of ferritin FERRITIN (08675) [facility]; [facility] Work Phone: Start: 07-13-2021 Assay of thyroid stimulating hormone tsh TSH (38411) [facility]; [facility] Work Phone: Start: 12-30-2020 Procedure Education Eprescribed prescriptions (G8553) [facility]; [facility] Work Phone: Start: 09-28-2020 Procedure Education Eprescribed prescriptions (G8553) [facility]; [facility] Work Phone: Start: 09-28-2020 Provider Instructions for Treatment [facility]; [facility] Work Phone: Start: 09-09-2020 Procedure Education Eprescribed prescriptions (G8553) [facility]; [facility] Work Phone: Start: 09-09-2020 Provider Instructions for Treatment Follow up in 3 weeks [facility]; [facility] Work Phone: Start: 06-15-2020 TSH Qn TSH (15645) [facility]; [facility] Work Phone: Start: 06-15-2020 Comprehensive metabolic panel METABOLIC PANEL, COMPREHENSIVE (47928) [facility]; [facility] Work Phone: Start: 06-15-2020 Blood count complete auto&auto difrntl wbc CBC W/AUTO DIFF WBC (02038) [facility]; [facility] Work Phone: Start: 06-15-2020 Procedure Education Eprescribed prescriptions (G8553) [facility]; [facility] Work Phone: Start: 01-18-2020 Lipid panel LIPID PANEL (16076) [facility] Work Phone: Start: 01-18-2020 Comprehensive metabolic panel METABOLIC PANEL, COMPREHENSIVE (78384) [facility] Work Phone: Start: 01-18-2020 Blood count complete auto&auto difrntl wbc CBC W/AUTO DIFF WBC (17224) [facility] Work Phone: Start: 01-18-2020 TSH Qn TSH (47181) [facility] Work Phone: Start: 01-18-2020 Free T4 [Mass/Vol] T4, FREE (THYROXINE) (87279) [facility] Work Phone: Start: 01-18-2020 Free T3 [Mass/Vol] T3, FREE (TRIDOTHYRONINE) (97307) [facility] Work Phone: Start: 01-18-2020 25 hydroxy includes fractions if performed CALCIFEDIOL (42088) [facility] Work Phone: Start: 01-18-2020 Iaadiadoo influenza 2019 Novel Coronavirus (COVID-19), ENRRIQUE (70595) [facility] Work Phone: Start: 01-18-2020 Procedure Education Eprescribed prescriptions (G8553) [facility] Work Phone: Start: 01-18-2020 Provider Instructions for Treatment GERD Education [facility] Work Phone: Start: 01-21-2019 Procedure Education Eprescribed prescriptions (G8553) [facility] Work Phone: Start: 01-21-2019 Provider Instructions for Treatment [facility] Work Phone: Start: 12-29-2018 Urinalysis qual/semiquant except immunoassays URINALYSIS (86732) [facility] Work Phone: Start: 12-29-2018 1 25 dihydroxy includes fractions if performed VITAMIN D, 1, 25-DIHYDROXY (07357) [facility] Work Phone: Start: 12-29-2018 CBC, PLATELETS & MANUAL DIFF (42190) CBC, PLATELETS & MANUAL DIFF (49646) [facility] Work Phone: Start: 12-29-2018 Urine albumin quantitative MICROALBUMIN: CREATININE RATIO (10464) AND (45276) [facility] Work Phone: Start: 12-29-2018 Lipid panel LIPID PANEL (19287) [facility] Work Phone: Start: 12-29-2018 Free T4 [Mass/Vol] T4, FREE (THYROXINE) (13882) [facility] Work Phone: Start: 12-29-2018 TSH Qn TSH (THYROID STIMULATING HORMONE) (72789) [facility] Work Phone: Start: 12-29-2018 25 hydroxy includes fractions if performed CALCIFEDIOL (53081) [facility] Work Phone: Start: 03-03-2018 Procedure Education Eprescribed prescriptions (G8553) [facility] Work Phone: Start: 03-03-2018 Provider Instructions for Treatment [facility] Work Phone: Start: 12-04-2017 Provider Instructions for Treatment Continue Current Prescription(s) [facility] Work Phone: Start: 10-01-2017 Provider Instructions for Treatment [facility] Work Phone: Start: 06-26-2017 Provider Instructions for Treatment [facility] Work Phone: Start: 05-15-2017 End: 05-15-2017 Patient encounter procedure Appointment [facility] Work Phone: Start: 05-08-2017 End: 05-08-2017 Patient encounter procedure Appointment [facility] Work Phone: Start: 04-30-2017 End: 04-30-2017 Appointment Appointment [facility] Start: 04-25-2017 End: 04-25-2017 Mammogram, screening Mammogram, Screening, both breasts [facility] Start: 04-25-2017 End: 05-07-2017 Mammogram, screening Mammogram, Screening, both breasts [facility] Start: 08-08-2016 Provider Instructions for Treatment Continue Current Prescription(s) [facility] Work Phone: Start: 07-18-2016 Provider Instructions for Treatment Follow up in 3 weeks [facility] Work Phone: Start: 06-11-2016 Provider Instructions for Treatment [facility] Work Phone: Start: 05-04-2016 Procedure Education Eprescribed prescriptions (G8553) [facility] Work Phone: Start: 05-04-2016 Provider Instructions for Treatment [facility] Work Phone: Start: 03-30-2016 Provider Instructions for Treatment [facility] Work Phone: Start: 01-30-2016 Procedure Education Eprescribed prescriptions (G8553) [facility] Work Phone: Start: 01-30-2016 Provider Instructions for Treatment [facility] Work Phone: Start: 01-16-2016 Culture bct isol&prsmptv id isolate ea urine URINE LEON CULTURE-IDENTIFICATN (84158) [facility] Work Phone: Start: 01-16-2016 Provider Instructions for Treatment Follow up in 2 weeks [facility] Work Phone: Start: 12-19-2015 Provider Instructions for Treatment [facility] Work Phone: Start: 12-05-2015 Provider Instructions for Treatment [facility] Work Phone: Start: 12-05-2015 Blood occult peroxidase actv qual feces 1 deter OCCULT BLOOD FECES SCREEN (49253) [facility] Work Phone: Start: 10-24-2015 Assay of thyroid stimulating hormone tsh TSH (87711) [facility]; [facility] Work Phone: Start: 10-24-2015 Thyrotropin Qn TSH (81813) [facility] Work Phone: Start: 10-24-2015 Assay of free thyroxine T4, FREE (THYROXINE) (25989) [facility]; [facility] Work Phone: Start: 10-24-2015 T4 free mass conc T4, FREE (THYROXINE) (80161) [facility] Work Phone: Start: 10-24-2015 Assay of triiodothyronine t3 free T3, FREE (TRIDOTHYRONINE) (90458) [facility]; [facility] Work Phone: Start: 10-24-2015 T3 free mass conc T3, FREE (TRIDOTHYRONINE) (77159) [facility] Work Phone: Start: 10-24-2015 Provider Instructions for Treatment [facility] Work Phone: Start: 09-12-2015 Provider Instructions for Treatment [facility] Work Phone: Start: 08-19-2015 Provider Instructions for Treatment Follow up in 2 weeks [facility] Work Phone: Start: 08-15-2015 Patient Education Blood Pressure: hypertension [facility] Work Phone: Start: 08-15-2015 Procedure Education Eprescribed prescriptions (G8553) [facility] Work Phone: Start: 08-15-2015 Provider Instructions for Treatment Follow up in 4 weeks [facility] Work Phone: Start: 05-16-2015 Patient Education Heartburn *: gerd [facility] Work Phone: Start: 05-16-2015 Provider Instructions for Treatment [facility] Work Phone: Start: 02-07-2015 Patient Education Hypothyroidism: Brief Version *: gland [facility] Work Phone: Start: 02-07-2015 Procedure Education Eprescribed prescriptions (G8553) [facility] Work Phone: Start: 02-07-2015 Provider Instructions for Treatment [facility] Work Phone: Start: 12-27-2014 Provider Instructions for Treatment [facility] Work Phone: Start: 11-24-2014 Provider Instructions for Treatment [facility] Work Phone: Start: 11-24-2014 Assay of thyroid stimulating hormone tsh TSH (45989) [facility]; [facility] Work Phone: Start: 11-24-2014 Thyrotropin Qn TSH (49608) [facility] Work Phone: Start: 11-24-2014 Comprehensive metabolic panel METABOLIC PANEL, COMPREHENSIVE (83117) [facility] Work Phone: Start: 11-24-2014 Blood count complete auto&auto difrntl wbc CBC W/AUTO DIFF WBC (58539) [facility] Work Phone: Start: 09-21-2014 Procedure Education Eprescribed prescriptions (G8553) [facility] Work Phone: Start: 09-21-2014 Provider Instructions for Treatment [facility] Work Phone: Start: 09-21-2014 Blood occult fecal hgb deter ia qual feces 1-3 FECAL OCCULT HGB ASSAY- tubes sent home (58759) [facility] Work Phone: Start: 09-21-2014 Assay of thyroid stimulating hormone tsh TSH (45513) [facility]; [facility] Work Phone: Start: 09-21-2014 Thyrotropin Qn TSH (16212) [facility] Work Phone: Start: 09-21-2014 Urnls dip stick/tablet reagent auto microscopy URINALYSIS, W/ MICRO (98368) [facility] Work Phone: Start: 09-21-2014 Urine albumin quantitative MICROALBUMIN: CREATININE RATIO (37556) AND (61242) [facility] Work Phone: Start: 09-21-2014 Comprehensive metabolic panel METABOLIC PANEL, COMPREHENSIVE (89913) [facility] Work Phone: Start: 09-21-2014 Lipid panel LIPID PANEL (73050) [facility] Work Phone: Start: 09-21-2014 Blood count complete auto&auto difrntl wbc CBC W/AUTO DIFF WBC (41328) [facility] Work Phone: [facility] Work Phone: [facility] Work Phone: [facility] Work Phone: [facility] Work Phone: [facility] Work Phone: [facility] Work Phone: [facility] Work Phone: [facility]; [facility] Work Phone: [facility] Work Phone: [facility]; [facility] Work Phone: Immunizations Immunization Date Immunization Notes Care Provider Ez barclay 05-08-2017 tetanus toxoid, redu vinayak diphtheria toxoid, and acellular pertussis vaccine, adsorbed Stefany Fernandez LPN [facility] Work Phone: 05-08-2017 [id number] Stefany Fernandez LPN [facility] Work Phone: Payers Date Payer Category Payer Self-pay [id number] 2021 Private Health Insurance [id number] 2019 Private Health Insurance [id number] 2016 [id number] 2016 Private Health Insurance [id number] 1960 Unknown [id number] 1960 Unknown [id number] [id number] [id number] Unknown Unknown [id number] [id number] [id number] Unknown [id number] [id number] [id number] Unknown [id number] 2.16.8 [id number] Unknown [id number] 2.16.8 [id number] Unknown [id number] 2.16.8 [id number] Social History Date Type Detail Facility Caffeine Use [facility] Work Phone: Comment on above: q week Exercise History: Exercises regularly. [facility] Work Phone: Living Situation: Lives with spouse. [facility] Work Phone: Exercise History: Exercise History: [facility]; [facility] Work Phone: Living Situation: Living Situation: [facility]; [facility] Work Phone: Start: 07-10-2022 Tobacco smoking status NHIS Unknown if ever smoked [facility] Start: 09-17-2020 None [facility] Start: 09-17-2020 Spouse/ Signif icant Other [facility] Start: 09-17-2020 Non-smoker [facility] Start: 1960 Sex Assigned At Female [facility] Start: 07-15-2023 Tobacco smoking status NHIS Never smoked tobacco (finding) [facility] Clinical Notes 04-30-2017 to 07-21-2024 Note Date & Type Note Facility 07-21-2024 Evaluation note Diagnosis Onset Date Resolution Encounter for routine gynecological examination noneactive July 21 11:28am [facility] Work Phone: 1(844) 565-815409-23-2022 Veronica is a 61 y.o. female who presents to our office today for evaluation secondary to a history of chronic rhinitis type symptoms with congestion and pressure and at times some otic pruritus. She has previously attempted Flonase and this does not help and she tolerates this without issues. Her symptoms are perennial and she seems to be better with less humidity and she and she had increased symptoms in the summer. She also has postnasal drainage as well and this upsets her stomach at this time. Previously she was seen by [facility] and shots were advised and she declined. Her history is unremarkable for asthma, wheezing or lower respiratory illnesses or for inhaler use. Currently, she is on Levothyroxine and her thyroid function has remained stable and she presents for further evaluation. Regarding foods, her history is unremarkable. Environmental Survey/Social History: Lives with spouse Special Needs: None Preferred Language: Lao Pets: No, no cat for 5 years School/Daycare: Yes: works in [employer] and she works in and out of scoo mobility, Smoking/Alcohol/Drug Use or Exposure: No Recreational Activities/Sports: No Review of Systems/Past Medical History: Constitutional: denies fever, chills, weight loss. Eyes: denies vision changes, color blindness. Ears, nose throat and mouth: see narrative above. Nasal congestion and drainage. Respiratory: denies wheezing, cough or chest tightness/ see above narrative. Gastrointestinal: denies diarrhea, constipation, emesis. Genitourinary: denies dysuria or urine odor. Skin/integumentary: denies nail changes or other rash. Neurologic: denies seizures, weakness or speech problems. Hematologic/lymphatic: denies pallor. Allergic/Immunologic: see narrative above. No overt food issues. *Regarding bee stings, no issues. No past medical history on file. History of anxiety, hypothyroid and sertraline-depression. She has panic issues at times. No past surgical history on file. History of pregnancies and removal of bas Current Outpatient Medications Medication Sig Dispense Refill levothyroxine (SYNTHROID) 75 MCG tablet sertraline (ZOLOFT) 50 MG tablet Take 1 Tablet (50 mg) by mouth daily B Complex Vitamins (B COMPLEX 1 PO) Take by mouth No current facility-administered medications for this visit. No family history on file. Allergies: NKDA. PE: Nursing note and Vital signs reviewed. Resp 16 Ht 162.6 cm Wt 66.7 kg BMI 25.24 kg/m Constitutional: She was awake, alert and in no apparent distress. Conjunctivae: clear. Nasal mucosa: mildly erythematous and edematous. No drainage noted. Nasal turbinates: mildly enlarged. No polyps visualized. Tympanic membranes: clear. Throat: clear. She did not have cervical adenopathy. Lungs: clear to auscultation bilaterally. Cardio: regular rate and rhythm. Musculoskeletal: good upper extremity strength bilaterally. Neuro: oriented to time and place, good interaction. Skin: upper extremities clear at this visit. Epicutaneous testing to multiple environmental allergens revealed good controls and Katarina was completely negative (histamine 5mm/10mm) Impression Katarina Gupta is a 61 yo female with a history of chronic rhinitis and she was previously seen by an ENT and reportedly had multiple allergies and shots were recommended but she held off. She is not necessarily interested in oral antihistamines and she feels Flonase was equivocal. She is in and out of coolers at work and environmental allergen testing was negative and these results correlate with her history. Also, she is using an OTC Xlear Nasal Decongestant and this has oxymetazoline in it and I advised her to limit the use of this. The benefits, side effects of the treatment and treatment alternatives were discussed. Plan 1. Please see information on chronic and allergic rhinitis (www.AAAAI.org). - You may have more in the way of chronic, nonallergic/vasomotor rhinitis. 2. On 03/16/22, you were tested to cat, dog, dust mite, cockroach, mouse, molds and tree, grass, weed and ragweed pollens and you were negative. 3. I would try and limit your use of OTC Xlear Nasal Decongestant, this has a topical decongestant in it called Oxymetazoline and this can be habit forming. 4. Try Azelastine 137mcg at 1-2 sprays each nostril up to twice a day. Take a drink or rinse mouth after use. This is an antihistamine nasal spray. 5. If using the Azelastine, I could have you return for yearly visits and as needed.[facility]11-22-2017 Fall risk [id number] [facility]No[facility] assessmentWPa[facility] Work Phone: 1(525) 801-255611-15-2017 Fall risk [id number]/11/15[facility] NoFall risk assessmentWPaoli Hospital Work Phone: 1(311) 917-937011-07-2017 Fall risk [id number]/11/07FALLRSKASAINT LUKE'[facility] NoFall risk assessmentRegency [facility]'s CareEvaluation note* Diagnosis Onset Date Resolution Status Encounter for routine gynecological examination noneactive [facility] Work Phone: Instructions* Name Dates Details How to Access Health Informa tion Online using Patient Portal and [employer] Apps Indication:Non-smoker Start:30-Dec-2020 Instruction Type:Patient Education Patient Instructions Indication:Non-smoker Start:30-Dec-2020 Instruction Type:Provider Instructions for Treatment How to Access Health Informa tion Online using Patient Portal and [employer] Apps Indication:Non-smoker Start:28-Sep-2020 Instruction Type:Patient Education Patient Instructions Indication:Non-smoker Start:28-Sep-2020 Instruction Type:Provider Instructions for Treatment How to Access Health Informa tion Online using Patient Portal and [employer] Apps Indication:Non-smoker Start:09-Sep-2020 Instruction Type:Patient Education Patient Instructions Indication:Non-smoker Start:09-Sep-2020 Instruction Type:Provider Instructions for Treatment Patient Instructions Indication:BMI 27.0-27.9,adult Start:15-Jun-2020 Instruction Type:Provider Instructions for Treatment How to Access Health Informa tion Online using Patient Portal and 3rd [employer] Apps Indication:BMI 27.0-27.9,adult Start:15-Jun-2020 Instruction Type:Patient Education How to access health informa tion online Indication:Cough Start:18-Jan-2020 Instruction Type:Patient Education How to access health informa tion online - Detail Indication:Cough Start:18-Jan-2020 Instruction Type:Patient Education Patient Instructions Indication:Cough Start:18-Jan-2020 Instruction Type:Provider Instructions for Treatment How to access health informa tion online Indication:Non-smoker Start:21-Jan-2019 Instruction Type:Patient Education How to access health informa tion online - Detail Indication:Non-smoker Start:21-Jan-2019 Instruction Type:Patient Education Patient Instructions Indication:Non-smoker Start:21-Jan-2019 Instruction Type:Provider Instructions for Treatment How to access health informa tion online Indication:Nonsmoker Start:03-Mar-2018 Instruction Type:Patient Education How to access health informa tion online - Detail Indication:Nonsmoker Start:03-Mar-2018 Instruction Type:Patient Education Patient Instructions Indication:Nonsmoker Start:03-Mar-2018 Instruction Type:Provider Instructions for Treatment How to access health informa tion online Indication:Nonsmoker Start:04-Dec-2017 Instruction Type:Patient Education How to access health informa tion online - Detail Indication:Nonsmoker Start:04-Dec-2017 Instruction Type:Patient Education Patient Instructions Indication:Nonsmoker Start:04-Dec-2017 Instruction Type:Provider Instructions for Treatment How to access health informa tion online Indication:Nonsmoker Start:01-Oct-2017 Instruction Type:Patient Education How to access health informa tion online - Detail Indication:Nonsmoker Start:01-Oct-2017 Instruction Type:Patient Education Patient Instructions Indication:Nonsmoker Start:01-Oct-2017 Instruction Type:Provider Instructions for Treatment How to access health informa tion online Indication:BMI 25.0-25.9,adult Start:26-Jun-2017 Instruction Type:Patient Education How to access health informa tion online - Detail Indication:BMI 25.0-25.9,adult Start:26-Jun-2017 Instruction Type:Patient Education Patient Instructions Indication:BMI 25.0-25.9,adult Start:26-Jun-2017 Instruction Type:Provider Instructions for Treatment How to access health informa tion online Indication:Nonsmoker Start:08-Aug-2016 Instruction Type:Patient Education How to access health informa tion online - Detail Indication:Nonsmoker Start:08-Aug-2016 Instruction Type:Patient Education Patient Instructions Indication:Nonsmoker Start:08-Aug-2016 Instruction Type:Provider Instructions for Treatment How to access health informa tion online Indication:Nonsmoker Start:18-Jul-2016 Instruction Type:Patient Education How to access health informa tion online - Detail Indication:Nonsmoker Start:18-Jul-2016 Instruction Type:Patient Education Patient Instructions Indication:Nonsmoker Start:18-Jul-2016 Instruction Type:Provider Instructions for Treatment Patient Instructions Indication:Anxiety Start:11-Jun-2016 Instruction Type:Provider Instructions for Treatment How to access health informa tion online Indication:Palpitation Start:04-May-2016 Instruction Type:Patient Education How to access health informa tion online - Detail Indication:Palpitation Start:04-May-2016 Instruction Type:Patient Education Patient Instructions Indication:Palpitation Start:04-May-2016 Instruction Type:Provider Instructions for Treatment Patient Instructions Indication:Palpitation Start:30-Mar-2016 Instruction Type:Provider Instructions for Treatment How to access health informa tion online Indication:UTI symptoms Start:30-Jan-2016 Instruction Type:Patient Education How to access health informa tion online - Detail Indication:UTI symptoms Start:30-Jan-2016 Instruction Type:Patient Education Patient Instructions Indication:UTI symptoms Start:30-Jan-2016 Instruction Type:Provider Instructions for Treatment How to access health informa tion online Indication:Diarrhea Start:05-Dec-2015 Instruction Type:Patient Education How to access health informa tion online - Detail Indication:Diarrhea Start:05-Dec-2015 Instruction Type:Patient Education Patient Instructions Indication:Diarrhea Start:05-Dec-2015 Instruction Type:Provider Instructions for Treatment How to access health informa tion online Indication:Stomach ache Start:24-Oct-2015 Instruction Type:Patient Education How to access health informa tion online - Detail Indication:Stomach ache Start:24-Oct-2015 Instruction Type:Patient Education Patient Instructions Indication:Stomach ache Start:24-Oct-2015 Instruction Type:Provider Instructions for Treatment Patient Instructions Indication:Hypothyroidism Start:12-Sep-2015 Instruction Type:Provider Instructions for Treatment How to access health informa tion online Indication:Benign diastolic hypertension Start:15-Aug-2015 Instruction Type:Patient Education How to access health informa tion online - Detail Indication:Benign diastolic hypertension Start:15-Aug-2015 Instruction Type:Patient Education Patient Instructions Indication:Benign diastolic hypertension Start:15-Aug-2015 Instruction Type:Provider Instructions for Treatment How to access health informa tion online Indication:GERD (gastroesophageal reflux disease) Start:16-May-2015 Instruction Type:Patient Education How to access health informa tion online - Detail Indication:GERD (gastroesophageal reflux disease) Start:16-May-2015 Instruction Type:Patient Education Patient Instructions Indication:GERD (gastroesophageal reflux disease) Start:16-May-2015 Instruction Type:Provider Instructions for Treatment How to access health informa tion online Indication:Hypothyroidism Start:07-Feb-2015 Instruction Type:Patient Education How to access health informa tion online - Detail Indication:Hypothyroidism Start:07-Feb-2015 Instruction Type:Patient Education Patient Instructions Indication:Hypothyroidism Start:07-Feb-2015 Instruction Type:Provider Instructions for Treatment Patient Instructions Indication:Anxiety Start:27-Dec-2014 Instruction Type:Provider Instructions for Treatment How to access health informa tion online Indication:Palpitation Start:24-Nov-2014 Instruction Type:Patient Education How to access health informa tion online - Detail Indication:Palpitation Start:24-Nov-2014 Instruction Type:Patient Education Patient Instructions Indication:Palpitation Start:24-Nov-2014 Instruction Type:Provider Instructions for Treatment How to access health informa tion online Indication:Palpitation Start:24-Nov-2014 Instruction Type:Patient Education How to access health informa tion online - Detail Indication:Palpitation Start:24-Nov-2014 Instruction Type:Patient Education How to access health informa tion online Indication:Benign diastolic hypertension Start:21-Sep-2014 Instruction Type:Patient Education How to access health informa tion online - Detail Indication:Benign diastolic hypertension Start:21-Sep-2014 Instruction Type:Patient Education [facility]; [facility] Work Phone: Instructions* Name Dates Details How to Access Health Informa tion Online using Patient Portal and [employer] Apps Indication:Non-smoker Start:30-Dec-2020 Instruction Type:Patient Education Patient Instructions Indication:Non-smoker Start:30-Dec-2020 Instruction Type:Provider Instructions for Treatment How to Access Health Informa tion Online using Patient Portal and [employer] Apps Indication:Non-smoker Start:28-Sep-2020 Instruction Type:Patient Education Patient Instructions Indication:Non-smoker Start:28-Sep-2020 Instruction Type:Provider Instructions for Treatment How to Access Health Informa tion Online using Patient Portal and [employer] Apps Indication:Non-smoker Start:09-Sep-2020 Instruction Type:Patient Education Patient Instructions Indication:Non-smoker Start:09-Sep-2020 Instruction Type:Provider Instructions for Treatment Patient Instructions Indication:BMI 27.0-27.9,adult Start:15-Jun-2020 Instruction Type:Provider Instructions for Treatment How to Access Health Informa tion Online using Patient Portal and [facility] [facility] [employer] Apps Indication:BMI 27.0-27.9,adult Start:15-Jun-2020 Instruction Type:Patient Education How to access health informa tion online Indication:Cough Start:18-Jan-2020 Instruction Type:Patient Education How to access health informa tion online - Detail Indication:Cough Start:18-Jan-2020 Instruction Type:Patient Education Patient Instructions Indication:Cough Start:18-Jan-2020 Instruction Type:Provider Instructions for Treatment How to access health informa tion online Indication:Non-smoker Start:21-Jan-2019 Instruction Type:Patient Education How to access health informa tion online - Detail Indication:Non-smoker Start:21-Jan-2019 Instruction Type:Patient Education Patient Instructions Indication:Non-smoker Start:21-Jan-2019 Instruction Type:Provider Instructions for Treatment How to access health informa tion online Indication:Nonsmoker Start:03-Mar-2018 Instruction Type:Patient Education How to access health informa tion online - Detail Indication:Nonsmoker Start:03-Mar-2018 Instruction Type:Patient Education Patient Instructions Indication:Nonsmoker Start:03-Mar-2018 Instruction Type:Provider Instructions for Treatment How to access health informa tion online Indication:Nonsmoker Start:04-Dec-2017 Instruction Type:Patient Education How to access health informa tion online - Detail Indication:Nonsmoker Start:04-Dec-2017 Instruction Type:Patient Education Patient Instructions Indication:Nonsmoker Start:04-Dec-2017 Instruction Type:Provider Instructions for Treatment How to access health informa tion online Indication:Nonsmoker Start:01-Oct-2017 Instruction Type:Patient Education How to access health informa tion online - Detail Indication:Nonsmoker Start:01-Oct-2017 Instruction Type:Patient Education Patient Instructions Indication:Nonsmoker Start:01-Oct-2017 Instruction Type:Provider Instructions for Treatment How to access health informa tion online Indication:BMI 25.0-25.9,adult Start:26-Jun-2017 Instruction Type:Patient Education How to access health informa tion online - Detail Indication:BMI 25.0-25.9,adult Start:26-Jun-2017 Instruction Type:Patient Education Patient Instructions Indication:BMI 25.0-25.9,adult Start:26-Jun-2017 Instruction Type:Provider Instructions for Treatment How to access health informa tion online Indication:Nonsmoker Start:08-Aug-2016 Instruction Type:Patient Education How to access health informa tion online - Detail Indication:Nonsmoker Start:08-Aug-2016 Instruction Type:Patient Education Patient Instructions Indication:Nonsmoker Start:08-Aug-2016 Instruction Type:Provider Instructions for Treatment How to access health informa tion online Indication:Nonsmoker Start:18-Jul-2016 Instruction Type:Patient Education How to access health informa tion online - Detail Indication:Nonsmoker Start:18-Jul-2016 Instruction Type:Patient Education Patient Instructions Indication:Nonsmoker Start:18-Jul-2016 Instruction Type:Provider Instructions for Treatment Patient Instructions Indication:Anxiety Start:11-Jun-2016 Instruction Type:Provider Instructions for Treatment How to access health informa tion online Indication:Palpitation Start:04-May-2016 Instruction Type:Patient Education How to access health informa tion online - Detail Indication:Palpitation Start:04-May-2016 Instruction Type:Patient Education Patient Instructions Indication:Palpitation Start:04-May-2016 Instruction Type:Provider Instructions for Treatment Patient Instructions Indication:Palpitation Start:30-Mar-2016 Instruction Type:Provider Instructions for Treatment How to access health informa tion online Indication:UTI symptoms Start:30-Jan-2016 Instruction Type:Patient Education How to access health informa tion online - Detail Indication:UTI symptoms Start:30-Jan-2016 Instruction Type:Patient Education Patient Instructions Indication:UTI symptoms Start:30-Jan-2016 Instruction Type:Provider Instructions for Treatment How to access health informa tion online Indication:Diarrhea Start:05-Dec-2015 Instruction Type:Patient Education How to access health informa tion online - Detail Indication:Diarrhea Start:05-Dec-2015 Instruction Type:Patient Education Patient Instructions Indication:Diarrhea Start:05-Dec-2015 Instruction Type:Provider Instructions for Treatment How to access health informa tion online Indication:Stomach ache Start:24-Oct-2015 Instruction Type:Patient Education How to access health informa tion online - Detail Indication:Stomach ache Start:24-Oct-2015 Instruction Type:Patient Education Patient Instructions Indication:Stomach ache Start:24-Oct-2015 Instruction Type:Provider Instructions for Treatment Patient Instructions Indication:Hypothyroidism Start:12-Sep-2015 Instruction Type:Provider Instructions for Treatment How to access health informa tion online Indication:Benign diastolic hypertension Start:15-Aug-2015 Instruction Type:Patient Education How to access health informa tion online - Detail Indication:Benign diastolic hypertension Start:15-Aug-2015 Instruction Type:Patient Education Patient Instructions Indication:Benign diastolic hypertension Start:15-Aug-2015 Instruction Type:Provider Instructions for Treatment How to access health informa tion online Indication:GERD (gastroesophageal reflux disease) Start:16-May-2015 Instruction Type:Patient Education How to access health informa tion online - Detail Indication:GERD (gastroesophageal reflux disease) Start:16-May-2015 Instruction Type:Patient Education Patient Instructions Indication:GERD (gastroesophageal reflux disease) Start:16-May-2015 Instruction Type:Provider Instructions for Treatment How to access health informa tion online Indication:Hypothyroidism Start:07-Feb-2015 Instruction Type:Patient Education How to access health informa tion online - Detail Indication:Hypothyroidism Start:07-Feb-2015 Instruction Type:Patient Education Patient Instructions Indication:Hypothyroidism Start:07-Feb-2015 Instruction Type:Provider Instructions for Treatment Patient Instructions Indication:Anxiety Start:27-Dec-2014 Instruction Type:Provider Instructions for Treatment How to access health informa tion online Indication:Palpitation Start:24-Nov-2014 Instruction Type:Patient Education How to access health informa tion online - Detail Indication:Palpitation Start:24-Nov-2014 Instruction Type:Patient Education Patient Instructions Indication:Palpitation Start:24-Nov-2014 Instruction Type:Provider Instructions for Treatment How to access health informa tion online Indication:Palpitation Start:24-Nov-2014 Instruction Type:Patient Education How to access health informa tion online - Detail Indication:Palpitation Start:24-Nov-2014 Instruction Type:Patient Education How to access health informa tion online Indication:Benign diastolic hypertension Start:21-Sep-2014 Instruction Type:Patient Education How to access health informa tion online - Detail Indication:Benign diastolic hypertension Start:21-Sep-2014 Instruction Type:Patient Education [facility]; [facility] Work Phone: Instructions* Name Dates Details How to Access Health Informa tion Online using Patient Portal and [employer] Apps Indication:Non-smoker Start:30-Dec-2020 Instruction Type:Patient Education Patient Instructions Indication:Non-smoker Start:30-Dec-2020 Instruction Type:Provider Instructions for Treatment How to Access Health Informa tion Online using Patient Portal and [facility] [employer] Apps Indication:Non-smoker Start:28-Sep-2020 Instruction Type:Patient Education Patient Instructions Indication:Non-smoker Start:28-Sep-2020 Instruction Type:Provider Instructions for Treatment How to Access Health Informa tion Online using Patient Portal and [facility] [employer] Apps Indication:Non-smoker Start:09-Sep-2020 Instruction Type:Patient Education Patient Instructions Indication:Non-smoker Start:09-Sep-2020 Instruction Type:Provider Instructions for Treatment Patient Instructions Indication:BMI 27.0-27.9,adult Start:15-Jun-2020 Instruction Type:Provider Instructions for Treatment How to Access Health Informa tion Online using Patient Portal and [facility] [employer] Apps Indication:BMI 27.0-27.9,adult Start:15-Jun-2020 Instruction Type:Patient Education How to access health informa tion online Indication:Cough Start:18-Jan-2020 Instruction Type:Patient Education How to access health informa tion online - Detail Indication:Cough Start:18-Jan-2020 Instruction Type:Patient Education Patient Instructions Indication:Cough Start:18-Jan-2020 Instruction Type:Provider Instructions for Treatment How to access health informa tion online Indication:Non-smoker Start:21-Jan-2019 Instruction Type:Patient Education How to access health informa tion online - Detail Indication:Non-smoker Start:21-Jan-2019 Instruction Type:Patient Education Patient Instructions Indication:Non-smoker Start:21-Jan-2019 Instruction Type:Provider Instructions for Treatment How to access health informa tion online Indication:Nonsmoker Start:03-Mar-2018 Instruction Type:Patient Education How to access health informa tion online - Detail Indication:Nonsmoker Start:03-Mar-2018 Instruction Type:Patient Education Patient Instructions Indication:Nonsmoker Start:03-Mar-2018 Instruction Type:Provider Instructions for Treatment How to access health informa tion online Indication:Nonsmoker Start:04-Dec-2017 Instruction Type:Patient Education How to access health informa tion online - Detail Indication:Nonsmoker Start:04-Dec-2017 Instruction Type:Patient Education Patient Instructions Indication:Nonsmoker Start:04-Dec-2017 Instruction Type:Provider Instructions for Treatment How to access health informa tion online Indication:Nonsmoker Start:01-Oct-2017 Instruction Type:Patient Education How to access health informa tion online - Detail Indication:Nonsmoker Start:01-Oct-2017 Instruction Type:Patient Education Patient Instructions Indication:Nonsmoker Start:01-Oct-2017 Instruction Type:Provider Instructions for Treatment How to access health informa tion online Indication:BMI 25.0-25.9,adult Start:26-Jun-2017 Instruction Type:Patient Education How to access health informa tion online - Detail Indication:BMI 25.0-25.9,adult Start:26-Jun-2017 Instruction Type:Patient Education Patient Instructions Indication:BMI 25.0-25.9,adult Start:26-Jun-2017 Instruction Type:Provider Instructions for Treatment How to access health informa tion online Indication:Nonsmoker Start:08-Aug-2016 Instruction Type:Patient Education How to access health informa tion online - Detail Indication:Nonsmoker Start:08-Aug-2016 Instruction Type:Patient Education Patient Instructions Indication:Nonsmoker Start:08-Aug-2016 Instruction Type:Provider Instructions for Treatment How to access health informa tion online Indication:Nonsmoker Start:18-Jul-2016 Instruction Type:Patient Education How to access health informa tion online - Detail Indication:Nonsmoker Start:18-Jul-2016 Instruction Type:Patient Education Patient Instructions Indication:Nonsmoker Start:18-Jul-2016 Instruction Type:Provider Instructions for Treatment Patient Instructions Indication:Anxiety Start:11-Jun-2016 Instruction Type:Provider Instructions for Treatment How to access health informa tion online Indication:Palpitation Start:04-May-2016 Instruction Type:Patient Education How to access health informa tion online - Detail Indication:Palpitation Start:04-May-2016 Instruction Type:Patient Education Patient Instructions Indication:Palpitation Start:04-May-2016 Instruction Type:Provider Instructions for Treatment Patient Instructions Indication:Palpitation Start:30-Mar-2016 Instruction Type:Provider Instructions for Treatment How to access health informa tion online Indication:UTI symptoms Start:30-Jan-2016 Instruction Type:Patient Education How to access health informa tion online - Detail Indication:UTI symptoms Start:30-Jan-2016 Instruction Type:Patient Education Patient Instructions Indication:UTI symptoms Start:30-Jan-2016 Instruction Type:Provider Instructions for Treatment How to access health informa tion online Indication:Diarrhea Start:05-Dec-2015 Instruction Type:Patient Education How to access health informa tion online - Detail Indication:Diarrhea Start:05-Dec-2015 Instruction Type:Patient Education Patient Instructions Indication:Diarrhea Start:05-Dec-2015 Instruction Type:Provider Instructions for Treatment How to access health informa tion online Indication:Stomach ache Start:24-Oct-2015 Instruction Type:Patient Education How to access health informa tion online - Detail Indication:Stomach ache Start:24-Oct-2015 Instruction Type:Patient Education Patient Instructions Indication:Stomach ache Start:24-Oct-2015 Instruction Type:Provider Instructions for Treatment Patient Instructions Indication:Hypothyroidism Start:12-Sep-2015 Instruction Type:Provider Instructions for Treatment How to access health informa tion online Indication:Benign diastolic hypertension Start:15-Aug-2015 Instruction Type:Patient Education How to access health informa tion online - Detail Indication:Benign diastolic hypertension Start:15-Aug-2015 Instruction Type:Patient Education Patient Instructions Indication:Benign diastolic hypertension Start:15-Aug-2015 Instruction Type:Provider Instructions for Treatment How to access health informa tion online Indication:GERD (gastroesophageal reflux disease) Start:16-May-2015 Instruction Type:Patient Education How to access health informa tion online - Detail Indication:GERD (gastroesophageal reflux disease) Start:16-May-2015 Instruction Type:Patient Education Patient Instructions Indication:GERD (gastroesophageal reflux disease) Start:16-May-2015 Instruction Type:Provider Instructions for Treatment How to access health informa tion online Indication:Hypothyroidism Start:07-Feb-2015 Instruction Type:Patient Education How to access health informa tion online - Detail Indication:Hypothyroidism Start:07-Feb-2015 Instruction Type:Patient Education Patient Instructions Indication:Hypothyroidism Start:07-Feb-2015 Instruction Type:Provider Instructions for Treatment Patient Instructions Indication:Anxiety Start:27-Dec-2014 Instruction Type:Provider Instructions for Treatment How to access health informa tion online Indication:Palpitation Start:24-Nov-2014 Instruction Type:Patient Education How to access health informa tion online - Detail Indication:Palpitation Start:24-Nov-2014 Instruction Type:Patient Education Patient Instructions Indication:Palpitation Start:24-Nov-2014 Instruction Type:Provider Instructions for Treatment How to access health informa tion online Indication:Palpitation Start:24-Nov-2014 Instruction Type:Patient Education How to access health informa tion online - Detail Indication:Palpitation Start:24-Nov-2014 Instruction Type:Patient Education How to access health informa tion online Indication:Benign diastolic hypertension Start:21-Sep-2014 Instruction Type:Patient Education How to access health informa tion online - Detail Indication:Benign diastolic hypertension Start:21-Sep-2014 Instruction Type:Patient Education [facility]; [facility] Work Phone: Instructions* Name Dates Details How to Access Health Informa tion Online using Patient Portal and [facility] [facility] [employer] Apps Indication:Non-smoker Start:30-Dec-2020 Instruction Type:Patient Education Patient Instructions Indication:Non-smoker Start:30-Dec-2020 Instruction Type:Provider Instructions for Treatment How to Access Health Informa tion Online using Patient Portal and [facility] [employer] Apps Indication:Non-smoker Start:28-Sep-2020 Instruction Type:Patient Education Patient Instructions Indication:Non-smoker Start:28-Sep-2020 Instruction Type:Provider Instructions for Treatment How to Access Health Informa tion Online using Patient Portal and [facility] [employer] Apps Indication:Non-smoker Start:09-Sep-2020 Instruction Type:Patient Education Patient Instructions Indication:Non-smoker Start:09-Sep-2020 Instruction Type:Provider Instructions for Treatment Patient Instructions Indication:BMI 27.0-27.9,adult Start:15-Jun-2020 Instruction Type:Provider Instructions for Treatment How to Access Health Informa tion Online using Patient Portal and [facility] [employer] Apps Indication:BMI 27.0-27.9,adult Start:15-Jun-2020 Instruction Type:Patient Education How to access health informa tion online Indication:Cough Start:18-Jan-2020 Instruction Type:Patient Education How to access health informa tion online - Detail Indication:Cough Start:18-Jan-2020 Instruction Type:Patient Education Patient Instructions Indication:Cough Start:18-Jan-2020 Instruction Type:Provider Instructions for Treatment How to access health informa tion online Indication:Non-smoker Start:21-Jan-2019 Instruction Type:Patient Education How to access health informa tion online - Detail Indication:Non-smoker Start:21-Jan-2019 Instruction Type:Patient Education Patient Instructions Indication:Non-smoker Start:21-Jan-2019 Instruction Type:Provider Instructions for Treatment How to access health informa tion online Indication:Nonsmoker Start:03-Mar-2018 Instruction Type:Patient Education How to access health informa tion online - Detail Indication:Nonsmoker Start:03-Mar-2018 Instruction Type:Patient Education Patient Instructions Indication:Nonsmoker Start:03-Mar-2018 Instruction Type:Provider Instructions for Treatment How to access health informa tion online Indication:Nonsmoker Start:04-Dec-2017 Instruction Type:Patient Education How to access health informa tion online - Detail Indication:Nonsmoker Start:04-Dec-2017 Instruction Type:Patient Education Patient Instructions Indication:Nonsmoker Start:04-Dec-2017 Instruction Type:Provider Instructions for Treatment How to access health informa tion online Indication:Nonsmoker Start:01-Oct-2017 Instruction Type:Patient Education How to access health informa tion online - Detail Indication:Nonsmoker Start:01-Oct-2017 Instruction Type:Patient Education Patient Instructions Indication:Nonsmoker Start:01-Oct-2017 Instruction Type:Provider Instructions for Treatment How to access health informa tion online Indication:BMI 25.0-25.9,adult Start:26-Jun-2017 Instruction Type:Patient Education How to access health informa tion online - Detail Indication:BMI 25.0-25.9,adult Start:26-Jun-2017 Instruction Type:Patient Education Patient Instructions Indication:BMI 25.0-25.9,adult Start:26-Jun-2017 Instruction Type:Provider Instructions for Treatment How to access health informa tion online Indication:Nonsmoker Start:08-Aug-2016 Instruction Type:Patient Education How to access health informa tion online - Detail Indication:Nonsmoker Start:08-Aug-2016 Instruction Type:Patient Education Patient Instructions Indication:Nonsmoker Start:08-Aug-2016 Instruction Type:Provider Instructions for Treatment How to access health informa tion online Indication:Nonsmoker Start:18-Jul-2016 Instruction Type:Patient Education How to access health informa tion online - Detail Indication:Nonsmoker Start:18-Jul-2016 Instruction Type:Patient Education Patient Instructions Indication:Nonsmoker Start:18-Jul-2016 Instruction Type:Provider Instructions for Treatment Patient Instructions Indication:Anxiety Start:11-Jun-2016 Instruction Type:Provider Instructions for Treatment How to access health informa tion online Indication:Palpitation Start:04-May-2016 Instruction Type:Patient Education How to access health informa tion online - Detail Indication:Palpitation Start:04-May-2016 Instruction Type:Patient Education Patient Instructions Indication:Palpitation Start:04-May-2016 Instruction Type:Provider Instructions for Treatment Patient Instructions Indication:Palpitation Start:30-Mar-2016 Instruction Type:Provider Instructions for Treatment How to access health informa tion online Indication:UTI symptoms Start:30-Jan-2016 Instruction Type:Patient Education How to access health informa tion online - Detail Indication:UTI symptoms Start:30-Jan-2016 Instruction Type:Patient Education Patient Instructions Indication:UTI symptoms Start:30-Jan-2016 Instruction Type:Provider Instructions for Treatment How to access health informa tion online Indication:Diarrhea Start:05-Dec-2015 Instruction Type:Patient Education How to access health informa tion online - Detail Indication:Diarrhea Start:05-Dec-2015 Instruction Type:Patient Education Patient Instructions Indication:Diarrhea Start:05-Dec-2015 Instruction Type:Provider Instructions for Treatment How to access health informa tion online Indication:Stomach ache Start:24-Oct-2015 Instruction Type:Patient Education How to access health informa tion online - Detail Indication:Stomach ache Start:24-Oct-2015 Instruction Type:Patient Education Patient Instructions Indication:Stomach ache Start:24-Oct-2015 Instruction Type:Provider Instructions for Treatment Patient Instructions Indication:Hypothyroidism Start:12-Sep-2015 Instruction Type:Provider Instructions for Treatment How to access health informa tion online Indication:Benign diastolic hypertension Start:15-Aug-2015 Instruction Type:Patient Education How to access health informa tion online - Detail Indication:Benign diastolic hypertension Start:15-Aug-2015 Instruction Type:Patient Education Patient Instructions Indication:Benign diastolic hypertension Start:15-Aug-2015 Instruction Type:Provider Instructions for Treatment How to access health informa tion online Indication:GERD (gastroesophageal reflux disease) Start:16-May-2015 Instruction Type:Patient Education How to access health informa tion online - Detail Indication:GERD (gastroesophageal reflux disease) Start:16-May-2015 Instruction Type:Patient Education Patient Instructions Indication:GERD (gastroesophageal reflux disease) Start:16-May-2015 Instruction Type:Provider Instructions for Treatment How to access health informa tion online Indication:Hypothyroidism Start:07-Feb-2015 Instruction Type:Patient Education How to access health informa tion online - Detail Indication:Hypothyroidism Start:07-Feb-2015 Instruction Type:Patient Education Patient Instructions Indication:Hypothyroidism Start:07-Feb-2015 Instruction Type:Provider Instructions for Treatment Patient Instructions Indication:Anxiety Start:27-Dec-2014 Instruction Type:Provider Instructions for Treatment How to access health informa tion online Indication:Palpitation Start:24-Nov-2014 Instruction Type:Patient Education How to access health informa tion online - Detail Indication:Palpitation Start:24-Nov-2014 Instruction Type:Patient Education Patient Instructions Indication:Palpitation Start:24-Nov-2014 Instruction Type:Provider Instructions for Treatment How to access health informa tion online Indication:Palpitation Start:24-Nov-2014 Instruction Type:Patient Education How to access health informa tion online - Detail Indication:Palpitation Start:24-Nov-2014 Instruction Type:Patient Education How to access health informa tion online Indication:Benign diastolic hypertension Start:21-Sep-2014 Instruction Type:Patient Education How to access health informa tion online - Detail Indication:Benign diastolic hypertension Start:21-Sep-2014 Instruction Type:Patient Education [facility]; [facility] Work Phone: Instructions* Name Dates Details How to Access Health Informa tion Online using Patient Portal and [employer] Apps Indication:Non-smoker Start:30-Dec-2020 Instruction Type:Patient Education Patient Instructions Indication:Non-smoker Start:30-Dec-2020 Instruction Type:Provider Instructions for Treatment How to Access Health Informa tion Online using Patient Portal and [employer] Apps Indication:Non-smoker Start:28-Sep-2020 Instruction Type:Patient Education Patient Instructions Indication:Non-smoker Start:28-Sep-2020 Instruction Type:Provider Instructions for Treatment How to Access Health Informa tion Online using Patient Portal and [employer] Apps Indication:Non-smoker Start:09-Sep-2020 Instruction Type:Patient Education Patient Instructions Indication:Non-smoker Start:09-Sep-2020 Instruction Type:Provider Instructions for Treatment Patient Instructions Indication:BMI 27.0-27.9,adult Start:15-Jun-2020 Instruction Type:Provider Instructions for Treatment How to Access Health Informa tion Online using Patient Portal and [employer]rd [employer] Apps Indication:BMI 27.0-27.9,adult Start:15-Jun-2020 Instruction Type:Patient Education How to access health informa tion online Indication:Cough Start:18-Jan-2020 Instruction Type:Patient Education How to access health informa tion online - Detail Indication:Cough Start:18-Jan-2020 Instruction Type:Patient Education Patient Instructions Indication:Cough Start:18-Jan-2020 Instruction Type:Provider Instructions for Treatment How to access health informa tion online Indication:Non-smoker Start:21-Jan-2019 Instruction Type:Patient Education How to access health informa tion online - Detail Indication:Non-smoker Start:21-Jan-2019 Instruction Type:Patient Education Patient Instructions Indication:Non-smoker Start:21-Jan-2019 Instruction Type:Provider Instructions for Treatment How to access health informa tion online Indication:Nonsmoker Start:03-Mar-2018 Instruction Type:Patient Education How to access health informa tion online - Detail Indication:Nonsmoker Start:03-Mar-2018 Instruction Type:Patient Education Patient Instructions Indication:Nonsmoker Start:03-Mar-2018 Instruction Type:Provider Instructions for Treatment How to access health informa tion online Indication:Nonsmoker Start:04-Dec-2017 Instruction Type:Patient Education How to access health informa tion online - Detail Indication:Nonsmoker Start:04-Dec-2017 Instruction Type:Patient Education Patient Instructions Indication:Nonsmoker Start:04-Dec-2017 Instruction Type:Provider Instructions for Treatment How to access health informa tion online Indication:Nonsmoker Start:01-Oct-2017 Instruction Type:Patient Education How to access health informa tion online - Detail Indication:Nonsmoker Start:01-Oct-2017 Instruction Type:Patient Education Patient Instructions Indication:Nonsmoker Start:01-Oct-2017 Instruction Type:Provider Instructions for Treatment How to access health informa tion online Indication:BMI 25.0-25.9,adult Start:26-Jun-2017 Instruction Type:Patient Education How to access health informa tion online - Detail Indication:BMI 25.0-25.9,adult Start:26-Jun-2017 Instruction Type:Patient Education Patient Instructions Indication:BMI 25.0-25.9,adult Start:26-Jun-2017 Instruction Type:Provider Instructions for Treatment How to access health informa tion online Indication:Nonsmoker Start:08-Aug-2016 Instruction Type:Patient Education How to access health informa tion online - Detail Indication:Nonsmoker Start:08-Aug-2016 Instruction Type:Patient Education Patient Instructions Indication:Nonsmoker Start:08-Aug-2016 Instruction Type:Provider Instructions for Treatment How to access health informa tion online Indication:Nonsmoker Start:18-Jul-2016 Instruction Type:Patient Education How to access health informa tion online - Detail Indication:Nonsmoker Start:18-Jul-2016 Instruction Type:Patient Education Patient Instructions Indication:Nonsmoker Start:18-Jul-2016 Instruction Type:Provider Instructions for Treatment Patient Instructions Indication:Anxiety Start:11-Jun-2016 Instruction Type:Provider Instructions for Treatment How to access health informa tion online Indication:Palpitation Start:04-May-2016 Instruction Type:Patient Education How to access health informa tion online - Detail Indication:Palpitation Start:04-May-2016 Instruction Type:Patient Education Patient Instructions Indication:Palpitation Start:04-May-2016 Instruction Type:Provider Instructions for Treatment Patient Instructions Indication:Palpitation Start:30-Mar-2016 Instruction Type:Provider Instructions for Treatment How to access health informa tion online Indication:UTI symptoms Start:30-Jan-2016 Instruction Type:Patient Education How to access health informa tion online - Detail Indication:UTI symptoms Start:30-Jan-2016 Instruction Type:Patient Education Patient Instructions Indication:UTI symptoms Start:30-Jan-2016 Instruction Type:Provider Instructions for Treatment How to access health informa tion online Indication:Diarrhea Start:05-Dec-2015 Instruction Type:Patient Education How to access health informa tion online - Detail Indication:Diarrhea Start:05-Dec-2015 Instruction Type:Patient Education Patient Instructions Indication:Diarrhea Start:05-Dec-2015 Instruction Type:Provider Instructions for Treatment How to access health informa tion online Indication:Stomach ache Start:24-Oct-2015 Instruction Type:Patient Education How to access health informa tion online - Detail Indication:Stomach ache Start:24-Oct-2015 Instruction Type:Patient Education Patient Instructions Indication:Stomach ache Start:24-Oct-2015 Instruction Type:Provider Instructions for Treatment Patient Instructions Indication:Hypothyroidism Start:12-Sep-2015 Instruction Type:Provider Instructions for Treatment How to access health informa tion online Indication:Benign diastolic hypertension Start:15-Aug-2015 Instruction Type:Patient Education How to access health informa tion online - Detail Indication:Benign diastolic hypertension Start:15-Aug-2015 Instruction Type:Patient Education Patient Instructions Indication:Benign diastolic hypertension Start:15-Aug-2015 Instruction Type:Provider Instructions for Treatment How to access health informa tion online Indication:GERD (gastroesophageal reflux disease) Start:16-May-2015 Instruction Type:Patient Education How to access health informa tion online - Detail Indication:GERD (gastroesophageal reflux disease) Start:16-May-2015 Instruction Type:Patient Education Patient Instructions Indication:GERD (gastroesophageal reflux disease) Start:16-May-2015 Instruction Type:Provider Instructions for Treatment How to access health informa tion online Indication:Hypothyroidism Start:07-Feb-2015 Instruction Type:Patient Education How to access health informa tion online - Detail Indication:Hypothyroidism Start:07-Feb-2015 Instruction Type:Patient Education Patient Instructions Indication:Hypothyroidism Start:07-Feb-2015 Instruction Type:Provider Instructions for Treatment Patient Instructions Indication:Anxiety Start:27-Dec-2014 Instruction Type:Provider Instructions for Treatment How to access health informa tion online Indication:Palpitation Start:24-Nov-2014 Instruction Type:Patient Education How to access health informa tion online - Detail Indication:Palpitation Start:24-Nov-2014 Instruction Type:Patient Education Patient Instructions Indication:Palpitation Start:24-Nov-2014 Instruction Type:Provider Instructions for Treatment How to access health informa tion online Indication:Palpitation Start:24-Nov-2014 Instruction Type:Patient Education How to access health informa tion online - Detail Indication:Palpitation Start:24-Nov-2014 Instruction Type:Patient Education How to access health informa tion online Indication:Benign diastolic hypertension Start:21-Sep-2014 Instruction Type:Patient Education How to access health informa tion online - Detail Indication:Benign diastolic hypertension Start:21-Sep-2014 Instruction Type:Patient Education [facility]; [facility] Work Phone: Instructions* Name Dates Details How to Access Health Informa tion Online using Patient Portal and [employer] Apps Indication:Non-smoker Start:30-Dec-2020 Instruction Type:Patient Education Patient Instructions Indication:Non-smoker Start:30-Dec-2020 Instruction Type:Provider Instructions for Treatment How to Access Health Informa tion Online using Patient Portal and [employer] Apps Indication:Non-smoker Start:28-Sep-2020 Instruction Type:Patient Education Patient Instructions Indication:Non-smoker Start:28-Sep-2020 Instruction Type:Provider Instructions for Treatment How to Access Health Informa tion Online using Patient Portal and [employer] Apps Indication:Non-smoker Start:09-Sep-2020 Instruction Type:Patient Education Patient Instructions Indication:Non-smoker Start:09-Sep-2020 Instruction Type:Provider Instructions for Treatment Patient Instructions Indication:BMI 27.0-27.9,adult Start:15-Jun-2020 Instruction Type:Provider Instructions for Treatment How to Access Health Informa tion Online using Patient Portal and [employer] Apps Indication:BMI 27.0-27.9,adult Start:15-Jun-2020 Instruction Type:Patient Education How to access health informa tion online Indication:Cough Start:18-Jan-2020 Instruction Type:Patient Education How to access health informa tion online - Detail Indication:Cough Start:18-Jan-2020 Instruction Type:Patient Education Patient Instructions Indication:Cough Start:18-Jan-2020 Instruction Type:Provider Instructions for Treatment How to access health informa tion online Indication:Non-smoker Start:21-Jan-2019 Instruction Type:Patient Education How to access health informa tion online - Detail Indication:Non-smoker Start:21-Jan-2019 Instruction Type:Patient Education Patient Instructions Indication:Non-smoker Start:21-Jan-2019 Instruction Type:Provider Instructions for Treatment How to access health informa tion online Indication:Nonsmoker Start:03-Mar-2018 Instruction Type:Patient Education How to access health informa tion online - Detail Indication:Nonsmoker Start:03-Mar-2018 Instruction Type:Patient Education Patient Instructions Indication:Nonsmoker Start:03-Mar-2018 Instruction Type:Provider Instructions for Treatment How to access health informa tion online Indication:Nonsmoker Start:04-Dec-2017 Instruction Type:Patient Education How to access health informa tion online - Detail Indication:Nonsmoker Start:04-Dec-2017 Instruction Type:Patient Education Patient Instructions Indication:Nonsmoker Start:04-Dec-2017 Instruction Type:Provider Instructions for Treatment How to access health informa tion online Indication:Nonsmoker Start:01-Oct-2017 Instruction Type:Patient Education How to access health informa tion online - Detail Indication:Nonsmoker Start:01-Oct-2017 Instruction Type:Patient Education Patient Instructions Indication:Nonsmoker Start:01-Oct-2017 Instruction Type:Provider Instructions for Treatment How to access health informa tion online Indication:BMI 25.0-25.9,adult Start:26-Jun-2017 Instruction Type:Patient Education How to access health informa tion online - Detail Indication:BMI 25.0-25.9,adult Start:26-Jun-2017 Instruction Type:Patient Education Patient Instructions Indication:BMI 25.0-25.9,adult Start:26-Jun-2017 Instruction Type:Provider Instructions for Treatment How to access health informa tion online Indication:Nonsmoker Start:08-Aug-2016 Instruction Type:Patient Education How to access health informa tion online - Detail Indication:Nonsmoker Start:08-Aug-2016 Instruction Type:Patient Education Patient Instructions Indication:Nonsmoker Start:08-Aug-2016 Instruction Type:Provider Instructions for Treatment How to access health informa tion online Indication:Nonsmoker Start:18-Jul-2016 Instruction Type:Patient Education How to access health informa tion online - Detail Indication:Nonsmoker Start:18-Jul-2016 Instruction Type:Patient Education Patient Instructions Indication:Nonsmoker Start:18-Jul-2016 Instruction Type:Provider Instructions for Treatment Patient Instructions Indication:Anxiety Start:11-Jun-2016 Instruction Type:Provider Instructions for Treatment How to access health informa tion online Indication:Palpitation Start:04-May-2016 Instruction Type:Patient Education How to access health informa tion online - Detail Indication:Palpitation Start:04-May-2016 Instruction Type:Patient Education Patient Instructions Indication:Palpitation Start:04-May-2016 Instruction Type:Provider Instructions for Treatment Patient Instructions Indication:Palpitation Start:30-Mar-2016 Instruction Type:Provider Instructions for Treatment How to access health informa tion online Indication:UTI symptoms Start:30-Jan-2016 Instruction Type:Patient Education How to access health informa tion online - Detail Indication:UTI symptoms Start:30-Jan-2016 Instruction Type:Patient Education Patient Instructions Indication:UTI symptoms Start:30-Jan-2016 Instruction Type:Provider Instructions for Treatment How to access health informa tion online Indication:Diarrhea Start:05-Dec-2015 Instruction Type:Patient Education How to access health informa tion online - Detail Indication:Diarrhea Start:05-Dec-2015 Instruction Type:Patient Education Patient Instructions Indication:Diarrhea Start:05-Dec-2015 Instruction Type:Provider Instructions for Treatment How to access health informa tion online Indication:Stomach ache Start:24-Oct-2015 Instruction Type:Patient Education How to access health informa tion online - Detail Indication:Stomach ache Start:24-Oct-2015 Instruction Type:Patient Education Patient Instructions Indication:Stomach ache Start:24-Oct-2015 Instruction Type:Provider Instructions for Treatment Patient Instructions Indication:Hypothyroidism Start:12-Sep-2015 Instruction Type:Provider Instructions for Treatment How to access health informa tion online Indication:Benign diastolic hypertension Start:15-Aug-2015 Instruction Type:Patient Education How to access health informa tion online - Detail Indication:Benign diastolic hypertension Start:15-Aug-2015 Instruction Type:Patient Education Patient Instructions Indication:Benign diastolic hypertension Start:15-Aug-2015 Instruction Type:Provider Instructions for Treatment How to access health informa tion online Indication:GERD (gastroesophageal reflux disease) Start:16-May-2015 Instruction Type:Patient Education How to access health informa tion online - Detail Indication:GERD (gastroesophageal reflux disease) Start:16-May-2015 Instruction Type:Patient Education Patient Instructions Indication:GERD (gastroesophageal reflux disease) Start:16-May-2015 Instruction Type:Provider Instructions for Treatment How to access health informa tion online Indication:Hypothyroidism Start:07-Feb-2015 Instruction Type:Patient Education How to access health informa tion online - Detail Indication:Hypothyroidism Start:07-Feb-2015 Instruction Type:Patient Education Patient Instructions Indication:Hypothyroidism Start:07-Feb-2015 Instruction Type:Provider Instructions for Treatment Patient Instructions Indication:Anxiety Start:27-Dec-2014 Instruction Type:Provider Instructions for Treatment How to access health informa tion online Indication:Palpitation Start:24-Nov-2014 Instruction Type:Patient Education How to access health informa tion online - Detail Indication:Palpitation Start:24-Nov-2014 Instruction Type:Patient Education Patient Instructions Indication:Palpitation Start:24-Nov-2014 Instruction Type:Provider Instructions for Treatment How to access health informa tion online Indication:Palpitation Start:24-Nov-2014 Instruction Type:Patient Education How to access health informa tion online - Detail Indication:Palpitation Start:24-Nov-2014 Instruction Type:Patient Education How to access health informa tion online Indication:Benign diastolic hypertension Start:21-Sep-2014 Instruction Type:Patient Education How to access health informa tion online - Detail Indication:Benign diastolic hypertension Start:21-Sep-2014 Instruction Type:Patient Education [facility]; [facility] Work Phone: Instructions* Name Dates Details How to Access Health Informa tion Online using Patient Portal and [employer] Apps Indication:Non-smoker Start:30-Dec-2020 Instruction Type:Patient Education Patient Instructions Indication:Non-smoker Start:30-Dec-2020 Instruction Type:Provider Instructions for Treatment How to Access Health Informa tion Online using Patient Portal and [facility] [facility] [employer] Apps Indication:Non-smoker Start:28-Sep-2020 Instruction Type:Patient Education Patient Instructions Indication:Non-smoker Start:28-Sep-2020 Instruction Type:Provider Instructions for Treatment How to Access Health Informa tion Online using Patient Portal and [employer] Apps Indication:Non-smoker Start:09-Sep-2020 Instruction Type:Patient Education Patient Instructions Indication:Non-smoker Start:09-Sep-2020 Instruction Type:Provider Instructions for Treatment Patient Instructions Indication:BMI 27.0-27.9,adult Start:15-Jun-2020 Instruction Type:Provider Instructions for Treatment How to Access Health Informa tion Online using Patient Portal and [employer] Apps Indication:BMI 27.0-27.9,adult Start:15-Jun-2020 Instruction Type:Patient Education How to access health informa tion online Indication:Cough Start:18-Jan-2020 Instruction Type:Patient Education How to access health informa tion online - Detail Indication:Cough Start:18-Jan-2020 Instruction Type:Patient Education Patient Instructions Indication:Cough Start:18-Jan-2020 Instruction Type:Provider Instructions for Treatment How to access health informa tion online Indication:Non-smoker Start:21-Jan-2019 Instruction Type:Patient Education How to access health informa tion online - Detail Indication:Non-smoker Start:21-Jan-2019 Instruction Type:Patient Education Patient Instructions Indication:Non-smoker Start:21-Jan-2019 Instruction Type:Provider Instructions for Treatment How to access health informa tion online Indication:Nonsmoker Start:03-Mar-2018 Instruction Type:Patient Education How to access health informa tion online - Detail Indication:Nonsmoker Start:03-Mar-2018 Instruction Type:Patient Education Patient Instructions Indication:Nonsmoker Start:03-Mar-2018 Instruction Type:Provider Instructions for Treatment How to access health informa tion online Indication:Nonsmoker Start:04-Dec-2017 Instruction Type:Patient Education How to access health informa tion online - Detail Indication:Nonsmoker Start:04-Dec-2017 Instruction Type:Patient Education Patient Instructions Indication:Nonsmoker Start:04-Dec-2017 Instruction Type:Provider Instructions for Treatment How to access health informa tion online Indication:Nonsmoker Start:01-Oct-2017 Instruction Type:Patient Education How to access health informa tion online - Detail Indication:Nonsmoker Start:01-Oct-2017 Instruction Type:Patient Education Patient Instructions Indication:Nonsmoker Start:01-Oct-2017 Instruction Type:Provider Instructions for Treatment How to access health informa tion online Indication:BMI 25.0-25.9,adult Start:26-Jun-2017 Instruction Type:Patient Education How to access health informa tion online - Detail Indication:BMI 25.0-25.9,adult Start:26-Jun-2017 Instruction Type:Patient Education Patient Instructions Indication:BMI 25.0-25.9,adult Start:26-Jun-2017 Instruction Type:Provider Instructions for Treatment How to access health informa tion online Indication:Nonsmoker Start:08-Aug-2016 Instruction Type:Patient Education How to access health informa tion online - Detail Indication:Nonsmoker Start:08-Aug-2016 Instruction Type:Patient Education Patient Instructions Indication:Nonsmoker Start:08-Aug-2016 Instruction Type:Provider Instructions for Treatment How to access health informa tion online Indication:Nonsmoker Start:18-Jul-2016 Instruction Type:Patient Education How to access health informa tion online - Detail Indication:Nonsmoker Start:18-Jul-2016 Instruction Type:Patient Education Patient Instructions Indication:Nonsmoker Start:18-Jul-2016 Instruction Type:Provider Instructions for Treatment Patient Instructions Indication:Anxiety Start:11-Jun-2016 Instruction Type:Provider Instructions for Treatment How to access health informa tion online Indication:Palpitation Start:04-May-2016 Instruction Type:Patient Education How to access health informa tion online - Detail Indication:Palpitation Start:04-May-2016 Instruction Type:Patient Education Patient Instructions Indication:Palpitation Start:04-May-2016 Instruction Type:Provider Instructions for Treatment Patient Instructions Indication:Palpitation Start:30-Mar-2016 Instruction Type:Provider Instructions for Treatment How to access health informa tion online Indication:UTI symptoms Start:30-Jan-2016 Instruction Type:Patient Education How to access health informa tion online - Detail Indication:UTI symptoms Start:30-Jan-2016 Instruction Type:Patient Education Patient Instructions Indication:UTI symptoms Start:30-Jan-2016 Instruction Type:Provider Instructions for Treatment How to access health informa tion online Indication:Diarrhea Start:05-Dec-2015 Instruction Type:Patient Education How to access health informa tion online - Detail Indication:Diarrhea Start:05-Dec-2015 Instruction Type:Patient Education Patient Instructions Indication:Diarrhea Start:05-Dec-2015 Instruction Type:Provider Instructions for Treatment How to access health informa tion online Indication:Stomach ache Start:24-Oct-2015 Instruction Type:Patient Education How to access health informa tion online - Detail Indication:Stomach ache Start:24-Oct-2015 Instruction Type:Patient Education Patient Instructions Indication:Stomach ache Start:24-Oct-2015 Instruction Type:Provider Instructions for Treatment Patient Instructions Indication:Hypothyroidism Start:12-Sep-2015 Instruction Type:Provider Instructions for Treatment How to access health informa tion online Indication:Benign diastolic hypertension Start:15-Aug-2015 Instruction Type:Patient Education How to access health informa tion online - Detail Indication:Benign diastolic hypertension Start:15-Aug-2015 Instruction Type:Patient Education Patient Instructions Indication:Benign diastolic hypertension Start:15-Aug-2015 Instruction Type:Provider Instructions for Treatment How to access health informa tion online Indication:GERD (gastroesophageal reflux disease) Start:16-May-2015 Instruction Type:Patient Education How to access health informa tion online - Detail Indication:GERD (gastroesophageal reflux disease) Start:16-May-2015 Instruction Type:Patient Education Patient Instructions Indication:GERD (gastroesophageal reflux disease) Start:16-May-2015 Instruction Type:Provider Instructions for Treatment How to access health informa tion online Indication:Hypothyroidism Start:07-Feb-2015 Instruction Type:Patient Education How to access health informa tion online - Detail Indication:Hypothyroidism Start:07-Feb-2015 Instruction Type:Patient Education Patient Instructions Indication:Hypothyroidism Start:07-Feb-2015 Instruction Type:Provider Instructions for Treatment Patient Instructions Indication:Anxiety Start:27-Dec-2014 Instruction Type:Provider Instructions for Treatment How to access health informa tion online Indication:Palpitation Start:24-Nov-2014 Instruction Type:Patient Education How to access health informa tion online - Detail Indication:Palpitation Start:24-Nov-2014 Instruction Type:Patient Education Patient Instructions Indication:Palpitation Start:24-Nov-2014 Instruction Type:Provider Instructions for Treatment How to access health informa tion online Indication:Palpitation Start:24-Nov-2014 Instruction Type:Patient Education How to access health informa tion online - Detail Indication:Palpitation Start:24-Nov-2014 Instruction Type:Patient Education How to access health informa tion online Indication:Benign diastolic hypertension Start:21-Sep-2014 Instruction Type:Patient Education How to access health informa tion online - Detail Indication:Benign diastolic hypertension Start:21-Sep-2014 Instruction Type:Patient Education [facility]; [facility] Work Phone: Instructions* Name Dates Details Patient Instructions Indication:Non-smoker Start:30-Nov-2021 Instruction Type:Provider Instructions for Treatment How to Access Health Informa tion Online using Patient Portal and [employer]rd [employer] Apps Indication:Non-smoker Start:30-Nov-2021 Instruction Type:Patient Education How to Access Health Informa tion Online using Patient Portal and [employer]rd [employer] Apps Indication:Non-smoker Start:30-Dec-2020 Instruction Type:Patient Education Patient Instructions Indication:Non-smoker Start:30-Dec-2020 Instruction Type:Provider Instructions for Treatment How to Access Health Informa tion Online using Patient Portal and [employer]rd [employer] Apps Indication:Non-smoker Start:28-Sep-2020 Instruction Type:Patient Education Patient Instructions Indication:Non-smoker Start:28-Sep-2020 Instruction Type:Provider Instructions for Treatment How to Access Health Informa tion Online using Patient Portal and [employer]rd [employer] Apps Indication:Non-smoker Start:09-Sep-2020 Instruction Type:Patient Education Patient Instructions Indication:Non-smoker Start:09-Sep-2020 Instruction Type:Provider Instructions for Treatment Patient Instructions Indication:BMI 27.0-27.9,adult Start:15-Jun-2020 Instruction Type:Provider Instructions for Treatment How to Access Health Informa tion Online using Patient Portal and [employer]rd [employer] Apps Indication:BMI 27.0-27.9,adult Start:15-Jun-2020 Instruction Type:Patient Education How to access health informa tion online Indication:Cough Start:18-Jan-2020 Instruction Type:Patient Education How to access health informa tion online - Detail Indication:Cough Start:18-Jan-2020 Instruction Type:Patient Education Patient Instructions Indication:Cough Start:18-Jan-2020 Instruction Type:Provider Instructions for Treatment How to access health informa tion online Indication:Non-smoker Start:21-Jan-2019 Instruction Type:Patient Education How to access health informa tion online - Detail Indication:Non-smoker Start:21-Jan-2019 Instruction Type:Patient Education Patient Instructions Indication:Non-smoker Start:21-Jan-2019 Instruction Type:Provider Instructions for Treatment How to access health informa tion online Indication:Nonsmoker Start:03-Mar-2018 Instruction Type:Patient Education How to access health informa tion online - Detail Indication:Nonsmoker Start:03-Mar-2018 Instruction Type:Patient Education Patient Instructions Indication:Nonsmoker Start:03-Mar-2018 Instruction Type:Provider Instructions for Treatment How to access health informa tion online Indication:Nonsmoker Start:04-Dec-2017 Instruction Type:Patient Education How to access health informa tion online - Detail Indication:Nonsmoker Start:04-Dec-2017 Instruction Type:Patient Education Patient Instructions Indication:Nonsmoker Start:04-Dec-2017 Instruction Type:Provider Instructions for Treatment How to access health informa tion online Indication:Nonsmoker Start:01-Oct-2017 Instruction Type:Patient Education How to access health informa tion online - Detail Indication:Nonsmoker Start:01-Oct-2017 Instruction Type:Patient Education Patient Instructions Indication:Nonsmoker Start:01-Oct-2017 Instruction Type:Provider Instructions for Treatment How to access health informa tion online Indication:BMI 25.0-25.9,adult Start:26-Jun-2017 Instruction Type:Patient Education How to access health informa tion online - Detail Indication:BMI 25.0-25.9,adult Start:26-Jun-2017 Instruction Type:Patient Education Patient Instructions Indication:BMI 25.0-25.9,adult Start:26-Jun-2017 Instruction Type:Provider Instructions for Treatment How to access health informa tion online Indication:Nonsmoker Start:08-Aug-2016 Instruction Type:Patient Education How to access health informa tion online - Detail Indication:Nonsmoker Start:08-Aug-2016 Instruction Type:Patient Education Patient Instructions Indication:Nonsmoker Start:08-Aug-2016 Instruction Type:Provider Instructions for Treatment How to access health informa tion online Indication:Nonsmoker Start:18-Jul-2016 Instruction Type:Patient Education How to access health informa tion online - Detail Indication:Nonsmoker Start:18-Jul-2016 Instruction Type:Patient Education Patient Instructions Indication:Nonsmoker Start:18-Jul-2016 Instruction Type:Provider Instructions for Treatment Patient Instructions Indication:Anxiety Start:11-Jun-2016 Instruction Type:Provider Instructions for Treatment How to access health informa tion online Indication:Palpitation Start:04-May-2016 Instruction Type:Patient Education How to access health informa tion online - Detail Indication:Palpitation Start:04-May-2016 Instruction Type:Patient Education Patient Instructions Indication:Palpitation Start:04-May-2016 Instruction Type:Provider Instructions for Treatment Patient Instructions Indication:Palpitation Start:30-Mar-2016 Instruction Type:Provider Instructions for Treatment How to access health informa tion online Indication:UTI symptoms Start:30-Jan-2016 Instruction Type:Patient Education How to access health informa tion online - Detail Indication:UTI symptoms Start:30-Jan-2016 Instruction Type:Patient Education Patient Instructions Indication:UTI symptoms Start:30-Jan-2016 Instruction Type:Provider Instructions for Treatment How to access health informa tion online Indication:Diarrhea Start:05-Dec-2015 Instruction Type:Patient Education How to access health informa tion online - Detail Indication:Diarrhea Start:05-Dec-2015 Instruction Type:Patient Education Patient Instructions Indication:Diarrhea Start:05-Dec-2015 Instruction Type:Provider Instructions for Treatment How to access health informa tion online Indication:Stomach ache Start:24-Oct-2015 Instruction Type:Patient Education How to access health informa tion online - Detail Indication:Stomach ache Start:24-Oct-2015 Instruction Type:Patient Education Patient Instructions Indication:Stomach ache Start:24-Oct-2015 Instruction Type:Provider Instructions for Treatment Patient Instructions Indication:Hypothyroidism Start:12-Sep-2015 Instruction Type:Provider Instructions for Treatment How to access health informa tion online Indication:Benign diastolic hypertension Start:15-Aug-2015 Instruction Type:Patient Education How to access health informa tion online - Detail Indication:Benign diastolic hypertension Start:15-Aug-2015 Instruction Type:Patient Education Patient Instructions Indication:Benign diastolic hypertension Start:15-Aug-2015 Instruction Type:Provider Instructions for Treatment How to access health informa tion online Indication:GERD (gastroesophageal reflux disease) Start:16-May-2015 Instruction Type:Patient Education How to access health informa tion online - Detail Indication:GERD (gastroesophageal reflux disease) Start:16-May-2015 Instruction Type:Patient Education Patient Instructions Indication:GERD (gastroesophageal reflux disease) Start:16-May-2015 Instruction Type:Provider Instructions for Treatment How to access health informa tion online Indication:Hypothyroidism Start:07-Feb-2015 Instruction Type:Patient Education How to access health informa tion online - Detail Indication:Hypothyroidism Start:07-Feb-2015 Instruction Type:Patient Education Patient Instructions Indication:Hypothyroidism Start:07-Feb-2015 Instruction Type:Provider Instructions for Treatment Patient Instructions Indication:Anxiety Start:27-Dec-2014 Instruction Type:Provider Instructions for Treatment How to access health informa tion online Indication:Palpitation Start:24-Nov-2014 Instruction Type:Patient Education How to access health informa tion online - Detail Indication:Palpitation Start:24-Nov-2014 Instruction Type:Patient Education Patient Instructions Indication:Palpitation Start:24-Nov-2014 Instruction Type:Provider Instructions for Treatment How to access health informa tion online Indication:Palpitation Start:24-Nov-2014 Instruction Type:Patient Education How to access health informa tion online - Detail Indication:Palpitation Start:24-Nov-2014 Instruction Type:Patient Education How to access health informa tion online Indication:Benign diastolic hypertension Start:21-Sep-2014 Instruction Type:Patient Education How to access health informa tion online - Detail Indication:Benign diastolic hypertension Start:21-Sep-2014 Instruction Type:Patient Education [facility]; [facility] Work Phone: Instructions* Name Dates Details Patient Instructions Indication:Non-smoker Start:04-Jun-2022 Instruction Type:Provider Instructions for Treatment How to Access Health Informa tion Online using Patient Portal and [employer]rd [employer] Apps Indication:Non-smoker Start:04-Jun-2022 Instruction Type:Patient Education Patient Instructions Indication:Non-smoker Start:30-Nov-2021 Instruction Type:Provider Instructions for Treatment How to Access Health Informa tion Online using Patient Portal and [employer]rd [employer] Apps Indication:Non-smoker Start:30-Nov-2021 Instruction Type:Patient Education How to Access Health Informa tion Online using Patient Portal and [employer]rd [employer] Apps Indication:Non-smoker Start:30-Dec-2020 Instruction Type:Patient Education Patient Instructions Indication:Non-smoker Start:30-Dec-2020 Instruction Type:Provider Instructions for Treatment How to Access Health Informa tion Online using Patient Portal and [employer]rd [employer] Apps Indication:Non-smoker Start:28-Sep-2020 Instruction Type:Patient Education Patient Instructions Indication:Non-smoker Start:28-Sep-2020 Instruction Type:Provider Instructions for Treatment How to Access Health Informa tion Online using Patient Portal and [employer]rd [employer] Apps Indication:Non-smoker Start:09-Sep-2020 Instruction Type:Patient Education Patient Instructions Indication:Non-smoker Start:09-Sep-2020 Instruction Type:Provider Instructions for Treatment Patient Instructions Indication:BMI 27.0-27.9,adult Start:15-Jun-2020 Instruction Type:Provider Instructions for Treatment How to Access Health Informa tion Online using Patient Portal and [employer]rd [employer] Apps Indication:BMI 27.0-27.9,adult Start:15-Jun-2020 Instruction Type:Patient Education How to access health informa tion online Indication:Cough Start:18-Jan-2020 Instruction Type:Patient Education How to access health informa tion online - Detail Indication:Cough Start:18-Jan-2020 Instruction Type:Patient Education Patient Instructions Indication:Cough Start:18-Jan-2020 Instruction Type:Provider Instructions for Treatment How to access health informa tion online Indication:Non-smoker Start:21-Jan-2019 Instruction Type:Patient Education How to access health informa tion online - Detail Indication:Non-smoker Start:21-Jan-2019 Instruction Type:Patient Education Patient Instructions Indication:Non-smoker Start:21-Jan-2019 Instruction Type:Provider Instructions for Treatment How to access health informa tion online Indication:Nonsmoker Start:03-Mar-2018 Instruction Type:Patient Education How to access health informa tion online - Detail Indication:Nonsmoker Start:03-Mar-2018 Instruction Type:Patient Education Patient Instructions Indication:Nonsmoker Start:03-Mar-2018 Instruction Type:Provider Instructions for Treatment How to access health informa tion online Indication:Nonsmoker Start:04-Dec-2017 Instruction Type:Patient Education How to access health informa tion online - Detail Indication:Nonsmoker Start:04-Dec-2017 Instruction Type:Patient Education Patient Instructions Indication:Nonsmoker Start:04-Dec-2017 Instruction Type:Provider Instructions for Treatment How to access health informa tion online Indication:Nonsmoker Start:01-Oct-2017 Instruction Type:Patient Education How to access health informa tion online - Detail Indication:Nonsmoker Start:01-Oct-2017 Instruction Type:Patient Education Patient Instructions Indication:Nonsmoker Start:01-Oct-2017 Instruction Type:Provider Instructions for Treatment How to access health informa tion online Indication:BMI 25.0-25.9,adult Start:26-Jun-2017 Instruction Type:Patient Education How to access health informa tion online - Detail Indication:BMI 25.0-25.9,adult Start:26-Jun-2017 Instruction Type:Patient Education Patient Instructions Indication:BMI 25.0-25.9,adult Start:26-Jun-2017 Instruction Type:Provider Instructions for Treatment How to access health informa tion online Indication:Nonsmoker Start:08-Aug-2016 Instruction Type:Patient Education How to access health informa tion online - Detail Indication:Nonsmoker Start:08-Aug-2016 Instruction Type:Patient Education Patient Instructions Indication:Nonsmoker Start:08-Aug-2016 Instruction Type:Provider Instructions for Treatment How to access health informa tion online Indication:Nonsmoker Start:18-Jul-2016 Instruction Type:Patient Education How to access health informa tion online - Detail Indication:Nonsmoker Start:18-Jul-2016 Instruction Type:Patient Education Patient Instructions Indication:Nonsmoker Start:18-Jul-2016 Instruction Type:Provider Instructions for Treatment Patient Instructions Indication:Anxiety Start:11-Jun-2016 Instruction Type:Provider Instructions for Treatment How to access health informa tion online Indication:Palpitation Start:04-May-2016 Instruction Type:Patient Education How to access health informa tion online - Detail Indication:Palpitation Start:04-May-2016 Instruction Type:Patient Education Patient Instructions Indication:Palpitation Start:04-May-2016 Instruction Type:Provider Instructions for Treatment Patient Instructions Indication:Palpitation Start:30-Mar-2016 Instruction Type:Provider Instructions for Treatment How to access health informa tion online Indication:UTI symptoms Start:30-Jan-2016 Instruction Type:Patient Education How to access health informa tion online - Detail Indication:UTI symptoms Start:30-Jan-2016 Instruction Type:Patient Education Patient Instructions Indication:UTI symptoms Start:30-Jan-2016 Instruction Type:Provider Instructions for Treatment How to access health informa tion online Indication:Diarrhea Start:05-Dec-2015 Instruction Type:Patient Education How to access health informa tion online - Detail Indication:Diarrhea Start:05-Dec-2015 Instruction Type:Patient Education Patient Instructions Indication:Diarrhea Start:05-Dec-2015 Instruction Type:Provider Instructions for Treatment How to access health informa tion online Indication:Stomach ache Start:24-Oct-2015 Instruction Type:Patient Education How to access health informa tion online - Detail Indication:Stomach ache Start:24-Oct-2015 Instruction Type:Patient Education Patient Instructions Indication:Stomach ache Start:24-Oct-2015 Instruction Type:Provider Instructions for Treatment Patient Instructions Indication:Hypothyroidism Start:12-Sep-2015 Instruction Type:Provider Instructions for Treatment How to access health informa tion online Indication:Benign diastolic hypertension Start:15-Aug-2015 Instruction Type:Patient Education How to access health informa tion online - Detail Indication:Benign diastolic hypertension Start:15-Aug-2015 Instruction Type:Patient Education Patient Instructions Indication:Benign diastolic hypertension Start:15-Aug-2015 Instruction Type:Provider Instructions for Treatment How to access health informa tion online Indication:GERD (gastroesophageal reflux disease) Start:16-May-2015 Instruction Type:Patient Education How to access health informa tion online - Detail Indication:GERD (gastroesophageal reflux disease) Start:16-May-2015 Instruction Type:Patient Education Patient Instructions Indication:GERD (gastroesophageal reflux disease) Start:16-May-2015 Instruction Type:Provider Instructions for Treatment How to access health informa tion online Indication:Hypothyroidism Start:07-Feb-2015 Instruction Type:Patient Education How to access health informa tion online - Detail Indication:Hypothyroidism Start:07-Feb-2015 Instruction Type:Patient Education Patient Instructions Indication:Hypothyroidism Start:07-Feb-2015 Instruction Type:Provider Instructions for Treatment Patient Instructions Indication:Anxiety Start:27-Dec-2014 Instruction Type:Provider Instructions for Treatment How to access health informa tion online Indication:Palpitation Start:24-Nov-2014 Instruction Type:Patient Education How to access health informa tion online - Detail Indication:Palpitation Start:24-Nov-2014 Instruction Type:Patient Education Patient Instructions Indication:Palpitation Start:24-Nov-2014 Instruction Type:Provider Instructions for Treatment How to access health informa tion online Indication:Palpitation Start:24-Nov-2014 Instruction Type:Patient Education How to access health informa tion online - Detail Indication:Palpitation Start:24-Nov-2014 Instruction Type:Patient Education How to access health informa tion online Indication:Benign diastolic hypertension Start:21-Sep-2014 Instruction Type:Patient Education How to access health informa tion online - Detail Indication:Benign diastolic hypertension Start:21-Sep-2014 Instruction Type:Patient Education [facility]; [facility] Work Phone: Instructions* Name Dates Details Patient Instructions Indication:Non-smoker Start:04-Jun-2022 Instruction Type:Provider Instructions for Treatment How to Access Health Informa tion Online using Patient Portal and [employer]rd [employer] Apps Indication:Non-smoker Start:04-Jun-2022 Instruction Type:Patient Education Patient Instructions Indication:Non-smoker Start:30-Nov-2021 Instruction Type:Provider Instructions for Treatment How to Access Health Informa tion Online using Patient Portal and [employer]rd [employer] Apps Indication:Non-smoker Start:30-Nov-2021 Instruction Type:Patient Education How to Access Health Informa tion Online using Patient Portal and [employer]rd [employer] Apps Indication:Non-smoker Start:30-Dec-2020 Instruction Type:Patient Education Patient Instructions Indication:Non-smoker Start:30-Dec-2020 Instruction Type:Provider Instructions for Treatment How to Access Health Informa tion Online using Patient Portal and [employer]rd [employer] Apps Indication:Non-smoker Start:28-Sep-2020 Instruction Type:Patient Education Patient Instructions Indication:Non-smoker Start:28-Sep-2020 Instruction Type:Provider Instructions for Treatment How to Access Health Informa tion Online using Patient Portal and [employer]rd [employer] Apps Indication:Non-smoker Start:09-Sep-2020 Instruction Type:Patient Education Patient Instructions Indication:Non-smoker Start:09-Sep-2020 Instruction Type:Provider Instructions for Treatment Patient Instructions Indication:BMI 27.0-27.9,adult Start:15-Jun-2020 Instruction Type:Provider Instructions for Treatment How to Access Health Informa tion Online using Patient Portal and [employer]rd [employer] Apps Indication:BMI 27.0-27.9,adult Start:15-Jun-2020 Instruction Type:Patient Education How to access health informa tion online Indication:Cough Start:18-Jan-2020 Instruction Type:Patient Education How to access health informa tion online - Detail Indication:Cough Start:18-Jan-2020 Instruction Type:Patient Education Patient Instructions Indication:Cough Start:18-Jan-2020 Instruction Type:Provider Instructions for Treatment How to access health informa tion online Indication:Non-smoker Start:21-Jan-2019 Instruction Type:Patient Education How to access health informa tion online - Detail Indication:Non-smoker Start:21-Jan-2019 Instruction Type:Patient Education Patient Instructions Indication:Non-smoker Start:21-Jan-2019 Instruction Type:Provider Instructions for Treatment How to access health informa tion online Indication:Nonsmoker Start:03-Mar-2018 Instruction Type:Patient Education How to access health informa tion online - Detail Indication:Nonsmoker Start:03-Mar-2018 Instruction Type:Patient Education Patient Instructions Indication:Nonsmoker Start:03-Mar-2018 Instruction Type:Provider Instructions for Treatment How to access health informa tion online Indication:Nonsmoker Start:04-Dec-2017 Instruction Type:Patient Education How to access health informa tion online - Detail Indication:Nonsmoker Start:04-Dec-2017 Instruction Type:Patient Education Patient Instructions Indication:Nonsmoker Start:04-Dec-2017 Instruction Type:Provider Instructions for Treatment How to access health informa tion online Indication:Nonsmoker Start:01-Oct-2017 Instruction Type:Patient Education How to access health informa tion online - Detail Indication:Nonsmoker Start:01-Oct-2017 Instruction Type:Patient Education Patient Instructions Indication:Nonsmoker Start:01-Oct-2017 Instruction Type:Provider Instructions for Treatment How to access health informa tion online Indication:BMI 25.0-25.9,adult Start:26-Jun-2017 Instruction Type:Patient Education How to access health informa tion online - Detail Indication:BMI 25.0-25.9,adult Start:26-Jun-2017 Instruction Type:Patient Education Patient Instructions Indication:BMI 25.0-25.9,adult Start:26-Jun-2017 Instruction Type:Provider Instructions for Treatment How to access health informa tion online Indication:Nonsmoker Start:08-Aug-2016 Instruction Type:Patient Education How to access health informa tion online - Detail Indication:Nonsmoker Start:08-Aug-2016 Instruction Type:Patient Education Patient Instructions Indication:Nonsmoker Start:08-Aug-2016 Instruction Type:Provider Instructions for Treatment How to access health informa tion online Indication:Nonsmoker Start:18-Jul-2016 Instruction Type:Patient Education How to access health informa tion online - Detail Indication:Nonsmoker Start:18-Jul-2016 Instruction Type:Patient Education Patient Instructions Indication:Nonsmoker Start:18-Jul-2016 Instruction Type:Provider Instructions for Treatment Patient Instructions Indication:Anxiety Start:11-Jun-2016 Instruction Type:Provider Instructions for Treatment How to access health informa tion online Indication:Palpitation Start:04-May-2016 Instruction Type:Patient Education How to access health informa tion online - Detail Indication:Palpitation Start:04-May-2016 Instruction Type:Patient Education Patient Instructions Indication:Palpitation Start:04-May-2016 Instruction Type:Provider Instructions for Treatment Patient Instructions Indication:Palpitation Start:30-Mar-2016 Instruction Type:Provider Instructions for Treatment How to access health informa tion online Indication:UTI symptoms Start:30-Jan-2016 Instruction Type:Patient Education How to access health informa tion online - Detail Indication:UTI symptoms Start:30-Jan-2016 Instruction Type:Patient Education Patient Instructions Indication:UTI symptoms Start:30-Jan-2016 Instruction Type:Provider Instructions for Treatment How to access health informa tion online Indication:Diarrhea Start:05-Dec-2015 Instruction Type:Patient Education How to access health informa tion online - Detail Indication:Diarrhea Start:05-Dec-2015 Instruction Type:Patient Education Patient Instructions Indication:Diarrhea Start:05-Dec-2015 Instruction Type:Provider Instructions for Treatment How to access health informa tion online Indication:Stomach ache Start:24-Oct-2015 Instruction Type:Patient Education How to access health informa tion online - Detail Indication:Stomach ache Start:24-Oct-2015 Instruction Type:Patient Education Patient Instructions Indication:Stomach ache Start:24-Oct-2015 Instruction Type:Provider Instructions for Treatment Patient Instructions Indication:Hypothyroidism Start:12-Sep-2015 Instruction Type:Provider Instructions for Treatment How to access health informa tion online Indication:Benign diastolic hypertension Start:15-Aug-2015 Instruction Type:Patient Education How to access health informa tion online - Detail Indication:Benign diastolic hypertension Start:15-Aug-2015 Instruction Type:Patient Education Patient Instructions Indication:Benign diastolic hypertension Start:15-Aug-2015 Instruction Type:Provider Instructions for Treatment How to access health informa tion online Indication:GERD (gastroesophageal reflux disease) Start:16-May-2015 Instruction Type:Patient Education How to access health informa tion online - Detail Indication:GERD (gastroesophageal reflux disease) Start:16-May-2015 Instruction Type:Patient Education Patient Instructions Indication:GERD (gastroesophageal reflux disease) Start:16-May-2015 Instruction Type:Provider Instructions for Treatment How to access health informa tion online Indication:Hypothyroidism Start:07-Feb-2015 Instruction Type:Patient Education How to access health informa tion online - Detail Indication:Hypothyroidism Start:07-Feb-2015 Instruction Type:Patient Education Patient Instructions Indication:Hypothyroidism Start:07-Feb-2015 Instruction Type:Provider Instructions for Treatment Patient Instructions Indication:Anxiety Start:27-Dec-2014 Instruction Type:Provider Instructions for Treatment How to access health informa tion online Indication:Palpitation Start:24-Nov-2014 Instruction Type:Patient Education How to access health informa tion online - Detail Indication:Palpitation Start:24-Nov-2014 Instruction Type:Patient Education Patient Instructions Indication:Palpitation Start:24-Nov-2014 Instruction Type:Provider Instructions for Treatment How to access health informa tion online Indication:Palpitation Start:24-Nov-2014 Instruction Type:Patient Education How to access health informa tion online - Detail Indication:Palpitation Start:24-Nov-2014 Instruction Type:Patient Education How to access health informa tion online Indication:Benign diastolic hypertension Start:21-Sep-2014 Instruction Type:Patient Education How to access health informa tion online - Detail Indication:Benign diastolic hypertension Start:21-Sep-2014 Instruction Type:Patient Education [facility]; [facility] Work Phone: Instructions* Name Dates Details Patient Instructions Indication:Non-smoker Start:04-Jun-2022 Instruction Type:Provider Instructions for Treatment How to Access Health Informa tion Online using Patient Portal and [employer]rd [employer] Apps Indication:Non-smoker Start:04-Jun-2022 Instruction Type:Patient Education Patient Instructions Indication:Non-smoker Start:30-Nov-2021 Instruction Type:Provider Instructions for Treatment How to Access Health Informa tion Online using Patient Portal and [employer]rd [employer] Apps Indication:Non-smoker Start:30-Nov-2021 Instruction Type:Patient Education How to Access Health Informa tion Online using Patient Portal and [employer]rd [employer] Apps Indication:Non-smoker Start:30-Dec-2020 Instruction Type:Patient Education Patient Instructions Indication:Non-smoker Start:30-Dec-2020 Instruction Type:Provider Instructions for Treatment How to Access Health Informa tion Online using Patient Portal and [employer]rd [employer] Apps Indication:Non-smoker Start:28-Sep-2020 Instruction Type:Patient Education Patient Instructions Indication:Non-smoker Start:28-Sep-2020 Instruction Type:Provider Instructions for Treatment How to Access Health Informa tion Online using Patient Portal and [employer]rd [employer] Apps Indication:Non-smoker Start:09-Sep-2020 Instruction Type:Patient Education Patient Instructions Indication:Non-smoker Start:09-Sep-2020 Instruction Type:Provider Instructions for Treatment Patient Instructions Indication:BMI 27.0-27.9,adult Start:15-Jun-2020 Instruction Type:Provider Instructions for Treatment How to Access Health Informa tion Online using Patient Portal and [employer]rd [employer] Apps Indication:BMI 27.0-27.9,adult Start:15-Jun-2020 Instruction Type:Patient Education How to access health informa tion online Indication:Cough Start:18-Jan-2020 Instruction Type:Patient Education How to access health informa tion online - Detail Indication:Cough Start:18-Jan-2020 Instruction Type:Patient Education Patient Instructions Indication:Cough Start:18-Jan-2020 Instruction Type:Provider Instructions for Treatment How to access health informa tion online Indication:Non-smoker Start:21-Jan-2019 Instruction Type:Patient Education How to access health informa tion online - Detail Indication:Non-smoker Start:21-Jan-2019 Instruction Type:Patient Education Patient Instructions Indication:Non-smoker Start:21-Jan-2019 Instruction Type:Provider Instructions for Treatment How to access health informa tion online Indication:Nonsmoker Start:03-Mar-2018 Instruction Type:Patient Education How to access health informa tion online - Detail Indication:Nonsmoker Start:03-Mar-2018 Instruction Type:Patient Education Patient Instructions Indication:Nonsmoker Start:03-Mar-2018 Instruction Type:Provider Instructions for Treatment How to access health informa tion online Indication:Nonsmoker Start:04-Dec-2017 Instruction Type:Patient Education How to access health informa tion online - Detail Indication:Nonsmoker Start:04-Dec-2017 Instruction Type:Patient Education Patient Instructions Indication:Nonsmoker Start:04-Dec-2017 Instruction Type:Provider Instructions for Treatment How to access health informa tion online Indication:Nonsmoker Start:01-Oct-2017 Instruction Type:Patient Education How to access health informa tion online - Detail Indication:Nonsmoker Start:01-Oct-2017 Instruction Type:Patient Education Patient Instructions Indication:Nonsmoker Start:01-Oct-2017 Instruction Type:Provider Instructions for Treatment How to access health informa tion online Indication:BMI 25.0-25.9,adult Start:26-Jun-2017 Instruction Type:Patient Education How to access health informa tion online - Detail Indication:BMI 25.0-25.9,adult Start:26-Jun-2017 Instruction Type:Patient Education Patient Instructions Indication:BMI 25.0-25.9,adult Start:26-Jun-2017 Instruction Type:Provider Instructions for Treatment How to access health informa tion online Indication:Nonsmoker Start:08-Aug-2016 Instruction Type:Patient Education How to access health informa tion online - Detail Indication:Nonsmoker Start:08-Aug-2016 Instruction Type:Patient Education Patient Instructions Indication:Nonsmoker Start:08-Aug-2016 Instruction Type:Provider Instructions for Treatment How to access health informa tion online Indication:Nonsmoker Start:18-Jul-2016 Instruction Type:Patient Education How to access health informa tion online - Detail Indication:Nonsmoker Start:18-Jul-2016 Instruction Type:Patient Education Patient Instructions Indication:Nonsmoker Start:18-Jul-2016 Instruction Type:Provider Instructions for Treatment Patient Instructions Indication:Anxiety Start:11-Jun-2016 Instruction Type:Provider Instructions for Treatment How to access health informa tion online Indication:Palpitation Start:04-May-2016 Instruction Type:Patient Education How to access health informa tion online - Detail Indication:Palpitation Start:04-May-2016 Instruction Type:Patient Education Patient Instructions Indication:Palpitation Start:04-May-2016 Instruction Type:Provider Instructions for Treatment Patient Instructions Indication:Palpitation Start:30-Mar-2016 Instruction Type:Provider Instructions for Treatment How to access health informa tion online Indication:UTI symptoms Start:30-Jan-2016 Instruction Type:Patient Education How to access health informa tion online - Detail Indication:UTI symptoms Start:30-Jan-2016 Instruction Type:Patient Education Patient Instructions Indication:UTI symptoms Start:30-Jan-2016 Instruction Type:Provider Instructions for Treatment How to access health informa tion online Indication:Diarrhea Start:05-Dec-2015 Instruction Type:Patient Education How to access health informa tion online - Detail Indication:Diarrhea Start:05-Dec-2015 Instruction Type:Patient Education Patient Instructions Indication:Diarrhea Start:05-Dec-2015 Instruction Type:Provider Instructions for Treatment How to access health informa tion online Indication:Stomach ache Start:24-Oct-2015 Instruction Type:Patient Education How to access health informa tion online - Detail Indication:Stomach ache Start:24-Oct-2015 Instruction Type:Patient Education Patient Instructions Indication:Stomach ache Start:24-Oct-2015 Instruction Type:Provider Instructions for Treatment Patient Instructions Indication:Hypothyroidism Start:12-Sep-2015 Instruction Type:Provider Instructions for Treatment How to access health informa tion online Indication:Benign diastolic hypertension Start:15-Aug-2015 Instruction Type:Patient Education How to access health informa tion online - Detail Indication:Benign diastolic hypertension Start:15-Aug-2015 Instruction Type:Patient Education Patient Instructions Indication:Benign diastolic hypertension Start:15-Aug-2015 Instruction Type:Provider Instructions for Treatment How to access health informa tion online Indication:GERD (gastroesophageal reflux disease) Start:16-May-2015 Instruction Type:Patient Education How to access health informa tion online - Detail Indication:GERD (gastroesophageal reflux disease) Start:16-May-2015 Instruction Type:Patient Education Patient Instructions Indication:GERD (gastroesophageal reflux disease) Start:16-May-2015 Instruction Type:Provider Instructions for Treatment How to access health informa tion online Indication:Hypothyroidism Start:07-Feb-2015 Instruction Type:Patient Education How to access health informa tion online - Detail Indication:Hypothyroidism Start:07-Feb-2015 Instruction Type:Patient Education Patient Instructions Indication:Hypothyroidism Start:07-Feb-2015 Instruction Type:Provider Instructions for Treatment Patient Instructions Indication:Anxiety Start:27-Dec-2014 Instruction Type:Provider Instructions for Treatment How to access health informa tion online Indication:Palpitation Start:24-Nov-2014 Instruction Type:Patient Education How to access health informa tion online - Detail Indication:Palpitation Start:24-Nov-2014 Instruction Type:Patient Education Patient Instructions Indication:Palpitation Start:24-Nov-2014 Instruction Type:Provider Instructions for Treatment How to access health informa tion online Indication:Palpitation Start:24-Nov-2014 Instruction Type:Patient Education How to access health informa tion online - Detail Indication:Palpitation Start:24-Nov-2014 Instruction Type:Patient Education How to access health informa tion online Indication:Benign diastolic hypertension Start:21-Sep-2014 Instruction Type:Patient Education How to access health informa tion online - Detail Indication:Benign diastolic hypertension Start:21-Sep-2014 Instruction Type:Patient Education [facility]; [facility] Work Phone: Instructions* Name Dates Details Patient Instructions Indication:Non-smoker Start:04-Jun-2022 Instruction Type:Provider Instructions for Treatment How to Access Health Informa tion Online using Patient Portal and [employer]rd [employer] Apps Indication:Non-smoker Start:04-Jun-2022 Instruction Type:Patient Education Patient Instructions Indication:Non-smoker Start:30-Nov-2021 Instruction Type:Provider Instructions for Treatment How to Access Health Informa tion Online using Patient Portal and [employer]rd [employer] Apps Indication:Non-smoker Start:30-Nov-2021 Instruction Type:Patient Education How to Access Health Informa tion Online using Patient Portal and [employer]rd [employer] Apps Indication:Non-smoker Start:30-Dec-2020 Instruction Type:Patient Education Patient Instructions Indication:Non-smoker Start:30-Dec-2020 Instruction Type:Provider Instructions for Treatment How to Access Health Informa tion Online using Patient Portal and [employer]rd [employer] Apps Indication:Non-smoker Start:28-Sep-2020 Instruction Type:Patient Education Patient Instructions Indication:Non-smoker Start:28-Sep-2020 Instruction Type:Provider Instructions for Treatment How to Access Health Informa tion Online using Patient Portal and [employer]rd [employer] Apps Indication:Non-smoker Start:09-Sep-2020 Instruction Type:Patient Education Patient Instructions Indication:Non-smoker Start:09-Sep-2020 Instruction Type:Provider Instructions for Treatment Patient Instructions Indication:BMI 27.0-27.9,adult Start:15-Jun-2020 Instruction Type:Provider Instructions for Treatment How to Access Health Informa tion Online using Patient Portal and [employer]rd [employer] Apps Indication:BMI 27.0-27.9,adult Start:15-Jun-2020 Instruction Type:Patient Education How to access health informa tion online Indication:Cough Start:18-Jan-2020 Instruction Type:Patient Education How to access health informa tion online - Detail Indication:Cough Start:18-Jan-2020 Instruction Type:Patient Education Patient Instructions Indication:Cough Start:18-Jan-2020 Instruction Type:Provider Instructions for Treatment How to access health informa tion online Indication:Non-smoker Start:21-Jan-2019 Instruction Type:Patient Education How to access health informa tion online - Detail Indication:Non-smoker Start:21-Jan-2019 Instruction Type:Patient Education Patient Instructions Indication:Non-smoker Start:21-Jan-2019 Instruction Type:Provider Instructions for Treatment How to access health informa tion online Indication:Nonsmoker Start:03-Mar-2018 Instruction Type:Patient Education How to access health informa tion online - Detail Indication:Nonsmoker Start:03-Mar-2018 Instruction Type:Patient Education Patient Instructions Indication:Nonsmoker Start:03-Mar-2018 Instruction Type:Provider Instructions for Treatment How to access health informa tion online Indication:Nonsmoker Start:04-Dec-2017 Instruction Type:Patient Education How to access health informa tion online - Detail Indication:Nonsmoker Start:04-Dec-2017 Instruction Type:Patient Education Patient Instructions Indication:Nonsmoker Start:04-Dec-2017 Instruction Type:Provider Instructions for Treatment How to access health informa tion online Indication:Nonsmoker Start:01-Oct-2017 Instruction Type:Patient Education How to access health informa tion online - Detail Indication:Nonsmoker Start:01-Oct-2017 Instruction Type:Patient Education Patient Instructions Indication:Nonsmoker Start:01-Oct-2017 Instruction Type:Provider Instructions for Treatment How to access health informa tion online Indication:BMI 25.0-25.9,adult Start:26-Jun-2017 Instruction Type:Patient Education How to access health informa tion online - Detail Indication:BMI 25.0-25.9,adult Start:26-Jun-2017 Instruction Type:Patient Education Patient Instructions Indication:BMI 25.0-25.9,adult Start:26-Jun-2017 Instruction Type:Provider Instructions for Treatment How to access health informa tion online Indication:Nonsmoker Start:08-Aug-2016 Instruction Type:Patient Education How to access health informa tion online - Detail Indication:Nonsmoker Start:08-Aug-2016 Instruction Type:Patient Education Patient Instructions Indication:Nonsmoker Start:08-Aug-2016 Instruction Type:Provider Instructions for Treatment How to access health informa tion online Indication:Nonsmoker Start:18-Jul-2016 Instruction Type:Patient Education How to access health informa tion online - Detail Indication:Nonsmoker Start:18-Jul-2016 Instruction Type:Patient Education Patient Instructions Indication:Nonsmoker Start:18-Jul-2016 Instruction Type:Provider Instructions for Treatment Patient Instructions Indication:Anxiety Start:11-Jun-2016 Instruction Type:Provider Instructions for Treatment How to access health informa tion online Indication:Palpitation Start:04-May-2016 Instruction Type:Patient Education How to access health informa tion online - Detail Indication:Palpitation Start:04-May-2016 Instruction Type:Patient Education Patient Instructions Indication:Palpitation Start:04-May-2016 Instruction Type:Provider Instructions for Treatment Patient Instructions Indication:Palpitation Start:30-Mar-2016 Instruction Type:Provider Instructions for Treatment How to access health informa tion online Indication:UTI symptoms Start:30-Jan-2016 Instruction Type:Patient Education How to access health informa tion online - Detail Indication:UTI symptoms Start:30-Jan-2016 Instruction Type:Patient Education Patient Instructions Indication:UTI symptoms Start:30-Jan-2016 Instruction Type:Provider Instructions for Treatment How to access health informa tion online Indication:Diarrhea Start:05-Dec-2015 Instruction Type:Patient Education How to access health informa tion online - Detail Indication:Diarrhea Start:05-Dec-2015 Instruction Type:Patient Education Patient Instructions Indication:Diarrhea Start:05-Dec-2015 Instruction Type:Provider Instructions for Treatment How to access health informa tion online Indication:Stomach ache Start:24-Oct-2015 Instruction Type:Patient Education How to access health informa tion online - Detail Indication:Stomach ache Start:24-Oct-2015 Instruction Type:Patient Education Patient Instructions Indication:Stomach ache Start:24-Oct-2015 Instruction Type:Provider Instructions for Treatment Patient Instructions Indication:Hypothyroidism Start:12-Sep-2015 Instruction Type:Provider Instructions for Treatment How to access health informa tion online Indication:Benign diastolic hypertension Start:15-Aug-2015 Instruction Type:Patient Education How to access health informa tion online - Detail Indication:Benign diastolic hypertension Start:15-Aug-2015 Instruction Type:Patient Education Patient Instructions Indication:Benign diastolic hypertension Start:15-Aug-2015 Instruction Type:Provider Instructions for Treatment How to access health informa tion online Indication:GERD (gastroesophageal reflux disease) Start:16-May-2015 Instruction Type:Patient Education How to access health informa tion online - Detail Indication:GERD (gastroesophageal reflux disease) Start:16-May-2015 Instruction Type:Patient Education Patient Instructions Indication:GERD (gastroesophageal reflux disease) Start:16-May-2015 Instruction Type:Provider Instructions for Treatment How to access health informa tion online Indication:Hypothyroidism Start:07-Feb-2015 Instruction Type:Patient Education How to access health informa tion online - Detail Indication:Hypothyroidism Start:07-Feb-2015 Instruction Type:Patient Education Patient Instructions Indication:Hypothyroidism Start:07-Feb-2015 Instruction Type:Provider Instructions for Treatment Patient Instructions Indication:Anxiety Start:27-Dec-2014 Instruction Type:Provider Instructions for Treatment How to access health informa tion online Indication:Palpitation Start:24-Nov-2014 Instruction Type:Patient Education How to access health informa tion online - Detail Indication:Palpitation Start:24-Nov-2014 Instruction Type:Patient Education Patient Instructions Indication:Palpitation Start:24-Nov-2014 Instruction Type:Provider Instructions for Treatment How to access health informa tion online Indication:Palpitation Start:24-Nov-2014 Instruction Type:Patient Education How to access health informa tion online - Detail Indication:Palpitation Start:24-Nov-2014 Instruction Type:Patient Education How to access health informa tion online Indication:Benign diastolic hypertension Start:21-Sep-2014 Instruction Type:Patient Education How to access health informa tion online - Detail Indication:Benign diastolic hypertension Start:21-Sep-2014 Instruction Type:Patient Education [facility]; [facility] Work Phone: Instructions* Name Dates Details Patient Instructions Indication:Non-smoker Start:23-Nov-2022 Instruction Type:Provider Instructions for Treatment How to Access Health Informa tion Online using Patient Portal and [employer]rd [employer] Apps Indication:Non-smoker Start:23-Nov-2022 Instruction Type:Patient Education Patient Instructions Indication:Non-smoker Start:04-Jun-2022 Instruction Type:Provider Instructions for Treatment How to Access Health Informa tion Online using Patient Portal and [employer]rd [employer] Apps Indication:Non-smoker Start:04-Jun-2022 Instruction Type:Patient Education Patient Instructions Indication:Non-smoker Start:30-Nov-2021 Instruction Type:Provider Instructions for Treatment How to Access Health Informa tion Online using Patient Portal and [employer]rd [employer] Apps Indication:Non-smoker Start:30-Nov-2021 Instruction Type:Patient Education How to Access Health Informa tion Online using Patient Portal and [employer]rd [employer] Apps Indication:Non-smoker Start:30-Dec-2020 Instruction Type:Patient Education Patient Instructions Indication:Non-smoker Start:30-Dec-2020 Instruction Type:Provider Instructions for Treatment How to Access Health Informa tion Online using Patient Portal and [employer]rd [employer] Apps Indication:Non-smoker Start:28-Sep-2020 Instruction Type:Patient Education Patient Instructions Indication:Non-smoker Start:28-Sep-2020 Instruction Type:Provider Instructions for Treatment How to Access Health Informa tion Online using Patient Portal and [employer]rd [employer] Apps Indication:Non-smoker Start:09-Sep-2020 Instruction Type:Patient Education Patient Instructions Indication:Non-smoker Start:09-Sep-2020 Instruction Type:Provider Instructions for Treatment Patient Instructions Indication:BMI 27.0-27.9,adult Start:15-Jun-2020 Instruction Type:Provider Instructions for Treatment How to Access Health Informa tion Online using Patient Portal and [employer]rd [employer] Apps Indication:BMI 27.0-27.9,adult Start:15-Jun-2020 Instruction Type:Patient Education How to access health informa tion online Indication:Cough Start:18-Jan-2020 Instruction Type:Patient Education How to access health informa tion online - Detail Indication:Cough Start:18-Jan-2020 Instruction Type:Patient Education Patient Instructions Indication:Cough Start:18-Jan-2020 Instruction Type:Provider Instructions for Treatment How to access health informa tion online Indication:Non-smoker Start:21-Jan-2019 Instruction Type:Patient Education How to access health informa tion online - Detail Indication:Non-smoker Start:21-Jan-2019 Instruction Type:Patient Education Patient Instructions Indication:Non-smoker Start:21-Jan-2019 Instruction Type:Provider Instructions for Treatment How to access health informa tion online Indication:Nonsmoker Start:03-Mar-2018 Instruction Type:Patient Education How to access health informa tion online - Detail Indication:Nonsmoker Start:03-Mar-2018 Instruction Type:Patient Education Patient Instructions Indication:Nonsmoker Start:03-Mar-2018 Instruction Type:Provider Instructions for Treatment How to access health informa tion online Indication:Nonsmoker Start:04-Dec-2017 Instruction Type:Patient Education How to access health informa tion online - Detail Indication:Nonsmoker Start:04-Dec-2017 Instruction Type:Patient Education Patient Instructions Indication:Nonsmoker Start:04-Dec-2017 Instruction Type:Provider Instructions for Treatment How to access health informa tion online Indication:Nonsmoker Start:01-Oct-2017 Instruction Type:Patient Education How to access health informa tion online - Detail Indication:Nonsmoker Start:01-Oct-2017 Instruction Type:Patient Education Patient Instructions Indication:Nonsmoker Start:01-Oct-2017 Instruction Type:Provider Instructions for Treatment How to access health informa tion online Indication:BMI 25.0-25.9,adult Start:26-Jun-2017 Instruction Type:Patient Education How to access health informa tion online - Detail Indication:BMI 25.0-25.9,adult Start:26-Jun-2017 Instruction Type:Patient Education Patient Instructions Indication:BMI 25.0-25.9,adult Start:26-Jun-2017 Instruction Type:Provider Instructions for Treatment How to access health informa tion online Indication:Nonsmoker Start:08-Aug-2016 Instruction Type:Patient Education How to access health informa tion online - Detail Indication:Nonsmoker Start:08-Aug-2016 Instruction Type:Patient Education Patient Instructions Indication:Nonsmoker Start:08-Aug-2016 Instruction Type:Provider Instructions for Treatment How to access health informa tion online Indication:Nonsmoker Start:18-Jul-2016 Instruction Type:Patient Education How to access health informa tion online - Detail Indication:Nonsmoker Start:18-Jul-2016 Instruction Type:Patient Education Patient Instructions Indication:Nonsmoker Start:18-Jul-2016 Instruction Type:Provider Instructions for Treatment Patient Instructions Indication:Anxiety Start:11-Jun-2016 Instruction Type:Provider Instructions for Treatment How to access health informa tion online Indication:Palpitation Start:04-May-2016 Instruction Type:Patient Education How to access health informa tion online - Detail Indication:Palpitation Start:04-May-2016 Instruction Type:Patient Education Patient Instructions Indication:Palpitation Start:04-May-2016 Instruction Type:Provider Instructions for Treatment Patient Instructions Indication:Palpitation Start:30-Mar-2016 Instruction Type:Provider Instructions for Treatment How to access health informa tion online Indication:UTI symptoms Start:30-Jan-2016 Instruction Type:Patient Education How to access health informa tion online - Detail Indication:UTI symptoms Start:30-Jan-2016 Instruction Type:Patient Education Patient Instructions Indication:UTI symptoms Start:30-Jan-2016 Instruction Type:Provider Instructions for Treatment How to access health informa tion online Indication:Diarrhea Start:05-Dec-2015 Instruction Type:Patient Education How to access health informa tion online - Detail Indication:Diarrhea Start:05-Dec-2015 Instruction Type:Patient Education Patient Instructions Indication:Diarrhea Start:05-Dec-2015 Instruction Type:Provider Instructions for Treatment How to access health informa tion online Indication:Stomach ache Start:24-Oct-2015 Instruction Type:Patient Education How to access health informa tion online - Detail Indication:Stomach ache Start:24-Oct-2015 Instruction Type:Patient Education Patient Instructions Indication:Stomach ache Start:24-Oct-2015 Instruction Type:Provider Instructions for Treatment Patient Instructions Indication:Hypothyroidism Start:12-Sep-2015 Instruction Type:Provider Instructions for Treatment How to access health informa tion online Indication:Benign diastolic hypertension Start:15-Aug-2015 Instruction Type:Patient Education How to access health informa tion online - Detail Indication:Benign diastolic hypertension Start:15-Aug-2015 Instruction Type:Patient Education Patient Instructions Indication:Benign diastolic hypertension Start:15-Aug-2015 Instruction Type:Provider Instructions for Treatment How to access health informa tion online Indication:GERD (gastroesophageal reflux disease) Start:16-May-2015 Instruction Type:Patient Education How to access health informa tion online - Detail Indication:GERD (gastroesophageal reflux disease) Start:16-May-2015 Instruction Type:Patient Education Patient Instructions Indication:GERD (gastroesophageal reflux disease) Start:16-May-2015 Instruction Type:Provider Instructions for Treatment How to access health informa tion online Indication:Hypothyroidism Start:07-Feb-2015 Instruction Type:Patient Education How to access health informa tion online - Detail Indication:Hypothyroidism Start:07-Feb-2015 Instruction Type:Patient Education Patient Instructions Indication:Hypothyroidism Start:07-Feb-2015 Instruction Type:Provider Instructions for Treatment Patient Instructions Indication:Anxiety Start:27-Dec-2014 Instruction Type:Provider Instructions for Treatment How to access health informa tion online Indication:Palpitation Start:24-Nov-2014 Instruction Type:Patient Education How to access health informa tion online - Detail Indication:Palpitation Start:24-Nov-2014 Instruction Type:Patient Education Patient Instructions Indication:Palpitation Start:24-Nov-2014 Instruction Type:Provider Instructions for Treatment How to access health informa tion online Indication:Palpitation Start:24-Nov-2014 Instruction Type:Patient Education How to access health informa tion online - Detail Indication:Palpitation Start:24-Nov-2014 Instruction Type:Patient Education How to access health informa tion online Indication:Benign diastolic hypertension Start:21-Sep-2014 Instruction Type:Patient Education How to access health informa tion online - Detail Indication:Benign diastolic hypertension Start:21-Sep-2014 Instruction Type:Patient Education [facility]; [facility] Work Phone: Instructions* Name Dates Details Patient Instructions Indication:Non-smoker Start:23-Nov-2022 Instruction Type:Provider Instructions for Treatment How to Access Health Informa tion Online using Patient Portal and [employer]rd [employer] Apps Indication:Non-smoker Start:23-Nov-2022 Instruction Type:Patient Education Patient Instructions Indication:Non-smoker Start:04-Jun-2022 Instruction Type:Provider Instructions for Treatment How to Access Health Informa tion Online using Patient Portal and [employer]rd [employer] Apps Indication:Non-smoker Start:04-Jun-2022 Instruction Type:Patient Education Patient Instructions Indication:Non-smoker Start:30-Nov-2021 Instruction Type:Provider Instructions for Treatment How to Access Health Informa tion Online using Patient Portal and [employer]rd [employer] Apps Indication:Non-smoker Start:30-Nov-2021 Instruction Type:Patient Education How to Access Health Informa tion Online using Patient Portal and [employer]rd [employer] Apps Indication:Non-smoker Start:30-Dec-2020 Instruction Type:Patient Education Patient Instructions Indication:Non-smoker Start:30-Dec-2020 Instruction Type:Provider Instructions for Treatment How to Access Health Informa tion Online using Patient Portal and [employer]rd [employer] Apps Indication:Non-smoker Start:28-Sep-2020 Instruction Type:Patient Education Patient Instructions Indication:Non-smoker Start:28-Sep-2020 Instruction Type:Provider Instructions for Treatment How to Access Health Informa tion Online using Patient Portal and [employer]rd [employer] Apps Indication:Non-smoker Start:09-Sep-2020 Instruction Type:Patient Education Patient Instructions Indication:Non-smoker Start:09-Sep-2020 Instruction Type:Provider Instructions for Treatment Patient Instructions Indication:BMI 27.0-27.9,adult Start:15-Jun-2020 Instruction Type:Provider Instructions for Treatment How to Access Health Informa tion Online using Patient Portal and [employer]rd [employer] Apps Indication:BMI 27.0-27.9,adult Start:15-Jun-2020 Instruction Type:Patient Education How to access health informa tion online Indication:Cough Start:18-Jan-2020 Instruction Type:Patient Education How to access health informa tion online - Detail Indication:Cough Start:18-Jan-2020 Instruction Type:Patient Education Patient Instructions Indication:Cough Start:18-Jan-2020 Instruction Type:Provider Instructions for Treatment How to access health informa tion online Indication:Non-smoker Start:21-Jan-2019 Instruction Type:Patient Education How to access health informa tion online - Detail Indication:Non-smoker Start:21-Jan-2019 Instruction Type:Patient Education Patient Instructions Indication:Non-smoker Start:21-Jan-2019 Instruction Type:Provider Instructions for Treatment How to access health informa tion online Indication:Nonsmoker Start:03-Mar-2018 Instruction Type:Patient Education How to access health informa tion online - Detail Indication:Nonsmoker Start:03-Mar-2018 Instruction Type:Patient Education Patient Instructions Indication:Nonsmoker Start:03-Mar-2018 Instruction Type:Provider Instructions for Treatment How to access health informa tion online Indication:Nonsmoker Start:04-Dec-2017 Instruction Type:Patient Education How to access health informa tion online - Detail Indication:Nonsmoker Start:04-Dec-2017 Instruction Type:Patient Education Patient Instructions Indication:Nonsmoker Start:04-Dec-2017 Instruction Type:Provider Instructions for Treatment How to access health informa tion online Indication:Nonsmoker Start:01-Oct-2017 Instruction Type:Patient Education How to access health informa tion online - Detail Indication:Nonsmoker Start:01-Oct-2017 Instruction Type:Patient Education Patient Instructions Indication:Nonsmoker Start:01-Oct-2017 Instruction Type:Provider Instructions for Treatment How to access health informa tion online Indication:BMI 25.0-25.9,adult Start:26-Jun-2017 Instruction Type:Patient Education How to access health informa tion online - Detail Indication:BMI 25.0-25.9,adult Start:26-Jun-2017 Instruction Type:Patient Education Patient Instructions Indication:BMI 25.0-25.9,adult Start:26-Jun-2017 Instruction Type:Provider Instructions for Treatment How to access health informa tion online Indication:Nonsmoker Start:08-Aug-2016 Instruction Type:Patient Education How to access health informa tion online - Detail Indication:Nonsmoker Start:08-Aug-2016 Instruction Type:Patient Education Patient Instructions Indication:Nonsmoker Start:08-Aug-2016 Instruction Type:Provider Instructions for Treatment How to access health informa tion online Indication:Nonsmoker Start:18-Jul-2016 Instruction Type:Patient Education How to access health informa tion online - Detail Indication:Nonsmoker Start:18-Jul-2016 Instruction Type:Patient Education Patient Instructions Indication:Nonsmoker Start:18-Jul-2016 Instruction Type:Provider Instructions for Treatment Patient Instructions Indication:Anxiety Start:11-Jun-2016 Instruction Type:Provider Instructions for Treatment How to access health informa tion online Indication:Palpitation Start:04-May-2016 Instruction Type:Patient Education How to access health informa tion online - Detail Indication:Palpitation Start:04-May-2016 Instruction Type:Patient Education Patient Instructions Indication:Palpitation Start:04-May-2016 Instruction Type:Provider Instructions for Treatment Patient Instructions Indication:Palpitation Start:30-Mar-2016 Instruction Type:Provider Instructions for Treatment How to access health informa tion online Indication:UTI symptoms Start:30-Jan-2016 Instruction Type:Patient Education How to access health informa tion online - Detail Indication:UTI symptoms Start:30-Jan-2016 Instruction Type:Patient Education Patient Instructions Indication:UTI symptoms Start:30-Jan-2016 Instruction Type:Provider Instructions for Treatment How to access health informa tion online Indication:Diarrhea Start:05-Dec-2015 Instruction Type:Patient Education How to access health informa tion online - Detail Indication:Diarrhea Start:05-Dec-2015 Instruction Type:Patient Education Patient Instructions Indication:Diarrhea Start:05-Dec-2015 Instruction Type:Provider Instructions for Treatment How to access health informa tion online Indication:Stomach ache Start:24-Oct-2015 Instruction Type:Patient Education How to access health informa tion online - Detail Indication:Stomach ache Start:24-Oct-2015 Instruction Type:Patient Education Patient Instructions Indication:Stomach ache Start:24-Oct-2015 Instruction Type:Provider Instructions for Treatment Patient Instructions Indication:Hypothyroidism Start:12-Sep-2015 Instruction Type:Provider Instructions for Treatment How to access health informa tion online Indication:Benign diastolic hypertension Start:15-Aug-2015 Instruction Type:Patient Education How to access health informa tion online - Detail Indication:Benign diastolic hypertension Start:15-Aug-2015 Instruction Type:Patient Education Patient Instructions Indication:Benign diastolic hypertension Start:15-Aug-2015 Instruction Type:Provider Instructions for Treatment How to access health informa tion online Indication:GERD (gastroesophageal reflux disease) Start:16-May-2015 Instruction Type:Patient Education How to access health informa tion online - Detail Indication:GERD (gastroesophageal reflux disease) Start:16-May-2015 Instruction Type:Patient Education Patient Instructions Indication:GERD (gastroesophageal reflux disease) Start:16-May-2015 Instruction Type:Provider Instructions for Treatment How to access health informa tion online Indication:Hypothyroidism Start:07-Feb-2015 Instruction Type:Patient Education How to access health informa tion online - Detail Indication:Hypothyroidism Start:07-Feb-2015 Instruction Type:Patient Education Patient Instructions Indication:Hypothyroidism Start:07-Feb-2015 Instruction Type:Provider Instructions for Treatment Patient Instructions Indication:Anxiety Start:27-Dec-2014 Instruction Type:Provider Instructions for Treatment How to access health informa tion online Indication:Palpitation Start:24-Nov-2014 Instruction Type:Patient Education How to access health informa tion online - Detail Indication:Palpitation Start:24-Nov-2014 Instruction Type:Patient Education Patient Instructions Indication:Palpitation Start:24-Nov-2014 Instruction Type:Provider Instructions for Treatment How to access health informa tion online Indication:Palpitation Start:24-Nov-2014 Instruction Type:Patient Education How to access health informa tion online - Detail Indication:Palpitation Start:24-Nov-2014 Instruction Type:Patient Education How to access health informa tion online Indication:Benign diastolic hypertension Start:21-Sep-2014 Instruction Type:Patient Education How to access health informa tion online - Detail Indication:Benign diastolic hypertension Start:21-Sep-2014 Instruction Type:Patient Education [facility]; [facility] Work Phone: Instructions* Name Dates Details Patient Instructions Indication:Non-smoker Start:10-Dec-2022 Instruction Type:Provider Instructions for Treatment How to Access Health Informa tion Online using Patient Portal and [employer]rd [employer] Apps Indication:Non-smoker Start:10-Dec-2022 Instruction Type:Patient Education Patient Instructions Indication:Non-smoker Start:23-Nov-2022 Instruction Type:Provider Instructions for Treatment How to Access Health Informa tion Online using Patient Portal and [employer]rd [employer] Apps Indication:Non-smoker Start:23-Nov-2022 Instruction Type:Patient Education Patient Instructions Indication:Non-smoker Start:04-Jun-2022 Instruction Type:Provider Instructions for Treatment How to Access Health Informa tion Online using Patient Portal and [employer]rd [employer] Apps Indication:Non-smoker Start:04-Jun-2022 Instruction Type:Patient Education Patient Instructions Indication:Non-smoker Start:30-Nov-2021 Instruction Type:Provider Instructions for Treatment How to Access Health Informa tion Online using Patient Portal and [employer]rd [employer] Apps Indication:Non-smoker Start:30-Nov-2021 Instruction Type:Patient Education How to Access Health Informa tion Online using Patient Portal and [employer]rd [employer] Apps Indication:Non-smoker Start:30-Dec-2020 Instruction Type:Patient Education Patient Instructions Indication:Non-smoker Start:30-Dec-2020 Instruction Type:Provider Instructions for Treatment How to Access Health Informa tion Online using Patient Portal and [employer]rd [employer] Apps Indication:Non-smoker Start:28-Sep-2020 Instruction Type:Patient Education Patient Instructions Indication:Non-smoker Start:28-Sep-2020 Instruction Type:Provider Instructions for Treatment How to Access Health Informa tion Online using Patient Portal and [employer]rd [employer] Apps Indication:Non-smoker Start:09-Sep-2020 Instruction Type:Patient Education Patient Instructions Indication:Non-smoker Start:09-Sep-2020 Instruction Type:Provider Instructions for Treatment Patient Instructions Indication:BMI 27.0-27.9,adult Start:15-Jun-2020 Instruction Type:Provider Instructions for Treatment How to Access Health Informa tion Online using Patient Portal and [employer]rd [employer] Apps Indication:BMI 27.0-27.9,adult Start:15-Jun-2020 Instruction Type:Patient Education How to access health informa tion online Indication:Cough Start:18-Jan-2020 Instruction Type:Patient Education How to access health informa tion online - Detail Indication:Cough Start:18-Jan-2020 Instruction Type:Patient Education Patient Instructions Indication:Cough Start:18-Jan-2020 Instruction Type:Provider Instructions for Treatment How to access health informa tion online Indication:Non-smoker Start:21-Jan-2019 Instruction Type:Patient Education How to access health informa tion online - Detail Indication:Non-smoker Start:21-Jan-2019 Instruction Type:Patient Education Patient Instructions Indication:Non-smoker Start:21-Jan-2019 Instruction Type:Provider Instructions for Treatment How to access health informa tion online Indication:Nonsmoker Start:03-Mar-2018 Instruction Type:Patient Education How to access health informa tion online - Detail Indication:Nonsmoker Start:03-Mar-2018 Instruction Type:Patient Education Patient Instructions Indication:Nonsmoker Start:03-Mar-2018 Instruction Type:Provider Instructions for Treatment How to access health informa tion online Indication:Nonsmoker Start:04-Dec-2017 Instruction Type:Patient Education How to access health informa tion online - Detail Indication:Nonsmoker Start:04-Dec-2017 Instruction Type:Patient Education Patient Instructions Indication:Nonsmoker Start:04-Dec-2017 Instruction Type:Provider Instructions for Treatment How to access health informa tion online Indication:Nonsmoker Start:01-Oct-2017 Instruction Type:Patient Education How to access health informa tion online - Detail Indication:Nonsmoker Start:01-Oct-2017 Instruction Type:Patient Education Patient Instructions Indication:Nonsmoker Start:01-Oct-2017 Instruction Type:Provider Instructions for Treatment How to access health informa tion online Indication:BMI 25.0-25.9,adult Start:26-Jun-2017 Instruction Type:Patient Education How to access health informa tion online - Detail Indication:BMI 25.0-25.9,adult Start:26-Jun-2017 Instruction Type:Patient Education Patient Instructions Indication:BMI 25.0-25.9,adult Start:26-Jun-2017 Instruction Type:Provider Instructions for Treatment How to access health informa tion online Indication:Nonsmoker Start:08-Aug-2016 Instruction Type:Patient Education How to access health informa tion online - Detail Indication:Nonsmoker Start:08-Aug-2016 Instruction Type:Patient Education Patient Instructions Indication:Nonsmoker Start:08-Aug-2016 Instruction Type:Provider Instructions for Treatment How to access health informa tion online Indication:Nonsmoker Start:18-Jul-2016 Instruction Type:Patient Education How to access health informa tion online - Detail Indication:Nonsmoker Start:18-Jul-2016 Instruction Type:Patient Education Patient Instructions Indication:Nonsmoker Start:18-Jul-2016 Instruction Type:Provider Instructions for Treatment Patient Instructions Indication:Anxiety Start:11-Jun-2016 Instruction Type:Provider Instructions for Treatment How to access health informa tion online Indication:Palpitation Start:04-May-2016 Instruction Type:Patient Education How to access health informa tion online - Detail Indication:Palpitation Start:04-May-2016 Instruction Type:Patient Education Patient Instructions Indication:Palpitation Start:04-May-2016 Instruction Type:Provider Instructions for Treatment Patient Instructions Indication:Palpitation Start:30-Mar-2016 Instruction Type:Provider Instructions for Treatment How to access health informa tion online Indication:UTI symptoms Start:30-Jan-2016 Instruction Type:Patient Education How to access health informa tion online - Detail Indication:UTI symptoms Start:30-Jan-2016 Instruction Type:Patient Education Patient Instructions Indication:UTI symptoms Start:30-Jan-2016 Instruction Type:Provider Instructions for Treatment How to access health informa tion online Indication:Diarrhea Start:05-Dec-2015 Instruction Type:Patient Education How to access health informa tion online - Detail Indication:Diarrhea Start:05-Dec-2015 Instruction Type:Patient Education Patient Instructions Indication:Diarrhea Start:05-Dec-2015 Instruction Type:Provider Instructions for Treatment How to access health informa tion online Indication:Stomach ache Start:24-Oct-2015 Instruction Type:Patient Education How to access health informa tion online - Detail Indication:Stomach ache Start:24-Oct-2015 Instruction Type:Patient Education Patient Instructions Indication:Stomach ache Start:24-Oct-2015 Instruction Type:Provider Instructions for Treatment Patient Instructions Indication:Hypothyroidism Start:12-Sep-2015 Instruction Type:Provider Instructions for Treatment How to access health informa tion online Indication:Benign diastolic hypertension Start:15-Aug-2015 Instruction Type:Patient Education How to access health informa tion online - Detail Indication:Benign diastolic hypertension Start:15-Aug-2015 Instruction Type:Patient Education Patient Instructions Indication:Benign diastolic hypertension Start:15-Aug-2015 Instruction Type:Provider Instructions for Treatment How to access health informa tion online Indication:GERD (gastroesophageal reflux disease) Start:16-May-2015 Instruction Type:Patient Education How to access health informa tion online - Detail Indication:GERD (gastroesophageal reflux disease) Start:16-May-2015 Instruction Type:Patient Education Patient Instructions Indication:GERD (gastroesophageal reflux disease) Start:16-May-2015 Instruction Type:Provider Instructions for Treatment How to access health informa tion online Indication:Hypothyroidism Start:07-Feb-2015 Instruction Type:Patient Education How to access health informa tion online - Detail Indication:Hypothyroidism Start:07-Feb-2015 Instruction Type:Patient Education Patient Instructions Indication:Hypothyroidism Start:07-Feb-2015 Instruction Type:Provider Instructions for Treatment Patient Instructions Indication:Anxiety Start:27-Dec-2014 Instruction Type:Provider Instructions for Treatment How to access health informa tion online Indication:Palpitation Start:24-Nov-2014 Instruction Type:Patient Education How to access health informa tion online - Detail Indication:Palpitation Start:24-Nov-2014 Instruction Type:Patient Education Patient Instructions Indication:Palpitation Start:24-Nov-2014 Instruction Type:Provider Instructions for Treatment How to access health informa tion online Indication:Palpitation Start:24-Nov-2014 Instruction Type:Patient Education How to access health informa tion online - Detail Indication:Palpitation Start:24-Nov-2014 Instruction Type:Patient Education How to access health informa tion online Indication:Benign diastolic hypertension Start:21-Sep-2014 Instruction Type:Patient Education How to access health informa tion online - Detail Indication:Benign diastolic hypertension Start:21-Sep-2014 Instruction Type:Patient Education [facility]; [facility] Work Phone: Instructions* Name Dates Details Patient Instructions Indication:Non-smoker Start:10-Dec-2022 Instruction Type:Provider Instructions for Treatment How to Access Health Informa tion Online using Patient Portal and [facility] [employer] Apps Indication:Non-smoker Start:10-Dec-2022 Instruction Type:Patient Education Patient Instructions Indication:Non-smoker Start:23-Nov-2022 Instruction Type:Provider Instructions for Treatment How to Access Health Informa tion Online using Patient Portal and [employer] Apps Indication:Non-smoker Start:23-Nov-2022 Instruction Type:Patient Education Patient Instructions Indication:Non-smoker Start:04-Jun-2022 Instruction Type:Provider Instructions for Treatment How to Access Health Informa tion Online using Patient Portal and [employer] Apps Indication:Non-smoker Start:04-Jun-2022 Instruction Type:Patient Education Patient Instructions Indication:Non-smoker Start:30-Nov-2021 Instruction Type:Provider Instructions for Treatment How to Access Health Informa tion Online using Patient Portal and [employer] Apps Indication:Non-smoker Start:30-Nov-2021 Instruction Type:Patient Education How to Access Health Informa tion Online using Patient Portal and [employer] Apps Indication:Non-smoker Start:30-Dec-2020 Instruction Type:Patient Education Patient Instructions Indication:Non-smoker Start:30-Dec-2020 Instruction Type:Provider Instructions for Treatment How to Access Health Informa tion Online using Patient Portal and [employer] Apps Indication:Non-smoker Start:28-Sep-2020 Instruction Type:Patient Education Patient Instructions Indication:Non-smoker Start:28-Sep-2020 Instruction Type:Provider Instructions for Treatment How to Access Health Informa tion Online using Patient Portal and [employer] Indication:Non-smoker Start:09-Sep-2020 Instruction Type:Patient Education Patient Instructions Indication:Non-smoker Start:09-Sep-2020 Instruction Type:Provider Instructions for Treatment Patient Instructions Indication:BMI 27.0-27.9,adult Start:15-Jun-2020 Instruction Type:Provider Instructions for Treatment How to Access Health Informa tion Online using Patient Portal and [employer] Apps Indication:BMI 27.0-27.9,adult Start:15-Jun-2020 Instruction Type:Patient Education How to access health informa tion online Indication:Cough Start:18-Jan-2020 Instruction Type:Patient Education How to access health informa tion online - Detail Indication:Cough Start:18-Jan-2020 Instruction Type:Patient Education Patient Instructions Indication:Cough Start:18-Jan-2020 Instruction Type:Provider Instructions for Treatment How to access health informa tion online Indication:Non-smoker Start:21-Jan-2019 Instruction Type:Patient Education How to access health informa tion online - Detail Indication:Non-smoker Start:21-Jan-2019 Instruction Type:Patient Education Patient Instructions Indication:Non-smoker Start:21-Jan-2019 Instruction Type:Provider Instructions for Treatment How to access health informa tion online Indication:Nonsmoker Start:03-Mar-2018 Instruction Type:Patient Education How to access health informa tion online - Detail Indication:Nonsmoker Start:03-Mar-2018 Instruction Type:Patient Education Patient Instructions Indication:Nonsmoker Start:03-Mar-2018 Instruction Type:Provider Instructions for Treatment How to access health informa tion online Indication:Nonsmoker Start:04-Dec-2017 Instruction Type:Patient Education How to access health informa tion online - Detail Indication:Nonsmoker Start:04-Dec-2017 Instruction Type:Patient Education Patient Instructions Indication:Nonsmoker Start:04-Dec-2017 Instruction Type:Provider Instructions for Treatment How to access health informa tion online Indication:Nonsmoker Start:01-Oct-2017 Instruction Type:Patient Education How to access health informa tion online - Detail Indication:Nonsmoker Start:01-Oct-2017 Instruction Type:Patient Education Patient Instructions Indication:Nonsmoker Start:01-Oct-2017 Instruction Type:Provider Instructions for Treatment How to access health informa tion online Indication:BMI 25.0-25.9,adult Start:26-Jun-2017 Instruction Type:Patient Education How to access health informa tion online - Detail Indication:BMI 25.0-25.9,adult Start:26-Jun-2017 Instruction Type:Patient Education Patient Instructions Indication:BMI 25.0-25.9,adult Start:26-Jun-2017 Instruction Type:Provider Instructions for Treatment How to access health informa tion online Indication:Nonsmoker Start:08-Aug-2016 Instruction Type:Patient Education How to access health informa tion online - Detail Indication:Nonsmoker Start:08-Aug-2016 Instruction Type:Patient Education Patient Instructions Indication:Nonsmoker Start:08-Aug-2016 Instruction Type:Provider Instructions for Treatment How to access health informa tion online Indication:Nonsmoker Start:18-Jul-2016 Instruction Type:Patient Education How to access health informa tion online - Detail Indication:Nonsmoker Start:18-Jul-2016 Instruction Type:Patient Education Patient Instructions Indication:Nonsmoker Start:18-Jul-2016 Instruction Type:Provider Instructions for Treatment Patient Instructions Indication:Anxiety Start:11-Jun-2016 Instruction Type:Provider Instructions for Treatment How to access health informa tion online Indication:Palpitation Start:04-May-2016 Instruction Type:Patient Education How to access health informa tion online - Detail Indication:Palpitation Start:04-May-2016 Instruction Type:Patient Education Patient Instructions Indication:Palpitation Start:04-May-2016 Instruction Type:Provider Instructions for Treatment Patient Instructions Indication:Palpitation Start:30-Mar-2016 Instruction Type:Provider Instructions for Treatment How to access health informa tion online Indication:UTI symptoms Start:30-Jan-2016 Instruction Type:Patient Education How to access health informa tion online - Detail Indication:UTI symptoms Start:30-Jan-2016 Instruction Type:Patient Education Patient Instructions Indication:UTI symptoms Start:30-Jan-2016 Instruction Type:Provider Instructions for Treatment How to access health informa tion online Indication:Diarrhea Start:05-Dec-2015 Instruction Type:Patient Education How to access health informa tion online - Detail Indication:Diarrhea Start:05-Dec-2015 Instruction Type:Patient Education Patient Instructions Indication:Diarrhea Start:05-Dec-2015 Instruction Type:Provider Instructions for Treatment How to access health informa tion online Indication:Stomach ache Start:24-Oct-2015 Instruction Type:Patient Education How to access health informa tion online - Detail Indication:Stomach ache Start:24-Oct-2015 Instruction Type:Patient Education Patient Instructions Indication:Stomach ache Start:24-Oct-2015 Instruction Type:Provider Instructions for Treatment Patient Instructions Indication:Hypothyroidism Start:12-Sep-2015 Instruction Type:Provider Instructions for Treatment How to access health informa tion online Indication:Benign diastolic hypertension Start:15-Aug-2015 Instruction Type:Patient Education How to access health informa tion online - Detail Indication:Benign diastolic hypertension Start:15-Aug-2015 Instruction Type:Patient Education Patient Instructions Indication:Benign diastolic hypertension Start:15-Aug-2015 Instruction Type:Provider Instructions for Treatment How to access health informa tion online Indication:GERD (gastroesophageal reflux disease) Start:16-May-2015 Instruction Type:Patient Education How to access health informa tion online - Detail Indication:GERD (gastroesophageal reflux disease) Start:16-May-2015 Instruction Type:Patient Education Patient Instructions Indication:GERD (gastroesophageal reflux disease) Start:16-May-2015 Instruction Type:Provider Instructions for Treatment How to access health informa tion online Indication:Hypothyroidism Start:07-Feb-2015 Instruction Type:Patient Education How to access health informa tion online - Detail Indication:Hypothyroidism Start:07-Feb-2015 Instruction Type:Patient Education Patient Instructions Indication:Hypothyroidism Start:07-Feb-2015 Instruction Type:Provider Instructions for Treatment Patient Instructions Indication:Anxiety Start:27-Dec-2014 Instruction Type:Provider Instructions for Treatment How to access health informa tion online Indication:Palpitation Start:24-Nov-2014 Instruction Type:Patient Education How to access health informa tion online - Detail Indication:Palpitation Start:24-Nov-2014 Instruction Type:Patient Education Patient Instructions Indication:Palpitation Start:24-Nov-2014 Instruction Type:Provider Instructions for Treatment How to access health informa tion online Indication:Palpitation Start:24-Nov-2014 Instruction Type:Patient Education How to access health informa tion online - Detail Indication:Palpitation Start:24-Nov-2014 Instruction Type:Patient Education How to access health informa tion online Indication:Benign diastolic hypertension Start:21-Sep-2014 Instruction Type:Patient Education How to access health informa tion online - Detail Indication:Benign diastolic hypertension Start:21-Sep-2014 Instruction Type:Patient Education [facility] Work Phone: reason for referral (narrative)No reason for referral [facility]: Family History No Family History Records FoundUnknown Family Member Name Dates Details Anxiety Disorder Comments:Mother. Maternal Gr andmother. Status:Active Hypertension Comments:Mother. Status:Active Unknown Family Member Name Dates Details Anxiety Disorder Comments:Mother. Maternal Gr andmother. Status:Active Hypertension Comments:Mother. Status:Active Unknown Family Member Name Dates Details Anxiety Disorder Comments:Mother. Maternal Gr andmother. Status:Active Hypertension Comments:Mother. Status:Active Unknown Family Member Name Dates Details Anxiety Disorder Comments:Mother. Maternal Gr andmother. Status:Active Hypertension Comments:Mother. Status:Active Unknown Family Member Name Dates Details Anxiety Disorder Comments:Mother. Maternal Gr andmother. Status:Active Hypertension Comments:Mother. Status:Active Unknown Family Member Name Dates Details Anxiety Disorder Comments:Mother. Maternal Gr andmother. Status:Active Hypertension Comments:Mother. Status:Active Unknown Family Member Name Dates Details Anxiety Disorder Comments:Mother. Maternal Gr andmother. Status:Active Hypertension Comments:Mother. Status:Active Unknown Family Member Name Dates Details Anxiety Disorder Comments:Mother. Maternal Gr andmother. Status:Active Hypertension Comments:Mother. Status:Active Unknown Family Member Name Dates Details Anxiety Disorder Comments:Mother. Maternal Gr andmother. Status:Active Hypertension Comments:Mother. Status:Active Unknown Family Member Name Dates Details Anxiety Disorder Comments:Mother. Maternal Gr andmother. Status:Active Hypertension Comments:Mother. Status:Active Unknown Family Member Name Dates Details Anxiety Disorder Comments:Mother. Maternal Gr andmother. Status:Active Hypertension Comments:Mother. Status:Active Unknown Family Member Name Dates Details Anxiety Disorder Comments:Mother. Maternal Gr andmother. Status:Active Hypertension Comments:Mother. Status:Active Unknown Family Member Name Dates Details Anxiety Disorder Comments:Mother. Maternal Gr andmother. Status:Active Hypertension Comments:Mother. Status:Active Unknown Family Member Name Dates Details Anxiety Disorder Comments:Mother. Maternal Gr andmother. Status:Active Hypertension Comments:Mother. Status:Active Unknown Family Member Name Dates Details Anxiety Disorder Comments:Mother. Maternal Gr andmother. Status:Active Hypertension Comments:Mother. Status:Active Unknown Family Member Name Dates Details Anxiety Disorder Comments:Mother. Maternal Gr andmother. Status:Active Hypertension Comments:Mother. Status:Active Unknown Family Member Name Dates Details Anxiety Disorder Comments:Mother. Maternal Gr andmother. Status:Active Hypertension Comments:Mother. Status:Active Unknown Family Member Name Dates Details Anxiety Disorder Comments:Mother. Maternal Gr andmother. Status:Active Hypertension Comments:Mother. Status:Active Unknown Family Member Name Dates Details Anxiety Disorder Comments:Mother. Maternal Gr andmother. Status:Active Hypertension Comments:Mother. Status:Active Unknown Family Member Name Dates Details Anxiety Disorder Comments:Mother. Maternal Gr andmother. Status:Active Hypertension Comments:Mother. Status:Active Unknown Family Member Name Dates Details Anxiety Disorder Comments:Mother. Maternal Gr andmother. Status:Active Hypertension Comments:Mother. Status:Active Unknown Family Member Name Dates Details Anxiety Disorder Comments:Mother. Maternal Gr andmother. Status:Active Hypertension Comments:Mother. Status:Active Relationship Condition Age at Onset Recorded Date/T jackie Unknown Family History?- Unknown September 17, 2020 9:16pm Family History?Hypertension Unknown September 17, 2020 9:16pm Unknown Family Member Name Dates Details Anxiety Disorder Comments:Mother. Maternal Gr andmother. Status:Active Hypertension Comments:Mother. Status:Active Unknown Family Member Name Dates Details Anxiety Disorder Comments:Mother. Maternal Gr andmother. Status:Active Hypertension Comments:Mother. Status:Active Unknown Family Member Name Dates Details Anxiety Disorder Comments:Mother. Maternal Gr andmother. Status:Active Hypertension Comments:Mother. Status:Active Unknown Family Member Name Dates Details Anxiety Disorder Comments:Mother. Maternal Gr andmother. Status:Active Hypertension Comments:Mother. Status:Active Unknown Family Member Name Dates Details Anxiety Disorder Comments:Mother. Maternal Gr andmother. Status:Active Hypertension Comments:Mother. Status:Active Relationship Condition Age at Onset Recorded Date/T jackie Unknown Family History?- Unknown September 17, 2020 10:16pm Family History?Hypertension Unknown September 17, 2020 10:16pm Instructions Name Dates Details Nonsmoker : How to access he alth information online Indication:Nonsmoker Nonsmoker : How to access he alth information online - Detail Indication:Nonsmoker Nonsmoker : Patient Instruct ions Indication:Nonsmoker BMI 25.0-25.9,adult : How to access health information online Indication:BMI 25.0-25.9,adult BMI 25.0-25.9,adult : How to access health information online - Detail Indication:BMI 25.0-25.9,adult BMI 25.0-25.9,adult : Patien t Instructions Indication:BMI 25.0-25.9,adult Anxiety : Patient Instructio ns Indication:Anxiety Palpitation : How to access health information online Indication:Palpitation Palpitation : How to access health information online - Detail Indication:Palpitation Palpitation : Patient Instru ctions Indication:Palpitation UTI symptoms : How to access health information online Indication:UTI symptoms UTI symptoms : How to access health information online - Detail Indication:UTI symptoms UTI symptoms : Patient Instr uctions Indication:UTI symptoms Diarrhea : How to access hea lth information online Indication:Diarrhea Diarrhea : How to access hea lth information online - Detail Indication:Diarrhea Diarrhea : Patient Instructi ons Indication:Diarrhea Stomach ache : How to access health information online Indication:Stomach ache Stomach ache : How to access health information online - Detail Indication:Stomach ache Stomach ache : Patient Instr uctions Indication:Stomach ache Hypothyroidism : Patient Ins tructions Indication:Hypothyroidism Benign diastolic hypertensio n : How to access health information online Indication:Benign diastolic hypertension Benign diastolic hypertensio n : How to access health information online - Detail Indication:Benign diastolic hypertension Benign diastolic hypertensio n : Patient Instructions Indication:Benign diastolic hypertension GERD (gastroesophageal reflu x disease) : How to access health information online Indication:GERD (gastroesophageal reflux disease) GERD (gastroesophageal reflu x disease) : How to access health information online - Detail Indication:GERD (gastroesophageal reflux disease) GERD (gastroesophageal reflu x disease) : Patient Instructions Indication:GERD (gastroesophageal reflux disease) Hypothyroidism : How to acce ss health information online Indication:Hypothyroidism Hypothyroidism : How to acce ss health information online - Detail Indication:Hypothyroidism Name Dates Details How to access health informa tion online Indication:Non-smoker Start:21-Jan-2019 Instruction Type:Patient Education How to access health informa tion online - Detail Indication:Non-smoker Start:21-Jan-2019 Instruction Type:Patient Education Patient Instructions Indication:Non-smoker Start:21-Jan-2019 Instruction Type:Provider Instructions for Treatment How to access health informa tion online Indication:Nonsmoker Start:03-Mar-2018 Instruction Type:Patient Education How to access health informa tion online - Detail Indication:Nonsmoker Start:03-Mar-2018 Instruction Type:Patient Education Patient Instructions Indication:Nonsmoker Start:03-Mar-2018 Instruction Type:Provider Instructions for Treatment How to access health informa tion online Indication:Nonsmoker Start:04-Dec-2017 Instruction Type:Patient Education How to access health informa tion online - Detail Indication:Nonsmoker Start:04-Dec-2017 Instruction Type:Patient Education Patient Instructions Indication:Nonsmoker Start:04-Dec-2017 Instruction Type:Provider Instructions for Treatment How to access health informa tion online Indication:Nonsmoker Start:01-Oct-2017 Instruction Type:Patient Education How to access health informa tion online - Detail Indication:Nonsmoker Start:01-Oct-2017 Instruction Type:Patient Education Patient Instructions Indication:Nonsmoker Start:01-Oct-2017 Instruction Type:Provider Instructions for Treatment How to access health informa tion online Indication:BMI 25.0-25.9,adult Start:26-Jun-2017 Instruction Type:Patient Education How to access health informa tion online - Detail Indication:BMI 25.0-25.9,adult Start:26-Jun-2017 Instruction Type:Patient Education Patient Instructions Indication:BMI 25.0-25.9,adult Start:26-Jun-2017 Instruction Type:Provider Instructions for Treatment How to access health informa tion online Indication:Nonsmoker Start:08-Aug-2016 Instruction Type:Patient Education How to access health informa tion online - Detail Indication:Nonsmoker Start:08-Aug-2016 Instruction Type:Patient Education Patient Instructions Indication:Nonsmoker Start:08-Aug-2016 Instruction Type:Provider Instructions for Treatment How to access health informa tion online Indication:Nonsmoker Start:18-Jul-2016 Instruction Type:Patient Education How to access health informa tion online - Detail Indication:Nonsmoker Start:18-Jul-2016 Instruction Type:Patient Education Patient Instructions Indication:Nonsmoker Start:18-Jul-2016 Instruction Type:Provider Instructions for Treatment Patient Instructions Indication:Anxiety Start:11-Jun-2016 Instruction Type:Provider Instructions for Treatment How to access health informa tion online Indication:Palpitation Start:04-May-2016 Instruction Type:Patient Education How to access health informa tion online - Detail Indication:Palpitation Start:04-May-2016 Instruction Type:Patient Education Patient Instructions Indication:Palpitation Start:04-May-2016 Instruction Type:Provider Instructions for Treatment Patient Instructions Indication:Palpitation Start:30-Mar-2016 Instruction Type:Provider Instructions for Treatment How to access health informa tion online Indication:UTI symptoms Start:30-Jan-2016 Instruction Type:Patient Education How to access health informa tion online - Detail Indication:UTI symptoms Start:30-Jan-2016 Instruction Type:Patient Education Patient Instructions Indication:UTI symptoms Start:30-Jan-2016 Instruction Type:Provider Instructions for Treatment How to access health informa tion online Indication:Diarrhea Start:05-Dec-2015 Instruction Type:Patient Education How to access health informa tion online - Detail Indication:Diarrhea Start:05-Dec-2015 Instruction Type:Patient Education Patient Instructions Indication:Diarrhea Start:05-Dec-2015 Instruction Type:Provider Instructions for Treatment How to access health informa tion online Indication:Stomach ache Start:24-Oct-2015 Instruction Type:Patient Education How to access health informa tion online - Detail Indication:Stomach ache Start:24-Oct-2015 Instruction Type:Patient Education Patient Instructions Indication:Stomach ache Start:24-Oct-2015 Instruction Type:Provider Instructions for Treatment Patient Instructions Indication:Hypothyroidism Start:12-Sep-2015 Instruction Type:Provider Instructions for Treatment How to access health informa tion online Indication:Benign diastolic hypertension Start:15-Aug-2015 Instruction Type:Patient Education How to access health informa tion online - Detail Indication:Benign diastolic hypertension Start:15-Aug-2015 Instruction Type:Patient Education Patient Instructions Indication:Benign diastolic hypertension Start:15-Aug-2015 Instruction Type:Provider Instructions for Treatment How to access health informa tion online Indication:GERD (gastroesophageal reflux disease) Start:16-May-2015 Instruction Type:Patient Education How to access health informa tion online - Detail Indication:GERD (gastroesophageal reflux disease) Start:16-May-2015 Instruction Type:Patient Education Patient Instructions Indication:GERD (gastroesophageal reflux disease) Start:16-May-2015 Instruction Type:Provider Instructions for Treatment How to access health informa tion online Indication:Hypothyroidism Start:07-Feb-2015 Instruction Type:Patient Education How to access health informa tion online - Detail Indication:Hypothyroidism Start:07-Feb-2015 Instruction Type:Patient Education Patient Instructions Indication:Hypothyroidism Start:07-Feb-2015 Instruction Type:Provider Instructions for Treatment Patient Instructions Indication:Anxiety Start:27-Dec-2014 Instruction Type:Provider Instructions for Treatment How to access health informa tion online Indication:Palpitation Start:24-Nov-2014 Instruction Type:Patient Education How to access health informa tion online - Detail Indication:Palpitation Start:24-Nov-2014 Instruction Type:Patient Education Patient Instructions Indication:Palpitation Start:24-Nov-2014 Instruction Type:Provider Instructions for Treatment How to access health informa tion online Indication:Benign diastolic hypertension Start:21-Sep-2014 Instruction Type:Patient Education How to access health informa tion online - Detail Indication:Benign diastolic hypertension Start:21-Sep-2014 Instruction Type:Patient Education Name Dates Details How to access health informa tion online Indication:Cough Start:18-Jan-2020 Instruction Type:Patient Education How to access health informa tion online - Detail Indication:Cough Start:18-Jan-2020 Instruction Type:Patient Education Patient Instructions Indication:Cough Start:18-Jan-2020 Instruction Type:Provider Instructions for Treatment How to access health informa tion online Indication:Non-smoker Start:21-Jan-2019 Instruction Type:Patient Education How to access health informa tion online - Detail Indication:Non-smoker Start:21-Jan-2019 Instruction Type:Patient Education Patient Instructions Indication:Non-smoker Start:21-Jan-2019 Instruction Type:Provider Instructions for Treatment How to access health informa tion online Indication:Nonsmoker Start:03-Mar-2018 Instruction Type:Patient Education How to access health informa tion online - Detail Indication:Nonsmoker Start:03-Mar-2018 Instruction Type:Patient Education Patient Instructions Indication:Nonsmoker Start:03-Mar-2018 Instruction Type:Provider Instructions for Treatment How to access health informa tion online Indication:Nonsmoker Start:04-Dec-2017 Instruction Type:Patient Education How to access health informa tion online - Detail Indication:Nonsmoker Start:04-Dec-2017 Instruction Type:Patient Education Patient Instructions Indication:Nonsmoker Start:04-Dec-2017 Instruction Type:Provider Instructions for Treatment How to access health informa tion online Indication:Nonsmoker Start:01-Oct-2017 Instruction Type:Patient Education How to access health informa tion online - Detail Indication:Nonsmoker Start:01-Oct-2017 Instruction Type:Patient Education Patient Instructions Indication:Nonsmoker Start:01-Oct-2017 Instruction Type:Provider Instructions for Treatment How to access health informa tion online Indication:BMI 25.0-25.9,adult Start:26-Jun-2017 Instruction Type:Patient Education How to access health informa tion online - Detail Indication:BMI 25.0-25.9,adult Start:26-Jun-2017 Instruction Type:Patient Education Patient Instructions Indication:BMI 25.0-25.9,adult Start:26-Jun-2017 Instruction Type:Provider Instructions for Treatment How to access health informa tion online Indication:Nonsmoker Start:08-Aug-2016 Instruction Type:Patient Education How to access health informa tion online - Detail Indication:Nonsmoker Start:08-Aug-2016 Instruction Type:Patient Education Patient Instructions Indication:Nonsmoker Start:08-Aug-2016 Instruction Type:Provider Instructions for Treatment How to access health informa tion online Indication:Nonsmoker Start:18-Jul-2016 Instruction Type:Patient Education How to access health informa tion online - Detail Indication:Nonsmoker Start:18-Jul-2016 Instruction Type:Patient Education Patient Instructions Indication:Nonsmoker Start:18-Jul-2016 Instruction Type:Provider Instructions for Treatment Patient Instructions Indication:Anxiety Start:11-Jun-2016 Instruction Type:Provider Instructions for Treatment How to access health informa tion online Indication:Palpitation Start:04-May-2016 Instruction Type:Patient Education How to access health informa tion online - Detail Indication:Palpitation Start:04-May-2016 Instruction Type:Patient Education Patient Instructions Indication:Palpitation Start:04-May-2016 Instruction Type:Provider Instructions for Treatment Patient Instructions Indication:Palpitation Start:30-Mar-2016 Instruction Type:Provider Instructions for Treatment How to access health informa tion online Indication:UTI symptoms Start:30-Jan-2016 Instruction Type:Patient Education How to access health informa tion online - Detail Indication:UTI symptoms Start:30-Jan-2016 Instruction Type:Patient Education Patient Instructions Indication:UTI symptoms Start:30-Jan-2016 Instruction Type:Provider Instructions for Treatment How to access health informa tion online Indication:Diarrhea Start:05-Dec-2015 Instruction Type:Patient Education How to access health informa tion online - Detail Indication:Diarrhea Start:05-Dec-2015 Instruction Type:Patient Education Patient Instructions Indication:Diarrhea Start:05-Dec-2015 Instruction Type:Provider Instructions for Treatment How to access health informa tion online Indication:Stomach ache Start:24-Oct-2015 Instruction Type:Patient Education How to access health informa tion online - Detail Indication:Stomach ache Start:24-Oct-2015 Instruction Type:Patient Education Patient Instructions Indication:Stomach ache Start:24-Oct-2015 Instruction Type:Provider Instructions for Treatment Patient Instructions Indication:Hypothyroidism Start:12-Sep-2015 Instruction Type:Provider Instructions for Treatment How to access health informa tion online Indication:Benign diastolic hypertension Start:15-Aug-2015 Instruction Type:Patient Education How to access health informa tion online - Detail Indication:Benign diastolic hypertension Start:15-Aug-2015 Instruction Type:Patient Education Patient Instructions Indication:Benign diastolic hypertension Start:15-Aug-2015 Instruction Type:Provider Instructions for Treatment How to access health informa tion online Indication:GERD (gastroesophageal reflux disease) Start:16-May-2015 Instruction Type:Patient Education How to access health informa tion online - Detail Indication:GERD (gastroesophageal reflux disease) Start:16-May-2015 Instruction Type:Patient Education Patient Instructions Indication:GERD (gastroesophageal reflux disease) Start:16-May-2015 Instruction Type:Provider Instructions for Treatment How to access health informa tion online Indication:Hypothyroidism Start:07-Feb-2015 Instruction Type:Patient Education How to access health informa tion online - Detail Indication:Hypothyroidism Start:07-Feb-2015 Instruction Type:Patient Education Patient Instructions Indication:Hypothyroidism Start:07-Feb-2015 Instruction Type:Provider Instructions for Treatment Patient Instructions Indication:Anxiety Start:27-Dec-2014 Instruction Type:Provider Instructions for Treatment How to access health informa tion online Indication:Palpitation Start:24-Nov-2014 Instruction Type:Patient Education How to access health informa tion online - Detail Indication:Palpitation Start:24-Nov-2014 Instruction Type:Patient Education Patient Instructions Indication:Palpitation Start:24-Nov-2014 Instruction Type:Provider Instructions for Treatment How to access health informa tion online Indication:Benign diastolic hypertension Start:21-Sep-2014 Instruction Type:Patient Education How to access health informa tion online - Detail Indication:Benign diastolic hypertension Start:21-Sep-2014 Instruction Type:Patient Education Name Dates Details How to access health informa tion online Indication:Cough Start:18-Jan-2020 Instruction Type:Patient Education How to access health informa tion online - Detail Indication:Cough Start:18-Jan-2020 Instruction Type:Patient Education Patient Instructions Indication:Cough Start:18-Jan-2020 Instruction Type:Provider Instructions for Treatment How to access health informa tion online Indication:Non-smoker Start:21-Jan-2019 Instruction Type:Patient Education How to access health informa tion online - Detail Indication:Non-smoker Start:21-Jan-2019 Instruction Type:Patient Education Patient Instructions Indication:Non-smoker Start:21-Jan-2019 Instruction Type:Provider Instructions for Treatment How to access health informa tion online Indication:Nonsmoker Start:03-Mar-2018 Instruction Type:Patient Education How to access health informa tion online - Detail Indication:Nonsmoker Start:03-Mar-2018 Instruction Type:Patient Education Patient Instructions Indication:Nonsmoker Start:03-Mar-2018 Instruction Type:Provider Instructions for Treatment How to access health informa tion online Indication:Nonsmoker Start:04-Dec-2017 Instruction Type:Patient Education How to access health informa tion online - Detail Indication:Nonsmoker Start:04-Dec-2017 Instruction Type:Patient Education Patient Instructions Indication:Nonsmoker Start:04-Dec-2017 Instruction Type:Provider Instructions for Treatment How to access health informa tion online Indication:Nonsmoker Start:01-Oct-2017 Instruction Type:Patient Education How to access health informa tion online - Detail Indication:Nonsmoker Start:01-Oct-2017 Instruction Type:Patient Education Patient Instructions Indication:Nonsmoker Start:01-Oct-2017 Instruction Type:Provider Instructions for Treatment How to access health informa tion online Indication:BMI 25.0-25.9,adult Start:26-Jun-2017 Instruction Type:Patient Education How to access health informa tion online - Detail Indication:BMI 25.0-25.9,adult Start:26-Jun-2017 Instruction Type:Patient Education Patient Instructions Indication:BMI 25.0-25.9,adult Start:26-Jun-2017 Instruction Type:Provider Instructions for Treatment How to access health informa tion online Indication:Nonsmoker Start:08-Aug-2016 Instruction Type:Patient Education How to access health informa tion online - Detail Indication:Nonsmoker Start:08-Aug-2016 Instruction Type:Patient Education Patient Instructions Indication:Nonsmoker Start:08-Aug-2016 Instruction Type:Provider Instructions for Treatment How to access health informa tion online Indication:Nonsmoker Start:18-Jul-2016 Instruction Type:Patient Education How to access health informa tion online - Detail Indication:Nonsmoker Start:18-Jul-2016 Instruction Type:Patient Education Patient Instructions Indication:Nonsmoker Start:18-Jul-2016 Instruction Type:Provider Instructions for Treatment Patient Instructions Indication:Anxiety Start:11-Jun-2016 Instruction Type:Provider Instructions for Treatment How to access health informa tion online Indication:Palpitation Start:04-May-2016 Instruction Type:Patient Education How to access health informa tion online - Detail Indication:Palpitation Start:04-May-2016 Instruction Type:Patient Education Patient Instructions Indication:Palpitation Start:04-May-2016 Instruction Type:Provider Instructions for Treatment Patient Instructions Indication:Palpitation Start:30-Mar-2016 Instruction Type:Provider Instructions for Treatment How to access health informa tion online Indication:UTI symptoms Start:30-Jan-2016 Instruction Type:Patient Education How to access health informa tion online - Detail Indication:UTI symptoms Start:30-Jan-2016 Instruction Type:Patient Education Patient Instructions Indication:UTI symptoms Start:30-Jan-2016 Instruction Type:Provider Instructions for Treatment How to access health informa tion online Indication:Diarrhea Start:05-Dec-2015 Instruction Type:Patient Education How to access health informa tion online - Detail Indication:Diarrhea Start:05-Dec-2015 Instruction Type:Patient Education Patient Instructions Indication:Diarrhea Start:05-Dec-2015 Instruction Type:Provider Instructions for Treatment How to access health informa tion online Indication:Stomach ache Start:24-Oct-2015 Instruction Type:Patient Education How to access health informa tion online - Detail Indication:Stomach ache Start:24-Oct-2015 Instruction Type:Patient Education Patient Instructions Indication:Stomach ache Start:24-Oct-2015 Instruction Type:Provider Instructions for Treatment Patient Instructions Indication:Hypothyroidism Start:12-Sep-2015 Instruction Type:Provider Instructions for Treatment How to access health informa tion online Indication:Benign diastolic hypertension Start:15-Aug-2015 Instruction Type:Patient Education How to access health informa tion online - Detail Indication:Benign diastolic hypertension Start:15-Aug-2015 Instruction Type:Patient Education Patient Instructions Indication:Benign diastolic hypertension Start:15-Aug-2015 Instruction Type:Provider Instructions for Treatment How to access health informa tion online Indication:GERD (gastroesophageal reflux disease) Start:16-May-2015 Instruction Type:Patient Education How to access health informa tion online - Detail Indication:GERD (gastroesophageal reflux disease) Start:16-May-2015 Instruction Type:Patient Education Patient Instructions Indication:GERD (gastroesophageal reflux disease) Start:16-May-2015 Instruction Type:Provider Instructions for Treatment How to access health informa tion online Indication:Hypothyroidism Start:07-Feb-2015 Instruction Type:Patient Education How to access health informa tion online - Detail Indication:Hypothyroidism Start:07-Feb-2015 Instruction Type:Patient Education Patient Instructions Indication:Hypothyroidism Start:07-Feb-2015 Instruction Type:Provider Instructions for Treatment Patient Instructions Indication:Anxiety Start:27-Dec-2014 Instruction Type:Provider Instructions for Treatment How to access health informa tion online Indication:Palpitation Start:24-Nov-2014 Instruction Type:Patient Education How to access health informa tion online - Detail Indication:Palpitation Start:24-Nov-2014 Instruction Type:Patient Education Patient Instructions Indication:Palpitation Start:24-Nov-2014 Instruction Type:Provider Instructions for Treatment How to access health informa tion online Indication:Benign diastolic hypertension Start:21-Sep-2014 Instruction Type:Patient Education How to access health informa tion online - Detail Indication:Benign diastolic hypertension Start:21-Sep-2014 Instruction Type:Patient Education Name Dates Details How to access health informa tion online Indication:Cough Start:18-Jan-2020 Instruction Type:Patient Education How to access health informa tion online - Detail Indication:Cough Start:18-Jan-2020 Instruction Type:Patient Education Patient Instructions Indication:Cough Start:18-Jan-2020 Instruction Type:Provider Instructions for Treatment How to access health informa tion online Indication:Non-smoker Start:21-Jan-2019 Instruction Type:Patient Education How to access health informa tion online - Detail Indication:Non-smoker Start:21-Jan-2019 Instruction Type:Patient Education Patient Instructions Indication:Non-smoker Start:21-Jan-2019 Instruction Type:Provider Instructions for Treatment How to access health informa tion online Indication:Nonsmoker Start:03-Mar-2018 Instruction Type:Patient Education How to access health informa tion online - Detail Indication:Nonsmoker Start:03-Mar-2018 Instruction Type:Patient Education Patient Instructions Indication:Nonsmoker Start:03-Mar-2018 Instruction Type:Provider Instructions for Treatment How to access health informa tion online Indication:Nonsmoker Start:04-Dec-2017 Instruction Type:Patient Education How to access health informa tion online - Detail Indication:Nonsmoker Start:04-Dec-2017 Instruction Type:Patient Education Patient Instructions Indication:Nonsmoker Start:04-Dec-2017 Instruction Type:Provider Instructions for Treatment How to access health informa tion online Indication:Nonsmoker Start:01-Oct-2017 Instruction Type:Patient Education How to access health informa tion online - Detail Indication:Nonsmoker Start:01-Oct-2017 Instruction Type:Patient Education Patient Instructions Indication:Nonsmoker Start:01-Oct-2017 Instruction Type:Provider Instructions for Treatment How to access health informa tion online Indication:BMI 25.0-25.9,adult Start:26-Jun-2017 Instruction Type:Patient Education How to access health informa tion online - Detail Indication:BMI 25.0-25.9,adult Start:26-Jun-2017 Instruction Type:Patient Education Patient Instructions Indication:BMI 25.0-25.9,adult Start:26-Jun-2017 Instruction Type:Provider Instructions for Treatment How to access health informa tion online Indication:Nonsmoker Start:08-Aug-2016 Instruction Type:Patient Education How to access health informa tion online - Detail Indication:Nonsmoker Start:08-Aug-2016 Instruction Type:Patient Education Patient Instructions Indication:Nonsmoker Start:08-Aug-2016 Instruction Type:Provider Instructions for Treatment How to access health informa tion online Indication:Nonsmoker Start:18-Jul-2016 Instruction Type:Patient Education How to access health informa tion online - Detail Indication:Nonsmoker Start:18-Jul-2016 Instruction Type:Patient Education Patient Instructions Indication:Nonsmoker Start:18-Jul-2016 Instruction Type:Provider Instructions for Treatment Patient Instructions Indication:Anxiety Start:11-Jun-2016 Instruction Type:Provider Instructions for Treatment How to access health informa tion online Indication:Palpitation Start:04-May-2016 Instruction Type:Patient Education How to access health informa tion online - Detail Indication:Palpitation Start:04-May-2016 Instruction Type:Patient Education Patient Instructions Indication:Palpitation Start:04-May-2016 Instruction Type:Provider Instructions for Treatment Patient Instructions Indication:Palpitation Start:30-Mar-2016 Instruction Type:Provider Instructions for Treatment How to access health informa tion online Indication:UTI symptoms Start:30-Jan-2016 Instruction Type:Patient Education How to access health informa tion online - Detail Indication:UTI symptoms Start:30-Jan-2016 Instruction Type:Patient Education Patient Instructions Indication:UTI symptoms Start:30-Jan-2016 Instruction Type:Provider Instructions for Treatment How to access health informa tion online Indication:Diarrhea Start:05-Dec-2015 Instruction Type:Patient Education How to access health informa tion online - Detail Indication:Diarrhea Start:05-Dec-2015 Instruction Type:Patient Education Patient Instructions Indication:Diarrhea Start:05-Dec-2015 Instruction Type:Provider Instructions for Treatment How to access health informa tion online Indication:Stomach ache Start:24-Oct-2015 Instruction Type:Patient Education How to access health informa tion online - Detail Indication:Stomach ache Start:24-Oct-2015 Instruction Type:Patient Education Patient Instructions Indication:Stomach ache Start:24-Oct-2015 Instruction Type:Provider Instructions for Treatment Patient Instructions Indication:Hypothyroidism Start:12-Sep-2015 Instruction Type:Provider Instructions for Treatment How to access health informa tion online Indication:Benign diastolic hypertension Start:15-Aug-2015 Instruction Type:Patient Education How to access health informa tion online - Detail Indication:Benign diastolic hypertension Start:15-Aug-2015 Instruction Type:Patient Education Patient Instructions Indication:Benign diastolic hypertension Start:15-Aug-2015 Instruction Type:Provider Instructions for Treatment How to access health informa tion online Indication:GERD (gastroesophageal reflux disease) Start:16-May-2015 Instruction Type:Patient Education How to access health informa tion online - Detail Indication:GERD (gastroesophageal reflux disease) Start:16-May-2015 Instruction Type:Patient Education Patient Instructions Indication:GERD (gastroesophageal reflux disease) Start:16-May-2015 Instruction Type:Provider Instructions for Treatment How to access health informa tion online Indication:Hypothyroidism Start:07-Feb-2015 Instruction Type:Patient Education How to access health informa tion online - Detail Indication:Hypothyroidism Start:07-Feb-2015 Instruction Type:Patient Education Patient Instructions Indication:Hypothyroidism Start:07-Feb-2015 Instruction Type:Provider Instructions for Treatment Patient Instructions Indication:Anxiety Start:27-Dec-2014 Instruction Type:Provider Instructions for Treatment How to access health informa tion online Indication:Palpitation Start:24-Nov-2014 Instruction Type:Patient Education How to access health informa tion online - Detail Indication:Palpitation Start:24-Nov-2014 Instruction Type:Patient Education Patient Instructions Indication:Palpitation Start:24-Nov-2014 Instruction Type:Provider Instructions for Treatment How to access health informa tion online Indication:Benign diastolic hypertension Start:21-Sep-2014 Instruction Type:Patient Education How to access health informa tion online - Detail Indication:Benign diastolic hypertension Start:21-Sep-2014 Instruction Type:Patient Education Name Dates Details Patient Instructions Indication:BMI 27.0-27.9,adult Start:15-Jun-2020 Instruction Type:Provider Instructions for Treatment How to Access Health Informa tion Online using Patient Portal and [employer]rd [employer] Apps Indication:BMI 27.0-27.9,adult Start:15-Jun-2020 Instruction Type:Patient Education How to access health informa tion online Indication:Cough Start:18-Jan-2020 Instruction Type:Patient Education How to access health informa tion online - Detail Indication:Cough Start:18-Jan-2020 Instruction Type:Patient Education Patient Instructions Indication:Cough Start:18-Jan-2020 Instruction Type:Provider Instructions for Treatment How to access health informa tion online Indication:Non-smoker Start:21-Jan-2019 Instruction Type:Patient Education How to access health informa tion online - Detail Indication:Non-smoker Start:21-Jan-2019 Instruction Type:Patient Education Patient Instructions Indication:Non-smoker Start:21-Jan-2019 Instruction Type:Provider Instructions for Treatment How to access health informa tion online Indication:Nonsmoker Start:03-Mar-2018 Instruction Type:Patient Education How to access health informa tion online - Detail Indication:Nonsmoker Start:03-Mar-2018 Instruction Type:Patient Education Patient Instructions Indication:Nonsmoker Start:03-Mar-2018 Instruction Type:Provider Instructions for Treatment How to access health informa tion online Indication:Nonsmoker Start:04-Dec-2017 Instruction Type:Patient Education How to access health informa tion online - Detail Indication:Nonsmoker Start:04-Dec-2017 Instruction Type:Patient Education Patient Instructions Indication:Nonsmoker Start:04-Dec-2017 Instruction Type:Provider Instructions for Treatment How to access health informa tion online Indication:Nonsmoker Start:01-Oct-2017 Instruction Type:Patient Education How to access health informa tion online - Detail Indication:Nonsmoker Start:01-Oct-2017 Instruction Type:Patient Education Patient Instructions Indication:Nonsmoker Start:01-Oct-2017 Instruction Type:Provider Instructions for Treatment How to access health informa tion online Indication:BMI 25.0-25.9,adult Start:26-Jun-2017 Instruction Type:Patient Education How to access health informa tion online - Detail Indication:BMI 25.0-25.9,adult Start:26-Jun-2017 Instruction Type:Patient Education Patient Instructions Indication:BMI 25.0-25.9,adult Start:26-Jun-2017 Instruction Type:Provider Instructions for Treatment How to access health informa tion online Indication:Nonsmoker Start:08-Aug-2016 Instruction Type:Patient Education How to access health informa tion online - Detail Indication:Nonsmoker Start:08-Aug-2016 Instruction Type:Patient Education Patient Instructions Indication:Nonsmoker Start:08-Aug-2016 Instruction Type:Provider Instructions for Treatment How to access health informa tion online Indication:Nonsmoker Start:18-Jul-2016 Instruction Type:Patient Education How to access health informa tion online - Detail Indication:Nonsmoker Start:18-Jul-2016 Instruction Type:Patient Education Patient Instructions Indication:Nonsmoker Start:18-Jul-2016 Instruction Type:Provider Instructions for Treatment Patient Instructions Indication:Anxiety Start:11-Jun-2016 Instruction Type:Provider Instructions for Treatment How to access health informa tion online Indication:Palpitation Start:04-May-2016 Instruction Type:Patient Education How to access health informa tion online - Detail Indication:Palpitation Start:04-May-2016 Instruction Type:Patient Education Patient Instructions Indication:Palpitation Start:04-May-2016 Instruction Type:Provider Instructions for Treatment Patient Instructions Indication:Palpitation Start:30-Mar-2016 Instruction Type:Provider Instructions for Treatment How to access health informa tion online Indication:UTI symptoms Start:30-Jan-2016 Instruction Type:Patient Education How to access health informa tion online - Detail Indication:UTI symptoms Start:30-Jan-2016 Instruction Type:Patient Education Patient Instructions Indication:UTI symptoms Start:30-Jan-2016 Instruction Type:Provider Instructions for Treatment How to access health informa tion online Indication:Diarrhea Start:05-Dec-2015 Instruction Type:Patient Education How to access health informa tion online - Detail Indication:Diarrhea Start:05-Dec-2015 Instruction Type:Patient Education Patient Instructions Indication:Diarrhea Start:05-Dec-2015 Instruction Type:Provider Instructions for Treatment How to access health informa tion online Indication:Stomach ache Start:24-Oct-2015 Instruction Type:Patient Education How to access health informa tion online - Detail Indication:Stomach ache Start:24-Oct-2015 Instruction Type:Patient Education Patient Instructions Indication:Stomach ache Start:24-Oct-2015 Instruction Type:Provider Instructions for Treatment Patient Instructions Indication:Hypothyroidism Start:12-Sep-2015 Instruction Type:Provider Instructions for Treatment How to access health informa tion online Indication:Benign diastolic hypertension Start:15-Aug-2015 Instruction Type:Patient Education How to access health informa tion online - Detail Indication:Benign diastolic hypertension Start:15-Aug-2015 Instruction Type:Patient Education Patient Instructions Indication:Benign diastolic hypertension Start:15-Aug-2015 Instruction Type:Provider Instructions for Treatment How to access health informa tion online Indication:GERD (gastroesophageal reflux disease) Start:16-May-2015 Instruction Type:Patient Education How to access health informa tion online - Detail Indication:GERD (gastroesophageal reflux disease) Start:16-May-2015 Instruction Type:Patient Education Patient Instructions Indication:GERD (gastroesophageal reflux disease) Start:16-May-2015 Instruction Type:Provider Instructions for Treatment How to access health informa tion online Indication:Hypothyroidism Start:07-Feb-2015 Instruction Type:Patient Education How to access health informa tion online - Detail Indication:Hypothyroidism Start:07-Feb-2015 Instruction Type:Patient Education Patient Instructions Indication:Hypothyroidism Start:07-Feb-2015 Instruction Type:Provider Instructions for Treatment Patient Instructions Indication:Anxiety Start:27-Dec-2014 Instruction Type:Provider Instructions for Treatment How to access health informa tion online Indication:Palpitation Start:24-Nov-2014 Instruction Type:Patient Education How to access health informa tion online - Detail Indication:Palpitation Start:24-Nov-2014 Instruction Type:Patient Education Patient Instructions Indication:Palpitation Start:24-Nov-2014 Instruction Type:Provider Instructions for Treatment How to access health informa tion online Indication:Benign diastolic hypertension Start:21-Sep-2014 Instruction Type:Patient Education How to access health informa tion online - Detail Indication:Benign diastolic hypertension Start:21-Sep-2014 Instruction Type:Patient Education Name Dates Details Patient Instructions Indication:BMI 27.0-27.9,adult Start:15-Jun-2020 Instruction Type:Provider Instructions for Treatment How to Access Health Informa tion Online using Patient Portal and [employer]rd [employer] Apps Indication:BMI 27.0-27.9,adult Start:15-Jun-2020 Instruction Type:Patient Education How to access health informa tion online Indication:Cough Start:18-Jan-2020 Instruction Type:Patient Education How to access health informa tion online - Detail Indication:Cough Start:18-Jan-2020 Instruction Type:Patient Education Patient Instructions Indication:Cough Start:18-Jan-2020 Instruction Type:Provider Instructions for Treatment How to access health informa tion online Indication:Non-smoker Start:21-Jan-2019 Instruction Type:Patient Education How to access health informa tion online - Detail Indication:Non-smoker Start:21-Jan-2019 Instruction Type:Patient Education Patient Instructions Indication:Non-smoker Start:21-Jan-2019 Instruction Type:Provider Instructions for Treatment How to access health informa tion online Indication:Nonsmoker Start:03-Mar-2018 Instruction Type:Patient Education How to access health informa tion online - Detail Indication:Nonsmoker Start:03-Mar-2018 Instruction Type:Patient Education Patient Instructions Indication:Nonsmoker Start:03-Mar-2018 Instruction Type:Provider Instructions for Treatment How to access health informa tion online Indication:Nonsmoker Start:04-Dec-2017 Instruction Type:Patient Education How to access health informa tion online - Detail Indication:Nonsmoker Start:04-Dec-2017 Instruction Type:Patient Education Patient Instructions Indication:Nonsmoker Start:04-Dec-2017 Instruction Type:Provider Instructions for Treatment How to access health informa tion online Indication:Nonsmoker Start:01-Oct-2017 Instruction Type:Patient Education How to access health informa tion online - Detail Indication:Nonsmoker Start:01-Oct-2017 Instruction Type:Patient Education Patient Instructions Indication:Nonsmoker Start:01-Oct-2017 Instruction Type:Provider Instructions for Treatment How to access health informa tion online Indication:BMI 25.0-25.9,adult Start:26-Jun-2017 Instruction Type:Patient Education How to access health informa tion online - Detail Indication:BMI 25.0-25.9,adult Start:26-Jun-2017 Instruction Type:Patient Education Patient Instructions Indication:BMI 25.0-25.9,adult Start:26-Jun-2017 Instruction Type:Provider Instructions for Treatment How to access health informa tion online Indication:Nonsmoker Start:08-Aug-2016 Instruction Type:Patient Education How to access health informa tion online - Detail Indication:Nonsmoker Start:08-Aug-2016 Instruction Type:Patient Education Patient Instructions Indication:Nonsmoker Start:08-Aug-2016 Instruction Type:Provider Instructions for Treatment How to access health informa tion online Indication:Nonsmoker Start:18-Jul-2016 Instruction Type:Patient Education How to access health informa tion online - Detail Indication:Nonsmoker Start:18-Jul-2016 Instruction Type:Patient Education Patient Instructions Indication:Nonsmoker Start:18-Jul-2016 Instruction Type:Provider Instructions for Treatment Patient Instructions Indication:Anxiety Start:11-Jun-2016 Instruction Type:Provider Instructions for Treatment How to access health informa tion online Indication:Palpitation Start:04-May-2016 Instruction Type:Patient Education How to access health informa tion online - Detail Indication:Palpitation Start:04-May-2016 Instruction Type:Patient Education Patient Instructions Indication:Palpitation Start:04-May-2016 Instruction Type:Provider Instructions for Treatment Patient Instructions Indication:Palpitation Start:30-Mar-2016 Instruction Type:Provider Instructions for Treatment How to access health informa tion online Indication:UTI symptoms Start:30-Jan-2016 Instruction Type:Patient Education How to access health informa tion online - Detail Indication:UTI symptoms Start:30-Jan-2016 Instruction Type:Patient Education Patient Instructions Indication:UTI symptoms Start:30-Jan-2016 Instruction Type:Provider Instructions for Treatment How to access health informa tion online Indication:Diarrhea Start:05-Dec-2015 Instruction Type:Patient Education How to access health informa tion online - Detail Indication:Diarrhea Start:05-Dec-2015 Instruction Type:Patient Education Patient Instructions Indication:Diarrhea Start:05-Dec-2015 Instruction Type:Provider Instructions for Treatment How to access health informa tion online Indication:Stomach ache Start:24-Oct-2015 Instruction Type:Patient Education How to access health informa tion online - Detail Indication:Stomach ache Start:24-Oct-2015 Instruction Type:Patient Education Patient Instructions Indication:Stomach ache Start:24-Oct-2015 Instruction Type:Provider Instructions for Treatment Patient Instructions Indication:Hypothyroidism Start:12-Sep-2015 Instruction Type:Provider Instructions for Treatment How to access health informa tion online Indication:Benign diastolic hypertension Start:15-Aug-2015 Instruction Type:Patient Education How to access health informa tion online - Detail Indication:Benign diastolic hypertension Start:15-Aug-2015 Instruction Type:Patient Education Patient Instructions Indication:Benign diastolic hypertension Start:15-Aug-2015 Instruction Type:Provider Instructions for Treatment How to access health informa tion online Indication:GERD (gastroesophageal reflux disease) Start:16-May-2015 Instruction Type:Patient Education How to access health informa tion online - Detail Indication:GERD (gastroesophageal reflux disease) Start:16-May-2015 Instruction Type:Patient Education Patient Instructions Indication:GERD (gastroesophageal reflux disease) Start:16-May-2015 Instruction Type:Provider Instructions for Treatment How to access health informa tion online Indication:Hypothyroidism Start:07-Feb-2015 Instruction Type:Patient Education How to access health informa tion online - Detail Indication:Hypothyroidism Start:07-Feb-2015 Instruction Type:Patient Education Patient Instructions Indication:Hypothyroidism Start:07-Feb-2015 Instruction Type:Provider Instructions for Treatment Patient Instructions Indication:Anxiety Start:27-Dec-2014 Instruction Type:Provider Instructions for Treatment How to access health informa tion online Indication:Palpitation Start:24-Nov-2014 Instruction Type:Patient Education How to access health informa tion online - Detail Indication:Palpitation Start:24-Nov-2014 Instruction Type:Patient Education Patient Instructions Indication:Palpitation Start:24-Nov-2014 Instruction Type:Provider Instructions for Treatment How to access health informa tion online Indication:Benign diastolic hypertension Start:21-Sep-2014 Instruction Type:Patient Education How to access health informa tion online - Detail Indication:Benign diastolic hypertension Start:21-Sep-2014 Instruction Type:Patient Education Name Dates Details How to access health informa tion online Indication:Nonsmoker Start:03-Mar-2018 Instruction Type:Patient Education How to access health informa tion online - Detail Indication:Nonsmoker Start:03-Mar-2018 Instruction Type:Patient Education Patient Instructions Indication:Nonsmoker Start:03-Mar-2018 Instruction Type:Provider Instructions for Treatment How to access health informa tion online Indication:Nonsmoker Start:04-Dec-2017 Instruction Type:Patient Education How to access health informa tion online - Detail Indication:Nonsmoker Start:04-Dec-2017 Instruction Type:Patient Education Patient Instructions Indication:Nonsmoker Start:04-Dec-2017 Instruction Type:Provider Instructions for Treatment How to access health informa tion online Indication:Nonsmoker Start:01-Oct-2017 Instruction Type:Patient Education How to access health informa tion online - Detail Indication:Nonsmoker Start:01-Oct-2017 Instruction Type:Patient Education Patient Instructions Indication:Nonsmoker Start:01-Oct-2017 Instruction Type:Provider Instructions for Treatment How to access health informa tion online Indication:BMI 25.0-25.9,adult Start:26-Jun-2017 Instruction Type:Patient Education How to access health informa tion online - Detail Indication:BMI 25.0-25.9,adult Start:26-Jun-2017 Instruction Type:Patient Education Patient Instructions Indication:BMI 25.0-25.9,adult Start:26-Jun-2017 Instruction Type:Provider Instructions for Treatment How to access health informa tion online Indication:Nonsmoker Start:08-Aug-2016 Instruction Type:Patient Education How to access health informa tion online - Detail Indication:Nonsmoker Start:08-Aug-2016 Instruction Type:Patient Education Patient Instructions Indication:Nonsmoker Start:08-Aug-2016 Instruction Type:Provider Instructions for Treatment How to access health informa tion online Indication:Nonsmoker Start:18-Jul-2016 Instruction Type:Patient Education How to access health informa tion online - Detail Indication:Nonsmoker Start:18-Jul-2016 Instruction Type:Patient Education Patient Instructions Indication:Nonsmoker Start:18-Jul-2016 Instruction Type:Provider Instructions for Treatment Patient Instructions Indication:Anxiety Start:11-Jun-2016 Instruction Type:Provider Instructions for Treatment How to access health informa tion online Indication:Palpitation Start:04-May-2016 Instruction Type:Patient Education How to access health informa tion online - Detail Indication:Palpitation Start:04-May-2016 Instruction Type:Patient Education Patient Instructions Indication:Palpitation Start:04-May-2016 Instruction Type:Provider Instructions for Treatment Patient Instructions Indication:Palpitation Start:30-Mar-2016 Instruction Type:Provider Instructions for Treatment How to access health informa tion online Indication:UTI symptoms Start:30-Jan-2016 Instruction Type:Patient Education How to access health informa tion online - Detail Indication:UTI symptoms Start:30-Jan-2016 Instruction Type:Patient Education Patient Instructions Indication:UTI symptoms Start:30-Jan-2016 Instruction Type:Provider Instructions for Treatment How to access health informa tion online Indication:Diarrhea Start:05-Dec-2015 Instruction Type:Patient Education How to access health informa tion online - Detail Indication:Diarrhea Start:05-Dec-2015 Instruction Type:Patient Education Patient Instructions Indication:Diarrhea Start:05-Dec-2015 Instruction Type:Provider Instructions for Treatment How to access health informa tion online Indication:Stomach ache Start:24-Oct-2015 Instruction Type:Patient Education How to access health informa tion online - Detail Indication:Stomach ache Start:24-Oct-2015 Instruction Type:Patient Education Patient Instructions Indication:Stomach ache Start:24-Oct-2015 Instruction Type:Provider Instructions for Treatment Patient Instructions Indication:Hypothyroidism Start:12-Sep-2015 Instruction Type:Provider Instructions for Treatment How to access health informa tion online Indication:Benign diastolic hypertension Start:15-Aug-2015 Instruction Type:Patient Education How to access health informa tion online - Detail Indication:Benign diastolic hypertension Start:15-Aug-2015 Instruction Type:Patient Education Patient Instructions Indication:Benign diastolic hypertension Start:15-Aug-2015 Instruction Type:Provider Instructions for Treatment How to access health informa tion online Indication:GERD (gastroesophageal reflux disease) Start:16-May-2015 Instruction Type:Patient Education How to access health informa tion online - Detail Indication:GERD (gastroesophageal reflux disease) Start:16-May-2015 Instruction Type:Patient Education Patient Instructions Indication:GERD (gastroesophageal reflux disease) Start:16-May-2015 Instruction Type:Provider Instructions for Treatment How to access health informa tion online Indication:Hypothyroidism Start:07-Feb-2015 Instruction Type:Patient Education How to access health informa tion online - Detail Indication:Hypothyroidism Start:07-Feb-2015 Instruction Type:Patient Education Patient Instructions Indication:Hypothyroidism Start:07-Feb-2015 Instruction Type:Provider Instructions for Treatment Patient Instructions Indication:Anxiety Start:27-Dec-2014 Instruction Type:Provider Instructions for Treatment How to access health informa tion online Indication:Palpitation Start:24-Nov-2014 Instruction Type:Patient Education How to access health informa tion online - Detail Indication:Palpitation Start:24-Nov-2014 Instruction Type:Patient Education Patient Instructions Indication:Palpitation Start:24-Nov-2014 Instruction Type:Provider Instructions for Treatment How to access health informa tion online Indication:Benign diastolic hypertension Start:21-Sep-2014 Instruction Type:Patient Education How to access health informa tion online - Detail Indication:Benign diastolic hypertension Start:21-Sep-2014 Instruction Type:Patient Education Name Dates Details How to Access Health Informa tion Online using Patient Portal and [employer]rd [employer] Apps Indication:Non-smoker Start:09-Sep-2020 Instruction Type:Patient Education Patient Instructions Indication:Non-smoker Start:09-Sep-2020 Instruction Type:Provider Instructions for Treatment Patient Instructions Indication:BMI 27.0-27.9,adult Start:15-Jun-2020 Instruction Type:Provider Instructions for Treatment How to Access Health Informa tion Online using Patient Portal and [employer]rd [employer] Apps Indication:BMI 27.0-27.9,adult Start:15-Jun-2020 Instruction Type:Patient Education How to access health informa tion online Indication:Cough Start:18-Jan-2020 Instruction Type:Patient Education How to access health informa tion online - Detail Indication:Cough Start:18-Jan-2020 Instruction Type:Patient Education Patient Instructions Indication:Cough Start:18-Jan-2020 Instruction Type:Provider Instructions for Treatment How to access health informa tion online Indication:Non-smoker Start:21-Jan-2019 Instruction Type:Patient Education How to access health informa tion online - Detail Indication:Non-smoker Start:21-Jan-2019 Instruction Type:Patient Education Patient Instructions Indication:Non-smoker Start:21-Jan-2019 Instruction Type:Provider Instructions for Treatment How to access health informa tion online Indication:Nonsmoker Start:03-Mar-2018 Instruction Type:Patient Education How to access health informa tion online - Detail Indication:Nonsmoker Start:03-Mar-2018 Instruction Type:Patient Education Patient Instructions Indication:Nonsmoker Start:03-Mar-2018 Instruction Type:Provider Instructions for Treatment How to access health informa tion online Indication:Nonsmoker Start:04-Dec-2017 Instruction Type:Patient Education How to access health informa tion online - Detail Indication:Nonsmoker Start:04-Dec-2017 Instruction Type:Patient Education Patient Instructions Indication:Nonsmoker Start:04-Dec-2017 Instruction Type:Provider Instructions for Treatment How to access health informa tion online Indication:Nonsmoker Start:01-Oct-2017 Instruction Type:Patient Education How to access health informa tion online - Detail Indication:Nonsmoker Start:01-Oct-2017 Instruction Type:Patient Education Patient Instructions Indication:Nonsmoker Start:01-Oct-2017 Instruction Type:Provider Instructions for Treatment How to access health informa tion online Indication:BMI 25.0-25.9,adult Start:26-Jun-2017 Instruction Type:Patient Education How to access health informa tion online - Detail Indication:BMI 25.0-25.9,adult Start:26-Jun-2017 Instruction Type:Patient Education Patient Instructions Indication:BMI 25.0-25.9,adult Start:26-Jun-2017 Instruction Type:Provider Instructions for Treatment How to access health informa tion online Indication:Nonsmoker Start:08-Aug-2016 Instruction Type:Patient Education How to access health informa tion online - Detail Indication:Nonsmoker Start:08-Aug-2016 Instruction Type:Patient Education Patient Instructions Indication:Nonsmoker Start:08-Aug-2016 Instruction Type:Provider Instructions for Treatment How to access health informa tion online Indication:Nonsmoker Start:18-Jul-2016 Instruction Type:Patient Education How to access health informa tion online - Detail Indication:Nonsmoker Start:18-Jul-2016 Instruction Type:Patient Education Patient Instructions Indication:Nonsmoker Start:18-Jul-2016 Instruction Type:Provider Instructions for Treatment Patient Instructions Indication:Anxiety Start:11-Jun-2016 Instruction Type:Provider Instructions for Treatment How to access health informa tion online Indication:Palpitation Start:04-May-2016 Instruction Type:Patient Education How to access health informa tion online - Detail Indication:Palpitation Start:04-May-2016 Instruction Type:Patient Education Patient Instructions Indication:Palpitation Start:04-May-2016 Instruction Type:Provider Instructions for Treatment Patient Instructions Indication:Palpitation Start:30-Mar-2016 Instruction Type:Provider Instructions for Treatment How to access health informa tion online Indication:UTI symptoms Start:30-Jan-2016 Instruction Type:Patient Education How to access health informa tion online - Detail Indication:UTI symptoms Start:30-Jan-2016 Instruction Type:Patient Education Patient Instructions Indication:UTI symptoms Start:30-Jan-2016 Instruction Type:Provider Instructions for Treatment How to access health informa tion online Indication:Diarrhea Start:05-Dec-2015 Instruction Type:Patient Education How to access health informa tion online - Detail Indication:Diarrhea Start:05-Dec-2015 Instruction Type:Patient Education Patient Instructions Indication:Diarrhea Start:05-Dec-2015 Instruction Type:Provider Instructions for Treatment How to access health informa tion online Indication:Stomach ache Start:24-Oct-2015 Instruction Type:Patient Education How to access health informa tion online - Detail Indication:Stomach ache Start:24-Oct-2015 Instruction Type:Patient Education Patient Instructions Indication:Stomach ache Start:24-Oct-2015 Instruction Type:Provider Instructions for Treatment Patient Instructions Indication:Hypothyroidism Start:12-Sep-2015 Instruction Type:Provider Instructions for Treatment How to access health informa tion online Indication:Benign diastolic hypertension Start:15-Aug-2015 Instruction Type:Patient Education How to access health informa tion online - Detail Indication:Benign diastolic hypertension Start:15-Aug-2015 Instruction Type:Patient Education Patient Instructions Indication:Benign diastolic hypertension Start:15-Aug-2015 Instruction Type:Provider Instructions for Treatment How to access health informa tion online Indication:GERD (gastroesophageal reflux disease) Start:16-May-2015 Instruction Type:Patient Education How to access health informa tion online - Detail Indication:GERD (gastroesophageal reflux disease) Start:16-May-2015 Instruction Type:Patient Education Patient Instructions Indication:GERD (gastroesophageal reflux disease) Start:16-May-2015 Instruction Type:Provider Instructions for Treatment How to access health informa tion online Indication:Hypothyroidism Start:07-Feb-2015 Instruction Type:Patient Education How to access health informa tion online - Detail Indication:Hypothyroidism Start:07-Feb-2015 Instruction Type:Patient Education Patient Instructions Indication:Hypothyroidism Start:07-Feb-2015 Instruction Type:Provider Instructions for Treatment Patient Instructions Indication:Anxiety Start:27-Dec-2014 Instruction Type:Provider Instructions for Treatment How to access health informa tion online Indication:Palpitation Start:24-Nov-2014 Instruction Type:Patient Education How to access health informa tion online - Detail Indication:Palpitation Start:24-Nov-2014 Instruction Type:Patient Education Patient Instructions Indication:Palpitation Start:24-Nov-2014 Instruction Type:Provider Instructions for Treatment How to access health informa tion online Indication:Benign diastolic hypertension Start:21-Sep-2014 Instruction Type:Patient Education How to access health informa tion online - Detail Indication:Benign diastolic hypertension Start:21-Sep-2014 Instruction Type:Patient Education Name Dates Details How to Access Health Informa tion Online using Patient Portal and [employer]rd [employer] Apps Indication:Non-smoker Start:09-Sep-2020 Instruction Type:Patient Education Patient Instructions Indication:Non-smoker Start:09-Sep-2020 Instruction Type:Provider Instructions for Treatment Patient Instructions Indication:BMI 27.0-27.9,adult Start:15-Jun-2020 Instruction Type:Provider Instructions for Treatment How to Access Health Informa tion Online using Patient Portal and [employer]rd [employer] Apps Indication:BMI 27.0-27.9,adult Start:15-Jun-2020 Instruction Type:Patient Education How to access health informa tion online Indication:Cough Start:18-Jan-2020 Instruction Type:Patient Education How to access health informa tion online - Detail Indication:Cough Start:18-Jan-2020 Instruction Type:Patient Education Patient Instructions Indication:Cough Start:18-Jan-2020 Instruction Type:Provider Instructions for Treatment How to access health informa tion online Indication:Non-smoker Start:21-Jan-2019 Instruction Type:Patient Education How to access health informa tion online - Detail Indication:Non-smoker Start:21-Jan-2019 Instruction Type:Patient Education Patient Instructions Indication:Non-smoker Start:21-Jan-2019 Instruction Type:Provider Instructions for Treatment How to access health informa tion online Indication:Nonsmoker Start:03-Mar-2018 Instruction Type:Patient Education How to access health informa tion online - Detail Indication:Nonsmoker Start:03-Mar-2018 Instruction Type:Patient Education Patient Instructions Indication:Nonsmoker Start:03-Mar-2018 Instruction Type:Provider Instructions for Treatment How to access health informa tion online Indication:Nonsmoker Start:04-Dec-2017 Instruction Type:Patient Education How to access health informa tion online - Detail Indication:Nonsmoker Start:04-Dec-2017 Instruction Type:Patient Education Patient Instructions Indication:Nonsmoker Start:04-Dec-2017 Instruction Type:Provider Instructions for Treatment How to access health informa tion online Indication:Nonsmoker Start:01-Oct-2017 Instruction Type:Patient Education How to access health informa tion online - Detail Indication:Nonsmoker Start:01-Oct-2017 Instruction Type:Patient Education Patient Instructions Indication:Nonsmoker Start:01-Oct-2017 Instruction Type:Provider Instructions for Treatment How to access health informa tion online Indication:BMI 25.0-25.9,adult Start:26-Jun-2017 Instruction Type:Patient Education How to access health informa tion online - Detail Indication:BMI 25.0-25.9,adult Start:26-Jun-2017 Instruction Type:Patient Education Patient Instructions Indication:BMI 25.0-25.9,adult Start:26-Jun-2017 Instruction Type:Provider Instructions for Treatment How to access health informa tion online Indication:Nonsmoker Start:08-Aug-2016 Instruction Type:Patient Education How to access health informa tion online - Detail Indication:Nonsmoker Start:08-Aug-2016 Instruction Type:Patient Education Patient Instructions Indication:Nonsmoker Start:08-Aug-2016 Instruction Type:Provider Instructions for Treatment How to access health informa tion online Indication:Nonsmoker Start:18-Jul-2016 Instruction Type:Patient Education How to access health informa tion online - Detail Indication:Nonsmoker Start:18-Jul-2016 Instruction Type:Patient Education Patient Instructions Indication:Nonsmoker Start:18-Jul-2016 Instruction Type:Provider Instructions for Treatment Patient Instructions Indication:Anxiety Start:11-Jun-2016 Instruction Type:Provider Instructions for Treatment How to access health informa tion online Indication:Palpitation Start:04-May-2016 Instruction Type:Patient Education How to access health informa tion online - Detail Indication:Palpitation Start:04-May-2016 Instruction Type:Patient Education Patient Instructions Indication:Palpitation Start:04-May-2016 Instruction Type:Provider Instructions for Treatment Patient Instructions Indication:Palpitation Start:30-Mar-2016 Instruction Type:Provider Instructions for Treatment How to access health informa tion online Indication:UTI symptoms Start:30-Jan-2016 Instruction Type:Patient Education How to access health informa tion online - Detail Indication:UTI symptoms Start:30-Jan-2016 Instruction Type:Patient Education Patient Instructions Indication:UTI symptoms Start:30-Jan-2016 Instruction Type:Provider Instructions for Treatment How to access health informa tion online Indication:Diarrhea Start:05-Dec-2015 Instruction Type:Patient Education How to access health informa tion online - Detail Indication:Diarrhea Start:05-Dec-2015 Instruction Type:Patient Education Patient Instructions Indication:Diarrhea Start:05-Dec-2015 Instruction Type:Provider Instructions for Treatment How to access health informa tion online Indication:Stomach ache Start:24-Oct-2015 Instruction Type:Patient Education How to access health informa tion online - Detail Indication:Stomach ache Start:24-Oct-2015 Instruction Type:Patient Education Patient Instructions Indication:Stomach ache Start:24-Oct-2015 Instruction Type:Provider Instructions for Treatment Patient Instructions Indication:Hypothyroidism Start:12-Sep-2015 Instruction Type:Provider Instructions for Treatment How to access health informa tion online Indication:Benign diastolic hypertension Start:15-Aug-2015 Instruction Type:Patient Education How to access health informa tion online - Detail Indication:Benign diastolic hypertension Start:15-Aug-2015 Instruction Type:Patient Education Patient Instructions Indication:Benign diastolic hypertension Start:15-Aug-2015 Instruction Type:Provider Instructions for Treatment How to access health informa tion online Indication:GERD (gastroesophageal reflux disease) Start:16-May-2015 Instruction Type:Patient Education How to access health informa tion online - Detail Indication:GERD (gastroesophageal reflux disease) Start:16-May-2015 Instruction Type:Patient Education Patient Instructions Indication:GERD (gastroesophageal reflux disease) Start:16-May-2015 Instruction Type:Provider Instructions for Treatment How to access health informa tion online Indication:Hypothyroidism Start:07-Feb-2015 Instruction Type:Patient Education How to access health informa tion online - Detail Indication:Hypothyroidism Start:07-Feb-2015 Instruction Type:Patient Education Patient Instructions Indication:Hypothyroidism Start:07-Feb-2015 Instruction Type:Provider Instructions for Treatment Patient Instructions Indication:Anxiety Start:27-Dec-2014 Instruction Type:Provider Instructions for Treatment How to access health informa tion online Indication:Palpitation Start:24-Nov-2014 Instruction Type:Patient Education How to access health informa tion online - Detail Indication:Palpitation Start:24-Nov-2014 Instruction Type:Patient Education Patient Instructions Indication:Palpitation Start:24-Nov-2014 Instruction Type:Provider Instructions for Treatment How to access health informa tion online Indication:Benign diastolic hypertension Start:21-Sep-2014 Instruction Type:Patient Education How to access health informa tion online - Detail Indication:Benign diastolic hypertension Start:21-Sep-2014 Instruction Type:Patient Education Name Dates Details How to Access Health Informa tion Online using Patient Portal and 3rd [employer] Apps Indication:Non-smoker Start:28-Sep-2020 Instruction Type:Patient Education Patient Instructions Indication:Non-smoker Start:28-Sep-2020 Instruction Type:Provider Instructions for Treatment How to Access Health Informa tion Online using Patient Portal and 3rd [employer] Apps Indication:Non-smoker Start:09-Sep-2020 Instruction Type:Patient Education Patient Instructions Indication:Non-smoker Start:09-Sep-2020 Instruction Type:Provider Instructions for Treatment Patient Instructions Indication:BMI 27.0-27.9,adult Start:15-Jun-2020 Instruction Type:Provider Instructions for Treatment How to Access Health Informa tion Online using Patient Portal and 3rd [employer] Apps Indication:BMI 27.0-27.9,adult Start:15-Jun-2020 Instruction Type:Patient Education How to access health informa tion online Indication:Cough Start:18-Jan-2020 Instruction Type:Patient Education How to access health informa tion online - Detail Indication:Cough Start:18-Jan-2020 Instruction Type:Patient Education Patient Instructions Indication:Cough Start:18-Jan-2020 Instruction Type:Provider Instructions for Treatment How to access health informa tion online Indication:Non-smoker Start:21-Jan-2019 Instruction Type:Patient Education How to access health informa tion online - Detail Indication:Non-smoker Start:21-Jan-2019 Instruction Type:Patient Education Patient Instructions Indication:Non-smoker Start:21-Jan-2019 Instruction Type:Provider Instructions for Treatment How to access health informa tion online Indication:Nonsmoker Start:03-Mar-2018 Instruction Type:Patient Education How to access health informa tion online - Detail Indication:Nonsmoker Start:03-Mar-2018 Instruction Type:Patient Education Patient Instructions Indication:Nonsmoker Start:03-Mar-2018 Instruction Type:Provider Instructions for Treatment How to access health informa tion online Indication:Nonsmoker Start:04-Dec-2017 Instruction Type:Patient Education How to access health informa tion online - Detail Indication:Nonsmoker Start:04-Dec-2017 Instruction Type:Patient Education Patient Instructions Indication:Nonsmoker Start:04-Dec-2017 Instruction Type:Provider Instructions for Treatment How to access health informa tion online Indication:Nonsmoker Start:01-Oct-2017 Instruction Type:Patient Education How to access health informa tion online - Detail Indication:Nonsmoker Start:01-Oct-2017 Instruction Type:Patient Education Patient Instructions Indication:Nonsmoker Start:01-Oct-2017 Instruction Type:Provider Instructions for Treatment How to access health informa tion online Indication:BMI 25.0-25.9,adult Start:26-Jun-2017 Instruction Type:Patient Education How to access health informa tion online - Detail Indication:BMI 25.0-25.9,adult Start:26-Jun-2017 Instruction Type:Patient Education Patient Instructions Indication:BMI 25.0-25.9,adult Start:26-Jun-2017 Instruction Type:Provider Instructions for Treatment How to access health informa tion online Indication:Nonsmoker Start:08-Aug-2016 Instruction Type:Patient Education How to access health informa tion online - Detail Indication:Nonsmoker Start:08-Aug-2016 Instruction Type:Patient Education Patient Instructions Indication:Nonsmoker Start:08-Aug-2016 Instruction Type:Provider Instructions for Treatment How to access health informa tion online Indication:Nonsmoker Start:18-Jul-2016 Instruction Type:Patient Education How to access health informa tion online - Detail Indication:Nonsmoker Start:18-Jul-2016 Instruction Type:Patient Education Patient Instructions Indication:Nonsmoker Start:18-Jul-2016 Instruction Type:Provider Instructions for Treatment Patient Instructions Indication:Anxiety Start:11-Jun-2016 Instruction Type:Provider Instructions for Treatment How to access health informa tion online Indication:Palpitation Start:04-May-2016 Instruction Type:Patient Education How to access health informa tion online - Detail Indication:Palpitation Start:04-May-2016 Instruction Type:Patient Education Patient Instructions Indication:Palpitation Start:04-May-2016 Instruction Type:Provider Instructions for Treatment Patient Instructions Indication:Palpitation Start:30-Mar-2016 Instruction Type:Provider Instructions for Treatment How to access health informa tion online Indication:UTI symptoms Start:30-Jan-2016 Instruction Type:Patient Education How to access health informa tion online - Detail Indication:UTI symptoms Start:30-Jan-2016 Instruction Type:Patient Education Patient Instructions Indication:UTI symptoms Start:30-Jan-2016 Instruction Type:Provider Instructions for Treatment How to access health informa tion online Indication:Diarrhea Start:05-Dec-2015 Instruction Type:Patient Education How to access health informa tion online - Detail Indication:Diarrhea Start:05-Dec-2015 Instruction Type:Patient Education Patient Instructions Indication:Diarrhea Start:05-Dec-2015 Instruction Type:Provider Instructions for Treatment How to access health informa tion online Indication:Stomach ache Start:24-Oct-2015 Instruction Type:Patient Education How to access health informa tion online - Detail Indication:Stomach ache Start:24-Oct-2015 Instruction Type:Patient Education Patient Instructions Indication:Stomach ache Start:24-Oct-2015 Instruction Type:Provider Instructions for Treatment Patient Instructions Indication:Hypothyroidism Start:12-Sep-2015 Instruction Type:Provider Instructions for Treatment How to access health informa tion online Indication:Benign diastolic hypertension Start:15-Aug-2015 Instruction Type:Patient Education How to access health informa tion online - Detail Indication:Benign diastolic hypertension Start:15-Aug-2015 Instruction Type:Patient Education Patient Instructions Indication:Benign diastolic hypertension Start:15-Aug-2015 Instruction Type:Provider Instructions for Treatment How to access health informa tion online Indication:GERD (gastroesophageal reflux disease) Start:16-May-2015 Instruction Type:Patient Education How to access health informa tion online - Detail Indication:GERD (gastroesophageal reflux disease) Start:16-May-2015 Instruction Type:Patient Education Patient Instructions Indication:GERD (gastroesophageal reflux disease) Start:16-May-2015 Instruction Type:Provider Instructions for Treatment How to access health informa tion online Indication:Hypothyroidism Start:07-Feb-2015 Instruction Type:Patient Education How to access health informa tion online - Detail Indication:Hypothyroidism Start:07-Feb-2015 Instruction Type:Patient Education Patient Instructions Indication:Hypothyroidism Start:07-Feb-2015 Instruction Type:Provider Instructions for Treatment Patient Instructions Indication:Anxiety Start:27-Dec-2014 Instruction Type:Provider Instructions for Treatment How to access health informa tion online Indication:Palpitation Start:24-Nov-2014 Instruction Type:Patient Education How to access health informa tion online - Detail Indication:Palpitation Start:24-Nov-2014 Instruction Type:Patient Education Patient Instructions Indication:Palpitation Start:24-Nov-2014 Instruction Type:Provider Instructions for Treatment How to access health informa tion online Indication:Benign diastolic hypertension Start:21-Sep-2014 Instruction Type:Patient Education How to access health informa tion online - Detail Indication:Benign diastolic hypertension Start:21-Sep-2014 Instruction Type:Patient Education Summary Purpose Advance Directives No Advanced Directives Records Found Advance Directive Response Recorded Date/ Time Living Will No September 17, 2020 9:15pm Power of Quarry Plug [employer] Fe[employer] Driller Yes September 17 9:15pm Chief Complaint and Reason for Visit Chief Complaint 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 Reason for Visit Encounter for routin e gynecological examination Chief Complaint Admit Date Annual (CONSTRUCTION PROJECT ASSISTANT) July 21, 2024 1 1:28am SCREENING July 21, 2024 1 1:45am POSTMENOPAUSAL November 05, 2024 3:15p m Reason for Visit Admit Date Encounter for routine gynecological exam ination July 21, 2024 11:28am Additional Source Comments INFORMATION SOURCE (unrecogn ized section and content) DATE CREATED AUTHOR 03/26/2022 [facility] DATE CREATED AUTHOR AUTHOR'S ORGANIZ ATION 05/29/2022 [facility] DATE CREATED AUTHOR AUTHOR'S ORGANIZ ATION 12/12/2024 [facility] Care Teams (unrecognized sec tion and content) Team Status: Active Member Role Status Dates Dr. Jodee Perez DO Family Provider Active Dr. Jodee Perez DO Primary Care Provider Active Team Status: Inactive Member Role Status Dates Dr. Jodee Perez DO Primary Care Provider, Referr ing Provider Active Stacie Dewitt VENDING ROUTE DRIVER, VENDING ROUTE DRIVER-C Attending Provider Active Team Status: Inactive Member Role Status Dates Dr. Jodee Perez DO Primary Care Provider Active Stacie Dewitt VENDING ROUTE DRIVER, VENDING ROUTE DRIVER-C Attending Provider, Referring Provider Active Team Status: Active Member Role Status Dates Dr. Jodee Perez DO Primary Care Provider Active Team Status: Inactive Member Role Status Dates Dr. Jodee Perez DO Primary Care Provider Active Start: July 21, 2024 End: July 21, 2024 Dr. Jodee Perez DO Referring Provider Active Start: July 21, 2024 End: July 21, 2024 Stacie Dewitt VENDING ROUTE DRIVER, VENDING ROUTE DRIVER-C Attending Provider Active Start: July 21, 2024 End: July 21, 2024 Team Status: Inactive Member Role Status Dates Dr. Jodee Perez DO Primary Care Provider Active Start: July 21, 2024 End: July 21, 2024 Stacie Dewitt VENDING ROUTE DRIVER, VENDING ROUTE DRIVER-C Attending Provider Active Start: July 21, 2024 End: July 21, 2024 Stacie Dewitt VENDING ROUTE DRIVER, VENDING ROUTE DRIVER-C Referring Provider Active Start: July 21, 2024 End: July 21, 2024 Team Status: Inactive Member Role Status Dates Dr. Jodee Perez DO Primary Care Provider Active Start: July 21, 2024 End: July 21, 2024 Stacie Dewitt VENDING ROUTE DRIVER, VENDING ROUTE DRIVER-C Attending Provider Active Start: July 21, 2024 End: July 21, 2024 Team Status: Inactive Member Role Status Dates Dr. Jodee Perez DO Primary Care Provider Active Start: November 05, 2024 End: November 05, 2024 Dr. Jodee Perez DO Attending Provider Active Start: November 05, 2024 End: November 05, 2024 Dr. Jodee Perez DO Referring Provider Active Start: November 05, 2024 End: November 05, 2024 Goals (unrecognized section and content) Goals may be documented in a n alternate sectionGoals may be documented in an alternate section FOR RECORDS PERTAINING TO PATIENTS WHO ARE OR HAVE BEEN ENROLLED IN A CHEMICAL DEPENDENCY/SUBSTANCEABUSE PROGRAM, SOME INFORMATION MAY BE OMITTED. This clinical summary was aggregated from multiple sources. Caution should be exercised in using it in the provision of clinical care. This summary normalizes information from multiple sources, and as a consequence, information in this document may materially change the coding, format and clinical context of patient data. In addition, data may be omitted in some cases. CLINICAL DECISIONS SHOULD BE BASED ON THE PRIMARY CLINICAL RECORDS. [facility]. provides no warranty or guarantee of the accuracy or completeness of information in this document.
[2025-01-01] MEDS: 0.9% Normal Saline (1000mL) 1,000 ML 999 ML IV (03:44)
[2025-01-01 03:51] LABS: Hematocrit 44.7 % (37-47); Hemoglobin 15.2 g/dL (12.0-15.0); Immature Granulocytes Count 0.020 X10^3/uL (0.0-0.0); Mean Corp Hgb Conc 34.0 g/dL (32-36); Mean Corpuscular Volume 86.3 fL (81-99); Mean Platelet Vol. 11.1 fl (6.2-12.0); NRBC Flagged by Analyzer 0 % (0-5); Platelet Count 215 K/mm3 (150-450); RBC Distribution Width CV 12.7 % (11.6-14.6); RBC Distribution Width SD 39.9 fl (35.1-43.9); Red Blood Count 5.18 M/mm3 (4.2-5.4); White Blood Count 9.2 K/mm3 (4.4-11.0)
--- NOTE | 2025-01-01 03:56 | CT_ITS ---
PROCEDURE: CTA CHEST W/WO CONTRAST 01/01/2025 REASON FOR EXAM: CHEST PAIN TECHNIQUE: CTA CHEST W/WO CONTRAST Multiplanar Sagittal and Coronal images were obtained. CONTRAST:VOLUME: mL One or more dose reduction techniques were used (e.g., Automated exposure control, adjustment of the mA and/or kV according to patient size, use of iterative reconstruction technique). RADIATION DOSE SUMMARY: CTDlvol:mGy DLP:mGycm COMPARISON: none # of known CTs in the past 12 months: # of known Cardiac Nuclear Medicine Studies in the past 12 months: FINDINGS: No evidence of any filling defect in the main pulmonary trunk, bilateral main pulmonary arteries, segmental arteries and subsegmental arteries to suggest acute or chronic pulmonary embolism. Patent thoracic aorta showing mild intimal irregularities and calcified atheromatous plaques. No intraluminal hypodense thrombi, dissecting intimal flaps or significant aneurysmal dilatation. No obvious cardiac abnormalities detected. Bilateral pulmonary atelectatic changes. No obvious pulmonary masses or consolidations. No pleural or pericardial sac collections. No pathologically enlarged lymph nodes are noted. Scanned osseous structures show no osseous destruction. Thoracic spondylosis. CT/CTA Chest W/WO Contrast IMPRESSION: No evidence of pulmonary arterial thromboembolism. Patent thoracic aorta. No intraluminal hypodense thrombi, dissecting intimal fl aps or significant aneurysmal dilatation. No obvious pulmonary masses or consolidations. Reading [facility]
[2025-01-01] MEDS: Lorazepam 2 MG/ML WCH Syringe 1 MG IV (04:09)
[2025-01-01 04:14] LABS: Magnesium 2.1 mg/dL (1.5-2.2)
[2025-01-01 04:30] LABS: Anion Gap 16 (5-15); BUN 15 mg/dL (4-19); BUN/Creat Ratio 16.0 RATIO (10-20); Calcium,Total 9.8 mg/dL (7.6-11.0); Carbon Dioxide 20.3 mmol/L (21.0-32.0); Chloride 99 mmol/L (98-108); Estimated Creatinine Clearance 56.59 ml/min (50-250); Glucose 111 mg/dL (70-99); Potassium 3.6 mmol/L (3.3-5.1); Troponin T High Sensitivity < 6 ng/L (<=14)
--- NOTE | 2025-01-01 05:21 | EX.ED.DYSGE1 ---
HPI History of Present Illness Chief Complaint: Palpitations Informant: patient and spouse/S.O. Narrative Narrative: Patient is a 64-year-old female with history of hypothyroidism as well as anxiety and depression. She states she got up this evening to use the bathroom and when she did so she felt sweaty and folic her heart was racing. She denies any history of of cardiac dysrhythmia. She states that she has been taking all of her medications as directed and denies any excessive stimulant use or illicit drug use. However because of the palpitation sensation there was concern this could be cardiovascular in nature and therefore she comes in for evaluation [facility] Medical History (Updated 01/05/25 @ 21:[address] Doug Chacko, DO) Hypothyroidism Home Medications ?Medication ?Instructions ?Recorded ?Last Taken ?Type levothyroxine 75 mcg tablet 75 mcg PO DAILY thyroid 03/29/16 Unknown History cholecalciferol (vitamin D3) 50 2,000 unit PO DAILY vitamin 05/25/19 Unknown History mcg (2,000 unit) capsule sertraline 50 mg tablet 25 mg PO DAILY mental health 07/04/21 Unknown History famotidine 20 mg tablet (Acid 20 mg PO BID PRN upset stomach 01/01/25 Unknown History Plasterer Rough (famotidine)) Allergy/AdvReac Type Severity Reaction Status Date / Time No Known Allergies Allergy Verified 01/01/25 02:50 Social History number of children: 2 current occupational status: employed current occupation: [employer] Smoking Status: Never smoker alcohol intake: current alcohol intake frequency: holidays/special occasions only substance use type: does not use caffeine: No what type of physical activity do you participate in: walking frequency: 1-2 times per week seatbelt use: always do you feel safe at home: Yes additional social history: [place] [employer] ROS ROS ED Constitutional Constitutional ED: Reports sweats; Denies chills or fever(s) Eyes Eyes: Denies blurry vision or change in vision ENT ENT ED: Denies sore throat Cardiovascular Cardiovascular: Reports palpitations and racing heartbeat Respiratory/Chest Respiratory/Chest: Denies cough or dyspnea Gastrointestinal Gastrointestinal: Denies abdominal pain, diarrhea, nausea or vomiting Musculoskeletal Musculoskeletal: Denies myalgias Integumentary Denies rash Neurologic Neurologic: Denies headache(s), paresthesias or weakness Psychiatric Psychiatric: Reports anxiety and depression Hematologic/Lymphatic Hematologic/Lymphatic: Denies easy bleeding or easy bruising EXAM Physical Exam Const Vital Signs: 01/01/25 02:54 01/01/25 02:58 01/01/25 03:00 Temperature 98.6 F Temperature Source Oral Pulse Rate 100 104 H 107 H Respiratory Rate 14 10 L 21 H Blood Pressure 158/97 H 158/94 H Blood Pressure Mean 117 113 Pulse Ox 100 99 100 Oxygen Delivery Method Room Air 01/01/25 03:15 01/01/25 03:30 01/01/25 03:45 Temperature Temperature Source Pulse Rate 94 84 Respiratory Rate 10 L 11 L Blood Pressure 160/83 H 156/90 H 139/72 H Blood Pressure Mean 103 110 90 Pulse Ox 100 100 Oxygen Delivery Method 01/01/25 03:45 01/01/25 04:00 01/01/25 04:00 Temperature Temperature Source Pulse Rate 77 99 Respiratory Rate 13 13 Blood Pressure 139/72 H 126/52 H 126/52 H Blood Pressure Mean 90 74 74 Pulse Ox 99 100 Oxygen Delivery Method Positive well nourished and well developed General Appearance ED: well developed; Negative for pallor HEENT HEENT Narrative: Normocephalic atraumatic Eyes PERRL and EOMs intact bilaterally General Eye ED: Negative for scleral icterus Neck supple Neck Narrative: No nuchal rigidity or meningeal signs Chest Wall palpation of chest normal Resp normal respiratory effort and clear to auscultation bilaterally Cardio regular rate and regular rhythm Rate: other Other Details: Regular rate and rhythm without murmurs rubs or gallops Radial and carotid pulses are equal and symmetric No ectopic beats noted GI normal to inspection, nondistended, normoactive bowel sounds, non-tender, non-distended and no masses Auscultation: normoactive bowel sounds Palpation: soft Extremity normal to inspection Extremity Narrative: No asymmetric edema no pitting edema negative Homans' sign bilaterally Neuro oriented x3, CN's II-XII intact bilaterally and no sensory deficits noted Sensorium / Orientation: alert Motor Exam: strength 5/5 throughout Psych Mood & Affect: anxious Skin no rashes or lesions noted General Skin Exam: Negative for jaundice or pallor MDM MDM MDM Narrative Medical decision making narrative: Patient arrived to ER hypertensive but otherwise with stable vitals. She reported sensation of heart racing/palpitations when she went to the bathroom. She did not have any history of cardiac dysrhythmia but differential diagnosis is for abnormal cardiac rhythm such as atrial fibrillation or a flutter versus ectopy such as PACs versus PVCs. Patient could also have derangement to her levothyroxine dose or acute kidney injury acute blood loss anemia or electrolyte abnormality. Basic labs are obtained and show no clinically significant finding. Troponin was less than 6 going against an acute coronary event. Patient was kept on the quality assurance monitor chassis and there was no obvious cardiac dysrhythmia noted. A CTA was obtained as well and there is no signs of PE or dissection. After receiving medication she had resolution of symptoms and improvement of vitals. Therefore at this time with negative workup and improvement of symptoms there is no need for further workup in the ER and she can follow with her doctor as an outpatient and is otherwise safe for discharge. History & Record Review Discussion w/independent historian: Patient and Significant other Lab Data Attestation: I reviewed the patient's lab results. Labs: Laboratory Results - last 24 hr 01/01/25 03:10 WBC 9.2 RBC 5.18 Hgb 15.2 H Hct 44.7 MCV 86.3 MCH 29.3 MCHC 34.0 RDW Std Deviation 39.9 RDW Coeff of Ihsan 12.7 Plt Count 215 MPV 11.1 Immature Gran % (Auto) 0.200 Neut % (Auto) 53.6 Lymph % (Auto) 38.5 [place] % (Auto) 6.5 Eos % (Auto) 1.0 Baso % (Auto) 0.2 Absolute Neuts (auto) 5.0 Absolute Lymphs (auto) 3.56 Nucleated RBC % 0 Sodium 135 Potassium 3.6 Chloride 99 Carbon Dioxide 20.3 L Anion Gap 16 H BUN 15 Creatinine 0.93 Estim Creat Clear Calc 56.59 Est GFR (MDRD) Non-Af 69 BUN/Creatinine Ratio 16.0 Glucose 111 H Calcium 9.8 Magnesium 2.1 Troponin T High Sens < 6 TSH 1.630 Radiography Diagnostic Testing: Clinical Impression(s) from Imaging Studies Chest CTA 01/01/25 03:56 IMPRESSION: No evidence of pulmonary arterial thromboembolism. Patent thoracic aorta. No intraluminal hypodense thrombi, dissecting intimal flaps or significant aneurysmal dilatation. No obvious pulmonary masses or consolidations. Reading [facility] Discharge Plan Triage Chief Complaint: Palpitations ED Provider: Doug Chacko Dx/Rx/DC Orders Clinical Impression: Palpitations, Hypothyroidism, Anxiety and depression Instructions: ED Palpitations Prescriptions: No Action cholecalciferol (vitamin D3) 2,000 unit capsule 2,000 unit PO DAILY levothyroxine 75 MCG tablet 75 mcg PO DAILY sertraline 50 mg tablet 25 mg PO DAILY famotidine [Acid Plasterer Rough (famotidine)] 20 mg tablet 20 mg PO BID PRN (Reason: upset stomach) Primary Care Provider: Jodee Little Referrals: Jodee Little DO [Primary Care Provider] - Activity Restrictions/Additional Instructions: Your workup today showed no sign of abnormal heart rhythm or heart damage or blood clot. Please follow-up with your family doctor to discuss potential Holter monitor to further assess for any abnormal heart rhythm or potential cardiology referral. Return to the ER should you have any further concerns Print Language: Chadian Disposition Disposition: Home, Self Care Discharge Date/Time: 01/01/25 05:32
== END 2025-01-01 05:32 | disposition home or self-care (01) ==
PROVIDERS: Emergency Provider Emergency Medicine; PCP Internal Medicine; Visit Provider Emergency Medicine
DX: R00.2 Palpitations (principal); F41.9 Anxiety disorder, unspecified; E03.9 Hypothyroidism, unspecified; F32.A Depression, unspecified; Z79.899 Other long term (current) drug therapy
CPT/HCPCS: 71275; 80048; 83735; 84443; 84484; 85025; 93005; 96361; 96374; 96376; 99282; Q9967; A4216